=== PATIENT | female | born 1950 | race Caucasian/White ===

== ENCOUNTER 2019-04-07 18:31 | Emergency (ER) | payer MEDICARE, OTHER ==
[~2019-04-07] VITALS: Ht 165 cm; Wt 101.8 kg
[2019-04-07] MEDS ORDERED: HYDR-3812 (18:47)
[2019-04-07] MEDS ORDERED: ATOR20TA66 (18:48)
[2019-04-07] MEDS ORDERED: AMLO5TAB9 (18:48)
[2019-04-07] MEDS ORDERED: ATEN50TA (18:48)
--- NOTE | 2019-04-07 19:25 | ED Head Injury ---
General Chief Complaint: Trauma-Non Activation Stated Complaint: FELL Nursing Triage Note: STATES SHE TRIPPED AND FELL YESTERDAY HITTING HER FACE. CONCERNED BECAUSE THE BACK OF HER HEAD HURTS. Source: patient Exam Limitations: no limitations History of Present Illness Date Seen by Provider: Apr 07, 2019 Time Seen by Provider: 19:22 Initial Comments To ER with reports of trip and fall at home yesterday, she tripped while walking up the stairs after her foot got caught on one of the stairs she fell forward landing nose first. She had a bloody nose temporarily but that has resolved. She now has an occipital headache. No anticoagulant use. No loss of consciousness at that time. Occurred: just prior to arrival Severity: moderate Method of Injury: fell Loss of Consciousness: no loss of consciousness Associated Systoms: Denies Symptoms Allergies and Home Medications Allergies Coded Allergies: No Known Drug Allergies (Unverified , 04/07/19) Patient Home Medication List Home Medication List Reviewed: Yes Review of Systems Review of Systems Constitutional: see HPI Eyes: No Symptoms Reported Ears, Nose, Mouth, Throat: no symptoms reported Respiratory: no symptoms reported Cardiovascular: no symptoms reported Genitourinary: no symptoms reported Musculoskeletal: no symptoms reported Skin: no symptoms reported Psychiatric/Neurological: No Symptoms Reported Endocrine: No Symptoms Reported Hematologic/Lymphatic: No Symptoms Reported Past U[place]-Frnhur-Bsthci Hx Patient Social History Alcohol Use: Rarely Uses Recreational Drug Use: No Smoking Status: Never a Smoker Recent Foreign Travel: No Contact w/Someone Who Travel: No Recent Infectious Disease Expo: No Recent Hopitalizations: No Past Medical History Surgeries: Yes Gallbladder, Tonsillectomy Respiratory: No Cardiac: Yes Hypertension Genitourinary: No Gastrointestinal: No Musculoskeletal: Yes Osteoporosis, Arthritis, Scoliosis Endocrine: No HEENT: No Cancer: No Psychosocial: No Integumentary: No Physical Exam Vital Signs Vital Signs - First Documented 04/07/19 18:41 Temp 37.0 Pulse 62 Resp 16 B/P (MAP) 136/75 (95) Pulse Ox 94 O2 Delivery Room Air Capillary Refill : Less Than 3 Seconds Height, Weight, BMI Height: '" Weight: lbs. oz. kg; 37.00 BMI Method: General Appearance: WD/WN, no apparent distress HEENT: PERRL/EOMI, normal ENT inspection, other (No septal hematoma no active or dried blood in either nostril or oropharynx. Extraocular muscles are intact. Tenderness to the bridge of the nose.) Neck: non-tender, full range of motion Respiratory: normal breath sounds, no respiratory distress, no accessory muscle use Extremities: normal range of motion, non-tender Psychiatric: alert, oriented x 3 Crainal Nerves: normal hearing, normal speech, PERRL Skin: normal color, warm/dry [place] Coma Score Best Eye Response: (4) Open Spontaneously Best Verbal Response: (5) Oriented Best Motor Response: (6) Obeys Commands [place] Total: 15 Progress/Results/Core Measures Results/Orders My Orders Orders - CEDRIC TIRADO APRN Ct Head/Cervical Spine Wo (04/07/19 19:02) Vital Signs/I&O 04/07/19 18:41 Temp 37.0 Pulse 62 Resp 16 B/P (MAP) 136/75 (95) Pulse Ox 94 O2 Delivery Room Air Blood Pressure Mean: 95 Departure Impression Primary Impression: Facial injury Additional Impression: Fall at home Disposition: 01 HOME, SELF-CARE Condition: Stable CEDRIC TIRADO APRN Apr 07, 2019 19:25
--- NOTE | 2019-04-07 19:47 | Diagnostic Imaging Report ---
PROCEDURE: CT head and CT cervical spine without contrast. TECHNIQUE: Multiple contiguous axial images were obtained through the brain and cervical spine without the use of intravenous contrast. Sagittal and coronal reformations through the cervical spine were then performed. Auto Exposure Controls were utilized during the CT exam to meet ALARA standards for radiation dose reduction. INDICATION: Fall. Tingling in the hand. COMPARISON: None. FINDINGS: CT HEAD: No intracranial hemorrhage, mass effect, hydrocephalus or extra-axial fluid collections. No CT evidence of a territorial infarction. Osseous structures are intact. The mastoids are clear. Chronic osteitis and mucosal thickening in the left maxillary sinus. CT cervical spine: Normal alignment. Vertebral body heights preserved. Mild to moderate diffuse degenerative endplate changes. No evidence of high-grade spinal canal narrowing on soft tissue windows. The visualized paravertebral soft tissues are unremarkable. The lung apices are clear. IMPRESSION: No acute intracranial or cervical spine CT findings. Dictated by: Dictated on workstation # [id number]
[2019-04-07 20:10] VITALS: BP 132/74
== END 2019-04-07 20:10 | disposition home or self-care (01) ==
LOC: ER 18:33
DX: S09.93XA Unspecified injury of face, initial encounter (principal); I10 Essential (primary) hypertension; R40.2142 Coma scale, eyes open, spontaneous, at arrival to emergency department; R40.2252 Coma scale, best verbal response, oriented, at arrival to emergency department; R40.2362 Coma scale, best motor response, obeys commands, at arrival to emergency department; Z90.89 Acquired absence of other organs; W01.10XA Fall on same level from slipping, tripping and stumbling with subsequent striking against unspecified object, initial encounter; Y92.009 Unspecified place in unspecified non-institutional (private) residence as the place of occurrence of the external cause
CPT/HCPCS: 70450; 72125

== ENCOUNTER 2021-11-25 15:41 | Emergency (ER) | payer MEDICARE, MEDICAID ==
[~2021-11-25] VITALS: Ht 165 cm; Wt 95.0 kg
[~2021-11-25 15:41] MED LIST: ACHD5005; AMLO-250; ATEN50TA; ATOR20TA66
[2021-11-25] MEDS ORDERED: TETANUS,DIPTH,PERTUSS P/F (BOOSTRIX) 0.5 ML VIAL IM ONE (16:00)
--- NOTE | 2021-11-25 16:34 | Diagnostic Imaging Report ---
Procedure: CT chest, abdomen, and pelvis without contrast. Technique: Multiple contiguous axial images were obtained through the chest, abdomen, and pelvis without the use of intravenous contrast. Auto Exposure Controls were utilized during the CT exam to meet ALARA standards for radiation dose reduction. Date: November 25, 2021. Indication: 71-year-old female, injury. Rib pain. Chest and abdominal pain. Comparison: None. Findings: There are linear opacities in the left lower lobe and left upper lobe consistent with mild atelectasis and/or scarring. There is also mild atelectasis and/or scarring in the right middle lobe and right lower lobe. There is no additional identified focal airspace consolidation. There is no pneumothorax. There is no pleural effusion. The central airways are patent. The heart is not enlarged. There is no pericardial effusion. There is no identified sizable mediastinal hematoma. There are atherosclerotic calcifications. There is no identified abnormally enlarged mediastinal or axillary lymph node meeting CT size criteria for adenopathy. There is a low-attenuation right thyroid nodule measuring 2.3 cm in size. Recommend nonemergent outpatient thyroid ultrasound for further assessment. The liver is unremarkable in size and contour. There is no identified abnormal fluid immediately adjacent to the liver. The gallbladder is surgically absent. There is no biliary ductal dilation. Limited noncontrast assessment of the pancreas is unremarkable. The spleen is normal in size. There is no abnormal fluid immediately adjacent to the spleen. The adrenal glands are unremarkable. Noncontrast assessment of the renal parenchyma is unremarkable. The urinary collecting systems are not distended. The urinary bladder is grossly unremarkable in appearance. There is diverticulosis without evidence of acute diverticulitis. The appendix is unremarkable. There is no free intraperitoneal air. There is no drainable fluid collection. There is no free pelvic fluid. There are atherosclerotic calcifications. There is no identified abnormally enlarged lymph node in the abdomen or pelvis meeting CT size criteria for adenopathy. There are multilevel degenerative changes of the spine. There is scoliosis. There is no identified acute fracture. Impression: 1. No identified acute abnormality at the level of the chest, abdomen or pelvis. 2. Incidental findings as above. Dictated by: Dictated on workstation # [id number]
--- NOTE | 2021-11-25 16:35 | Diagnostic Imaging Report ---
HISTORY: Left knee pain. TECHNIQUE: 3 views of the left knee. COMPARISON: None. FINDINGS: There are severe degenerative changes in the medial and patellofemoral compartments of the left knee with moderate degenerative change in the lateral compartment. There is a small left knee joint effusion. No acute fracture is seen. There is mild anterior soft tissue swelling. IMPRESSION: 1. Advanced degenerative change in the left knee with no acute fracture seen. 2. Small left knee joint effusion. Dictated by: Dictated on workstation # [id number]
--- NOTE | 2021-11-25 16:39 | Diagnostic Imaging Report ---
PROCEDURE: CT head, face, and cervical spine without contrast. TECHNIQUE: Multiple contiguous axial images were obtained through the head, neck, and facial bones without the use of intravenous contrast. Sagittal and coronal reformations through the cervical spine and facial bones were also performed. Auto Exposure Controls were utilized during the CT exam to meet ALARA standards for radiation dose reduction. INDICATION: Head, face, neck injury. Fall. Blood from nose and mouth. Laceration at the left eyebrow. COMPARISON: 04/07/2019. FINDINGS: CT head: The ventricles and cortical sulci are mildly prominent, likely from generalized parenchymal volume loss. There is no midline shift or mass effect. No acute intracranial hemorrhage is seen. There is no CT evidence of acute territorial ischemia. The calvarium appears intact. There is a moderate left frontal scalp hematoma measuring about 4.3 cm wide and 0.8 cm thick with associated laceration. CT face: The pterygoid plates are intact. The zygomatic arches are intact. The mandible is normal in alignment and appears intact. The maxillary sinuses demonstrate no acute fracture. There is marked wall thickening of the left maxillary sinus with significant mucosal thickening and fluid, consistent with an acute on chronic sinusitis. There is a fracture of the left lamina papyracea with fatty defect extending into the ethmoid sinuses. There is no evidence of extraocular muscle entrapment. This may also extend to the orbital floor, but without significant depression (image 34 series 607). The right orbit is intact. No nasal bone fracture is seen. There is left periorbital soft tissue swelling. CT cervical spine: Alignment of the cervical spine demonstrates no spondylolisthesis. There are moderate degenerative changes at C5-C6 and mild degenerative changes elsewhere in the cervical spine. There is bilateral facet arthropathy. This is more severe on the right. No acute fracture is seen. No bony fragments or hyperdense fluid collections are seen in the spinal canal. There is a right thyroid nodule measuring 2.5 cm. IMPRESSION: 1. No acute intracranial hemorrhage or calvarium fracture. 2. Fracture of the lamina papyracea of the medial left orbit, which may extend into the orbital floor. No evidence of muscular entrapment. 3. Acute on chronic left maxillary sinusitis. 4. Left periorbital edema with left frontal scalp hematoma. 5. Degenerative changes in the cervical spine with no acute fracture seen. 6. Right thyroid nodule, consider nonemergent ultrasound follow-up. Dictated by: Dictated on workstation # [id number]
--- NOTE | 2021-11-25 17:00 | ED Fall/Injury ---
General Chief Complaint: Head/Cervical Problems Stated Complaint: FALL Nursing Triage Note: PT TO ED BY EMS WITH C/O HEAD INJURY. EMS REPORTS PT TRIPPED, FELL, AND HIT HER HEAD [place] THE [place]. REPORTS PT HAD DRIED BLOOD IN NARES AND MOUTH. PT REPORTS SHE HAD HER ARMS WERE FULL CARRYING GIFTS AND BALLONS FOR A BIRTHDAY RE[employer] AND SHE TRIPPED OVER HER CANE. DENIES DIZZINESS OR LOC. 1 IN LAC NOTED ABOVE L EYEBROW, HEMATOMA NOTED TO L EYE. PT DENIES ANY CHANGES IN VISION. REPORTS RIB PAIN AND PAIN TO L KNEE. Source: patient, EMS Exam Limitations: no limitations History of Present Illness Date Seen by Provider: November 25, 2021 Time Seen by Provider: 15:42 Initial Comments This 71-year-old woman arrives to the emergency room via EMS after falling and suffering head injury at a local park. She was walking with her cane and holding balloons that were blowing in her face. She was trying to transfer the balloons to the other hand when she got tangled up in her cane and fell. She fell forward hitting her face on a hard surface. She also suffered minor injury to her left knee and left arm. She has significant abrasion to the left forehead that is oozing blood as well as hematoma of the superior periorbital region. She denies any vision changes such as diplopia or blurry vision. She did not lose consciousness. She has some mild epistaxis. She has some pain on the anterior and lateral chest wall beneath the left breast. No visible injury is seen here. Allergies and Home Medications Allergies Coded Allergies: No Known Drug Allergies (Unverified , 04/07/19) Patient Home Medication List Home Medication List Reviewed: Yes Amlodipine Besylate (Amlodipine Besylate) 5 Mg Tablet, (Reported) Entered as Reported by: RONALD PEÑA on 04/07/191847 Atenolol (Atenolol) 50 Mg Tablet, (Reported) Entered as Reported by: RONALD PEÑA on 04/07/191847 Atorvastatin Calcium (Atorvastatin Calcium) 20 Mg Tablet, (Reported) Entered as Reported by: RONALD PEÑA on 04/07/191847 Cefdinir (Cefdinir) 300 Mg Capsule, 300 MG PO BID Prescribed by: LENO TRIPLETT on 11/25/21 183 Hydrocodone Bit/Acetaminophen (Lortab 5 Mg Tablet) 1 Each Tablet, (Reported) Entered as Reported by: RONALD PEÑA on 04/07/19 1847 Review of Systems Review of Systems Constitutional: no symptoms reported Eyes: No Symptoms Reported Ears, Nose, Mouth, Throat: no symptoms reported Respiratory: no symptoms reported Cardiovascular: no symptoms reported Gastrointestinal: no symptoms reported Genitourinary: no symptoms reported : No Musculoskeletal: see HPI Skin: see HPI Psychiatric/Neurological: No Symptoms Reported Past Risbimq-Ppjxok-Oflvrx Hx Patient Social History Tobacco Use?: No Use of E-Cig and/or Vaping dev: No Substance use?: No Alcohol Use?: No Pt feels they are or have been: No Immunizations Up To Date Influenza Vaccine Up-to-Date: No; Not Current First/Initial COVID19 Vaccinat: 2020 Second COVID19 Vaccination Gnio: 2020 COVID19 Vaccine Bait Tier: MODERNAkash Past Medical History Surgery/Hospitalization HX: HTN Surgeries: Yes Gallbladder, Tonsillectomy Respiratory: No Cardiac: Yes Hypertension Reproductive Disorders: No Genitourinary: No Gastrointestinal: No Musculoskeletal: Yes Osteoporosis, Arthritis, Scoliosis Endocrine: No HEENT: No Cancer: No Psychosocial: No Integumentary: No Physical Exam Vital Signs Vital Signs - First Documented 11/25/21 15:44 Temp 36.4 Pulse 64 Resp 16 B/P (MAP) 159/90 (113) Pulse Ox 96 O2 Delivery Room Air Capillary Refill : Less Than 3 Seconds Height, Weight, BMI Height: '" Weight: lbs. oz. kg; 34.00 BMI Method: General Appearance: WD/WN, mild distress HEENT: PERRL/EOMI, other (Significant weeping abrasion above the left brow. Left periorbital swelling and ecchymosis suggestive of hematoma. Epistaxis with small amount of blood in the posterior pharynx. Tenderness over the brow and periorbital regions of the face on the left. No dental injury.) Neck: normal inspection, other (C-collar in place. No visible injury) Cardiovascular: regular rate, rhythm, no edema, no murmur Respiratory: lungs clear, normal breath sounds, no respiratory distress, no accessory muscle use, other (Left anterior and lateral chest tenderness beneath the left breast) Gastrointestinal: normal bowel sounds, non tender, soft Extremities: other (Minor bruising and abrasions to the left upper extremity. Tenderness to the left knee) Neurologic/Psychiatric: lathe turner II-XII nml as tested, no motor/sensory deficits, alert, normal mood/affect, oriented x 3 Skin: warm/dry, ecchymosis (Left face and left arm), other (Weeping abrasion on the left forehead) Progress/Results/Core Measures Results/Orders My Orders Orders - LENO LUO MD Knee, Left, 3 Views (11/25/21 15:58) Ct Head/Face/Cervical Wo (11/25/21 15:58) Ct Chest/Abdomen/Pelvis Wo (11/25/21 15:58) Dipht,Pertuss(Acell),Tet Adult (Boostrix (11/25/21 16:00) Ua Culture If Indicated (11/25/21 17:06) Oxymetazoline 0.05% Nasal Eva (Afrin 0. (11/25/21 21:00) Ceftriaxone (Rocephin) (11/25/21 17:30) Lidocaine 1% Inj 20 Ml (Xylocaine 1% Inj (11/25/21 17:30) Oxymetazoline 0.05% Nasal Eva (Afrin 0. (11/25/21 17:46) Medications Given in ED Current Medications Medications Dose Ordered Sig/Jeni Route Start Time Stop Time Status Last Admin Dose Admin Ceftriaxone Sodium 1,000 mg ONCE ONCE IM 11/25/21 17:30 11/25/21 17:31 DC 11/25/21 17:52 1,000 MG Diphtheria/ Tetanus/Acell Pertussis 0.5 ml ONCE ONCE IM 11/25/21 16:00 11/25/21 16:04 DC 11/25/21 17:51 0.5 ML Lidocaine HCl 2.1 ml ONCE ONCE INJ 11/25/21 17:30 11/25/21 17:31 DC 11/25/21 17:54 2.1 ML Vital Signs/I&O 11/25/21 15:44 Temp 36.4 Pulse 64 Resp 16 B/P (MAP) 159/90 (113) Pulse Ox 96 O2 Delivery Room Air Blood Pressure Mean: 113 Progress Progress Note : Progress Note Imaging studies revealed a left orbital fracture. This was discussed with Dr. Gupta. Because of the free air on the orbital side of this fracture, aggressive prophylactic antibiotic therapy was administered with an injection of Rocephin to be followed by Omnicef orally. Patient received a tetanus booster. Patient had a posterior nasal bleed and was occasionally coughing up some blood secondary to this posterior bleed. This was discussed with Dr. Gupta who advised against packing because of the fracture. As an alternative, Afrin was administered which seemed to help slow down bleeding. Bleeding was a minor issues at the time of discharge. See discharge instructions for further discussion. Incidental thyroid nodule was identified and patient was advised to follow-up closely with her PCP. Diagnostic Imaging Diagonstic Imaging: CT Plain Films/CT/US/NM/MRI: chest, abdomen, pelvis Comments NAME: KIESHA BARRETO [facility] REC#: [id number] PT STATUS: REG ER : 1950 PHYSICIAN: LENO LUO MD ADMIT DATE: 11/25/21/ER Signed Date of Exam:11/25/21 CT CHEST/ABDOMEN/PELVIS WO Procedure: CT chest, abdomen, and pelvis without contrast. Technique: Multiple contiguous axial images were obtained through the chest, abdomen, and pelvis without the use of intravenous contrast. Auto Exposure Controls were utilized during the CT exam to meet ALARA standards for radiation dose reduction. Date: November 25, 2021. Indication: 71-year-old female, injury. Rib pain. Chest and abdominal pain. Comparison: None. Findings: There are linear opacities in the left lower lobe and left upper lobe consistent with mild atelectasis and/or scarring. There is also mild atelectasis and/or scarring in the right middle lobe and right lower lobe. There is no additional identified focal airspace consolidation. There is no pneumothorax. There is no pleural effusion. The central airways are patent. The heart is not enlarged. There is no pericardial effusion. There is no identified sizable mediastinal hematoma. There are atherosclerotic calcifications. There is no identified abnormally enlarged mediastinal or axillary lymph node meeting CT size criteria for adenopathy. There is a low-attenuation right thyroid nodule measuring 2.3 cm in size. Recommend nonemergent outpatient thyroid ultrasound for further assessment. The liver is unremarkable in size and contour. There is no identified abnormal fluid immediately adjacent to the liver. The gallbladder is surgically absent. There is no biliary ductal dilation. Limited noncontrast assessment of the pancreas is unremarkable. The spleen is normal in size. There is no abnormal fluid immediately adjacent to the spleen. The adrenal glands are unremarkable. Noncontrast assessment of the renal parenchyma is unremarkable. The urinary collecting systems are not distended. The urinary bladder is grossly unremarkable in appearance. There is diverticulosis without evidence of acute diverticulitis. The appendix is unremarkable. There is no free intraperitoneal air. There is no drainable fluid collection. There is no free pelvic fluid. There are atherosclerotic calcifications. There is no identified abnormally enlarged lymph node in the abdomen or pelvis meeting CT size criteria for adenopathy. There are multilevel degenerative changes of the spine. There is scoliosis. There is no identified acute fracture. Impression: 1. No identified acute abnormality at the level of the chest, abdomen or pelvis. 2. Incidental findings as above. Dictated by: Dictated on workstation # [id number] Dict: 11/25/21 1624 Trans: 11/25/211652 [facility] [id number] Interpreted by: MERLE ROY MD Electronically signed by: MERLE ROY MD 11/25/21 3713 Reviewed: Reviewed by Me Diagonstic Imaging: CT Plain Films/CT/US/NM/MRI: facial bones, c-spine, head Comments CT head, C-spine, and facial bones viewed by me and report reviewed. See report below: NAME: KIESHA BARRETO [facility] REC#: [id number] PT STATUS: REG ER : 1950 PHYSICIAN: LENO LUO MD ADMIT DATE: 11/25/21/ER Signed Date of Exam:11/25/21 CT HEAD/FACE/CERVICAL WO PROCEDURE: CT head, face, and cervical spine without contrast. TECHNIQUE: Multiple contiguous axial images were obtained through the head, neck, and facial bones without the use of intravenous contrast. Sagittal and coronal reformations through the cervical spine and facial bones were also performed. Auto Exposure Controls were utilized during the CT exam to meet ALARA standards for radiation dose reduction. INDICATION: Head, face, neck injury. Fall. Blood from nose and mouth. Laceration at the left eyebrow. COMPARISON: 04/07/2019. FINDINGS: CT head: The ventricles and cortical sulci are mildly prominent, likely from generalized parenchymal volume loss. There is no midline shift or mass effect. No acute intracranial hemorrhage is seen. There is no CT evidence of acute territorial ischemia. The calvarium appears intact. There is a moderate left frontal scalp hematoma measuring about 4.3 cm wide and 0.8 cm thick with associated laceration. CT face: The pterygoid plates are intact. The zygomatic arches are intact. The mandible is normal in alignment and appears intact. The maxillary sinuses demonstrate no acute fracture. There is marked wall thickening of the left maxillary sinus with significant mucosal thickening and fluid, consistent with an acute on chronic sinusitis. There is a fracture of the left lamina papyracea with fatty defect extending into the ethmoid sinuses. There is no evidence of extraocular muscle entrapment. This may also extend to the orbital floor, but without significant depression (image 34 series 607). The right orbit is intact. No nasal bone fracture is seen. There is left periorbital soft tissue swelling. CT cervical spine: Alignment of the cervical spine demonstrates no spondylolisthesis. There are moderate degenerative changes at C5-C6 and mild degenerative changes elsewhere in the cervical spine. There is bilateral facet arthropathy. This is more severe on the right. No acute fracture is seen. No bony fragments or hyperdense fluid collections are seen in the spinal canal. There is a right thyroid nodule measuring 2.5 cm. IMPRESSION: 1. No acute intracranial hemorrhage or calvarium fracture. 2. Fracture of the lamina papyracea of the medial left orbit, which may extend into the orbital floor. No evidence of muscular entrapment. 3. Acute on chronic left maxillary sinusitis. 4. Left periorbital edema with left frontal scalp hematoma. 5. Degenerative changes in the cervical spine with no acute fracture seen. 6. Right thyroid nodule, consider nonemergent ultrasound follow-up. Dictated by: Dictated on workstation # [id number] Dict: 11/25/21 1623 Trans: 11/25/211652 [facility] [id number] Interpreted by: MAYRA HOLGUIN MD Electronically signed by: MAYRA HOLGUIN MD 11/25/21 2389 Diagonstic Imaging: Xray Plain Films/CT/US/NM/MRI: knee Comments NAME: KIESHA BARRETO [facility] REC#: [id number] PT STATUS: REG ER : 1950 PHYSICIAN: LENO LUO MD ADMIT DATE: 11/25/21/ER Signed Date of Exam:11/25/21 KNEE, LEFT, 3 VIEWS HISTORY: Left knee pain. TECHNIQUE: 3 views of the left knee. COMPARISON: None. FINDINGS: There are severe degenerative changes in the medial and patellofemoral compartments of the left knee with moderate degenerative change in the lateral compartment. There is a small left knee joint effusion. No acute fracture is seen. There is mild anterior soft tissue swelling. IMPRESSION: 1. Advanced degenerative change in the left knee with no acute fracture seen. 2. Small left knee joint effusion. Dictated by: Dictated on workstation # [id number] Dict: 11/25/21 1631 Trans: 11/25/21 1653 [facility] [id number] Interpreted by: MAYRA HOLGUIN MD Electronically signed by: MAYRA HOLGUIN MD 11/25/21 1653 Reviewed: Reviewed by Me Departure Impression Primary Impression: Left orbit fracture Qualified Codes: S02.85XA - Fracture of orbit, unspecified, initial encounter for closed fracture Additional Impressions: Thyroid nodule Sinusitis Qualified Codes: J01.90 - Acute sinusitis, unspecified Facial abrasion Qualified Codes: S00.81XA - Abrasion of other part of head, initial encounter Fall on same level Qualified Codes: W18.30XA - Fall on same level, unspecified, initial encounter Epistaxis Facial hematoma Qualified Codes: S00.83XA - Contusion of other part of head, initial encounter Disposition: 01 HOME, SELF-CARE Condition: Improved Departure-Patient Inst. Decision time for Depature: 18:24 Referrals: KALA RODRIGUEZ MD (PCP/Family) Primary Care Physician VINCENT GUPTA DDS Patient Instructions: Facial Fracture, Thyroid Nodules Add. Discharge Instructions: Start your antibiotics tomorrow and complete the entire course. If you have continued nasal bleeding, you may use Afrin 2 sprays in each side twice daily for up to 3 days. You may apply gentle pinching pressure over the nose as well to help control bleeding. Expect some degree of nasal bleeding for 1 to 2 days. Try to avoid disrupting any clots forming in your nose by blowing your nose, rubbing your nose, etc. If bleeding is worsening and not responding to these measures, please return to the emergency room. You may shower when you return home to wash off your abrasions. Try not to scrub directly over the wounds, just allow soapy water to run over the area. You may apply gentle pressure and blot dry to help control bleeding. You may apply antibiotic ointment and a dressing if desired. The antibiotic ointment will help prevent dressing from sticking to the wound. If dressing does stick to the wound, simply moistened with tap water until it comes loose. Follow-up with Dr. Gupta this week for reexamination and a checkup. Please call his office tomorrow morning to schedule an appointment time. His contact information is below. If you develop worsening symptoms that include fever, escalating pain, double vision, vomiting, confusion, other vision changes, weakness or numbness of the body part, or other significant changes, please return to the emergency room promptly. You may use Tylenol (acetaminophen) up to 1000 mg every 6 hours as needed for pain. Add ibuprofen up to 600 mg every 6 hours as needed for additional pain relief. Applying ice in 20-minute intervals may help reduce pain and swelling. You have a hematoma on your forehead and around your eye. Blood from this hematoma will fiore into the surrounding skin and other tissues causing significant discoloration that may spread for up to 2 to 3 weeks. Do not be alarmed if the appearance of the skin worsens in this way during that time. Call with questions or concerns and return to the ER if you have any other significant medical concerns. There is incidental finding of a thyroid nodule on your CT scan. Please discuss this with your primary care provider in the near future. Follow-up ultrasound should be ordered and obtained to evaluate further. This can be done through your primary care provider's office. All discharge instructions reviewed with patient and/or family. Voiced understanding. Scripts Cefdinir (Cefdinir) 300 Mg Capsule 300 MG PO BID, #20 CAP Prov: LENO LUO MD 11/25/21 Copy Copies To 1: BARBARA MORALES V DO; KALA RODRIGUEZ MD Copies To 2: VINCENT GUPTA DDS, JOSHUA T MD November 25, 2021 17:00
[2021-11-25] MEDS ORDERED: cefTRIAXone 1,000 MG VIAL IM ONE (17:30)
[2021-11-25] MEDS ORDERED: LIDOCAINE 1% INJ 20 ML VIAL INJ ONE (17:30)
[2021-11-25] MEDS ORDERED: OXYMETAZOLINE (AFRIN) 0.05% NA 30 ML BTL ONE (17:46)
[2021-11-25] MEDS ORDERED: CEFD300C3 PO (18:34)
[2021-11-25 18:53] VITALS: BP 152/96
[2021-11-25] MEDS ORDERED: OXYMETAZOLINE (AFRIN) 0.05% NA 30 ML BTL SCH (21:00)
== END 2021-11-25 19:05 | disposition home or self-care (01) ==
LOC: EDUNIT# 15:41 → ER 15:42
DX: S02.32XA Fracture of orbital floor, left side, initial encounter for closed fracture (principal); S40.022A Contusion of left upper arm, initial encounter; R04.0 Epistaxis; J01.90 Acute sinusitis, unspecified; E04.1 Nontoxic single thyroid nodule; R07.89 Other chest pain; Z23 Encounter for immunization; W01.198A Fall on same level from slipping, tripping and stumbling with subsequent striking against other object, initial encounter; Y92.830 Public park as the place of occurrence of the external cause
CPT/HCPCS: 70450; 70486; 71250; 72125; 73562; 74176; 90715

== ENCOUNTER → 2021-12-24 | Outpatient (CLI) | payer MEDICARE, MEDICAID ==
[~2021-12-24] VITALS: Ht 165.1 cm; Wt 101.4 kg
[~2021-12-24] MED LIST changes: +CEFD300C3 PO; +LIDOCAINE 1% INJ 20 ML VIAL INJ ONE
--- NOTE | 2021-12-24 14:50 | Diagnostic Imaging Report ---
INDICATION: Right lobe thyroid nodule. PROCEDURE: The patient presents for ultrasound-guided fine needle aspiration and biopsy. The patient was brought to the procedure room and placed on a bed in the supine position. Ultrasound imaging of the right neck was performed to evaluate appropriate entry site. Right neck was then prepped and draped in the usual sterile fashion. A small amount of 1% lidocaine was utilized for local anesthesia. A total of 4 passes were made into the dominant solid nodule right lobe of the thyroid utilizing 25-gauge needles and fine-needle aspiration technique. A single pass was made with a Rotex needle and a Rotex biopsy was performed. Hemostasis was obtained. The patient tolerated the procedure well and left the department in stable condition. IMPRESSION: Successful right lobe thyroid nodule fine needle aspiration and Rotex biopsy. Pathology results are currently pending. Dictated by: Dictated on workstation # [id number]
== END ==
LOC: RAD 13:00
PROVIDERS: ATTEND Pediatrics
DX: E04.1 Nontoxic single thyroid nodule (principal)
CPT/HCPCS: 10005

== ENCOUNTER → 2023-01-03 | Outpatient (CLI) | payer MEDICARE, MEDICAID ==
[~2023-01-03] MED LIST changes: -LIDOCAINE 1% INJ 20 ML VIAL INJ ONE
== END ==
LOC: CARD 13:37
PROVIDERS: ATTEND Pediatrics
DX: I08.1 Rheumatic disorders of both mitral and tricuspid valves (principal)
CPT/HCPCS: 93306

== ENCOUNTER → 2023-02-06 | Outpatient (CLI) | payer MEDICARE, MEDICAID ==
--- NOTE | 2023-02-06 15:47 | Diagnostic Imaging Report ---
EXAMINATION: Lumbosacral spine, four views. HISTORY: Back pain. COMPARISON: None available. FINDINGS: There is dextroscoliosis of the lumbar spine. There is right lateral listhesis of L2 on L3 and L3 on L4. There is severe disc height loss at L2-L3 and L3-L4. There is severe disc height loss at L1-L2. No acute fracture is seen. There is anterolisthesis of L4 on L5 with flexion and retrolisthesis of L3 on L4 with flexion. There is no listhesis in the neutral or extension positions. IMPRESSION: Severe degenerative disease with anterolisthesis of L4 on L5 and retrolisthesis of L3 on L4, only in flexion. Dictated by: Dictated on workstation # [id number]
--- NOTE | 2023-02-06 16:39 | Diagnostic Imaging Report ---
PROCEDURE: MRI lumbar spine without contrast. TECHNIQUE: Multiplanar, multisequence MRI of the lumbar spine was performed without contrast. INDICATION: Low back pain with right leg radiculopathy. COMPARISON: Radiographs performed the same date. FINDINGS: 5 lumbar type vertebral bodies are visualized with the last well-formed disc space designated L5-S1. No acute fracture or dislocation is seen in the lumbar spine. There is right convexity curvature of the lumbar spine with right lateral subluxation of L3 on L4. Modic type II endplate degenerative changes are present at the L2-L3 level with Modic type I endplate degenerative changes at L1-L2 and L3-L4. Vertebral body heights are well-maintained. No suspicious focal osseous lesions. Evaluation of the conus and nerve roots of the cauda equina is suboptimal, with the axial images essentially nondiagnostic. Based on the sagittal and coronal images, no obvious mass is seen. No epidural collections are identified. Multilevel degenerative changes are seen in the lumbar spine with disc bulges, facet hypertrophy, and buckling of the ligamentum flavum. There is severe spinal canal stenosis at the L3-L4 and L4-L5 levels with severe bilateral foraminal stenosis at L3-L4 and severe right and moderate left foraminal stenosis at L4-L5. Paravertebral soft tissues are unremarkable. IMPRESSION: 1. No acute fracture or dislocation in the lumbar spine. 2. Multilevel degenerative changes in the lumbar spine, greatest at L3-L4 and L4-L5. 3. Modic type I endplate degenerative changes at L1-L2 and L3-L4 with Modic type II endplate degenerative changes at L2-L3. 4. Right convexity curvature of the lumbar spine with right lateral subluxation of L3 on L4. Dictated by: Dictated on workstation # [id number]
== END ==
LOC: RAD 14:06
PROVIDERS: ATTEND Pain Medicine Interventional Pain Medicine
DX: M48.062 Spinal stenosis, lumbar region with neurogenic claudication (principal); M47.816 Spondylosis without myelopathy or radiculopathy, lumbar region; S33.130A Subluxation of L3/L4 lumbar vertebra, initial encounter
CPT/HCPCS: 72110; 72148

== ENCOUNTER → 2023-03-17 | Outpatient (CLI) | payer MEDICARE, MEDICAID ==
[~2023-03-17] MED LIST changes: +CATHETER FLUSH 10 ML SYR IVP PRN; +REGADENOSON 0.4 MG/5 ML SYR IV ONE
[2023-03-17 09:32] VITALS: BP 185/109
--- NOTE | 2023-03-17 11:54 | Cardiology Stress Test Report ---
Stress Test Report Date of Procedure/Referring: Date of Procedure: Mar 17, 2023 PCP Barbara Valdez DO Admitting Physician Admitting Physician: Attending Physician: Barbara Valdez DO Baseline Heart Rate: 76 Baseline Blood Pressure: Blood Pressure Systolic: 185 Blood Pressure Diastolic: 109 Baseline Vitals Vital Signs Date Time Temp Pulse Resp B/P (MAP) Pulse Ox O2 Delivery O2 Flow Rate FiO2 03/17/23 09:32 74 185/109 (134) Baseline EKG: Baseline EKG: NSR Summary After explaining the procedure to the patient, she signed a consent and then brought to the stress nuclear laboratory. Patient received 0.4 mg Lexiscan for stress test, ECG, heart rate and blood pressure were monitored continuously. Resting and stress dose of radio tracer were injected, imaging was acquired and reviewed in short axis, horizontal long axis and vertical long axis views. TID: 0.83 SSS: 4 SDS: 4 EF: 58 Patient tolerated Lexiscan well No significant ischemia or infarction noted on SPECT images Normal left ventricular size, ejection fraction 58% Copy Copies To 1: BARBARA VALDEZ BASHAR J MD Mar 17, 2023 11:54
== END ==
LOC: CARD 07:51
PROVIDERS: ATTEND Pediatrics
DX: Z01.818 Encounter for other preprocedural examination (principal)
CPT/HCPCS: 78452; 93017; A9502

== ENCOUNTER 2023-04-10 11:49 | Outpatient (RCR) | payer MEDICARE, MEDICAID ==
--- NOTE | 2023-04-09 09:32 | Physical Therapy Pre-Op Eval ---
PT Pre-Surgical Assessment Type of Surgery Type of Surgery: Prior Level of Function Current Living Status: Alone Locomotion (Upon Admit): Straight Cane Distance: Unlimited PLOF DME: Straight Cane Subjective Subjective Patient reports right knee pain for a few years. Reports she lives alone and that is concerning to her as she will have to rely on people to come assist her when possible. Home: Single Level Current Living Status: Alone Entry Into Home: Stairs With Railing Steps Into Home: 6 Motor Control Motor Control: Motor Control WNL ROM ROM: WFL, except focal deficit Strength Strength: Gen Weak,No Focal Deficit Transfers Transfers (B, C, W/C) (FIM): 6 Gait Gait (FIM): 6 Gait Distance (FIM): 6 Distance: 150' Gait Assistive Device: FWW Right Lower Extremity: Right Full Weight Bearing Left Lower Extremity: Left Full Weight Bearing Treatment Rendered Treatment: Patient instructed in assistive device, supported ambulation. Patient instructed in and given written program of ROM and strengthening exercises to be preformed post-op. Patient instructed in movement precautions where applicable. Patient demonstrates understandings of post-operative therapy protocol including gait pattern and exercise program. Pre-operative instruction completed; await physical therapy orders after surgery. Treatment Goal Met: Yes Assessment Goals Acheived: I Ambulation w/ FWW, Understands P-op Precaut, I Post-op Exercises Charges/GCodes Time In: 900 Time Out: 917 Total Billed Treatment Time: 17 Total Billed Treatment Visit, ERNESTINE CARMONA PT Apr 09, 2023 09:32
[2023-04-09 09:48] VITALS: BP 110/62
[~2023-04-10] VITALS: Ht 165.1 cm; Wt 96.0 kg
[~2023-04-10 11:49] MED LIST changes: +ACET325C7 PO; +ALBU0.63 IH; +ATEN25TA PO; -CATHETER FLUSH 10 ML SYR IVP PRN; +CELE100C PO; +CETI10CA PO; +CHOL20003 PO; +DICL20GE TP; +GBPN600T PO; +LIDO1ADH66 TP; +MIRA50TA PO; +MULT-1036 PO; -REGADENOSON 0.4 MG/5 ML SYR IV ONE; +TR1C15 TP; +TRAZ-227 PO; +ZINC220C9 PO
[2023-04-10 15:19] LABS: BACTERIA,URINE LARGE /HPF; BILIRUBIN,URINE NEGATIVE (NEGATIVE); CLARITY,URINE CLEAR; COLOR,URINE YELLOW; GLUCOSE, URINE (UA) NEGATIVE (NEGATIVE); KETONES,URINE NEGATIVE (NEGATIVE); LEUKOCYTE ESTERASE ,URINE 1+ (NEGATIVE); NITRITE,URINE NEGATIVE (NEGATIVE); PROTEIN,URINE NEGATIVE (NEGATIVE); RBC,URINE 0-2 /HPF
[2023-04-16] MEDS ORDERED: VILO100C PO (15:06)
[2023-04-16] MEDS ORDERED: MULT-1036 PO (15:06)
[2023-04-16] MEDS ORDERED: LIDO1ADH66 TP (15:06)
[2023-04-16] MEDS ORDERED: CETI10CA PO (15:06)
[2023-04-16] MEDS ORDERED: CELE100C85 PO (15:06)
[2023-04-16] MEDS ORDERED: TR1C15 TP (15:06)
[2023-04-16] MEDS ORDERED: TRAZ-227 PO ×2 (15:06→15:57)
[2023-04-16] MEDS ORDERED: AMLO-250 PO (15:06)
[2023-04-16] MEDS ORDERED: ZINC220C9 PO (15:06)
[2023-04-16] MEDS ORDERED: ATOR20TA66 PO ×2 (15:06→15:57)
[2023-04-16] MEDS ORDERED: ALBU8.5H6 IH (15:06)
[2023-04-16] MEDS ORDERED: GBPN600T PO (15:06)
[2023-04-16] MEDS ORDERED: CELE400C16 PO (15:57)
[2023-04-16] MEDS ORDERED: OXYC1TAB11 PO (15:58)
[2023-04-16] MEDS ORDERED: TRAM50TA3 PO (16:01)
[2023-04-16] MEDS ORDERED: ACET-2267 PO (16:01)
== END 2023-05-06 | disposition home or self-care (01) ==
LOC: PREOP 11:49
PROVIDERS: ATTEND Orthopaedic Surgery
DX: Z01.818 Encounter for other preprocedural examination (principal); M17.11 Unilateral primary osteoarthritis, right knee
CPT/HCPCS: 81000; 87077; 87088; 87186

== ENCOUNTER 2023-04-16 05:50 | Inpatient (IN) | payer MEDICARE, MEDICAID ==
--- NOTE | 2023-04-09 09:02 | HISTORY AND PHYSICAL ---
DATE OF SERVICE: 04/16/2023 This will be for inpatient admission on 04/09/2023 for right total knee arthroplasty. HISTORY OF PRESENT ILLNESS: The patient is a 73-year-old female with longstanding right knee pain. She has undergone treatment with injections with only temporary relief of her symptoms. She reports she has reached the point where it is not helping anymore. She does have a history of sciatica, but reports her primary complaint is her knee. She describes a dull aching pain on the medial aspect of her knee. She reports anterior knee pain. She reports difficulty with rising from a seated position. Radiographs reveal severe medial and patellofemoral arthrosis. Due to functional impairment and failure to improve with conservative measures, the patient elected to proceed with surgical intervention. REVIEW OF SYSTEMS: No chest pain. No shortness of breath. No dysuria. PAST MEDICAL HISTORY: Back pain, hyperlipidemia, hypertension, insomnia, osteoarthritis, ADHD, lumbar radiculopathy. PAST SURGICAL HISTORY: Cataracts, cholecystectomy, hysterectomy, thyroid biopsy. FAMILY HISTORY: Noncontributory. PRIMARY CARE PROVIDER: Dr. Valdez at [facility]. MEDICATIONS: Zyrtec, Zinc, Voltaren, melatonin, gabapentin, atomoxetine, atorvastatin, amlodipine, Celebrex, atenolol, trazodone, Myrbetriq. ALLERGIES: WELLBUTRIN. SOCIAL HISTORY: The patient is a former smoker. Denies alcohol use. PHYSICAL EXAMINATION: GENERAL: The patient is well-developed, well-nourished, in no acute distress. HEENT: Normocephalic, atraumatic. Pupils equal, round, reactive to light. Oropharynx is clear. NECK: Supple. No lymphadenopathy. LUNGS: Clear to auscultation bilaterally. HEART: Regular rate and rhythm. ABDOMEN: Soft, nontender, nondistended. EXTREMITIES: The right knee demonstrates varus alignment. She is tender along her medial femoral condyle. She has pain medially with Ray's. No varus or valgus laxity. Negative anterior and posterior drawer. Range of motion of 0/3/120. IMPRESSION: Severe right knee osteoarthritis. PLAN: Right total knee arthroplasty. The risks, benefits, options, ramifications and recovery have been discussed at length with the patient. She understands and wishes to proceed. The patient will require regular inpatient admission due to comorbidities, need for physical therapy and pain management. Job ID: [id number] DocumentID: [id number] Dictated Date: 03/31/2023 10:07:44 Braille Teacher Date: 03/31/2023 14:43:00 Dictated By: KALEIGH ARTHUR MD
[2023-04-09 09:51] LABS: BASOPHILS % (AUTO) 0 % (0-10); EOSINOPHILS # (AUTO) 0.1 10^3/uL (0.0-0.3); EOSINOPHILS % (AUTO) 1 % (0-10); HEMATOCRIT 42 % (35-52); HEMOGLOBIN 14.2 g/dL (11.5-16.0); LYMPHOCYTES # (AUTO) 1.3 10^3/uL (1.0-4.0); LYMPHOCYTES % (AUTO) 17 % (12-44); MEAN CORPUSCULAR HEMOGLOBIN 31 pg (25-34); MEAN CORPUSCULAR HGB CONC 34 g/dL (32-36); MEAN CORPUSCULAR VOLUME 90 fL (80-99); MEAN PLATELET VOLUME 9.9 fL (9.0-12.2); MONOCYTES # (AUTO) 0.7 10^3/uL (0.0-1.0); MONOCYTES % (AUTO) 9 % (0-12); NEUTROPHILS # (AUTO) 5.3 10^3/uL (1.8-7.8); NEUTROPHILS % (AUTO) 72 % (42-75); PLATELET COUNT 200 10^3/uL (130-400); WHITE BLOOD COUNT 7.3 10^3/uL (4.3-11.0)
[2023-04-09 10:03] LABS: PROTHROMBIN TIME PATIENT 13.6 SEC (12.2-14.7)
[2023-04-09 10:14] LABS: ALBUMIN 3.7 GM/DL (3.2-4.5); BILIRUBIN,TOTAL 0.8 MG/DL (0.1-1.0); CALCIUM 8.8 MG/DL (8.5-10.1); CREATININE SERUM 0.82 MG/DL (0.60-1.30); POTASSIUM 3.6 MMOL/L (3.6-5.0); TOTAL PROTEIN 6.7 GM/DL (6.4-8.2)
--- NOTE | 2023-04-09 11:38 | Diagnostic Imaging Report ---
INDICATION: Preoperative evaluation prior to knee replacement. COMPARISON: None FINDINGS: Frontal and lateral views of the chest demonstrate normal heart size and pulmonary vascularity. The lungs are clear. There are no signs of infiltrate, pleural effusions or pneumothoraces. The visualized osseous structures show no acute abnormalities. IMPRESSION: 1. No acute process. No signs of infiltrates, effusions or pneumothoraces. Dictated by: Dictated on workstation # [id number]
[~2023-04-16] VITALS: Ht 165.1 cm; Wt 108.0 kg
[2023-04-16] VITALS (12 sets, daily range): BP systolic 91–137; BP diastolic 67–95
--- OUTSIDE RECORDS SUMMARY | 2023-04-16 05:54 | XMS REPORT ---
Author Author [facility] ter of [facility] ter of [facility] Address Unknown Phone Unavailable Care Team Providers Care Ore Crusher Name Role Phone ANTONIO Gonsalez Unavailable PROBLEMS Type Condition ICD9-CM Code QVP74-[id number] Code Onset Dates Condition Status W/U Status Risk SNOMED Code Notes Problem Osteoarthriti s, unspecified osteoarthriti s type, unspecified site M19.90 confirmed 176393043 Problem Bilateral primary osteoarthriti s of knee M17.0 confirmed 480763700 Problem Mixed hyperlipidemi a E78.2 confirmed 505130544 Problem Morbid (severe) obesity due to excess calories E66.01 confirmed 973167042 Problem OAB (overactive bladder) N32.81 confirmed 866915553 Problem 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 confirmed 0739512673 54357 Problem Neuropathy G62.9 confirmed 521310536 Problem Essential hypertension I10 confirmed 81636108 Problem Abnormality of gait R26.9 confirmed 50502445 Problem Primary osteoarthriti s of right knee M17.11 confirmed 4427547468 56765 Problem 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 Code:[address]- 07) visual hallucinations Drug Allergy Active ENCOUNTERS from 1950 to 2023-04-12 Encounter Location Date Provider Diagnosis [facility] [id number] [place] [address] Apr, ANTONIO Gonsalez Neuroma D36.10 IMMUNIZATIONS Vaccine Route Administration Date Status PRIVATE HIGH DOSE FLU 22-23 (FLUZONE HD) AGE 65YRS AND UP IM Intramuscular Apr 25, 2022 Administer ed 1st Booster MODERNA COVID-19 , mRNA, 0.25mL Unknown October 09, 2021 Administered 2nd Dose HRSA MODERNA, COVID -19, 0.5mL IM Intramuscular October 12, 2020 Administered 1st Dose HRSA MODERNA, COVID -19, 0.5mL IM Intramuscular September 14, 2020 Administered COVID-19 Moderna (history) Unknown October 24, 2021 Administered tdap (history) Unknown November 25, 2021 Administered 1st Booster MODERNA Bivalent , COVID-19, 0.5mL IM Intramuscular May 29, 2022 Administered PRIVATE FLUZONE HIGH DOSE 0. 5ML (65 and UP) 2019 IM Intramuscular Jun 28, 2019 Administered PRIVATE SHINGRIX (HERPES ZOS TER-2 DOSE) IM Intramuscular Aug 22, 2022 Administered PRIVATE SHINGRIX (HERPES ZOS TER-2 DOSE) IM Intramuscular Jun 13, 2022 Administered SOCIAL HISTORY Sex Assigned At : Social History Observation Description Sex Assigned At Unknown Alcohol Screen (Audit-C) Question Answer Notes Did you have a drink containing alcohol in the p ast year? No Points 0 Interpretation Negative Sexual History Question Answer Notes Had sex in the past 12 months (vaginal, oral, or anal)? Yes Last menstrual period 2008 Have you ever had a Sexually transmitted disease ? No with Men only Use protection? No PHQ2 Question Answer Notes In the last 2 weeks, how oft en have you had little interest or pleasure in doing things? Not at all In the last 2 weeks, how oft en have you been feeling down, depressed, or hopeless? Not at all Total PHQ2 Score 0 Tobacco use other than smoking: Question Answer Notes Are you an other tobacco user? No REASON FOR REFERRAL No Information VITAL SIGNS Height 65.6 in Apr, Height-cm 166.62 cm Apr, Weight 234 lbs Apr, Weight-kg 106.14 kg Apr, Temperature 97.8 degrees Fahrenheit Apr, Heart Rate 80 bpm Apr, Respiratory Rate 20 bpm Apr, BMI 38.23 kg/m2 Apr, Blood pressure systolic 132 mmHg Apr, Blood pressure diastolic 80 mmHg Apr, MEDICATIONS Medication SIG (Take, Route, Frequency, Duration) Notes Start Date End Date Status Zinc 50 MG 1 tablet Orally Once a day Active Gabapentin 600 MG 1 capsule Orally 3 times a day for 90 days Active Triamcinolone Acetonide 0.1 % 1 application Externally Twice a day for 10 days PRN Apr, Active Vitamin D3 50 MCG (2000 UT) 1 capsule Orally Once a day Active Celecoxib 100 MG TAKE 1 CAPSULE BY MOUTH TWICE DAILY WITH FOOD for 90 Not-Taking Calcium 1200 1623-6247 MG-UNIT 1 tablet Orally Once a day Active Albuterol Sulfate HFA 108 (90 Base) MCG/ACT 1 puff as needed Inhalation every 4-6 hours as needed for 30 days prn Aug, Active Biotin 5000 MCG 1 tablet Acti ve amLODIPine Besylate 5 MG Take 1 tablet by mouth once daily for 90 Active Shingrix 50 MCG/0.5ML 0.5 ml` Intramuscular Now and in greater than 60 days for 1 days Jun, Not-Taking Voltaren 1 % apply 4 grams to knees and hips Transdermal 4 times a day for 7 days NEEDS SAMPLE Not-Taking Multi For Her 50+ - as directed Orally Active traZODone HCl 100 mg 2 tablets Orally at night as needed for sleep for 90 days Active Naproxen 500 MG 1 tablet with food or milk as needed Orally every 12 hrs Active Lidoderm 5 % 1 patch remove after 12 hours Externally Once a day for 90 days prn November, Active Tylenol 500 mg 1 tablet as needed Orally PRN PRN Active Myrbetriq 50 MG Take 1 tablet by mouth once daily for 90 Active Qelbree 100 MG 1 capsule in morning for one week then take 2 capsules every morning Orally Once a day for 90 days Active Atorvastatin Calcium 20 MG Take 1 tablet by mouth once daily for 100 Active Atenolol 25 MG Take 1 tablet by mouth once daily for 90 days Active Vitamin C 500 MG as directed Orally PRN Active Doxycycline Hyclate 100 mg 1 capsule Orally Twice a day for 10 day(s) Aug, Not-Taking ZyrTEC Allergy 10 mg 1 tablet Orally Onc e a day for 90 Active REASON FOR VISIT 2 mo f/u --jose g mendes MEDICAL (GENERAL) HISTORY Type Description Date Medical History HTN Medical History arthritis Medical History spinal stenosis Medical History Vitamin D deficiency Medical History Covid Medical History Mixed hyperlipidemia Medical History Osteoarthritis, unsp ecified osteoarthritis type, unspecified site Medical History OAB (overactive bladder) Medical History Lumbar radiculopathy Medical History Insomnia Medical History Thyroid nodule Medical History ADHD (attention defi cit hyperactivity disorder), combined type Surgical History gallbladder 2001 Surgical History tonsillectomy Surgical History Right eye cateracts 12/24 Surgical History Left eye Cateract Surgery 01/24 20 Surgical History biopsy on thyroid nodule 2 Hospitalization History surgeries MENTAL STATUS No Information ASSESSMENTS Encounter Date Diagnosis Assessment Notes Treatment Notes Treatment Clinical Notes Apr, Neuroma (ICD-10 - 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 I would like the pt to consider utilizing a metatarsal pad as well as appropriate arch support on a consistent basis. The Achilles tendon stretches are also important to do consistently. Apr, Other This progres s note was scribed by Rianna Crow MA under the direct supervision of Dr. Eisenberg who directed the entire visit and performed the physical exam. PLAN OF TREATMENT Medication Medication Name Sig Start Date Stop Date Qelbree 100 MG 1 capsule in morning for one week then take 2 capsules every morning Orally Once a day for 90 days traZODone HCl 100 mg 2 tablets Orally at night as needed for sleep for 90 days Treatment Notes Assessment Notes Clinical Notes Neuroma Various treatment op tions were discussed with the pt today. I would like the pt to consider utilizing a metatarsal pad as well as appropriate arch support on a consistent basis. The Achilles tendon stretches are also important to do consistently. Next Appt Details prn Reason: Provider Name:BARBARA MORALES, 2023-05-26 03:20:00 PM, [address], [id number], [place], [address], Provider Name:GATITO BARLOW, 2023-07-17 03:20:00 PM, [address], [id number], [place], [address], Insurance Providers Payer Name Payer Address Payer Phone Insured Name Patient Relationship to Insured Coverage Start Date Coverage End Date Subscriber Number Group Number [place] [address] [place] [id number] Shakira Li Self - patient is the insured [id number] AARP Medicare Advantage Choice Plan 2 (PPO) [address] [address] [facility] [address] Shakira Li Self - patient is the insured 2 [id number] [employer] MEDICARE Part A [address] [place] [address] Shakira Li Self - patient is the insured [id number] [employer] [address] [place] [address] Shakira Li Self - patient is the insured [id number] [employer] [address] ATTN DENTAL CLAIMS [facility] [id number] Shakira Li Self - patient is the insured [id number]
--- OUTSIDE RECORDS SUMMARY | 2023-04-16 05:54 | XMS REPORT ---
Author Author [facility] ter of [facility] ter of [facility] Address Unknown Phone Unavailable Care Team Providers Care Airplane Pilot Helper Name Role Phone DERICK MONTIEL Unavailable PROBLEMS Type Condition ICD9-CM Code NSS97-OX Code Onset Dates Condition Status W/U Status Risk SNOMED Code Notes Problem Osteoarthriti s, unspecified osteoarthriti s type, unspecified site M19.90 confirmed 808095933 Problem Bilateral primary osteoarthriti s of knee M17.0 confirmed 534578202 Problem Mixed hyperlipidemi a E78.2 confirmed 626837847 Problem Morbid (severe) obesity due to excess calories E66.01 confirmed 160066918 Problem OAB (overactive bladder) N32.81 confirmed 029734732 Problem 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 confirmed 3576968627 16199 Problem Neuropathy G62.9 confirmed 224199955 Problem Essential hypertension I10 confirmed 04578805 Problem Abnormality of gait R26.9 confirmed 83299635 Problem Primary osteoarthriti s of right knee M17.11 confirmed 0333985169 38135 Problem 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 confirmed 59406888 Problem Lumbar radiculopathy M54.16 confirmed 356318525 Problem Insomnia G47.00 confirmed 424202818 Problem Moderate asthma with exacerbation, unspecified whether persistent J45.901 confirmed 008237420 Problem ADHD (attention deficit hyperactivity disorder), combined type F90.2 confirmed 269651901 Problem Thyroid nodule E04.1 confirmed 153572131 ALLERGIES Allergen (clinical drug ingredient) Drug/Non Drug Allergy documented on EMR Reaction Allergy Type Onset Date Status bupropion Wellbutrin XL([facility] Code:[address]- 07) visual hallucinations Drug Allergy Active ENCOUNTERS from 1950 to 2023-03-04 Encounter Location Date Provider Diagnosis [facility] [id number] [place] [address] 13 Mar, 2021 DERICK MONTIEL Major depressive disorder, recurrent, moderate F33.1 and Attn-defct hyperactivity disorder, 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 5ML (65 and UP) 2018 IM Intramuscular Jun 28, 2019 Administered tdap (history) Unknown November 25, 2021 Administered COVID-19 Moderna (history) Unknown October 24, 2021 Administered 2nd Dose HRSA MODERNA, COVID -19, 0.5mL IM Intramuscular October 12, 2020 Administered 1st Booster MODERNA COVID-19 , mRNA, 0.25mL Unknown October 09, 2021 Administered 1st Dose HRSA MODERNA, COVID -19, 0.5mL IM Intramuscular September 14, 2020 Administered PRIVATE HIGH DOSE FLU 22-23 (FLUZONE HD) AGE 65YRS AND UP IM Intramuscular Apr 25, 2022 Administer ed 1st Booster MODERNA Bivalent , COVID-19, 0.5mL IM Intramuscular May 29, 2022 Administered PRIVATE SHINGRIX (HERPES ZOS TER-2 [...] user? No REASON FOR REFERRAL No Information MEDICATIONS Medication SIG (Take, Route, Frequency, Duration) Notes Start Date End Date Status Zinc 50 MG 1 tablet Orally Once a day Active Atomoxetine HCl 80 MG 1 capsule in the morning Orally Once a day TAKING UNTIL NEW MED IS APPROVED WITH INSURANCE Not-Taking Doxycycline Hyclate 100 mg 1 capsule Orally Twice a day for 10 day(s) Aug, Not-Taking Qelbree 100 MG 1 capsule in morning for one week then take 2 capsules every morning Orally Once a day for 90 days Dec, Active Atenolol 25 MG Take 1 tablet by mouth once daily for 90 days Active Atorvastatin Calcium 20 MG Take 1 tablet by mouth once daily for 100 Active amLODIPine Besylate 5 MG Take 1 tablet by mouth once daily for 90 Active ZyrTEC Allergy 10 mg 1 tablet Orally Once a day for 90 Active Albuterol Sulfate HFA 108 (90 Base) MCG/ACT 1 puff as needed Inhalation every 4-6 hours as needed for 30 days prn Aug, Active Tylenol 500 mg 1 tablet as needed Orally PRN PRN Active Triamcinolone Acetonide 0.1 % 1 application Externally Twice a day for 10 days PRN Apr, Active Lidoderm 5 % 1 patch remove after 12 hours Externally Once a day for 90 days prn November, Active Voltaren 1 % apply 4 grams to knees and hips Transdermal 4 times a day for 7 days NEEDS SAMPLE Not-Taking Vitamin C 500 MG as directed Orally PRN Active Calcium 1200 3061-5707 MG-UNIT 1 tablet Orally Once a day Active Celecoxib 100 MG TAKE 1 CAPSULE BY MOUTH TWICE DAILY WITH FOOD for 90 Not-Taking Vitamin D3 50 MCG (2000 UT) 1 capsule Orally Once a day Active traZODone HCl 100 mg 2 tablets Orally at night as needed for sleep for 90 days Active Gabapentin 600 MG 1 capsule Orally 3 times a day for 90 days Active Shingrix 50 MCG/0.5ML 0.5 ml` Intramuscular Now and in greater than 60 days for 1 days Jun, Not-Taking Multi For Her 50+ - as directed Orally Active Myrbetriq 50 MG Take 1 tablet by mouth once daily for 90 Active Biotin 5000 MCG 1 tablet Acti ve REASON FOR VISIT BH Intake MEDICAL (GENERAL) HISTORY Type Description Date Medical [...] 20 Surgical History biopsy on thyroid nodule Hospitalization History surgeries MENTAL STATUS No Information ASSESSMENTS Encounter Date Diagnosis Assessment Notes Treatment Notes Treatment Clinical Notes Mar, Attn-defct hyperactivity disorder, predom inattentive type (ICD-10 - F90.0) Mar, Major depressive disorder, recurrent, moderate (ICD-10 - F33.1) PLAN OF TREATMENT Medication Medication Name Sig Start Date Stop Date Atenolol 25 MG Take 1 tablet by mouth once daily for 9 0 days Next Appt Details Next Available Reason: F/U Provider Name:GATITO BARLOW, 2023-03-25 01:20:00 PM, [address], [id number], [place], [address], Provider Name:BARBARA MORALES, 2023-05-26 03:20:00 PM, [address], [id number], [place], [address], Follow Up:Next Available F/U Insurance Providers Payer Name Payer Address Payer Phone Insured Name Patient Relationship to Insured Coverage Start Date Coverage End Date Subscriber Number Group Number [employer] [address] [facility] [id number] Shakira Li Self - patient is the insured [id number] [facility] Medicare Advantage Choice Plan 2 (PPO) [address] [address] [facility] [id number] [phone] Shakira Li Self - patient is the insured 2 [id number] [facility] MEDICARE Part A [address] [place] [id number] Shakira Li Self - patient is the insured [id number] [employer] [address] ATTN DENTAL CLAIMS [facility] [id number] Shakira Li Self - patient is the insured [id number] MEDICAID OF [place] [address] [facility] [id number] [phone] Shakira Li Self - patient is the insured [id number]
--- OUTSIDE RECORDS SUMMARY | 2023-04-16 05:54 | XMS REPORT ---
Author Author [facility] ter of [facility] ter of [facility] Address Unknown Phone Unavailable Care Team Providers Care Civil Cad Tech Name Role Phone DERICK MONTIEL Unavailable PROBLEMS Type Condition ICD9-CM Code [id number] Code Onset Dates Condition Status W/U Status Risk SNOMED Code Notes Problem Osteoarthriti s, unspecified osteoarthriti s type, unspecified site M19.90 confirmed 056690392 Problem Bilateral primary osteoarthriti s of knee M17.0 confirmed 787955951 Problem Mixed hyperlipidemi a E78.2 confirmed 935971407 Problem Morbid (severe) obesity due to excess calories E66.01 confirmed 308083365 Problem OAB (overactive bladder) N32.81 confirmed 824931221 Problem 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 confirmed 9108987631 74480 Problem Neuropathy G62.9 confirmed 132616665 Problem Essential hypertension I10 confirmed 91860127 Problem Abnormality of gait R26.9 confirmed 73628586 Problem Primary osteoarthriti s of right knee M17.11 confirmed 3309749395 93800 Problem 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 confirmed 98860675 Problem Lumbar radiculopathy M54.16 confirmed 208901913 Problem Insomnia G47.00 confirmed 514335343 Problem Moderate asthma with exacerbation, unspecified whether persistent J45.901 confirmed 201292430 Problem ADHD (attention deficit hyperactivity disorder), combined type F90.2 confirmed 423489669 Problem Thyroid nodule E04.1 confirmed 174291821 ALLERGIES Allergen (clinical drug ingredient) Drug/Non Drug Allergy documented on EMR Reaction Allergy Type Onset Date Status bupropion Wellbutrin XL(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 IMMUNIZATIONS Vaccine Route Administration Date Status 1st Booster MODERNA COVID-19 , mRNA, 0.25mL Unknown October 09, 2021 Administered PRIVATE SHINGRIX (HERPES ZOS TER-2 DOSE) IM Intramuscular Jun 13, 2022 Administered PRIVATE HIGH DOSE FLU 22-23 (FLUZONE HD) AGE 65YRS AND UP IM Intramuscular Apr 25, 2022 Administer ed 1st Booster MODERNA Bivalent , COVID-19, 0.5mL IM Intramuscular May 29, 2022 Administered 2nd Dose HRSA MODERNA, COVID -19, 0.5mL IM Intramuscular October 12, 2020 Administered COVID-19 Moderna (history) Unknown October 24, 2021 Administered 1st Dose HRSA MODERNA, COVID -19, 0.5mL IM Intramuscular September 14, 2020 Administered tdap (history) Unknown November 25, 2021 Administered PRIVATE FLUZONE HIGH DOSE 0. 5ML (65 and UP) 2019 IM Intramuscular Jun 28, 2019 Administered PRIVATE SHINGRIX (HERPES ZOS TER-2 DOSE) IM Intramuscular Aug 22, 2022 Administered SOCIAL HISTORY Sex Assigned At [...] WITH FOOD for 90 Not-Taking Calcium 1200 0712-9929 MG-UNIT 1 tablet Orally Once a day [...] day for 90 Active REASON FOR VISIT f/u MEDICAL (GENERAL) HISTORY Type Description Date Medical [...] Notes Treatment Notes Treatment Clinical Notes Apr, Attn-defct hyperactivity disorder, predom inattentive type (ICD-10 - F90.0) Apr, Major depressive disorder, recurrent, moderate (ICD-10 - F33.1) PLAN OF TREATMENT Medication Medication Name Sig Start Date Stop Date Qelbree 100 MG 1 capsule in morning for one week then take 2 capsules every morning Orally Once a day for 90 days traZODone HCl 100 mg 2 tablets Orally at night as needed for sleep for 90 days Next Appt Details Next available Reason: F/U Provider Name:BARBARA MORALES, 2023-05-26 03:20:00 PM, [address] [facility], [id number], [place], [address], Provider Name:GATITO BARLOW, 2023-07-17 03:20:00 PM, [address] [facility], [id number], [place], [address], Follow Up:Next available F/U Insurance Providers Payer Name Payer Address Payer Phone Insured Name Patient Relationship to Insured Coverage Start Date Coverage End Date Subscriber Number Group Number [employer] [address] ATTN DENTAL CLAIMS [facility] [id number] [phone] Shakira Li Self - patient is the insured [id number] [employer] [address] [facility] [address] Shakira Li Self - patient is the insured [id number] MEDICAID OF [place] [address] [facility] [address] Shakira Li Self - patient is the insured [id number] [place] MEDICARE Part A [address] [place] [phone] Shakira Li Self - patient is the insured [id number] AARP Medicare Advantage Choice Plan 2 (PPO) [address] [address] [facility] [address] Shakira Li Self - patient is the insured 2 [id number]
--- OUTSIDE RECORDS SUMMARY | 2023-04-16 05:55 | XMS REPORT ---
Author Author [facility] ter of [facility] ter of [facility] Address Unknown Phone Unavailable Care Team Providers Care Tv News Director Name Role Phone KALA RODRIGUEZ Unavailable PROBLEMS Type Condition ICD9-CM Code ZAQ15-[id number] Code Onset Dates Condition Status W/U Status Risk SNOMED Code Notes Problem Osteoarthriti s, unspecified osteoarthriti s type, unspecified site M19.90 confirmed 436131727 Problem Bilateral primary osteoarthriti s of knee M17.0 confirmed 796549383 Problem Mixed hyperlipidemi a E78.2 confirmed 390938065 Problem Morbid (severe) obesity due to excess calories E66.01 confirmed 129706341 Problem OAB (overactive bladder) N32.81 confirmed 001997494 Problem 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 confirmed 6558392856 94279 Problem Neuropathy G62.9 confirmed 098060627 Problem Essential hypertension I10 confirmed 17408378 Problem Abnormality of gait R26.9 confirmed 06817973 Problem Primary osteoarthriti s of right knee M17.11 confirmed 0071258141 78754 Problem 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 confirmed 23533657 Problem Lumbar radiculopathy M54.16 confirmed 995491688 Problem Insomnia G47.00 confirmed 946859199 Problem Moderate asthma with exacerbation, unspecified whether persistent J45.901 confirmed 547591067 Problem ADHD (attention deficit hyperactivity disorder), combined type F90.2 confirmed 958094404 Problem Thyroid nodule E04.1 confirmed 559212715 ALLERGIES Allergen (clinical drug ingredient) Drug/Non Drug Allergy documented on EMR Reaction Allergy Type Onset Date Status bupropion Wellbutrin XL([facility] Code:[address]- 07) visual hallucinations Drug Allergy Active ENCOUNTERS from 1950 to 2023-01-04 Encounter Location Date Provider Diagnosis [facility] [address] [facility] [id number] [place] [address] Jan, KALA RODRIGUEZ Lumbar radiculopathy M54.16 ; Trochanteric bursitis of left hip M70.62 and Adjustment disorder with anxious mood F43.22 IMMUNIZATIONS Vaccine Route Administration Date Status 1st Dose HRSA MODERNA, COVID -19, 0.5mL IM Intramuscular September 14, 2020 Administered 1st Booster MODERNA COVID-19 , mRNA, 0.25mL Unknown October 09, 2021 Administered 1st Booster MODERNA Bivalent , COVID-19, 0.5mL IM Intramuscular May 29, 2022 Administered PRIVATE HIGH DOSE FLU 22-23 (FLUZONE HD) AGE 65YRS AND UP IM Intramuscular Apr 25, 2022 Administer ed 2nd Dose HRSA MODERNA, COVID -19, 0.5mL IM Intramuscular October 12, 2020 Administered COVID-19 Moderna (history) Unknown October 24, 2021 Administered PRIVATE FLUZONE HIGH DOSE 0. 5ML (65 and UP) 2018 IM Intramuscular Jun 28, 2019 Administered tdap (history) Unknown November 25, 2021 Administered PRIVATE SHINGRIX (HERPES ZOS TER-2 [...] other tobacco user? No REASON FOR REFERRAL from 1950 to 2023-01-04 Reason Counseling Diagnosis 1 Adjustment disorder with anxious mood (F43.22) Referral Organization [facility] Referring Provider First Name KALA Referring Provider Last Name MICHAEL Referring Provider Specialty Internal Me gela Referred Provider ,(IN HOUSE) Referred Provider Specialty Behavioral H ealt Referral Priority Routine General Notes Miguel A Green 2020 12:35:48 PM >Lvm and sent a pt portal message to schedule an appt Miguel A Green 01/24/2021 11:04:12 AM >Lvm and sent a pt portal message to schedule an appt VITAL SIGNS Height 65.6 in Jan, Height-cm 166.62 cm Jan, Weight 231.4 lbs Jan, Weight-kg 104.96 kg Jan, Temperature 98.1 degrees Fahrenheit Jan, Heart Rate 80 bpm Jan, Respiratory Rate 20 bpm Jan, BMI 37.8 kg/m2 Jan, Blood pressure systolic 128 mmHg Jan, Blood pressure diastolic 80 mmHg Jan, MEDICATIONS Medication SIG (Take, Route, Frequency, Duration) Notes Start Date End Date Status traZODone HCl 100 mg 2 tablets Orally at night as needed for sleep for 90 days Active Atomoxetine HCl 80 MG 1 capsule in the morning Orally Once a day TAKING UNTIL NEW MED IS APPROVED WITH INSURANCE Active Qelbree 100 MG 1 capsule in morning for one week then take 2 capsules every morning Orally Once a day for 30 days hasnt started yet waiting insurance approval Dec, Active Celecoxib 100 MG TAKE 1 CAPSULE BY MOUTH TWICE DAILY WITH FOOD for 90 Not-Taking Shingrix 50 MCG/0.5ML 0.5 ml` Intramuscular Now and in greater than 60 days for 1 days Jun, Active Tylenol 500 mg 1 tablet as needed Orally PRN PRN Active Voltaren 1 % apply 4 grams to knees and hips Transdermal 4 times a day for 7 days NEEDS SAMPLE Not-Taking Vitamin C 500 MG as directed Orally PRN Active amLODIPine Besylate 5 MG Take 1 tablet by mouth once daily for 90 Active Atenolol 50 MG Take 1 tablet by mouth once daily for 90 Active ZyrTEC Allergy 10 mg 1 tablet Orally Once a day for 90 Active Lidoderm 5 % 1 patch remove after 12 hours Externally Once a day for 90 days prn November, Active Albuterol Sulfate HFA 108 (90 Base) MCG/ACT 1 puff as needed Inhalation every 4-6 hours as needed for 30 days prn Aug, Active Zinc 50 MG 1 tablet Orally Once a day Active Doxycycline Hyclate 100 mg 1 capsule Orally Twice a day for 10 day(s) Aug, Not-Taking Multi For Her 50+ - as directed Orally Active Gabapentin 600 MG 1 capsule Orally 3 times a day for 90 days Active Myrbetriq 50 MG Take 1 tablet by mouth once daily for 90 Active Atorvastatin Calcium 20 MG Take 1 tablet by mouth once daily for 100 Active Triamcinolone Acetonide 0.1 % 1 application Externally Twice a day for 10 days PRN Apr, Active Vitamin D3 50 MCG (1999 UT) 1 capsule Orally Once a day Active REASON FOR VISIT chm - having hard time walking - sitting is ok if she has a pillow- cant stand long periods / nonumbness but in left foot has neuropathy but the gabapentin is helping - ambar araiza, needs pdm and contract-ptrn --- contract was signed at visit- ambar araiza MEDICAL (GENERAL) HISTORY Type Description Date Medical [...] Assessment Notes Treatment Notes Treatment Clinical Notes Jan, Trochanteric bursiti s of left hip (ICD-10 - M70.62) Injected with 40 mg Kenalog Jan, Lumbar radiculopathy (ICD-10 - M54.16) Declines med changes or PT. Advised touse LIdodern during ann, heat during day Jan, Adjustment disorder with anxious mood (ICD-10 - F43.22) PLAN OF TREATMENT Treatment Notes Assessment Notes Clinical Notes Trochanteric bursitis of left hip Injected with 40 mg Kenalog Lumbar radiculopathy Declines me d changes or PT. Advised touse LIdodern during ann, heat during day Referrals Referral Date Details Counseling, (IN HOUS E) BH Next Appt Details 2 Months Reason: Provider Name:BARBARA MORALES, 2023-01-14 03:00:00 PM, [address] [facility], [place], [address], Provider Name:GATITO BARLOW, 2023-02-13 02:40:00 PM, [address] [facility], [id number], [place], [address], Provider Name:BARBARA MORALES, 2023-05-26 03:20:00 PM, [address] [facility], [id number], [place], [address], Insurance Providers Payer Name Payer Address Payer Phone Insured Name Patient Relationship to Insured Coverage Start Date Coverage End Date Subscriber Number Group Number MEDICAID OF [place] [address] [facility] [address] Shakira Li Self - patient is the insured [id number] [place]GS MEDICARE Part A [address] [place] [address] Shakira Li Self - patient is the insured [id number] [facility] Medicare Advantage Choice Plan 2 (PPO) [address] [address] [facility] [address] Shakira Li Self - patient is the insured 2 [id number] [facility] DENTAL [address] ATTN DENTAL CLAIMS [facility] [id number] Shakira Li Self - patient is the insured [id number] [employer] [address] [facility] [id number] Shakira Li Self - patient is the insured [id number]
--- OUTSIDE RECORDS SUMMARY | 2023-04-16 05:55 | XMS REPORT ---
Author Author [facility] ter of [facility] ter of [facility] Address Unknown Phone Unavailable Care Team Providers Care Pipeline Engineer Name Role Phone KALA RODRIGUEZ Unavailable PROBLEMS Type Condition ICD9-CM Code [id number] Code Onset Dates Condition Status W/U Status Risk SNOMED Code Notes Problem Morbid (severe) obesity due to excess calories E66.01 confirmed 635428583 Problem OAB (overactive bladder) N32.81 confirmed 761776751 Problem Primary osteoarthriti s of right knee M17.11 confirmed 1259599615 44275 Problem Lumbar radiculopathy M54.16 confirmed 111222920 Problem Neuropathy G62.9 confirmed 203046416 Problem 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 confirmed 5053198446 11358 Problem Attn-defct hyperactivity disorder, 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 confirmed 18001007 Problem Pain R52 confirmed 50529980 Problem Major depressive disorder, recurrent, moderate F33.1 confirmed 39055362 Problem Moderate asthma with exacerbation, unspecified whether persistent J45.901 confirmed 934872148 Problem ADHD (attention deficit hyperactivity disorder), combined type F90.2 confirmed 196354973 Problem Thyroid nodule E04.1 confirmed 388099883 Problem Encounter for immunization Z23 confirmed 152426732 Problem Insomnia G47.00 confirmed 748406573 Problem Mixed hyperlipidemi a E78.2 confirmed 966676484 Problem Abnormality of gait R26.9 confirmed 49982929 Problem Essential hypertension I10 confirmed 95183997 Problem Osteoarthriti s, unspecified osteoarthriti s type, unspecified site M19.90 confirmed 406865021 Problem Bilateral primary osteoarthriti s of knee M17.0 confirmed 824043195 Problem Primary insomnia F51.01 confirmed 9426846 Problem Cough R05.9 confirmed 06165088 Problem Medication monitoring encounter Z51.81 confirmed 200231051 Problem Flu vaccine need Z23 confirmed 679636347 ALLERGIES Allergen (clinical drug ingredient) Drug/Non Drug Allergy documented on EMR Reaction Allergy Type Onset Date Status bupropion Wellbutrin XL([facility] Code:[address]- 07) visual hallucinations Drug Allergy Active ENCOUNTERS from 1950 to 2022-11-07 Encounter Location Date Provider Diagnosis [facility] [address] [facility] [id number] [address] November, KALA RODRIGUEZ Primary osteoarthrit is of right knee M17.11 IMMUNIZATIONS Vaccine Route Administration Date Status PRIVATE [...] 2018 IM Intramuscular Jun 28, 2019 Administered PRIVATE [...] Duration) Notes Start Date End Date Status Atenolol 50 MG Take 1 tablet by mouth once daily for 90 Active traZODone HCl 100 mg 2 tablets Orally at night as needed for sleep for 90 days Active amLODIPine Besylate 5 MG Take 1 tablet by mouth once daily for 90 Active ZyrTEC Allergy 10 mg 1 tablet Orally Onc e a day for 90 Active Shingrix 50 MCG/0.5ML 0.5 ml` Intramuscular Now and in greater than 60 days for 1 days Jun, Active Atorvastatin Calcium 20 MG Take 1 tablet by mouth once daily for 100 Active Albuterol Sulfate HFA 108 (90 Base) MCG/ACT 1 puff as needed Inhalation every 4-6 hours as needed for 30 days Aug, Active Celecoxib 100 MG TAKE 1 CAPSULE BY MOUTH TWICE DAILY WITH FOOD for 90 Active Tylenol 500 mg 1 tablet as needed Orally PRN Active Strattera 80 MG 1 capsule Orally Once a day for 90 days Active Zinc 50 MG 1 tablet Orally Once a day Active Gabapentin 600 MG 1 capsule Orally 3 times a day for 30 days Active Vitamin D3 50 MCG (2000 UT) 1 capsule Orally Once a day taking x4 Active Multi For Her 50+ - as directed Orally Active Lidoderm 5 % 1 patch remove after 12 hours Externally Once a day for 90 days NEEDS REFILL November, Active Voltaren 1 % apply 4 grams to knees and hips Transdermal 4 times a day for 7 days NEEDS SAMPLE Not-Taking Myrbetriq 50 MG Take 1 tablet by mouth once daily for 90 Active Triamcinolone Acetonide 0.1 % 1 application Externally Twice a day for 10 days PRN Apr, Active Vitamin C 500 MG as directed Orally Active Doxycycline Hyclate 100 mg 1 capsule Orally Twice a day for 10 day(s) Aug, Not-Taking REASON FOR VISIT lidocaine patch MEDICAL (GENERAL) HISTORY Type Description Date Medical [...] Assessment Notes Treatment Notes Treatment Clinical Notes November, Primary osteoarthritis of right knee (ICD-10 - M17.11) PLAN OF TREATMENT Medication Medication Name Sig Start Date Stop Date Celecoxib 100 MG TAKE 1 CAPSULE BY MO UT TWICE DAILY WITH FOOD for 90 Strattera 80 MG 1 capsule Orally Onc e a day for 90 days traZODone HCl 100 mg 2 tablets Orally at night as needed for sleep for 90 days Atorvastatin Calcium 20 MG Take 1 tablet by mouth once daily for 100 Myrbetriq 50 MG Take 1 tablet by ronny th once daily for 90 Atenolol 50 MG Take 1 tablet by ronny once daily for 90 Next Appt Details Provider Name:GATITO BARLOW, 2022-12-19 03:00:00 PM, [address] [facility], [id number], [place], [address], Provider Name:BARBARA MORALES, 2022-12-23 11:20:00 AM, [address] [facility], [id number], [place], [address], Insurance Providers Payer Name Payer Address Payer Phone Insured Name Patient Relationship to Insured Coverage Start Date Coverage End Date Subscriber Number Group Number [employer] [address] [facility] [address] Shakira Li Self - patient is the insured [id number] [facility] Medicare Advantage Choice Plan 2 (PPO) [address] [address] [facility] [address] Shakira Li Self - patient is the insured 2 [id number] [employer] [address] ATTN DENTAL CLAIMS [facility] [address] Shakira Li Self - patient is the insured [id number] MED[place]ID OF [place] [address] [facility] [address] [phone] Shakira Li Self - patient is the insured [id number] [place] MEDICARE Part A [address] [place] [address] Shakira Li Self - patient is the insured [id number]
--- OUTSIDE RECORDS SUMMARY | 2023-04-16 05:55 | XMS REPORT ---
Author Author [facility] ter of [facility] ter of [facility] Address Unknown Phone Unavailable Care Team Providers Care Esol Instructor Name Role Phone KALA RODRIGUEZ Unavailable PROBLEMS Type Condition ICD9-CM Code QUQ80-LH Code Onset Dates Condition Status W/U Status Risk SNOMED Code Notes Problem Morbid (severe) obesity due to excess calories E66.01 confirmed 163454823 Problem OAB (overactive bladder) N32.81 confirmed 216087765 Problem Primary osteoarthriti s of right knee M17.11 confirmed 1062216698 96665 Problem Lumbar radiculopathy M54.16 confirmed 796850990 Problem Neuropathy G62.9 confirmed 368092620 Problem 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 confirmed 2061414843 74616 Problem Attn-defct hyperactivity disorder, 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 confirmed 77348422 Problem Pain R52 confirmed 25384780 Problem Major depressive disorder, recurrent, moderate F33.1 confirmed 06341111 Problem Moderate asthma with exacerbation, unspecified whether persistent J45.901 confirmed 593680946 Problem ADHD (attention deficit hyperactivity disorder), combined type F90.2 confirmed 385810279 Problem Thyroid nodule E04.1 confirmed 287302244 Problem Encounter for immunization Z23 confirmed 510925131 Problem Insomnia G47.00 confirmed 215641865 Problem Mixed hyperlipidemi a E78.2 confirmed 738439646 Problem Abnormality of gait R26.9 confirmed 90180528 Problem Essential hypertension I10 confirmed 03095131 Problem Osteoarthriti s, unspecified osteoarthriti s type, unspecified site M19.90 confirmed 032018534 Problem Bilateral primary osteoarthriti s of knee M17.0 confirmed 992975983 Problem Primary insomnia F51.01 confirmed 0071908 Problem Cough R05.9 confirmed 02863168 Problem Medication monitoring encounter Z51.81 confirmed 961065796 Problem Flu vaccine need Z23 confirmed 136134826 ALLERGIES Allergen (clinical drug ingredient) Drug/Non Drug Allergy documented on EMR Reaction Allergy Type Onset Date Status bupropion Wellbutrin XL([facility] Code:[address]- 07) visual hallucinations Drug Allergy Active ENCOUNTERS from 1950 to 2022-12-16 Encounter Location Date Provider Diagnosis [facility] [address] [facility] [id number] [place] [address] Jan, KALA RODRIGUEZ Primary osteoarthrit is of right knee M17.11 IMMUNIZATIONS Vaccine Route Administration Date Status 1st [...] (history) Unknown October 24, 2021 Administered PRIVATE SHINGRIX (HERPES ZOS TER-2 DOSE) IM Intramuscular Jun 13, 2022 Administered tdap (history) Unknown November 25, 2021 [...] by mouth once daily for 90 Active Gabapentin 600 MG 1 capsule Orally 3 times a day for 90 days Active amLODIPine Besylate 5 [...] Once a day for 90 days Active Voltaren 1 % apply 4 grams to knees and hips Transdermal 4 times a day for 7 days NEEDS SAMPLE Not-Taking Zinc 50 MG 1 tablet Orally Once a day Active Vitamin D3 50 MCG (2000 UT) 1 capsule Orally Once a day taking x4 Active Doxycycline Hyclate 100 mg 1 capsule Orally Twice a day for 10 day(s) Aug, Not-Taking Lidoderm 5 % 1 patch remove after 12 hours Externally Once a day for 90 days NEEDS REFILL November, Active Multi For Her 50+ - as directed Orally Active Myrbetriq 50 MG Take 1 tablet by mouth once daily for 90 Active Triamcinolone Acetonide 0.1 % 1 application Externally Twice a day for 10 days PRN Apr, Active Vitamin C 500 MG as directed Orally Active traZODone HCl 100 mg 2 tablets Orally at night as needed for sleep for 90 days Active REASON FOR VISIT Medication refill request MEDICAL (GENERAL) HISTORY Type Description Date Medical [...] Notes Treatment Notes Treatment Clinical Notes Jan, Primary osteoarthritis of right knee (ICD-10 - M17.11) PLAN OF TREATMENT Medication Medication Name Sig Start Date Stop Date Celecoxib 100 MG TAKE 1 CAPSULE BY MO UTH TWICE DAILY WITH FOOD for 90 Strattera 80 MG 1 capsule Orally Onc e a day for 90 days traZODone HCl 100 mg 2 tablets Orally at night as needed for sleep for 90 days Atorvastatin Calcium 20 MG Take 1 tablet by mouth once daily for 100 Atenolol 50 MG Take 1 tablet by ronny th once daily for 90 Gabapentin 600 MG 1 capsule Orally 3 t imes a day for 90 days Myrbetriq 50 MG Take 1 tablet by ronny th once daily for 90 Next Appt Details Provider Name:GATITO BARLOW, 2022-12-19 03:00:00 PM, [address] [facility], [id number], [place], [address], Provider Name:BARBARA MORALES, 2022-12-23 11:20:00 AM, [address] [facility], [id number], [place], [address], Insurance Providers Payer Name Payer Address Payer Phone Insured Name Patient Relationship to Insured Coverage Start Date Coverage End Date Subscriber Number Group Number [employer] [address] [facility] [address] Shakira Li Self - patient is the insured [id number] [employer] MEDICARE Part A [address] [place] [phone] Shakira Li Self - patient is the insured [id number] [facility] Medicare Advantage Choice Plan 2 (PPO) [address] [address] [facility] [phone] Shakira Li Self - patient is the insured 2 [id number] [employer] [address] ATTN DENTAL CLAIMS [place] [address] [phone] Shakira Li Self - patient is the insured [id number] MEDICAID OF [place] [address] [facility] [address] [phone] Shakira Li Self - patient is the insured [id number]
--- OUTSIDE RECORDS SUMMARY | 2023-04-16 05:55 | XMS REPORT ---
Author Author [facility] ter of [facility] ter of [facility] ([place], [place]) Address Unknown Phone Unavailable Care Team Providers Care Safety Glass Installer Name Role Phone KALA RODRIGUEZ Unavailable PROBLEMS Type Condition ICD9-CM Code ZZR88-[id number] Code Onset Dates Condition Status W/U Status Risk SNOMED Code Notes Problem Morbid (severe) obesity due to excess calories E66.01 confirmed 647352364 Problem OAB (overactive bladder) N32.81 confirmed 184885845 Problem Primary osteoarthriti s of right knee M17.11 confirmed 0579880473 26772 Problem Lumbar radiculopathy M54.16 confirmed 513695241 Problem Neuropathy G62.9 confirmed 313583664 Problem 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 confirmed 7023579606 22110 Problem Attn-defct hyperactivity disorder, 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 confirmed 92110071 Problem Pain R52 confirmed 09506563 Problem Major depressive disorder, recurrent, moderate F33.1 confirmed 69278740 Problem Moderate asthma with exacerbation, unspecified whether persistent J45.901 confirmed 649243800 Problem ADHD (attention deficit hyperactivity disorder), combined 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 confirmed 783144322 Problem Thyroid nodule E04.1 confirmed 992602776 Problem Encounter for immunization Z23 confirmed 571569979 Problem Insomnia G47.00 confirmed 299114626 Problem Mixed hyperlipidemi a E78.2 confirmed 489410310 Problem Abnormality of gait R26.9 confirmed 82852728 Problem Essential hypertension I10 confirmed 69550415 Problem Osteoarthriti s, unspecified osteoarthriti s type, unspecified site M19.90 confirmed 721545967 Problem Bilateral primary osteoarthriti s of knee M17.0 confirmed 830319444 Problem Primary insomnia F51.01 confirmed 9701472 Problem Cough R05.9 confirmed 91155359 Problem Medication monitoring encounter Z51.81 confirmed 810866544 Problem Flu vaccine need Z23 confirmed 992039552 ALLERGIES Allergen (clinical drug ingredient) Drug/Non Drug Allergy documented on EMR Reaction Allergy Type Onset Date Status bupropion Wellbutrin XL([facility] Code:[address]- 07) visual hallucinations Drug Allergy Active ENCOUNTERS from 1950 to 2022-11-07 Encounter Location Date Provider Diagnosis [facility] [address] [facility] [id number] [place] [address] 24 Nov, 2020 KALA RODRIGUEZ Spinal stenosis of lumbar region without neurogenic claudication M48.061 IMMUNIZATIONS Vaccine Route Administration Date Status tdap (history) Unknown November 25, 2021 Administered COVID-19 Moderna (history) Unknown October 24, 2021 Administered PRIVATE SHINGRIX (HERPES ZOS TER-2 DOSE) IM Intramuscular Jun 13, 2022 Administered 1st Dose HRSA MODERNA, COVID -19, 0.5mL IM Intramuscular September 14, 2020 Administered PRIVATE FLUZONE HIGH DOSE 0. 5ML (65 and UP) 2019 IM Intramuscular Jun 28, 2019 Administered 2nd Dose HRSA MODERNA, COVID -19, 0.5mL IM Intramuscular October 12, 2020 Administered PRIVATE SHINGRIX (HERPES ZOS TER-2 DOSE) IM Intramuscular Aug 22, 2022 Administered 1st Booster MODERNA Bivalent , COVID-19, 0.5mL IM Intramuscular May 29, 2022 Administered PRIVATE HIGH DOSE FLU -23 (FLUZONE HD) AGE 65YRS AND UP IM Intramuscular Apr 25, 2022 Administer ed 1st Booster MODERNA COVID-19 , mRNA, 0.25mL Unknown October 09, 2021 Administered SOCIAL HISTORY Sex Assigned At : [...] 10 day(s) Aug, Not-Taking REASON FOR VISIT Medication refill request MEDICAL [...] Notes Treatment Notes Treatment Clinical Notes November, Spinal stenosis of lumbar region without neurogenic claudication (ICD-10 - M48.061) PLAN OF TREATMENT Medication Medication Name Sig [...] Name:GATITO BARLOW, 2022-12-19 03:00:00 PM, [address] [facility], [id number], [place], [address], Provider Name:BARBARA CARMEN, 2022-12-23 11:20:00 AM, [address] [facility], [id number], [place], [address], Insurance Providers Payer Name Payer Address Payer Phone Insured Name Patient Relationship to Insured Coverage Start Date Coverage End Date Subscriber Number Group Number AARP Medicare Advantage Choice Plan 2 (PPO) [address] [address] [facility] [id number] Shakira Li Self - patient is the insured 2 [id number] [employer] [address] ATTN DENTAL CLAIMS [facility] [address] Shakira Li Self - patient is the insured [id number] [place] MEDICARE Part A [address] [place] [phone] Shakira Li Self - patient is the insured [id number] [employer] [address] [facility] [address] Shakira Li Self - patient is the insured [id number] MEDICAID OF [place] [address] [facility] [id number] [phone] Shakira Li Self - patient is the insured [id number]
--- OUTSIDE RECORDS SUMMARY | 2023-04-16 05:55 | XMS REPORT ---
Author Author [facility] ter of [facility] ter of [facility] Address Unknown Phone Unavailable Care Team Providers Care Carton Counter Feeder Name Role Phone KALA RODRIGUEZ Unavailable PROBLEMS Type Condition ICD9-CM Code FCH51-SO Code Onset Dates Condition Status W/U Status Risk SNOMED Code Notes Problem Osteoarthriti s, unspecified osteoarthriti s type, unspecified site M19.90 confirmed 014477215 Problem Bilateral primary osteoarthriti s of knee M17.0 confirmed 294821727 Problem Mixed hyperlipidemi a E78.2 confirmed 797603168 Problem Morbid (severe) obesity due to excess calories E66.01 confirmed 605678654 Problem OAB (overactive bladder) N32.81 confirmed 167514988 Problem 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 confirmed 3004557562 00614 Problem Neuropathy G62.9 confirmed 488561587 Problem Essential hypertension I10 confirmed 44724099 Problem Abnormality of gait R26.9 confirmed 44136657 Problem Primary osteoarthriti s of right knee M17.11 confirmed 4306069609 61403 Problem 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 confirmed 66591242 Problem Lumbar radiculopathy M54.16 confirmed 150131238 Problem Insomnia G47.00 confirmed 722292526 Problem Moderate asthma with exacerbation, unspecified whether persistent J45.901 confirmed 410644255 Problem ADHD (attention deficit hyperactivity disorder), combined 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 confirmed 617592295 Problem Thyroid nodule E04.1 confirmed 424778217 ALLERGIES Allergen (clinical drug ingredient) Drug/Non Drug Allergy documented on EMR Reaction Allergy Type Onset Date Status bupropion Wellbutrin XL([facility] Code:[address]- 07) visual hallucinations Drug Allergy Active ENCOUNTERS from 1950 to 2022-12-26 Encounter Location Date Provider Diagnosis [facility] [address] [facility] [id number] [place] [address] Jan, KALA RODRIGUEZ IMMUNIZATIONS Vaccine Route Administration Date Status PRIVATE [...] Once a day Active REASON FOR VISIT pain and lethargic MEDICAL (GENERAL) HISTORY Type Description Date Medical [...] Hospitalization History surgeries MENTAL STATUS No Information PLAN OF TREATMENT Next Appt Details Provider Name:GATITO BARLOW, 2023-02-13 02:40:00 PM, [address] [facility], [id number], [place], [address], Provider Name:BARBARA MORALES, 2023-05-26 03:20:00 PM, [address] [facility], [id number], [place], [address], Insurance Providers Payer Name Payer Address Payer Phone Insured Name Patient Relationship to Insured Coverage Start Date Coverage End Date Subscriber Number Group Number AARP Medicare Advantage Choice Plan 2 (PPO) [address] [address] [facility] [phone] Shakira Li Self - patient is the insured 2 [id number] MEDICAID OF [place] [address] [facility] [address] Shakira Li Self - patient is the insured [id number] [place] MEDICARE Part A [address] [place] [address] Shakira Li Self - patient is the insured [id number] [employer] [address] ATTN DENTAL CLAIMS [facility] [id number] Shakira Li Self - patient is the insured [id number] [employer] [address] [facility] [address] Shakira Li Self - patient is the insured [id number]
--- OUTSIDE RECORDS SUMMARY | 2023-04-16 05:55 | XMS REPORT ---
Author Author [facility] ter of [facility] ter of [facility] Address Unknown Phone Unavailable Care Team Providers Care Bridge Maintainer Name Role Phone KALA VAN Unavailable PROBLEMS Type Condition ICD9-CM Code VSU48-CH Code Onset Dates Condition Status W/U Status Risk SNOMED Code Notes Problem Osteoarthriti s, unspecified osteoarthriti s type, unspecified site M19.90 confirmed 820169938 Problem Bilateral primary osteoarthriti s of knee M17.0 confirmed 348221210 Problem Mixed hyperlipidemi a E78.2 confirmed 161699405 Problem Morbid (severe) obesity due to excess calories E66.01 confirmed 376704003 Problem OAB (overactive bladder) N32.81 confirmed 994228117 Problem 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 confirmed 2848365371 99666 Problem Neuropathy G62.9 confirmed 017772382 Problem Essential hypertension I10 confirmed 60897471 Problem Abnormality of gait R26.9 confirmed 86050870 Problem Primary osteoarthriti s of right knee M17.11 confirmed 9804618010 96586 Problem 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 confirmed 39251351 Problem Lumbar radiculopathy M54.16 confirmed 166506231 Problem Insomnia G47.00 confirmed 118894769 Problem Moderate asthma with exacerbation, unspecified whether persistent J45.901 confirmed 703273625 Problem ADHD (attention deficit hyperactivity disorder), combined 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 confirmed 875454167 Problem Thyroid nodule E04.1 confirmed 518542073 ALLERGIES Allergen (clinical drug ingredient) Drug/Non Drug Allergy documented on EMR Reaction Allergy Type Onset Date Status bupropion Wellbutrin XL([facility] Code:[address]- 07) visual hallucinations Drug Allergy Active ENCOUNTERS from 1950 to 2023-02-21 Encounter Location Date Provider Diagnosis [facility] [address] [facility] [id number] [place] [address] Feb, KALA VAN Lumbar radiculopathy M54.16 IMMUNIZATIONS Vaccine Route Administration Date Status PRIVATE FLUZONE HIGH DOSE 0. 5ML (65 and UP) 2019 IM Intramuscular Jun 28, 2019 Administered PRIVATE SHINGRIX (HERPES ZOS TER-2 DOSE) IM Intramuscular Jun 13, 2022 Administered PRIVATE SHINGRIX (HERPES ZOS TER-2 DOSE) IM Intramuscular Aug 22, 2022 Administered tdap (history) Unknown November 25, 2021 Administered COVID-19 Moderna (history) Unknown October 24, 2021 Administered 2nd Dose HRSA MODERNA, COVID -19, 0.5mL IM Intramuscular October 12, 2020 Administered 1st Dose HRSA MODERNA, COVID -19, 0.5mL IM Intramuscular September 14, 2020 Administered 1st Booster MODERNA COVID-19 , mRNA, 0.25mL Unknown October 09, 2021 Administered PRIVATE HIGH DOSE FLU 22-23 (FLUZONE HD) AGE 65YRS AND UP IM Intramuscular Apr 25, 2022 Administer ed 1st Booster MODERNA Bivalent , COVID-19, 0.5mL IM Intramuscular May 29, 2022 Administered SOCIAL HISTORY Sex Assigned At [...] Duration) Notes Start Date End Date Status Atomoxetine HCl 80 MG 1 capsule in the morning Orally Once a day TAKING UNTIL NEW MED IS APPROVED WITH INSURANCE Active Vitamin D3 50 MCG (1999) 1 capsule Orally Once a day Active Shingrix 50 MCG/0.5ML 0.5 ml` Intramuscular Now and in greater than 60 days for 1 days Jun, Active Celecoxib 100 MG TAKE 1 CAPSULE BY MOUTH TWICE DAILY WITH FOOD for 90 Not-Taking traZODone HCl 100 mg 2 tablets Orally at night as needed for sleep for 90 days Active Atenolol 50 MG Take 1 tablet by mouth once daily for 90 Active Voltaren 1 % apply 4 grams to knees and hips Transdermal 4 times a day for 7 days NEEDS SAMPLE Not-Taking Albuterol Sulfate HFA 108 (90 Base) MCG/ACT 1 puff as needed Inhalation every 4-6 hours as needed for 30 days prn Aug, Active Triamcinolone Acetonide 0.1 % 1 application Externally Twice a day for 10 days PRN Apr, Active Tylenol 500 mg 1 tablet as needed Orally PRN PRN Active ZyrTEC Allergy 10 mg 1 tablet Orally Once a day for 90 Active Lidoderm 5 % 1 patch remove after 12 hours Externally Once a day for 90 days prn November, Active amLODIPine Besylate 5 MG Take 1 tablet by mouth once daily for 90 Active Zinc 50 MG 1 tablet Orally Once a day Active Doxycycline Hyclate 100 mg 1 capsule Orally Twice a day for 10 day(s) Aug, Not-Taking Multi For Her 50+ - as directed Orally Active Gabapentin 600 MG 1 capsule Orally 3 times a day for 90 days Active Myrbetriq 50 MG Take 1 tablet by mouth once daily for 90 Active Vitamin C 500 MG as directed Orally PRN Active Atorvastatin Calcium 20 MG Take 1 tablet by mouth once daily for 100 Active Qelbree 100 MG 1 capsule in morning for one week then take 2 capsules every morning Orally Once a day for 90 days Dec, Active REASON FOR VISIT controlled refill 03/09 MEDICAL (GENERAL) HISTORY Type Description Date Medical [...] Assessment Notes Treatment Notes Treatment Clinical Notes Feb, Lumbar radiculopathy (ICD-10 - M54.16) PLAN OF TREATMENT Medication Medication Name Sig Start Date Stop Date amLODIPine Besylate 5 MG Take 1 tablet b y mouth once daily for 90 Atenolol 50 MG Take 1 tablet by ronny th once daily for 90 Qelbree 100 MG 1 capsule in morning for one week then take 2 capsules every morning Orally Once a day for 90 days Dec, Atorvastatin Calcium 20 MG Take 1 tablet by mouth once daily for 100 Next Appt Details Provider Name:BARBARA MORALES, 2023-02-28 09:00:00 AM, [address] [place] [address], [id number], [place], [address], Provider Name:GAITTO BARLOW, 2023-03-25 01:20:00 PM, [address] [facility], [id number], [place], [address], Provider Name:BARBARA MORALES, 2023-05-26 03:20:00 PM, [address] [place] [address], [id number], [place], [address], Insurance Providers Payer Name Payer Address Payer Phone Insured Name Patient Relationship to Insured Coverage Start Date Coverage End Date Subscriber Number Group Number MEDICAID OF [place] [address] [facility] [id number] Shakira Li Self - patient is the insured [id number] [facility] Medicare Advantage Choice Plan 2 (PPO) [address] [address] [facility] [phone] Shakira Li Self - patient is the insured [id number] [facility] MEDICARE Part A [address] [place] [address] Shakira Li Self - patient is the insured [id number] [employer] [address] ATTN DENTAL CLAIMS [facility] [id number] [phone] Shakira Li Self - patient is the insured [id number] [facility] DENTAL [address] [facility] [address] Shakira Li Self - patient is the insured [id number]
--- OUTSIDE RECORDS SUMMARY | 2023-04-16 05:55 | XMS REPORT ---
Author Author [facility] ter of [facility] ter of [facility] Address Unknown Phone Unavailable Care Team Providers Care Business Applications Developer Name Role Phone KALA RODRIGUEZ Unavailable PROBLEMS Type Condition ICD9-CM Code ZKC24-DM Code Onset Dates Condition Status W/U Status Risk SNOMED Code Notes Problem Morbid (severe) obesity due to excess calories E66.01 confirmed 068194089 Problem OAB (overactive bladder) N32.81 confirmed 863735992 Problem Primary osteoarthriti s of right knee M17.11 confirmed 6155759760 34471 Problem Lumbar radiculopathy M54.16 confirmed 786881814 Problem Neuropathy G62.9 confirmed 981220902 Problem 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 confirmed 7660787158 84777 Problem Attn-defct hyperactivity disorder, 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 confirmed 38233599 Problem Pain R52 confirmed 48918538 Problem Major depressive disorder, recurrent, moderate F33.1 confirmed 54508598 Problem Moderate asthma with exacerbation, unspecified whether persistent J45.901 confirmed 219538955 Problem ADHD (attention deficit hyperactivity disorder), combined 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 confirmed 073485557 Problem Thyroid nodule E04.1 confirmed 168826112 Problem Encounter for immunization Z23 confirmed 158541529 Problem Insomnia G47.00 confirmed 364004122 Problem Mixed hyperlipidemi a E78.2 confirmed 180460934 Problem Abnormality of gait R26.9 confirmed 96109091 Problem Essential hypertension I10 confirmed 92305613 Problem Osteoarthriti s, unspecified osteoarthriti s type, unspecified site M19.90 confirmed 282302163 Problem Bilateral primary osteoarthriti s of knee M17.0 confirmed 282453420 Problem Primary insomnia F51.01 confirmed 5306425 Problem Cough R05.9 confirmed 73082851 Problem Medication monitoring encounter Z51.81 confirmed 605116062 Problem Flu vaccine need Z23 confirmed 288621603 ALLERGIES Allergen (clinical drug ingredient) Drug/Non Drug Allergy documented on EMR Reaction Allergy Type Onset Date Status bupropion Wellbutrin XL([facility] Code:[address]- 07) visual hallucinations Drug Allergy Active ENCOUNTERS from 1950 to 2022-11-16 Encounter Location Date Provider Diagnosis [facility] [address] [facility] [id number], [place] [address] 26 Nov, 2020 KALA RODRIGUEZ Primary osteoarthrit is of right [...] 0.5mL IM Intramuscular September 14, 2020 Administered 2nd Dose HRSA MODERNA, COVID -19, 0.5mL IM Intramuscular October 12, 2020 Administered PRIVATE SHINGRIX (HERPES ZOS TER-2 DOSE) IM Intramuscular Jun 13, 2022 Administered PRIVATE HIGH DOSE FLU 22-23 (FLUZONE HD) AGE 65YRS AND UP IM Intramuscular Apr 25, 2022 Administer ed 1st Booster MODERNA Bivalent , COVID-19, 0.5mL IM Intramuscular May 29, 2022 Administered 1st Booster MODERNA COVID-19 , mRNA, [...] 10 day(s) Aug, Not-Taking REASON FOR VISIT PA Lidacaine patch MEDICAL (GENERAL) HISTORY Type Description Date [...] Provider Name:GATITO BARLOW, 2022-12-19 03:00:00 PM, [address] [facility], [id number], [place], [address], Provider Name:BARBARA MORALES, 2022-12-23 11:20:00 AM, [address] [facility], [id number], [place], [address], Insurance Providers Payer Name Payer Address Payer Phone Insured Name Patient Relationship to Insured Coverage Start Date Coverage End Date Subscriber Number Group Number [employer] [address] [facility] [address] Shakira Li Self - patient is the insured [id number] MEDICAID OF [place] [address] [facility] [id number] [phone] Shakira Li Self - patient is the insured [id number] AARP Medicare Advantage Choice Plan 2 (PPO) [address] [address] [facility] [address] Shakira Li Self - patient is the insured 2 [id number] NGS MEDICARE Part A [address] [place] [address] Shakira Li Self - patient is the insured [id number] [employer] [address] ATTN DENTAL CLAIMS [facility] [address] Shakira Li Self - patient is the insured [id number]
--- OUTSIDE RECORDS SUMMARY | 2023-04-16 05:55 | XMS REPORT ---
Author Author [facility] ter of [facility] ter of [facility] Address Unknown Phone Unavailable Care Team Providers Care Superintendent Transportation Name Role Phone ALFRED PARMAR Unavailable PROBLEMS Type Condition ICD9-CM Code AQB49-[id number] Code Onset Dates Condition Status W/U Status Risk SNOMED Code Notes Problem Morbid (severe) obesity due to excess calories E66.01 confirmed 866858555 Problem OAB (overactive bladder) N32.81 confirmed 062736675 Problem Primary osteoarthriti s of right knee M17.11 confirmed 5270076329 59931 Problem Lumbar radiculopathy M54.16 confirmed 684626271 Problem Neuropathy G62.9 confirmed 750246425 Problem 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 confirmed 2687697109 56446 Problem Attn-defct hyperactivity disorder, 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 confirmed 05183270 Problem Pain R52 confirmed 59015884 Problem Major depressive disorder, recurrent, moderate F33.1 confirmed 38803195 Problem Moderate asthma with exacerbation, unspecified whether persistent J45.901 confirmed 379459012 Problem ADHD (attention deficit hyperactivity disorder), combined type F90.2 confirmed 810838365 Problem Thyroid nodule E04.1 confirmed 088157900 Problem Encounter for immunization Z23 confirmed 430901308 Problem Insomnia G47.00 confirmed 161256071 Problem Mixed hyperlipidemi a E78.2 confirmed 572963446 Problem Abnormality of gait R26.9 confirmed 70156356 Problem Essential hypertension I10 confirmed 95716201 Problem Osteoarthriti s, unspecified osteoarthriti s type, unspecified site M19.90 confirmed 126069842 Problem Bilateral primary osteoarthriti s of knee M17.0 confirmed 893536560 Problem Primary insomnia F51.01 confirmed 9252185 Problem Cough R05.9 confirmed 56478487 Problem Medication monitoring encounter Z51.81 confirmed 976512250 Problem Flu vaccine need Z23 confirmed 191280716 ALLERGIES Allergen (clinical drug ingredient) Drug/Non Drug Allergy documented on EMR Reaction Allergy Type Onset Date Status bupropion Wellbutrin XL([facility] Code:[address]- 07) visual hallucinations Drug Allergy Active ENCOUNTERS from 1950 to 2022-11-12 Encounter Location Date Provider Diagnosis [facility] [address] [facility] [id number] [place] [address] November, ALFRED PARMAR Primary osteoarthrit is of right knee M17.11 and 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 IMMUNIZATIONS Vaccine Route Administration Date Status 1st [...] IM Intramuscular Apr 25, 2022 Administer ed COVID-19 Moderna (history) Unknown October 24, 2021 [...] No REASON FOR REFERRAL from 1950 to 2022-11-12 Reason Left Foot Mortons Ne uroma Diagnosis 1 Barajas's neuroma of left foot (G57.62) Referral Organization [facility] [place] Referring Provider First Name ALFRED Referring Provider Last Name AGATA Referring Provider Specialty Nurse Pract cassandra Referred Organization [facility] [place] Referred Provider ANTONIO GARCIA Referred Address [address] [facility],[id number],[place],[address] Referred Provider Specialty Podiatry Referral Priority Routine Referral Appointment Date 2021-02-09 General Notes Shweta Flores 11/05 11:25:06 AM >Scheduled as listed and appt letter mailed. VITAL SIGNS Height 65.6 in November, Height-cm 166.62 cm November, Weight 235.6 lbs November, Weight-kg 106.87 kg November, Temperature 98.1 degrees Fahrenheit November, Heart Rate 78 bpm November, Respiratory Rate 18 bpm November, BMI 38.49 kg/m2 November, Blood pressure systolic 120 mmHg November, Blood pressure diastolic 82 mmHg November, MEDICATIONS Medication SIG (Take, Route, Frequency, Duration) [...] 30 days Active Vitamin D3 50 MCG (1999 UT) [...] a day for 10 day(s) Aug, Not-Taking PROCEDURES from 1950 to 2022-11-12 Procedure Date Ordered Date Performed Result Body Sit e JOINT INJECTION-LARGE JOINT 2020-11-23 2020-11-23 Tolerate d well REASON FOR VISIT Right knee injection----CHRISTINE Summers MEDICAL (GENERAL) HISTORY Type Description Date Medical [...] osteoarthritis of right knee (ICD-10 - M17.11) Under sterile conditions with alcohol and Betadine prep, the right knee was injected with 80 mg Depo Medrol and 2 cc each of Marcaine and Lidocaine. She tolerated the injection well. Standard post-injection precautions were discussed and ice treatments recommended. November, Barajas's neuroma of left foot (ICD-10 - G57.62) November, Other This progres s note was scribed by Rianna Crow MA under the direct supervision of Alfred Parmar APRN who directed the entire visit and performed the physical exam. PLAN OF TREATMENT Medication Medication Name Sig Start Date Stop Date Celecoxib 100 MG TAKE 1 CAPSULE BY MO [facility] TWICE DAILY WITH FOOD for 90 Strattera 80 MG 1 capsule Orally Onc e a day for 90 days traZODone HCl 100 mg 2 tablets Orally at night as needed for sleep for 90 days Atorvastatin Calcium 20 MG Take 1 tablet by mouth once daily for 100 Myrbetriq 50 MG Take 1 tablet by ronny once daily for 90 Atenolol 50 MG Take 1 tablet by ronny once daily for 90 Treatment Notes Assessment Notes Clinical Notes Primary osteoarthritis of right knee Und er sterile conditions with alcohol and Betadine prep, the right knee was injected with 80 mg Depo Medrol and 2 cc each of Marcaine and Lidocaine. She tolerated the injection well. Standard post-injection precautions were discussed and ice treatments recommended. Referrals Referral Date Details 2021-02-09 2021-02-09, Left Keiry t Mortons Neuroma, ANTONIO Gonsalez, [address] [place] [address], [address], Next Appt Details prn Reason: Provider Name:GATITO BARLOW, 2022-12-19 03:00:00 PM, [address] [place] [address], [id number], [address], Provider Name:BARBARA MORALES, 2022-12-23 11:20:00 AM, [address] [place] [address], [id number], [place], [address], Insurance Providers Payer Name Payer Address Payer Phone Insured Name Patient Relationship to Insured Coverage Start Date Coverage End Date Subscriber Number Group Number AARP Medicare Advantage Choice Plan 2 (PPO) [address] [address] [facility] [address] Shakira Li Self - patient is the insured 2 [id number] NGS MEDICARE Part A [place] [address] [place] [address] Shakira Li Self - patient is the insured [id number] [employer] [address] [facility] [address] Shakira Li Self - patient is the insured [id number] MED[place] [address] [facility] [address] [phone] Shakira Li Self - patient is the insured [id number] [employer] [address] ATTN DENTAL CLAIMS [facility] [address] Shakira Li Self - patient is the insured [id number]
--- OUTSIDE RECORDS SUMMARY | 2023-04-16 05:55 | XMS REPORT ---
Author Author [facility] ter of [facility] ter of [facility] Address Unknown Phone Unavailable Care Team Providers Care Mixing Roll Operator Name Role Phone KALA RODRIGUEZ Unavailable PROBLEMS Type Condition ICD9-CM Code VHR48-OY Code Onset Dates Condition Status W/U Status Risk SNOMED Code Notes Problem Osteoarthriti s, unspecified osteoarthriti s type, unspecified site M19.90 confirmed 782239062 Problem Bilateral primary osteoarthriti s of knee M17.0 confirmed 670219002 Problem Mixed hyperlipidemi a E78.2 confirmed 495147158 Problem Morbid (severe) obesity due to excess calories E66.01 confirmed 681278370 Problem OAB (overactive bladder) N32.81 confirmed 738762278 Problem 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 confirmed 2390778644 18883 Problem Neuropathy G62.9 confirmed 327078710 Problem Essential hypertension I10 confirmed 42688593 Problem Abnormality of gait R26.9 confirmed 06667757 Problem Primary osteoarthriti s of right knee M17.11 confirmed 1477285533 55260 Problem 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 confirmed 34423466 Problem Lumbar radiculopathy M54.16 confirmed 238163673 Problem Insomnia G47.00 confirmed 474780157 Problem Moderate asthma with exacerbation, unspecified whether persistent J45.901 confirmed 273320107 Problem ADHD (attention deficit hyperactivity disorder), combined 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 confirmed 550081539 Problem Thyroid nodule E04.1 confirmed 606318371 ALLERGIES Allergen (clinical drug ingredient) Drug/Non Drug Allergy documented on EMR Reaction Allergy Type Onset Date Status bupropion Wellbutrin XL([facility] Code:[address]- 07) visual hallucinations Drug Allergy Active ENCOUNTERS from 1950 to 2022-12-23 Encounter Location Date Provider Diagnosis [facility] [address] [facility] [id number] [place] [address] Jan, KALA RODRIGUEZ Lumbar radiculopathy M54.16 IMMUNIZATIONS Vaccine Route Administration [...] Once a day Active REASON FOR VISIT controlled refill 01/15 MEDICAL (GENERAL) HISTORY Type Description Date Medical [...] Notes Treatment Notes Treatment Clinical Notes Jan, Lumbar radiculopathy (ICD-10 - M54.16) PLAN OF TREATMENT Next Appt Details Provider Name:GATITO BARLOW, 2023-02-04 01:40:00 PM, [address] [facility], [id number], [place], [address], Provider Name:BARBARA MORALES, 2023-05-26 03:20:00 PM, [address] [facility], [id number], [place], [address], Insurance Providers Payer Name Payer Address Payer Phone Insured Name Patient Relationship to Insured Coverage Start Date Coverage End Date Subscriber Number Group Number NGS MEDICARE Part A [address] [place] [address] Shakira Li Self - patient is the insured [id number] [facility] Medicare Advantage Choice Plan 2 (PPO) [address] [facility] [address] Shakira Li Self - patient is the insured 2 [id number] MEDICA[place] [address] [facility] [address] Shakira Li Self - patient is the insured [id number] [place] [employer] [address] ATTN DENTAL CLAIMS [facility] [address] Shakira Li Self - patient is the insured [id number] [facility] [address] [facility] [address] Shakira Li Self - patient is the insured [id number]
--- OUTSIDE RECORDS SUMMARY | 2023-04-16 05:55 | XMS REPORT ---
Author Author [facility] ter of [facility] ter of 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 confirmed 9004218622 08751 Problem Attn-defct hyperactivity disorder, 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 confirmed 48707556 Problem Pain R52 confirmed 65416987 Problem Major depressive disorder, recurrent, moderate F33.1 confirmed 56757741 Problem Moderate asthma with exacerbation, unspecified whether persistent J45.901 confirmed 751630687 Problem ADHD (attention deficit hyperactivity disorder), combined 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 confirmed 199593226 Problem Thyroid nodule E04.1 confirmed 417086421 Problem Encounter for immunization Z23 confirmed 447146366 Problem Insomnia G47.00 confirmed 300321101 Problem Mixed hyperlipidemi a E78.2 confirmed 717898628 Problem Abnormality of gait R26.9 confirmed 52715343 Problem Essential hypertension I10 confirmed 91377546 Problem Osteoarthriti s, unspecified osteoarthriti s type, unspecified site M19.90 confirmed 610427509 Problem Bilateral primary osteoarthriti s of knee M17.0 confirmed 542725723 Problem Primary insomnia F51.01 confirmed 6383339 Problem Cough R05.9 confirmed 52696986 Problem Medication monitoring encounter Z51.81 confirmed 882916949 Problem Flu vaccine need Z23 confirmed 953160729 ALLERGIES Allergen (clinical drug ingredient) Drug/Non Drug Allergy documented on EMR Reaction Allergy Type Onset Date Status bupropion Wellbutrin XL([facility] Code:[address]- 07) visual hallucinations Drug Allergy Active ENCOUNTERS from 1950 to 2022-11-04 Encounter Location Date Provider Diagnosis [facility] [address] [facility] [id number] [place] [address] November, KALA RODRIGUEZ Lumbar radiculopathy M54.16 IMMUNIZATIONS Vaccine Route Administration Date Status PRIVATE SHINGRIX (HERPES ZOS TER-2 DOSE) IM Intramuscular Jun 13, 2022 Administered PRIVATE FLUZONE HIGH DOSE 0. [...] Intramuscular Apr 25, 2022 Administer ed 1st Dose HRSA MODERNA, COVID -19, 0.5mL [...] Duration) Notes Start Date End Date Status Shingrix 50 MCG/0.5ML 0.5 ml` Intramuscular Now and in greater than 60 days for 1 days Jun, Active traZODone HCl 100 mg 2 tablets Orally at night as needed for sleep for 90 days Active Albuterol Sulfate HFA 108 (90 Base) MCG/ACT 1 puff as needed Inhalation every 4-6 hours as needed for 30 days Aug, Active ZyrTEC Allergy 10 mg 1 tablet Orally Onc e a day for 90 Active amLODIPine Besylate 5 MG Take 1 tablet by mouth once daily for 90 Active Vitamin D3 50 MCG (2000 UT) 1 capsule Orally Once a day taking x4 Active Atenolol 50 MG Take 1 tablet by mouth once daily for 90 days Active Celecoxib 100 MG TAKE 1 CAPSULE BY MOUTH TWICE DAILY WITH FOOD for 90 Active Tylenol 500 mg 1 tablet as needed Orally PRN Active Strattera 80 MG 1 capsule Orally Once a day for 90 days Active Zinc 50 MG 1 tablet Orally Once a day Active Gabapentin 600 MG 1 capsule Orally 3 times a day for 30 days Active Atorvastatin Calcium 20 MG Take 1 tablet by mouth once daily Orally Once a day for 100 days Active Multi For Her 50+ - as [...] 10 day(s) Aug, Not-Taking REASON FOR VISIT control med refill request MEDICAL (GENERAL) HISTORY Type Description [...] Notes Treatment Notes Treatment Clinical Notes November, Lumbar radiculopathy (ICD-10 - M54.16) PLAN OF TREATMENT Medication Medication Name Sig Start Date Stop Date Celecoxib 100 MG TAKE 1 CAPSULE BY MO UTH TWICE DAILY WITH FOOD for 90 Strattera 80 MG 1 capsule Orally Once a day for 90 day s Myrbetriq 50 MG Take 1 tablet by mouth once daily for 90 traZODone HCl 100 mg 2 tablets Orally at night as needed for sleep for 90 days Next Appt Details Provider Name:GATITO BARLOW, 2022-12-19 03:00:00 PM, [address] [facility], [id number], [place], [address], Provider Name:BARBARA MORALES, 2022-12-23 11:20:00 AM, [address] [facility], [id number], [place], [address], Insurance Providers Payer Name Payer Address Payer Phone Insured Name Patient Relationship to Insured Coverage Start Date Coverage End Date Subscriber Number Group Number NGS MEDICARE Part A FI [address] [place] [address] Shakira Li Self - patient is the insured [id number] [employer] [address] [place] [address] Shakira Li Self - patient is the insured [id number] [facility] Medicare Advantage Choice Plan 2 (PPO) [address] [address] [facility] [address] Shakira Li Self - patient is the insured 2 [id number] [employer] [employer] [address] ATTN DENTAL CLAIMS [place] [id number] Shakira Li Self - patient is the insured [id number] MEDICAID OF [place] [address] [facility] [id number] [phone] [id number] Shakira Li Self - patient is the insured [id number]
--- OUTSIDE RECORDS SUMMARY | 2023-04-16 05:55 | XMS REPORT ---
Author Author Formerly [facility] ter of [facility] ter of [facility] Address Unknown Phone Unavailable Care Team Providers Care Resistance Welder Name Role Phone ANTONIO Gonsalez Unavailable PROBLEMS Type Condition ICD9-CM Code [id number] Code Onset Dates Condition Status W/U Status Risk SNOMED Code Notes Problem Osteoarthriti s, unspecified osteoarthriti s type, unspecified site M19.90 confirmed 986862031 Problem Bilateral primary osteoarthriti s of knee M17.0 confirmed 313337392 Problem Mixed hyperlipidemi a E78.2 confirmed 923916685 Problem Morbid (severe) obesity due to excess calories E66.01 confirmed 822524229 Problem OAB (overactive bladder) N32.81 confirmed 563416035 Problem 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 confirmed 8662966872 60350 Problem Neuropathy G62.9 confirmed 855829504 Problem Essential hypertension I10 confirmed 14948149 Problem Abnormality of gait R26.9 confirmed 24315121 Problem Primary osteoarthriti s of right knee M17.11 confirmed 9696487064 49167 Problem 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 confirmed 93898800 Problem Lumbar radiculopathy M54.16 confirmed 008886975 Problem Insomnia G47.00 confirmed 231939706 Problem Moderate asthma with exacerbation, unspecified whether persistent J45.901 confirmed 486599947 Problem ADHD (attention deficit hyperactivity disorder), combined 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 confirmed 637325713 Problem Thyroid nodule E04.1 confirmed 551889299 ALLERGIES Allergen (clinical drug ingredient) Drug/Non Drug Allergy documented on EMR Reaction Allergy Type Onset Date Status bupropion Wellbutrin XL([facility] Code:[address]- 07) visual hallucinations Drug Allergy Active ENCOUNTERS from 1950 to 2023-02-02 Encounter Location Date Provider Diagnosis [facility] [address] [facility] [id number] [place] [address] Feb, ANTONIO maydaFREDERICKANNELChelsie Metatarsalgia of lef t foot M77.42 ; Neuroma D36.10 ; Neuropathy G62.9 ; Pain in right foot M79.671 and Pain in left foot M79.672 IMMUNIZATIONS Vaccine Route Administration Date Status 2nd Dose HRSA MODERNA, COVID -19, 0.5mL IM Intramuscular October 12, 2020 Administered PRIVATE SHINGRIX (HERPES ZOS TER-2 DOSE) IM Intramuscular Jun 13, 2022 Administered PRIVATE FLUZONE HIGH DOSE 0. 5ML (65 and UP) 2019 IM Intramuscular Jun 28, 2019 Administered 1st Booster MODERNA COVID-19 , mRNA, [...] No Information VITAL SIGNS Height 65.6 in Feb, Height-cm 166.62 cm Feb, Weight 229.1 lbs Feb, Weight-kg 103.92 kg Feb, Temperature 97.9 degrees Fahrenheit Feb, Heart Rate 71 bpm Feb, Respiratory Rate 18 bpm Feb, Oximetry 97 % Feb, BMI 37.43 kg/m2 Feb, Blood pressure systolic 172 mmHg Feb, Blood pressure diastolic 92 mmHg Feb, MEDICATIONS Medication SIG (Take, Route, Frequency, Duration) [...] Twice a day for 10 days PRN 29 Apr, 2021 Active Vitamin D3 50 MCG (1999) 1 capsule Orally Once a day Active PROCEDURES from 1950 to 2023-02-02 Procedure Date Ordered Date Performed Result Body Sit e FOOT ARCH SUPP LONGITUD/META 2021-02-09 2021-02-09 Well fi tted REASON FOR VISIT Left Foot Mortons Neuroma H Gustabo KING MEDICAL (GENERAL) HISTORY Type Description Date Medical [...] Notes Treatment Notes Treatment Clinical Notes Feb, Neuroma (ICD-10 - D36.10) b/l Feb, Metatarsalgia of left foot (ICD-10 - M77.42) Various treatment options were discussed with the pt today. I believe the pt is having some mechanical issues with her feet, however, I highly suspect that there are more proximal issues than just Barajas neuromas of the foot. She may want to consider an EMG study if her sx continue. Or she may have her back evaluated by neurology. I highly recommend she utilize appropriate shoe gear with a metatarsal pad on an appropriate arch support. Powerstep orthotics were dispensed to the pt today. The pt will continue with stretches, appropriate arch support and shoe gear, and metatarsal pads. For mechanical control, she'll continue with Gabapentin at night. Again, I believe that the night pain may be associated with some more proximal issues, such as lower spine or sciatica. Feb, Neuropathy (ICD-10 - G62.9) Feb, Pain in right foot (ICD-10 - M79.671) Feb, Pain in left foot (ICD-10 - M79.672) Feb, Other This progres s note was scribed by Rianna Crow MA under the direct supervision of Dr. Eisenberg who directed the entire visit and performed the physical exam. PLAN OF TREATMENT Treatment Notes Assessment Notes Clinical Notes Metatarsalgia of left foot Various treat ment options were discussed with the pt today. I believe the pt is having some mechanical issues with her feet, however, I highly suspect that there are more proximal issues than just Barajas neuromas of the foot. She may want to consider an EMG study if her sx continue. Or she may have her back evaluated by neurology. I highly recommend she utilize appropriate shoe gear with a metatarsal pad on an appropriate arch support. Powerstep orthotics were dispensed to the pt today. The pt will continue with stretches, appropriate arch support and shoe gear, and metatarsal pads. For mechanical control, she'll continue with Gabapentin at night. Again, I believe that the night pain may be associated with some more proximal issues, such as lower spine or sciatica. Next Appt Details 2 Months Reason: Provider Name:GATITO BARLOW, 2023-02-13 02:40:00 PM, [address] [facility], [id number], [place], [address], Provider Name:BARBARA MORALES, 2023-05-26 03:20:00 PM, [address] [facility], [id number], [place], [address], Insurance Providers Payer Name Payer Address Payer Phone Insured Name Patient Relationship to Insured Coverage Start Date Coverage End Date Subscriber Number Group Number [facility] [address] ATTN DENTAL CLAIMS [facility] [address] Shakira Li Self - patient is the insured [id number] MED[place]ID OF [place] [address] [facility] [id number] Shakira Li Self - patient is the insured [id number] [facility] DENTAL [address] [facility] [id number] Shakira Li Self - patient is the insured [id number] NGS MEDICARE Part A [address] [place] [phone] Shakira Li Self - patient is the insured [id number] AARP Medicare Advantage Choice Plan 2 (PPO) [address] [address] [facility] [address] Shakira Li Self - patient is the insured [id number]
--- OUTSIDE RECORDS SUMMARY | 2023-04-16 05:55 | XMS REPORT ---
Author Author [facility] ter of [facility] ter of [facility] Address Unknown Phone Unavailable Care Team Providers Care Founder President And Ceo Name Role Phone KALA RODRIGUEZ Unavailable PROBLEMS Type Condition ICD9-CM Code RSG07-NP Code Onset Dates Condition Status W/U Status Risk SNOMED Code Notes Problem Osteoarthriti s, unspecified osteoarthriti s type, unspecified site M19.90 confirmed 336363148 Problem Bilateral primary osteoarthriti s of knee M17.0 confirmed 114339439 Problem Mixed hyperlipidemi a E78.2 confirmed 715938508 Problem Morbid (severe) obesity due to excess calories E66.01 confirmed 410901093 Problem OAB (overactive bladder) N32.81 confirmed 736440501 Problem 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 confirmed 2244519343 60574 Problem Neuropathy G62.9 confirmed 320864541 Problem Essential hypertension I10 confirmed 09644656 Problem Abnormality of gait R26.9 confirmed 16455200 Problem Primary osteoarthriti s of right knee M17.11 confirmed 6253363962 15092 Problem 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 confirmed 30620595 Problem Lumbar radiculopathy M54.16 confirmed 091011393 Problem Insomnia G47.00 confirmed 223811026 Problem Moderate asthma with exacerbation, unspecified whether persistent J45.901 confirmed 214962498 Problem ADHD (attention deficit hyperactivity disorder), combined type F90.2 confirmed 379675342 Problem Thyroid nodule E04.1 confirmed 963863637 ALLERGIES Allergen (clinical drug ingredient) Drug/Non Drug Allergy documented on EMR Reaction Allergy Type Onset Date Status bupropion Wellbutrin XL([facility] Code:[address]- 07) visual hallucinations Drug Allergy Active ENCOUNTERS from 1950 to 2023 Encounter Location Date Provider Diagnosis [facility] [address] [facility] [id number] [place] [address] Feb, KALA RODRIGUEZ Lumbar radiculopathy M54.16 IMMUNIZATIONS Vaccine [...] IM Intramuscular October 12, 2020 Administered PRIVATE HIGH DOSE FLU 22-23 (FLUZONE HD) AGE 65YRS AND UP IM Intramuscular Apr 25, 2022 Administer ed 1st Dose HRSA MODERNA, COVID -19, 0.5mL IM Intramuscular September 14, 2020 Administered 1st Booster MODERNA Bivalent , COVID-19, 0.5mL IM Intramuscular May 29, 2022 Administered 1st Booster MODERNA COVID-19 , mRNA, 0.25mL Unknown October 09, 2021 Administered PRIVATE FLUZONE HIGH DOSE 0. 5ML (65 and UP) 2019 IM Intramuscular Jun 28, 2019 Administered SOCIAL HISTORY Sex Assigned At : [...] Once a day Active REASON FOR VISIT control med 02/06 MEDICAL (GENERAL) HISTORY Type Description Date Medical [...] PLAN OF TREATMENT Next Appt Details Provider Name:BARBARA MORALES, 2023-01-14 03:00:00 PM, [address] [place], [address], Provider Name:GATITO YEN, 2023-02-13 02:40:00 PM, [address] [facility], [id number], [place], [address], Provider Name:BARBARA MORALES, 2023-05-26 03:20:00 PM, [address] [facility], [id number], [place], [address], Insurance Providers Payer Name Payer Address Payer Phone Insured Name Patient Relationship to Insured Coverage Start Date Coverage End Date Subscriber Number Group Number [employer] [address] [facility] [id number] Shakira Li Self - patient is the insured [id number] NGS MEDICARE Part A [address] [place] [address] Shakira Li Self - patient is the insured [id number] MEDICAID OF [place] [address] [facility] [phone] Shakira Li Self - patient is the insured [id number] [facility] Medicare Advantage Choice Plan 2 (PPO) [address] [address] [facility] [address] Shakira Li Self - patient is the insured 2 [id number] [place] [employer] [address] ATTN DENTAL CLAIMS [facility] [id number] Shakira Li Self - patient is the insured [id number]
--- OUTSIDE RECORDS SUMMARY | 2023-04-16 05:55 | XMS REPORT ---
Author Author [facility] ter of [facility] ter of [facility] Address Unknown Phone Unavailable Care Team Providers Care Tube Drawing Supervisor Name Role Phone KALA RODRIGUEZ Unavailable PROBLEMS Type Condition ICD9-CM Code YRC75-ZG Code Onset Dates Condition Status W/U Status Risk SNOMED Code Notes Problem Morbid (severe) obesity due to excess calories E66.01 confirmed 295321703 Problem OAB (overactive bladder) N32.81 confirmed 639507178 Problem Primary osteoarthriti s of right knee M17.11 confirmed 7668089860 17766 Problem Lumbar radiculopathy M54.16 confirmed 819725209 Problem Neuropathy G62.9 confirmed 919989517 Problem 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 confirmed 5059724137 17578 Problem Attn-defct hyperactivity disorder, 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 confirmed 41892241 Problem Pain R52 confirmed 32275269 Problem Major depressive disorder, recurrent, moderate F33.1 confirmed 51153855 Problem Moderate asthma with exacerbation, unspecified whether persistent J45.901 confirmed 256450983 Problem ADHD (attention deficit hyperactivity disorder), combined type F90.2 confirmed 782783114 Problem Thyroid nodule E04.1 confirmed 484438776 Problem Encounter for immunization Z23 confirmed 322683458 Problem Insomnia G47.00 confirmed 695214863 Problem Mixed hyperlipidemi a E78.2 confirmed 819454540 Problem Abnormality of gait R26.9 confirmed 19284209 Problem Essential hypertension I10 confirmed 30491588 Problem Osteoarthriti s, unspecified osteoarthriti s type, unspecified site M19.90 confirmed 978061173 Problem Bilateral primary osteoarthriti s of knee M17.0 confirmed 336750398 Problem Primary insomnia F51.01 confirmed 9488441 Problem Cough R05.9 confirmed 19905522 Problem Medication monitoring encounter Z51.81 confirmed 051026496 Problem Flu vaccine need Z23 confirmed 570297332 ALLERGIES Allergen (clinical drug ingredient) Drug/Non Drug Allergy documented on EMR Reaction Allergy Type Onset Date Status bupropion Wellbutrin XL([facility] Code:[address]- 07) visual hallucinations Drug Allergy Active ENCOUNTERS from 1950 to 2022-12-01 Encounter Location Date Provider Diagnosis [facility] [address] [facility] [id number] [place] [address] 15 Dec, 2020 KALA RODRIGUEZ Lumbar radiculopathy M54.16 IMMUNIZATIONS Vaccine [...] oral, or anal)? Yes Last menstrual period 2009 Have you ever had a Sexually transmitted [...] for 90 days Active REASON FOR VISIT controlled refill 12/22 MEDICAL (GENERAL) HISTORY Type Description Date Medical [...] Assessment Notes Treatment Notes Treatment Clinical Notes Dec, Lumbar radiculopathy (ICD-10 - M54.16) PLAN OF [...] Name:GATITO BARLOW, 2022-12-19 03:00:00 PM, [address] [facility], [id number], [place], [address], Provider Name:BARBARA MORALES, 2022-12-23 11:20:00 AM, [address] [facility], [id number], [place], [address], Insurance Providers Payer Name Payer Address Payer Phone Insured Name Patient Relationship to Insured Coverage Start Date Coverage End Date Subscriber Number Group Number NGS MEDICARE Part A FI [address] [place] [address] Shakira Li Self - patient is the insured [id number] [facility] [employer] [address] ATTN DENTAL CLAIMS [facility] [id number] Shakira Li Self - patient is the insured [id number] [facility] [address] [facility] [address] Shakira Li Self - patient is the insured [id number] AARP Medicare Advantage Choice Plan 2 (PPO) [address] [address] [facility] [address] [phone] Shakira Li Self - patient is the insured 2 [id number] MEDICAID OF [place] [address] [facility] [id number] [phone] Shakira Li Self - patient is the insured [id number]
[2023-04-16] MEDS ORDERED: MIDAZOLAM INJ 2 MG/2 ML VIAL ONE (06:58)
[2023-04-16] MEDS ORDERED: ONDANSETRON INJECTION 4 MG/2 ML (SDV) ONE (06:58)
[2023-04-16] MEDS ORDERED: BUPIVACAINE 0.5% 30 ML VIAL ONE (06:59)
[2023-04-16] MEDS ORDERED: CEFUROXIME INJECTION 1,500 MG in NS (IVPB) 50 ML 50 ML IV ONE (07:00)
[2023-04-16] MEDS: LACTATED RINGERS 1,000 ML 1,000 ML IV PRN ×2 (07:07→08:38)
[2023-04-16] MEDS ORDERED: INTRA-ARTICULAR IU ONE ×5 (07:30)
[2023-04-16] MEDS ORDERED: diphenhydrAMINE INJ 50 MG/ML VIAL IVP PRN (07:30)
--- NOTE | 2023-04-16 07:34 | Progress Note-Pre Operative ---
Pre-Operative Progress Note Date of Available H&P: Apr 09, 2023 Date H&P Reviewed: Apr 16, 2023 Time H&P Reviewed: 07:11 Changes from last HP none Pre-Operative Diagnosis: right knee primary osteoarthritis KALEIGH ARTHUR MD Apr 16, 2023 07:34
--- NOTE | 2023-04-16 07:35 | Progress Note-Post Operative ---
Post-Operative Progess Note Surgeon (s)/Therapeutic Program Worker (s) Surgeon KALEIGH ARTHUR MD Therapeutic Program Worker: Alfred Alcaraz Pre-Operative Diagnosis right knee primary osteoarthritis Post-Operative Diagnosis right knee primary osteoarthritis Procedure & Operative Findings Date of Procedure 04/16/23 Procedure Performed/Findings right total knee arthroplasty Anesthesia Type spinal Estimated Blood Loss Estimated blood loss (mL): minimal Specimens/Packing Specimens Removed none Packing: none KALEIGH ARTHUR MD Apr 16, 2023 07:34
--- NOTE | 2023-04-16 07:37 | D/C HH Face to Face Order ---
D/C Face to Face Orders Reconcile Patient Problems Problems Reviewed?: Yes Instructions for Patient Via [facility] [employer], Patient Instructions/FollowUp: three weeks Physician to follow Patient: three weeks Discharge Diet for Home: Regular Diet Patient Data-Allergies,Ht & Wt Patient Allergies: Coded Allergies: adhesive tape (Verified Allergy, Unknown, Itching, 04/16/23) bupropion (Verified Allergy, Unknown, 04/16/23) Hallucinations Home Health Need/Face to Face Date of Face to Face: Apr 16, 2023 Clinical Findings: Muscle weakness, Pain with ambulation, Unsteady gait I have seen Pt [id number]: Yes Discharged To: Home Diagnosis/Conditions: right total knee arthroplasty Patient is Homebound due to: Muscle weakness, Pain w/ambulation Homebound Status Due to the above stated illness, injury or surgical procedure (medical condition or diagnosis) and associated clinical findings, the patient is homebound because of his/her inability to leave home except with aid of a supportive device and/or person AND leaving the home requires a considerable and taxing effort or is medically contraindicated. Pt req the following assistanc: [facility] Nursing Orders Home Health Services Order: Physical Therapy-Evaluate & Treat DC right knee debbie and apply steri strips 04/30/23 Home Health Infusion Therapy Line Start Date: Apr 16, 2023 Therapy Orders Therapy Orders: PT to assess for OT Therapy Specific Orders: Eval assistive deivces, Teach enviro modifications/safety, Gait training, Increase strength/endurance, Provider maintenance therapy, Restore ROM Certify Stmt I certify that this patient is under my care and that I, a nurse practitioner or a physician; a educational/development assistant working with me, had a face to face encounter that -haylie ts the physician face to face encounter requirements with this patient as dated. KALEIGH ARTHUR MD Apr 16, 2023 07:37
[2023-04-16] MEDS ORDERED: fentaNYL INJECTION 100 MCG/2 ML VIAL ONE (07:57)
[2023-04-16] MEDS ORDERED: PHENYLEPHRINE 100 MCG/ML 10 ML (ANESTHESIA) SYR ONE (08:04)
[2023-04-16] MEDS ORDERED: TRANEXAMIC ACID 100 MG/ML 10 ML INJECTION ONE (08:29)
[2023-04-16] MEDS ORDERED: CELECOXIB 400 MG CAPSULE PO SCH (09:00)
[2023-04-16] MEDS ORDERED: SEVOFLURANE (ULTANE) 15 ML INHAL SOLN ONE (09:18)
[2023-04-16] MEDS ORDERED: morphine INJ 10 MG/ML 1ML (SYR OR VIAL) ONE (09:36)
[2023-04-16] MEDS ORDERED: ONDANSETRON INJECTION 4 MG/2 ML (SDV) IVP PRN (09:45)
[2023-04-16] MEDS ORDERED: morphine INJ 10 MG/ML 1ML (SYR OR VIAL) IVP ONE (09:45)
[2023-04-16] MEDS ORDERED: HYDROmorphone INJECTION 2 MG/ML VIAL IV ONE (09:45)
[2023-04-16] MEDS ORDERED: PROMETHAZINE INJ 25 MG/ML VIAL IVP ONE (09:45)
[2023-04-16] MEDS ORDERED: HYDROmorphone INJECTION 2 MG/ML VIAL ONE (09:51)
--- NOTE | 2023-04-16 10:05 | Consultation-Cardiology ---
HPI-Cardiology Cardiology Consultation Date of Consultation 04/16/23 Date of Admission Time Seen by Provider: 10:00 Indication: Atrial fibrillation HPI 73-year-old lady with history of hypertension, hyperlipidemia, underwent knee replacement surgery today, on her preoperative EKG from April 13, 2023 she was in sinus rhythm. She was noted today to be in atrial fibrillation, it is not documented the start of her atrial fibrillation she could have started at home in atrial fibrillation had the surgery. I was called for evaluation Patient was in significant pain postoperatively. Did not provide much history, history was obtained by reviewing her records. She is still having significant pain in her leg but no chest pain, denied any previous cardiac history Home Medications & Allergies Allergies: Coded Allergies: adhesive tape (Verified Allergy, Unknown, Itching, 04/16/23) bupropion (Verified Allergy, Unknown, 04/16/23) Hallucinations Home Medication List Reviewed: Yes [id number]-Ojxhox Hx Patient Social History Employed/Student: retired Smoking Status: Never a Smoker Recent Hopitalizations: No Alcohol Use?: Yes Past Medical History Discussed below Family Medical History Significant Family History: No Pertinent Family Hx Review of Systems-General Review of Systems Constitutional: no symptoms reported, see HPI EENTM: see HPI, no symptoms reported Respiratory: no symptoms reported, see HPI Cardiovascular: see HPI Gastrointestinal: no symptoms reported, see HPI Genitourinary: no symptoms reported, see HPI Musculoskeletal: see HPI, joint pain Skin: no symptoms reported, see HPI Psychiatric/Neurological: No Symptoms Reported, See HPI Physical Exam Physical Exam Vital Signs Vital Signs - First Documented Capillary Refill : Height, Weight, BMI Height: '" Weight: lbs. oz. kg; 35.21 BMI Method: General Appearance: No Apparent Distress, WD/WN Eyes: Bilateral Eye Normal Inspection, Bilateral Eye PERRL, Bilateral Eye EOMI HEENT: PERRL/EOMI, TMs Normal, Normal ENT Inspection, Pharynx Normal, Moist Mucous Membranes Neck: Full Range of Motion, Normal Inspection, Non Tender, Supple, Carotid Bruit Respiratory: Chest Non Tender, Normal Breath Sounds, No Accessory Muscle Use, No Respiratory Distress Cardiovascular: No Edema, No Gallop, No JVD, No Murmur, Normal Peripheral Pulses, Irregularly Irregular Gastrointestinal: Normal Bowel Sounds, No Organomegaly, No Pulsatile Mass, Non Tender, Soft Back: Normal Inspection, No CVA Tenderness, No Vertebral Tenderness Extremity: Normal Capillary Refill, Normal Inspection, Normal Range of Motion, Non Tender, No Calf Tenderness, No Pedal Edema Neurologic/Psychiatric: Alert, Oriented x3, No Motor/Sensory Deficits, Normal Mood/Affect Skin: Normal Color, Warm/Dry Lymphatic: No Adenopathy A/P-Cardiology Admission Diagnosis Atrial fibrillation Hypertension Hyperlipidemia Reactive airway disease Assessment/Plan Atrial fibrillation of unknown duration, new onset Heart rate is borderline elevated, patient is in significant pain I will give IV Lopressor and start her on low-dose Cardizem and evaluate toleran ce and response 2D echo done in December 2022 with moderate LVH, ejection fraction 55 to 60%. Otherwise no significant abnormality reported CHADVASC score 3, will start on Eliquis and evaluate tolerance and response Hypertension, has been maintained on amlodipine, atenolol as an outpatient which will be restarted Hyperlipidemia, maintained on atorvastatin as an outpatient, need to be restarted Status post knee replacement surgery, recovering, managed by Dr. ARTHUR Reactive airways disease, maintained on albuterol CHET SARGENT MD Apr 16, 2023 10:05
--- NOTE | 2023-04-16 10:13 | Progress Note ---
Standard Progress Note Progress Notes/Assess & Plan Date Seen by a Provider: Apr 16, 2023 Time Seen by a Provider: 10:10 Progress/Assessment & Plan post op check No complaints has been in Afib since leads placed in OR radiographs--HW well positioned without fracture RLE-- 2 plus DP pulse with brisk cap refill intact DF and PF of toes and ankle sensation intact to light touch throughout s/p RTKA Dr Flores evaluating for Afib mobilize when able KALEIGH ARTHUR MD Apr 16, 2023 10:13
[2023-04-16] MEDS ORDERED: meTOprolol INJECTION 5 MG/5 ML VIAL IV ONE (10:15)
[2023-04-16] MEDS: dilTIAZem 30 MG TABLET PO SCH ×3 (11:40→23:41)
[2023-04-16] MEDS: NS IV 1000 ML 1,000 ML IV SCH (11:42)
[2023-04-16] MEDS: CELECOXIB 400 MG CAPSULE PO SCH (11:51)
[2023-04-16] MEDS: ASPIRIN enteric coated 81MG TABLET PO SCH (11:51)
--- NOTE | 2023-04-16 12:44 | Diagnostic Imaging Report ---
EXAMINATION: Right knee radiographs, 2 views. COMPARISON: None. HISTORY: 73-year-old female, right knee prosthesis placement. FINDINGS: There is a total right knee prosthesis. Intra-articular and soft tissue gas likely reflects the recent post operative state of the patient. There are anterior skin debbie. There is no identified acute fracture. IMPRESSION: Placement of a right total knee prosthesis without identified complication. Dictated by: Dictated on workstation # [id number]
--- NOTE | 2023-04-16 12:50 | Consultation ---
KENNY CARRASCO 04/16/23 1250: HPI History of Present Illness: HPI/Chief Complaint 04/16/2023: CC: R-TKA, AFib HPI: Shakira is a 73 year old female that is status post operative on her right knee for a total knee arthroplasty. Prior to surgery, her heart rate and rhythm was normal. After being in the OR, she was presenting with AFib. When talking to Shakira, she noted that she was slightly uncomfortable in her knee. She denied any chest pain or AMS. Furthermore, she notes that she feels a little bit anxious. Shakira notes that she is excited for her knee to be fixed. She also endorses some depression that she is currently managing. Overall, her main concern is that she has some pain in her right knee. She denies any other concerns. Her pain is a 6/10. The pain is dull and achy. Source: patient Exam Limitations: clinical condition (PHM, ROS questions, patient would get off track. ) Date Seen 04/16/23 Attending Physician Boyd Valdez DO PCP Admitting Physician: Allen Weller MD Attending Physician: Allen Weller MD Referring Physician Date of Admission Apr 16, 2023 at 05:50 Home Medications & Allergies Home Medications Reviewed patient Home Medication Reconciliation performed by pharmacy medication reconciliations endoscope technician and/or nursing. Patients Allergies have been reviewed. Allergies Allergies Coded Allergies adhesive tape (Verified Allergy, Unknown, Itching, 04/16/23) bupropion (Verified Allergy, Unknown, 04/16/23) Hallucinations Past Ouvortx-Bnifov-Rqyyby Hx Patient Social History Marrital Status: Number of Children: 1 ( age 11) Number of living children: 0 Employed/Student: retired Tobacco Use?: No Smoking Status: Never a Smoker Smokeless Tobacco Frequency: Former User Use of E-Cig and/or Vaping Cale: Never a User Substance use?: No Alcohol Use?: Yes Alcohol Frequency: Once in a while Additional Alcohol Comments: maybe 2-3 times a year Pt feels they are or have been: No Immunizations Up To Date First/Initial COVID19 Vaccinat: 2020 Second COVID19 Vaccination Gino: 2020 Tetanus Booster (TDap): Unknown Seasonal Allergies Seasonal Allergies: Yes Current Status status: No Advance Directives: No Communicates: Verbally Primary Language: Icelandic Preferred Spoken Language: Icelandic Is interpretation needed?: No Sensory deficits: Vision impairment Implanted or Applied Medical D: None Past Medical History Surgeries: Gallbladder, Tonsillectomy Asthma Hypertension Neuropathy Gastroesophageal Reflux Osteoporosis, Arthritis, Scoliosis ADD/ADHD, Depression Blood Disorders: No Family Medical History No Pertinent Family Hx Review of Systems Constitutional: No no symptoms reported, No see HPI, No chills, No diaphoresis, No dizziness, No fever, No malaise, No weakness, No weight gain, No weight loss, No other EENTM: tearing Respiratory: cough; No hemoptysis, No stridor, No wheezing Cardiovascular: No chest pain, No edema Gastrointestinal: No abdominal pain, No constipation, No diarrhea, No jaundice, No loss of appetite, No melena, No nausea, No vomiting Genitourinary: frequency; No hematuria; incontinence (stress); No pain Musculoskeletal: see HPI, muscle pain Skin: no symptoms reported; No change in color, No change in hair/nails, No dryness Psychiatric/Neurological: See HPI, Depressed; Denies Weakness Physical Exam Physical Exam Vital Signs Vital Signs - First Documented Capillary Refill : Less Than 3 Seconds Height, Weight, BMI Height: '" Weight: lbs. oz. kg; 35.21 BMI Method: General Appearance: No Apparent Distress, WD/WN Eyes: Bilateral Eye Normal Inspection, Bilateral Eye PERRL, Bilateral Eye EOMI HEENT: PERRL/EOMI, TMs Normal, Normal ENT Inspection, Pharynx Normal, Moist Mucous Membranes; No Pale Conjunctivae (L), No Pale Conjunctivae (R) Neck: Full Range of Motion, Normal Inspection, Non Tender, Supple, Carotid Bruit Respiratory: Chest Non Tender, Normal Breath Sounds, No Accessory Muscle Use, No Respiratory Distress Cardiovascular: No Edema, No Gallop, No JVD, No Murmur, Normal Peripheral Pulses, Irregularly Irregular (AFib ) Gastrointestinal: Normal Bowel Sounds, No Organomegaly, No Pulsatile Mass, Non Tender, Soft Rectal: Deferred Back: Normal Inspection, No CVA Tenderness, No Vertebral Tenderness Extremity: Normal Capillary Refill, Normal Inspection, Normal Range of Motion, Non Tender, No Calf Tenderness, No Pedal Edema Neurologic/Psychiatric: Alert, Oriented x3, No Motor/Sensory Deficits, Normal 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 Assessment/Plan Assessment and Plan Assess & Plan/Chief Complaint 04/16/2023: A/P -Status Post Op day 0 R-TKA * Pain management * PT, ambulate as tolerated -A.Fib * Cardiology consult * Cardizem * TELE * [facility]- 3; eliquis per cardio -Stress IC * pads * frequent restroom -Depression * Managed with [facility] -HTN * restart amlodipine, metoprolol -Hyperlipidemia * restart atorvastatin -Reactive Airway Disease * Albuterol, ambulate -Potential ARU placement HERMILA JETT DO 04/16/232111: Supervisory-Addendum Brief Verification & Attestation Participated in pt care: history, MDM, physical Personally performed: exam, history, MDM, supervision of care Care discussed with: Medical Student Procedures: n/a Results interpretation: Verified all documentation Verification and Attestation of Medical Student E/M Service A medical student performed and documented this service in my presence. I reviewed and verified all information documented by the medical student and made modifications to such information, when appropriate. I personally performed the physical exam and medical decision making. Hermila Jett Apr 16, 2023,21:11 KENNY CARRASCO Apr 16, 2023 12:50 HERMILA JETT DO Apr 16, 2023 21:12
[2023-04-16] MEDS: ONDANSETRON INJECTION 4 MG/2 ML (SDV) IV PRN (14:06)
--- NOTE | 2023-04-16 14:49 | Physical Therapy Evaluation ---
PT Evaluation-General Medical Diagnosis Admission Date Apr 16, 2023 at 05:50 Medical Diagnosis: RTKA Onset Date: Apr 16, 2023 Therapy Diagnosis Therapy Diagnosis: Gait deficit, strength deficit Precautions Precautions/Isolations: Fall Prevention, Standard Precautions Weight Bear Status Right Lower Extremity: Right Weight Bearing/Tolerated Left Lower Extremity: Left Full Weight Bearing Referral Physician: Dr. Weller Reason for Referral: Evaluation/Treatment Medical History Reviewed History: Yes Social History Home: Single Level Current Living Status: Alone Entry Into Home: Stairs With Railing PT Steps Into Home: 6 Prior Prior Level of Function SCALE: Activities may be completed with or without assistive devices. 5-Wddolmmwqx-wlwqumd completes the activity by him/herself with no assistance from a helper. 5-Set-up or Clean-up Assistance-helper sets up or cleans up; patient completes activity. [place] assists only prior to or following the activity. 4-Supervision or Touching Assistance-helper provides verbal cues and/or touching/steadying and/or contact guard assistance as patient completes activity. Assistance may be provided throughout the activity or intermittently. 3-Partial/Moderate Assistance-helper does LESS THAN HALF the effort. [place] lifts, holds or supports trunk or limbs, but provides less than half the effort. 2-Substantial/Maximal Assistance-helper does MORE THAN HALF the effort. [place] lifts or holds trunk or limbs and provides more than half the effort. 4-Mftxijhve-qrcqsk does ALL the effort. Patient does none of the effort to complete the activity. Or, the assistance of 2 or more helpers is required for the patient to complete the activity. If activity was not attempted, code reason: 7-Patient Refused. 9-Not Applicable-not attempted and the patient did not perform the activity before the current illness, exacerbation or injury. 10-Not Attempted due to Environmental Limitations-(lack of equipment, weather restraints, etc.). 88-Not Attempted due to Medical Conditions or Safety Concerns. Bed Mobility: 6 Transfers (B,C,W/C): 6 Gait: 6 Stairs: 6 Indoor Mobility (Ambulation): Independent Stairs: Independent Prior Devices Use: Walker PT Evaluation-Current Subjective Patient lying supine in bed upon PT arrival, agreeable to treatment. Patient r ates pain at 5/10 in right knee. Objective Patient Orientation: Person, Place, Time, Situation Attachments: Oxygen, IV ROM/Strength ROM Lower Extremities Right knee flexion 75 degrees/ extension 10 degrees from neutral. Left LE WFLs all planes Strength Lower Extremities Left 4/5 all planes. Right LE knee flexion 3-/5, extension 3-/5. All other RLE planes 4-/5 Sensory Vision: Functional Hearing: Functional Sensation Right Lower Extremit: Intact Sensation Left Lower Extremity: Intact Transfers Roll Left to Right (QC): 3 Sit to Lying (QC): 3 Lying to Sitting/Side of Bed(Q: 3 Sit to Stand (QC): 3 Chair/Skm-tn-Zyqid Xfer(QC): 3 Gait Does the Patient Walk?: Yes Mode of Locomotion: Walk Anticipated Mode of Locomotion: Walk Distance: 3' Gait Assistive Device: FWW Balance Sitting Static: Fair Sitting Dynamic: Fair Standing Static: Fair Standing Dynamic: Fair Assessment/Needs Patient tolerated treatment fair. She reports she still feels "Light headed and out of it" and demonstrates difficulty remembering facts. Patient performs all bed mobility and transfers with Min/Mod A. Patient ambulates 3 feet with FWW to the chair with min/mod A. Patient in chair post treatment with all needs met, nursing notified, call light in hand. Rehab Potential: Fair PT Rounding Machine Tender Goals Rounding Machine Tender Goals PT Usp Goals Time Frame: May 06, 2023 Roll Left & Right (QC): 6 Sit to Lying (QC): 6 Lying-Sitting on Side/Bed(QC): 6 Sit to Stand (QC): 6 Chair/Oqb-tf-Zoyog Xfer(QC): 6 Toilet Transfer (QC): 6 Car Transfer (QC): 6 Does the Patient Walk: Yes Walk 10 feet (QC): 6 Walk 50ft with 2 Turns (QC): 6 Walk 150 ft (QC): 4 1 Step (curb) (QC): 3 4 Steps (QC): 3 12 Steps (QC): 3 PT Plan Problem List Problem List: Activity Tolerance, Functional Strength, Safety, Balance, Gait, Transfer, Bed Mobility, ROM Treatment/Plan Treatment Plan: Continue Plan of Care Treatment Plan: Bed Mobility, Education, Functional Activity Vicky, Functional Strength, Group Therapy, Gait, Safety, Therapeutic Exercise, Transfers Treatment Duration: May 06, 2023 Frequency: 11 times per week Estimated Hrs Per Day: .25 hour per day Patient and/or Family Agrees t: Yes Safety Risks/Education Patient Education: Gait Training, Transfer Techniques Teaching Recipient: Patient Teaching Methods: Demonstration, Discussion Response to Teaching: Reinforcement Needed Time Time In: 1325 Time Out: 1340 DATE: Apr 16, 2023 Total Billed Treatment Time: 15 Total Billed Treatment Visit, ERNESTINE ROUSSEAU PT Apr 16, 2023 14:49
--- NOTE | 2023-04-16 14:53 | Consultation ---
HPI History of Present Illness: 73 yo female admitted after right TKA. Noted to have a fib while under anesthesia. She is still drowsy from surgery at time of my exam, so history is somewhat limited. She denies specific concerns. Denies chest pain, shortness of breath. Source: patient Exam Limitations: clinical condition Date seen by provider: Apr 16, 2023 Time Seen by Provider: 11:00 Attending Physician Boyd Valdez DO PCP Admitting Physician: Allen Weller MD Attending Physician: Allen Weller MD Consult Date of Admission Apr 16, 2023 at 05:50 Home Medications Home Medications Reviewed patient Home Medication Reconciliation performed by pharmacy medication reconciliations process technician and/or nursing. Patients Allergies have been reviewed. Allergies Coded Allergies: adhesive tape (Verified Allergy, Unknown, Itching, 04/16/23) bupropion (Verified Allergy, Unknown, 04/16/23) Hallucinations KQI-Xwnegx-Jfwuqv Hx Patient Social History Marrital Status: Number of Children: 1 ( age 11) Number of living children: 0 Employed/Student: retired Smoking Status: Never a Smoker Recent Hopitalizations: No Alcohol Use?: Yes Immunizations Up To Date Influenza Vaccine Up-to-Date: Yes; Up-to-Date First/Initial COVID19 Vaccinat: 2020 Second COVID19 Vaccination Gino: 2020 COVID19 Vaccine Polishing Machine Operator: moderna Past Medical History PMHx: HTN HLD Osteoarthritis OAB Neuropathy ADHD Depression PSHx: Cataracts Tonsillectomy Cholecystectomy Right TKA Family Medical History Significant Family History: No Pertinent Family Hx Review of Systems ([facility]) Constitutional: No fever Respiratory: No short of breath Cardiovascular: No chest pain Musculoskeletal: joint pain Physical Exam-([facility]) Physical Exam Vital Signs VS - Last 72 Hours, by Label 04/16/23 04/16/23 04/16/23 04/16/23 06:30 06:30 09:31 09:31 Temp 36.5 36.2 Pulse 96 Resp 20 18 B/P (MAP) 119/90 (100) 123/67 (85) Pulse Ox 93 93 96 O2 Delivery Room Air Room Air OxyMask OxyMask O2 Flow Rate 10.00 10.00 04/16/23 04/16/23 04/16/23 04/16/23 09:40 09:45 09:50 10:00 Resp 24 28 B/P (MAP) 99/72 (81) 112/76 (88) Pulse Ox 96 97 O2 Delivery OxyMask OxyMask OxyMask OxyMask O2 Flow Rate 10.00 10.00 10.00 10.00 04/16/23 04/16/23 04/16/23 04/16/23 10:00 10:10 10:15 10:18 Temp 36.2 Resp 24 16 12 B/P (MAP) 132/72 (92) 91/77 (82) 131/95 (107) Pulse Ox 98 93 96 O2 Delivery OxyMask Nasal Cannula Nasal Cannula Nasal Cannula O2 Flow Rate 10.00 3.00 3.00 3.00 04/16/23 04/16/23 04/16/23 04/16/23 10:30 10:57 11:35 11:55 Temp 36.1 36.5 Pulse 95 84 90 Resp 22 19 B/P (MAP) 126/80 (95) 120/78 (92) Pulse Ox 95 96 O2 Delivery Nasal Cannula Nasal Cannula Nasal Cannula O2 Flow Rate 3.00 3.00 3.00 Capillary Refill : Less Than 3 Seconds General Appearance: no apparent distress, other (drowsy but arousable) Respiratory: lungs clear, normal breath sounds Cardiovascular: no murmur, irregularly irregular Gastrointestinal: normal bowel sounds, non tender, soft Extremities: no pedal edema Neurologic/Psychiatric: normal mood/affect, other (drowsy, able to answer questions but slow speech) Skin: warm/dry Assessment/Plan Assessment/Plan (1) Status post right knee replacement Status: Acute Assessment & Plan: management per Ortho (2) Hypertension Status: Chronic Assessment & Plan: Currently normotensive to low since admit. Hold home BP meds. (3) Hyperlipidemia Status: Chronic Assessment & Plan: Resume home atorvastatin (4) Atrial fibrillation Status: Acute Assessment & Plan: Cardiology consulted, appreciate recommendations. (5) Depression Status: Chronic Assessment & Plan: Resume home medication. PAYAL NELSON MD Apr 16, 2023 14:53
[2023-04-16] MEDS ORDERED: RT-ALBUTEROL SULF 2.5 MG/3 ML PRE-MIX VIAL IH PRN (15:00)
[2023-04-16] MEDS ORDERED: LIDO1ADH66 TP (15:06)
[2023-04-16] MEDS ORDERED: VILO100C PO (15:06)
[2023-04-16] MEDS ORDERED: AMLO-250 PO (15:06)
[2023-04-16] MEDS ORDERED: CETI10CA PO (15:06)
[2023-04-16] MEDS ORDERED: TR1C15 TP (15:06)
[2023-04-16] MEDS ORDERED: TRAZ-227 PO ×2 (15:06→15:57)
[2023-04-16] MEDS ORDERED: ZINC220C9 PO (15:06)
[2023-04-16] MEDS ORDERED: ALBU8.5H6 IH (15:06)
[2023-04-16] MEDS ORDERED: ATOR20TA66 PO ×2 (15:06→15:57)
[2023-04-16] MEDS ORDERED: MULT-1036 PO (15:06)
[2023-04-16] MEDS ORDERED: CELE100C85 PO (15:06)
[2023-04-16] MEDS ORDERED: GBPN600T PO (15:06)
[2023-04-16] MEDS: CEFUROXIME INJECTION 750 MG in NS (IVPB) 50 ML 50 ML IV SCH ×2 (15:17→19:39)
[2023-04-16] MEDS ORDERED: CELE400C16 PO (15:57)
[2023-04-16] MEDS ORDERED: OXYC1TAB11 PO (15:58)
[2023-04-16] MEDS ORDERED: ACET-2267 PO (16:01)
[2023-04-16] MEDS ORDERED: TRAM50TA3 PO (16:01)
[2023-04-16] MEDS: oxyCODONE/ACETAMINOPHEN 5/325MG TABLET PO PRN (16:09)
--- NOTE | 2023-04-16 16:10 | OPERATIVE REPORT ---
DATE OF SERVICE: 04/16/2023 PREOPERATIVE DIAGNOSIS: Right knee primary osteoarthritis. POSTOPERATIVE DIAGNOSIS: Right knee primary osteoarthritis. PROCEDURE: Right total knee arthroplasty. SURGEON: Dr. Weller. MELTER OPERATOR: Alfred Alcaraz, who assisted throughout the procedure and closed the incision. ANESTHESIA: General endotracheal by Jose Hua CRNA. TOURNIQUET TIME: Approximately 60 minutes at 300 mmHg. ESTIMATED BLOOD LOSS: Minimal. DRAINS: None. COMPLICATIONS: None. POSTOPERATIVE PLAN: Routine protocol. MATERIALS: MicroPort cemented size 5 femur, cemented size 5 tibia with 12 mm insert and cemented size 29 patellar button. STATEMENT OF MEDICAL NECESSITY: The patient is a 73-year-old female with longstanding progressive right knee pain. Radiographs revealed severe tricompartmental osteoarthritis. She had undergone treatment with injections for years with only temporary relief of her symptoms. Due to functional impairment and failure to improve with conservative measures, the patient elected to proceed with surgical intervention. DESCRIPTION OF PROCEDURE: After risks and benefits of the procedure were discussed and questions were answered and informed consent was signed and placed on the chart, the operative site was confirmed in the preoperative holding area initialed by the surgeon. The patient was then transported to the operating room. After adequate levels of general endotracheal anesthetic were obtained, a timeout was called, confirming the operative site. The right lower extremity was prepped and draped in the usual sterile fashion. With the leg elevated and the knee flexed, the tourniquet was inflated to 300 mmHg. Standard anterior approach was utilized. Hemostasis was obtained with cautery. Medial parapatellar arthrotomy was performed, leaving 1 cm cuff on the patella for later reattachment. A portion of the fat pad was resected. A subperiosteal release was carefully performed on the proximal medial tibia, being careful to stay on the bony surface. The ACL was resected. Intramedullary guide was passed into the femoral canal. The distal cutting block was placed and [ ] cut was made. The femur sized to a size 5. The 5 cutting block was placed parallel to the epicondylar axis and then the cuts were made from posterior to anterior. Subperiosteal release was then carefully performed on the posterior distal femur, being careful to stay on the bony surface. The intramedullary guide was then passed into the tibial canal. The cutting block was placed. The drop luke transected the intermalleolar axis and the cut was made. The 5 baseplate was placed and had excellent coverage. This was prepared with the drill and keel punch after ensuring that the drop luke was well aligned. The trials were inserted. The trochlear cut was made. A 12 mm insert was placed. The patella was then prepared by resecting 10 mm off the undersurface. The peg guide was placed and peg holes were drilled. A 29 trial was placed. The knee demonstrated full extension with 120 degrees of flexion with gravity [ ]. There is no anterior/posterior or medial/lateral laxity in flexion or extension. The patella tracked well. The trials were removed. The joint was irrigated with pulse lavage. Periarticular block was placed in the posterior capsule, medial and lateral retinaculum and extensor mechanism. The joint was further irrigated. Bone ends were irrigated and dried. The tibial baseplate was cemented into position. Excessive cement was removed. The superior surface was irrigated and dried and the polyethylene insert was placed. The distal femur was irrigated and dried and the femoral prosthesis was cemented into position. Excessive cement was removed. The knee was brought out into full extension until the cement had cured. The undersurface of the patella was irrigated and dried. The patellar button was cemented into position. Excessive cement was removed. Once the cement had cured, the knee was taken through range of motion. Full extension was easily obtained, 120 degrees of flexion with gravity was easily obtained. There is no anterior/posterior or medial/lateral laxity in flexion or extension. The joint was further irrigated with pulse lavage. Additionally, 1 liter of Irrisept was used throughout the procedure. The arthrotomy was closed with #2 Tevdek in [id number]-kg-jmhxz interrupted fashion. Knee was flexed. Repair was stable. The subcutaneous tissues were irrigated with pulse lavage using a total of 6 liters throughout the procedure. A 0 Vicryl was used for the deep subcutaneous layer, 2-0 Vicryl for the superficial subcutaneous layer, debbie used on the skin and soft dressing was applied. The tourniquet was deflated. The patient was transferred to the recovery room awake and in stable condition. Job ID: [id number] DocumentID: [id number] Dictated Date: 04/16/2023 09:30:36 Business Services Assistant Date: 04/16/2023 16:08:00 Dictated By: KALEIGH WELLER MD
[2023-04-16] MEDS: APIXABAN 5 MG TABLET PO SCH (19:39)
[2023-04-16] MEDS: GABAPENTIN 300 MG CAPSULE PO SCH (19:39)
[2023-04-16] MEDS: SENNA W/DOCUSATE TABLET PO SCH (19:41)
[2023-04-17] MEDS: oxyCODONE/ACETAMINOPHEN 5/325MG TABLET PO PRN ×2 (03:14→08:06)
[2023-04-17 03:26] VITALS: BP 133/73
[2023-04-17] MEDS: NS IV 1000 ML 1,000 ML IV SCH (04:26)
[2023-04-17 05:42] LABS: HEMATOCRIT 31 % (35-52); HEMOGLOBIN 10.3 g/dL (11.5-16.0); MEAN CORPUSCULAR HEMOGLOBIN 31 pg (25-34); MEAN CORPUSCULAR HGB CONC 33 g/dL (32-36); MEAN CORPUSCULAR VOLUME 94 fL (80-99); PLATELET COUNT 182 10^3/uL (130-400)
[2023-04-17] MEDS: CYCLOBENZAPRINE 10 MG TABLET PO PRN (05:43)
[2023-04-17] MEDS: dilTIAZem 30 MG TABLET PO SCH (05:43)
[2023-04-17] MEDS: THERAPEUTIC MULTIVITAMIN W/MINERALS TABLET PO SCH (05:43)
[2023-04-17 05:49] LABS: POTASSIUM 3.9 MMOL/L (3.6-5.0)
[2023-04-17 05:50] LABS: CALCIUM 8.1 MG/DL (8.5-10.1)
[2023-04-17 05:52] LABS: TOTAL PROTEIN 5.6 GM/DL (6.4-8.2)
[2023-04-17 05:54] LABS: BILIRUBIN,TOTAL 0.6 MG/DL (0.1-1.0)
[2023-04-17 05:55] LABS: CREATININE SERUM 0.75 MG/DL (0.60-1.30)
[2023-04-17 05:57] LABS: BILIRUBIN,DIRECT 0.3 MG/DL (0.0-0.3); BILIRUBIN,INDIRECT 0.3 MG/DL
[2023-04-17 05:58] LABS: MAGNESIUM 1.8 MG/DL (1.6-2.4)
--- NOTE | 2023-04-17 07:43 | Anesthesia-General Post-Op ---
General Patient Condition Mental Status/LOC: Same as Preop Cardiovascular: Satisfactory Nausea/Vomiting: Absent Respiratory: Satisfactory Pain: Controlled Complications: Absent Post Op Complications Complications None Follow Up Care/Instructions Patient Instructions None needed. Anesthesia/Patient Condition Patient Condition Patient is doing well, no complaints, stable vital signs, no apparent adverse anesthesia problems. No complications reported per nursing. REGINE AREVALO CRNA Apr 17, 2023 07:43
--- NOTE | 2023-04-17 07:59 | Progress Note ---
Standard Progress Note Progress Notes/Assess & Plan Date Seen by a Provider: Apr 17, 2023 Time Seen by a Provider: 07:58 Progress/Assessment & Plan post op check No complaints has been in Afib since leads placed in OR radiographs--HW well positioned without fracture RLE-- 2 plus DP pulse with brisk cap refill intact DF and PF of toes and ankle sensation intact to light touch throughout s/p RTKA Dr Flores evaluating for Afib mobilize when able Final Diagnosis no complaints ambulating in room Vital Signs Date Time Temp Pulse Resp B/P (MAP) Pulse Ox O2 Delivery O2 Flow Rate FiO2 04/17/23 03:26 37.7 99 20 133/73 (93) 91 Nasal Cannula 2.00 2.00 04/17/23 01:00 90 04/16/23 23:39 37.3 91 20 137/82 (100) 93 Nasal Cannula 2.00 04/16/23 21:47 93 Nasal Cannula 2.00 04/16/23 21:04 2.00 04/16/23 20:02 37.3 81 19 125/78 (94) 90 Nasal Cannula 3.00 3.00 04/16/23 19:45 Nasal Cannula 2.00 04/16/23 19:00 80 04/16/23 16:00 36.3 92 19 123/80 (94) 96 Room Air 04/16/23 13:07 74 04/16/23 11:55 36.5 90 19 120/78 (92) 96 Nasal Cannula 3.00 04/16/23 11:35 84 04/16/23 10:57 36.1 95 22 126/80 (95) 95 Nasal Cannula 3.00 04/16/23 10:30 Nasal Cannula 3.00 04/16/23 10:18 36.2 12 131/95 (107) 96 Nasal Cannula 3.00 04/16/23 10:15 Nasal Cannula 3.00 04/16/23 10:10 16 91/77 (82) 93 Nasal Cannula 3.00 04/16/23 10:00 24 132/72 (92) 98 OxyMask 10.00 04/16/23 10:00 OxyMask 10.00 04/16/23 09:50 28 112/76 (88) 97 OxyMask 10.00 04/16/23 09:45 OxyMask 10.00 04/16/23 09:40 24 99/72 (81) 96 OxyMask 10.00 04/16/23 09:31 36.2 18 123/67 (85) 96 OxyMask 10.00 04/16/23 09:31 OxyMask 10.00 I & O 04/17/23 07:00 Intake Total 2310 ml Output Total 500 ml Balance 1810 ml Laboratory Tests Test 04/17/23 05:09 Range/Units White Blood Count 11.0 4.3-11.0 10^3/uL Red Blood Count 3.36 L 3.80-5.11 10^6/uL Hemoglobin 10.3 L 11.5-16.0 g/dL Hematocrit 31 L 35-52 % Mean Corpuscular Volume 94 80-99 fL Mean Corpuscular Hemoglobin 31 25-34 pg Mean Corpuscular Hemoglobin Concent 33 32-36 g/dL Red Cell Distribution Width 12.6 10.0-14.5 % Platelet Count 182 130-400 10^3/uL Mean Platelet Volume 10.0 9.0-12.2 fL Sodium Level 137 135-145 MMOL/L Potassium Level 3.9 3.6-5.0 MMOL/L Chloride Level 106 98-107 MMOL/L Carbon Dioxide Level 23 21-32 MMOL/L Anion Gap 8 5-14 MMOL/L Blood Urea Nitrogen 20 H 7-18 MG/DL Creatinine 0.75 0.60-1.30 MG/DL Estimat Glomerular Filtration Rate 83 BUN/Creatinine Ratio 27 Glucose Level 120 H 70-105 MG/DL Calcium Level 8.1 L 8.5-10.1 MG/DL Magnesium Level 1.8 1.6-2.4 MG/DL Total Bilirubin 0.6 0.1-1.0 MG/DL Direct Bilirubin 0.3 0.0-0.3 MG/DL Indirect Bilirubin 0.3 MG/DL Aspartate Amino Transf (AST/SGOT) 24 5-34 U/L Alanine Aminotransferase (ALT/SGPT) 21 0-55 U/L Alkaline Phosphatase 62 40-136 U/L Total Protein 5.6 L 6.4-8.2 GM/DL Albumin 3.0 L 3.2-4.5 GM/DL Thyroid Stimulating Hormone (TSH) 0.00 L 0.35-4.94 UIU/ML RLE--no calf tenderness neg Melissa s/p RTKA to IRU or DC home tomorrow KALEIGH ARTHUR MD Apr 17, 2023 07:59
[2023-04-17] MEDS ORDERED: ENOXAPARIN 30 MG/0.3 ML SYRINGE SC SCH (08:00)
[2023-04-17 08:16] VITALS: BP 132/76
--- NOTE | 2023-04-17 08:20 | Cardiology Progress Note ---
Subjective Date Seen by Provider: Apr 17, 2023 Time Seen by Provider: 08:18 Subjective/Events-last exam Patient was seen at bedside, receiving physical therapy, doing better. Feeling better. Objective-Cardiology Exam Last Set of Vital Signs Vital Signs 04/17/23 08:16 Temp 36.0 Pulse 89 Resp 18 B/P (MAP) 132/76 (94) Pulse Ox 92 O2 Delivery Nasal Cannula O2 Flow Rate 2.00 I&O Intake and Output 04/17/23 00:00 Intake Total 2010 ml Output Total 250 ml Balance 1760 ml Intake Oral 910 ml IV Total 1100 ml Output Urine Total 250 ml Daily Weight Change No General: Alert, Oriented X3, Cooperative HEENT: Atraumatic, PERRLA Neck: Supple, No JVD, No Thyromegaly Lungs: Clear to Auscultation, Normal Air Movement Heart: Regular Rate, Normal S1, Normal S2, No Murmurs Abdomen: Normal Bowel Sounds, Soft, No Tenderness, No Hepatosplenomegaly, No Masses Extremities: No Clubbing, No Cyanosis, No Edema, Normal Pulses, No Tenderness/Swelling Skin: No Rashes, No Breakdown, No Significant Lesion Neuro: Normal Gait, Normal Speech, Strength at 5/5 X4 Ext, Normal Tone, Sensa tion Intact Psych/Mental Status: Mental Status NL, Mood NL Results Lab Laboratory Tests 04/17/23 05:09 A/P-Cardiology Admission Diagnosis Atrial fibrillation Hypertension Hyperlipidemia Reactive airway disease Assessment/Plan Atrial fibrillation of unknown duration, new onset Converted back to sinus rhythm, doing well We will maintain on Cardizem and Eliquis. Arrange for follow-up as an outpatient 2D echo done in December 2022 with moderate LVH, ejection fraction 55 to 60%. Otherwise no significant abnormality reported CHADVASC score 3, will start on Eliquis and evaluate tolerance and response Hypertension, has been maintained on amlodipine, atenolol as an outpatient which will be restarted Hyperlipidemia, maintained on atorvastatin as an outpatient, need to be restarted Status post knee replacement surgery, recovering, managed by Dr. ARTHUR Reactive airways disease, maintained on albuterol I will sign off at this point, arrange for follow-up with my office in 2 weeks. CHET SARGENT MD Apr 17, 2023 08:20
--- NOTE | 2023-04-17 08:39 | Physical Therapy Daily Note ---
PT Daily Note-Current Subjective Patient agrees to PT Pain Numeric Pain Scale: 8 Location: Right Location Body Site: Knee Pain Description: Acute Section J - Health Conditions 1. Rarely or not at all 2. Occasionally 3. Frequently 4. Almost constantly 8. Unable to answer Pain Effect on Sleep: 2 Pain Interference with Therapy: 2 Pain Interference w/Day-to-Day: 2 Transfers SCALE: Activities may be completed with or without assistive devices. 8-Qbwodffvyn-bojusvx completes the activity by him/herself with no assistance from a helper. 5-Set-up or Clean-up Assistance-helper sets up or cleans up; patient completes activity. Fountain assists only prior to or following the activity. 4-Supervision or Touching Assistance-helper provides verbal cues and/or touching/steadying and/or contact guard assistance as patient completes activity. Assistance may be provided throughout the activity or intermittently. 3-Partial/Moderate Assistance-helper does LESS THAN HALF the effort. Fountain lifts, holds or supports trunk or limbs, but provides less than half the effort. 2-Substantial/Maximal Assistance-helper does MORE THAN HALF the effort. Fountain lifts or holds trunk or limbs and provides more than half the effort. 1-Hwddrofrr-ubekmu does ALL the effort. Patient does none of the effort to complete the activity. Or, the assistance of 2 or more helpers is required for the patient to complete the activity. If activity was not attempted, code reason: 7-Patient Refused. 9-Not Applicable-not attempted and the patient did not perform the activity before the current illness, exacerbation or injury. 10-Not Attempted due to Environmental Limitations-(lack of equipment, weather restraints, etc.). 88-Not Attempted due to Medical Conditions or Safety Concerns. Lying to Sitting/Side of Bed(Q: 4 Sit to Stand (QC): 4 Chair/Lyr-sg-Rsebz Xfer(QC): 4 Weight Bearing Right Lower Extremity: Right Weight Bearing/Tolerated Left Lower Extremity: Left Full Weight Bearing Gait Training Distance: 150' Walk 10 feet (QC): 4 Walk 50 ft with 2 Turns(QC): 4 Walk 150 ft (QC): 4 Gait Assistive Device: FWW slow, antalgic, step to Exercises Supine Ex: Ankle pumps, Quad Set, Heel Slides, Straight leg raise Supine Reps: 12 Seated Therapy Exercises: Long arc quads Seated Reps: 15 Assessment Patient, during session, began to display behaviors of increase c/o right knee pain and inability to continue to ambulate or weight bear right LE. Patient required w/c to return to room and transferred to recliner by "throwing" herself to sit from standing position landing on arm of the chair yelling the entire time. Surgeon in to assess and noted nothing appears to have changed with LE. Instructed to perform all activity as directed by PT. Patient continues to display anxiety behaviors. Surgeon addressing this. Patient voices she does not want to go home because she lives by herself. PT Custodial Goals Custodial Goals PT Food Preservation Scientist Goals Time Frame: May 06, 2023 Roll Left & Right (QC): 6 Sit to Lying (QC): 6 Lying-Sitting on Side/Bed(QC): 6 Sit to Stand (QC): 6 Chair/Yes-yt-Zvpuk Xfer(QC): 6 Toilet Transfer (QC): 6 Car Transfer (QC): 6 Does the Patient Walk: Yes Walk 10 feet (QC): 6 Walk 50ft with 2 Turns (QC): 6 Walk 150 ft (QC): 4 1 Step (curb) (QC): 3 4 Steps (QC): 3 12 Steps (QC): 3 PT Plan Treatment/Plan Treatment Plan: Continue Plan of Care Treatment Plan: Bed Mobility, Education, Functional Activity Vicky, Functional Strength, Group Therapy, Gait, Safety, Therapeutic Exercise, Transfers Treatment Duration: May 06, 2023 Frequency: 11 times per week Estimated Hrs Per Day: .25 hour per day Patient and/or Family Agrees t: Yes Time Time In: 740 Time Out: 806 DATE: Apr 17, 2023 Total Billed Treatment Time: 26 Total Billed Treatment 1 visit EX 12 min GT 14 min CHANG ALCANTAR PT Apr 17, 2023 08:39
[2023-04-17] MEDS: dilTIAZem ER 120 MG CAPSULE PO SCH (08:41)
[2023-04-17] MEDS: APIXABAN 5 MG TABLET PO SCH ×2 (08:41→20:22)
[2023-04-17] MEDS: ASPIRIN enteric coated 81MG TABLET PO SCH (08:41)
[2023-04-17] MEDS: SENNA W/DOCUSATE TABLET PO SCH ×2 (08:41→20:22)
[2023-04-17] MEDS: LORATADINE 10 MG TABLET PO SCH (08:41)
[2023-04-17] MEDS: ALPRAZolam 0.25 MG TABLET PO PRN (08:41)
[2023-04-17] MEDS: CELECOXIB 400 MG CAPSULE PO SCH (08:41)
[2023-04-17] MEDS ORDERED: dilTIAZem ER 120 MG CAPSULE PO SCH (09:00)
[2023-04-17] MEDS ORDERED: NON-FORMULARY MEDICATION 1 EA EA (Cetirizine HCl (Zyrtec) 10 MG) PO SCH (09:00)
[2023-04-17] MEDS ORDERED: MULTIVITS CA MINERALS PO SCH (09:00)
[2023-04-17] MEDS ORDERED: IRON PO SCH (09:00)
[2023-04-17] MEDS ORDERED: [UNRECOGNIZED DRUG - OTHER] PO SCH (09:00)
[2023-04-17] MEDS ORDERED: VILOXAZINE HCL PO SCH ×2 (09:00→17:00)
[2023-04-17 12:06] VITALS: BP 132/74
--- NOTE | 2023-04-17 13:56 | Physical Therapy Daily Note ---
PT Daily Note-Current Subjective Patient agrees to PT. Pain Numeric Pain Scale: 7 Location: Right Location Body Site: Knee Pain Description: Acute Section J - Health Conditions 1. Rarely or not at all 2. Occasionally 3. Frequently 4. Almost constantly 8. Unable to answer Pain Effect on Sleep: 2 Pain Interference with Therapy: 4 Pain Interference w/Day-to-Day: 2 Transfers SCALE: Activities may be completed with or without assistive devices. 8-Npdcmahiqi-bqbwffg completes the activity by him/herself with no assistance from a helper. 5-Set-up or Clean-up Assistance-helper sets up or cleans up; patient completes activity. Molino assists only prior to or following the activity. 4-Supervision or Touching Assistance-helper provides verbal cues and/or touching /steadying and/or contact guard assistance as patient completes activity. Assistance may be provided throughout the activity or intermittently. 3-Partial/Moderate Assistance-helper does LESS THAN HALF the effort. Molino lifts, holds or supports trunk or limbs, but provides less than half the effort. 2-Substantial/Maximal Assistance-helper does MORE THAN HALF the effort. Molino lifts or holds trunk or limbs and provides more than half the effort. 9-Darmytmrr-fwudin does ALL the effort. Patient does none of the effort to complete the activity. Or, the assistance of 2 or more helpers is required for the patient to complete the activity. If activity was not attempted, code reason: 7-Patient Refused. 9-Not Applicable-not attempted and the patient did not perform the activity before the current illness, exacerbation or injury. 10-Not Attempted due to Environmental Limitations-(lack of equipment, weather restraints, etc.). 88-Not Attempted due to Medical Conditions or Safety Concerns. Lying to Sitting/Side of Bed(Q: 4 Sit to Stand (QC): 4 Chair/Bez-kl-Gmzsp Xfer(QC): 3 patient required mod assist to SPT recliner to bed due to not weight bearing right LE due to pain. Weight Bearing Right Lower Extremity: Right Weight Bearing/Tolerated Left Lower Extremity: Left Full Weight Bearing Gait Training Distance: 5' Gait Assistive Device: FWW mod assist to maintain standing with patient placing right knee in valgum by not activating quad musculature due to pain. Exercises Supine Ex: Ankle pumps, Quad Set, Heel Slides, Straight leg raise Supine Reps: 12 (AAROM SLR) Seated Therapy Exercises: Long arc quads Seated Reps: 12 (AAROM) Assessment Patient ambulated this morning and performed LAQ without difficulty. Patient voices she "did not realize it was going to hurt this bad". Surgeon and PT both educated patient on importance of performing all activity to reap the benefit from an elective surgery. Surgeon updated this p.m. on PT finding with above. Polar pack and SCD's placed on patient after session. PT Gasoline Finisher Goals Gasoline Finisher Goals PT Gasoline Finisher Goals Time Frame: May 06, 2023 Roll Left & Right (QC): 6 Sit to Lying (QC): 6 Lying-Sitting on Side/Bed(QC): 6 Sit to Stand (QC): 6 Chair/Jmk-gm-Kykjh Xfer(QC): 6 Toilet Transfer (QC): 6 Car Transfer (QC): 6 Does the Patient Walk: Yes Walk 10 feet (QC): 6 Walk 50ft with 2 Turns (QC): 6 Walk 150 ft (QC): 4 1 Step (curb) (QC): 3 4 Steps (QC): 3 12 Steps (QC): 3 PT Plan Treatment/Plan Treatment Plan: Continue Plan of Care Treatment Plan: Bed Mobility, Education, Functional Activity Vicky, Functional Strength, Group Therapy, Gait, Safety, Therapeutic Exercise, Transfers Treatment Duration: May 06, 2023 Frequency: 11 times per week Estimated Hrs Per Day: .25 hour per day Patient and/or Family Agrees t: Yes Time Time In: 1302 Time Out: 1344 DATE: Apr 17, 2023 Total Billed Treatment Time: 42 Total Billed Treatment 1 visit EX x 25 min GT 17 min CHANG ALCANTAR PT Apr 17, 2023 13:56
--- NOTE | 2023-04-17 14:54 | Discharge Inst-Skilled Nursing ---
Discharge Inst-Skilled NF Reconcile Patient Problems Problems Reviewed?: Yes Patient Instructions Patient Problems: right total knee arthroplasty Goal: independence Patient Instructions: ROM STRENGTHENING Consult/Follow Up/Orders Follow Up Appt.: 3 weeks Skilled NF Admit to: [facility] Certification (SNF) I certify that SNF services are required to be given on an inpatient basis because of the above named patient's need for retirement care on a continuing basis for the conditions(s) for which he/she was receiving inpatient hospital services prior to his/her transfer to the SNF. Care Home Facility Order: Nursing Services, Senior Publications Specialist-Evaluate & Treat, Physical Therapy-Evaluate & Treat Discharge Diet: Regular Diet Daily Activity as Tolerated: Yes Resuscitation Status: Full Code New & Resume Previous Orders Kaleigh Arthur Apr 17, 2023 14:51 KALEIGH ARTHUR MD Apr 17, 2023 14:54
[2023-04-17 16:30] VITALS: BP 131/65
--- NOTE | 2023-04-17 16:44 | Progress Note ---
Subjective Subjective/Events-last exam Pt seen at 1050 am. Had a hard time with PT today. Denies other concerns. Objective Exam Last Set of Vital Signs Vital Signs Date Time Temp Pulse Resp B/P (MAP) Pulse Ox O2 Delivery O2 Flow Rate FiO2 04/17/23 16:30 36.9 90 18 131/65 (87) 93 Nasal Cannula 2.00 04/17/23 11:05 92 Capillary Refill : Less Than 3 Seconds I&O Intake and Output 04/17/23 00:00 Intake Total 2010 ml Output Total 250 ml Balance 1760 ml Intake Oral 910 ml IV Total 1100 ml Output Urine Total 250 ml Daily Weight Change No General: Alert, No Acute Distress Lungs: Other (expiratory wheezing, bibasilar rales) Heart: Regular Rate Neuro: Normal Speech Psych/Mental Status: Mood NL Results/Procedures Lab Laboratory Tests 04/17/23 05:09: White Blood Count 11.0, Red Blood Count 3.36L, Hemoglobin 10.3L, Hematocrit 31L, Mean Corpuscular Volume 94, Mean Corpuscular Hemoglobin 31, Mean Corpuscular Hemoglobin Concent 33, Red Cell Distribution Width 12.6, Platelet Count 182, Mean Platelet Volume 10.0, Sodium Level 137, Potassium Level 3.9, Chloride Level 106, Carbon Dioxide Level 23, Anion Gap 8, Blood Urea Nitrogen 20H, Creatinine 0.75, Estimat Glomerular Filtration Rate 83, BUN/Creatinine Ratio 27, Glucose Level 120H, Calcium Level 8.1L, Magnesium Level 1.8, Total Bilirubin 0.6, Direct Bilirubin 0.3, Indirect Bilirubin 0.3, Aspartate Amino Transf (AST/SGOT) 24, Alanine Aminotransferase (ALT/SGPT) 21, Alkaline Phosphatase 62, Total Protein 5.6L, Albumin 3.0L, Thyroid Stimulating Hormone (TSH) 0.00L, Free Thyroxine 2.30H Microbiology 04/09/23 MRSA Screen - Final, Complete MRSA not isolated Assessment/Plan Assessment/Plan (1) Status post right knee replacement Status: Acute Assessment & Plan: management per Ortho (2) Hypertension Status: Chronic Assessment & Plan: Currently normotensive to low since admit. Hold home BP meds. (3) Hyperlipidemia Status: Chronic Assessment & Plan: Resume home atorvastatin (4) Atrial fibrillation Status: Acute Assessment & Plan: Cardiology consulted, appreciate recommendations. Started apixaban. TSH 0.00, checking free T4 and total T3. (5) Depression Status: Chronic Assessment & Plan: Resume home medication. PAYAL NELSON MD Apr 17, 2023 16:44
[2023-04-17] MEDS: GABAPENTIN 300 MG CAPSULE PO SCH (20:22)
[2023-04-17 20:41] VITALS: BP 132/61
[2023-04-18 00:01] VITALS: BP 137/65
--- NOTE | 2023-04-18 02:47 | DISCHARGE SUMMARY ---
DIAGNOSES: 1. Right knee primary osteoarthritis. 2. Hyperlipidemia. 3. Hypertension. 4. Insomnia. 5. ADHD. 6. Lumbar radiculopathy. 7. New onset atrial fibrillation. PROCEDURE: Right total knee arthroplasty. SUMMARY: The patient is a 73-year-old female who underwent a right total knee arthroplasty on the day of admission. Postoperatively, she was limited with her activities due to discomfort. Her wound was clean and dry. She had no calf tenderness and negative Homans sign. CONDITION AT DISCHARGE: Good. DISCHARGE DIET: Regular. Followup is in 3 weeks. ACTIVITIES: Weightbearing as tolerated with a walker. DISPOSITION: Transfer to the skilled unit at [facility] [ ]. DISCHARGE MEDICATIONS: Home medications, Eliquis per Dr. Flores and Percocet as needed for pain. The patient was noted to be in atrial fibrillation during surgery, this was treated by Dr. Flores, he will follow her up as an outpatient. Job ID: [id number] DocumentID: [id number] Dictated Date: 04/17/2023 14:59:01 Assistant Manager Of Operations Date: 04/18/2023 02:45:00 Dictated By: KALEIGH ARTHUR MD
[2023-04-18 03:47] VITALS: BP 135/85
[2023-04-18] MEDS ORDERED: dilTIAZem 30 MG TABLET PO SCH (04:15)
[2023-04-18] MEDS: THERAPEUTIC MULTIVITAMIN W/MINERALS TABLET PO SCH (05:22)
[2023-04-18] MEDS: dilTIAZem DRIP PRE-MIX 125 ML IV SCH (06:03)
--- NOTE | 2023-04-18 06:55 | Progress Note ---
Standard Progress Note Progress Notes/Assess & Plan Date Seen by a Provider: Apr 18, 2023 Time Seen by a Provider: 06:54 Progress/Assessment & Plan post op check No complaints has been in Afib since leads placed in OR radiographs--HW well positioned without fracture RLE-- 2 plus DP pulse with brisk cap refill intact DF and PF of toes and ankle sensation intact to light touch throughout s/p RTKA Dr Flores evaluating for Afib mobilize when able Final Diagnosis transferred to ICU due to Afib Vital Signs Date Time Temp Pulse Resp B/P (MAP) Pulse Ox O2 Delivery O2 Flow Rate FiO2 04/18/23 06:15 120 26 136/74 (86) 94 Nasal Cannula 2.50 04/18/23 06:11 110 23 138/77 (88) 95 Nasal Cannula 2.50 04/18/23 06:03 135 133/71 04/18/23 06:00 26 86 Nasal Cannula 2.50 04/18/23 05:59 133/71 (86) 04/18/23 03:47 36.8 123 20 135/85 (102) 93 Nasal Cannula 2.00 04/18/23 01:00 102 04/18/23 00:01 37.2 105 20 137/65 (89) 94 Nasal Cannula 2.00 04/17/23 20:41 36.5 88 18 132/61 (84) 92 Nasal Cannula 2.00 04/17/23 20:25 Nasal Cannula 2.00 04/17/23 19:00 100 04/17/23 16:30 36.9 90 18 131/65 (87) 93 Nasal Cannula 2.00 04/17/23 14:54 04/17/23 12:06 36.4 86 16 132/74 (93) 92 Nasal Cannula 2.00 04/17/23 12:01 95 04/17/23 11:05 Nasal Cannula 2.00 92 04/17/23 08:16 36.0 89 18 132/76 (94) 92 Nasal Cannula 2.00 04/17/23 08:00 90 Nasal Cannula 2.00 04/17/23 07:09 83 I & O 04/18/23 07:00 Intake Total 2960 ml Output Total 450 ml Balance 2510 ml RLE--no calf tenderness neg Melissa's fracture blisters medial to incision O/W clean and dry s/p RTKA mobilize as able appreciate PCP and Cards assistance KALEIGH ARTHUR MD Apr 18, 2023 06:55
[2023-04-18] MEDS: SENNA W/DOCUSATE TABLET PO SCH ×2 (08:19→20:23)
[2023-04-18] MEDS: LORATADINE 10 MG TABLET PO SCH (08:20)
[2023-04-18] MEDS: dilTIAZem ER 120 MG CAPSULE PO SCH (08:20)
[2023-04-18] MEDS: APIXABAN 5 MG TABLET PO SCH ×2 (08:20→20:23)
[2023-04-18 08:23] LABS: BASOPHILS % (AUTO) 0 % (0-10); EOSINOPHILS % (AUTO) 0 % (0-10); HEMATOCRIT 30 % (35-52); HEMOGLOBIN 9.7 g/dL (11.5-16.0); LYMPHOCYTES % (AUTO) 14 % (12-44); MEAN CORPUSCULAR HEMOGLOBIN 30 pg (25-34); MEAN CORPUSCULAR HGB CONC 33 g/dL (32-36); MEAN CORPUSCULAR VOLUME 92 fL (80-99); MONOCYTES # (AUTO) 1.2 10^3/uL (0.0-1.0); MONOCYTES % (AUTO) 9 % (0-12); NEUTROPHILS # (AUTO) 10.4 10^3/uL (1.8-7.8); NEUTROPHILS % (AUTO) 76 % (42-75); PLATELET COUNT 212 10^3/uL (130-400); WHITE BLOOD COUNT 13.7 10^3/uL (4.3-11.0)
[2023-04-18] MEDS: ONDANSETRON INJECTION 4 MG/2 ML (SDV) IV PRN (08:24)
[2023-04-18] MEDS: oxyCODONE/ACETAMINOPHEN 5/325MG TABLET PO PRN ×2 (08:24→15:43)
[2023-04-18 08:38] LABS: ALBUMIN 3.2 GM/DL (3.2-4.5)
[2023-04-18 08:40] LABS: CALCIUM 8.7 MG/DL (8.5-10.1)
[2023-04-18 08:41] LABS: TOTAL PROTEIN 6.3 GM/DL (6.4-8.2)
[2023-04-18 08:43] LABS: BILIRUBIN,TOTAL 1.3 MG/DL (0.1-1.0)
[2023-04-18 08:44] LABS: PHOSPHORUS 2.4 MG/DL (2.3-4.7)
[2023-04-18 08:45] LABS: CREATININE SERUM 0.69 MG/DL (0.60-1.30)
--- NOTE | 2023-04-18 08:49 | Tele-ICU Progress Note ---
Subjective Subjective/Events-last exam This virtual visit was conducted using real time audio/video. Thank you for asking us to see this patient for critical care services due to development this AM of Afib with RVR on floor postop R TKR on 07/17/2022. PE: VSS. O2 sat 95% on 2.5 LPM. HEENT: No obvious masses, adenopathy or JVD. Chest: occ. wheeze CV: RRR S1 S2 No murmur or added sounds. Abd: Non-tender. Bowel sounds Y. : Unremarkable. Harvey Y. MEDICAL OFFICE RECEPTIONIST/psychiatric: Grossly intact. No obvious focal findings. Extremities: Trace edema. Capillary refill < 3 seconds. Skin: unremarkable. Results: Elevated BUN 20, BG 120. Decreased Hb 10.3. Available chart/ vitals / labs / images reviewed. Video assessment done using teleICU camera, rest of exam as per RN. A/P: Respiratory insufficiency: Continue present management with O2, PRN Duonebs. Monitor for increasing oxygenation needs and/or need for intubation. Critical Care: critically ill patient. Cont.Cardizem, ASA, celecoxib, Ultram, Yesi., Eliquis, statin. Discussed with RN Megan. Asked RN to reach out to eICU if any questions or concerns later. Time spent with patient/coordination of care with other health professionals (mins): 15 Sepsis Event Evaluation Height, Weight, BMI Height: '" Weight: lbs. oz. kg; 35.21 BMI Method: Exam Exam Patient acknowledged, consented, and participated in this virtual visit which was conducted using real time audio/video Vital Signs Date Time Temp Pulse Resp B/P (MAP) Pulse Ox O2 Delivery O2 Flow Rate FiO2 04/18/23 08:00 135 22 118/58 (78) 94 Nasal Cannula 2.50 04/18/23 07:00 134 25 122/61 (98) 95 Nasal Cannula 2.50 04/18/23 07:00 128 04/18/23 06:15 120 26 136/74 (86) 94 Nasal Cannula 2.50 04/18/23 06:11 110 23 138/77 (88) 95 Nasal Cannula 2.50 04/18/23 06:03 135 133/71 04/18/23 06:00 26 86 Nasal Cannula 2.50 04/18/23 05:59 133/71 (86) 04/18/23 03:47 36.8 123 20 135/85 (102) 93 Nasal Cannula 2.00 04/18/23 01:00 102 04/18/23 00:01 37.2 105 20 137/65 (89) 94 Nasal Cannula 2.00 04/17/23 20:41 36.5 88 18 132/61 (84) 92 Nasal Cannula 2.00 04/17/23 20:25 Nasal Cannula 2.00 04/17/23 19:00 100 04/17/23 16:30 36.9 90 18 131/65 (87) 93 Nasal Cannula 2.00 04/17/23 14:54 04/17/23 12:06 36.4 86 16 132/74 (93) 92 Nasal Cannula 2.00 04/17/23 12:01 95 04/17/23 11:05 Nasal Cannula 2.00 92 I & O 04/18/23 07:00 Intake Total 2960 ml Output Total 450 ml Balance 2510 ml Height & Weight Height: '" Weight: lbs. oz. kg; 35.21 BMI Method: General Appearance: No Apparent Distress, WD/WN HEENT: PERRL/EOMI, TMs Normal, Normal ENT Inspection, Pharynx Normal, Moist Mucous Membranes; No Pale Conjunctivae (L), No Pale Conjunctivae (R) Neck: Full Range of Motion, Normal Inspection, Non Tender, Supple, Carotid Bruit Respiratory: Chest Non Tender, Normal Breath Sounds, No Accessory Muscle Use, No Respiratory Distress Cardiovascular: No Edema, No Gallop, No JVD, No Murmur, Normal Peripheral Pulses, Irregularly Irregular (AFib ) Gastrointestinal: normal bowel sounds, non tender, soft Extremity: Normal Capillary Refill, Normal Inspection, Normal Range of Motion, Non Tender, No Calf Tenderness, No Pedal Edema Neurologic/Psychiatric: Alert, Oriented x3, No Motor/Sensory Deficits, Normal M ood/Affect, senior risk manager II-XII Norm as Tested, Other (endorses history of depression, teary talking about and child ) Skin: Normal Color, Warm/Dry Lymphatic: No Adenopathy Results Lab Laboratory Tests 04/17/23 05:09 04/18/23 08:10 Assessment/Plan Assessment/Plan See free text. Critical Care: Critically Ill Patient LINDA VERNON MD Apr 18, 2023 08:49
--- NOTE | 2023-04-18 09:00 | Physical Therapy Evaluation ---
PT Evaluation-General Medical Diagnosis Admission Date Apr 16, 2023 at 05:50 Medical Diagnosis: RTKA Onset Date: Apr 16, 2023 Therapy Diagnosis Therapy Diagnosis: impaired mobility/generalized weakness Precautions Precautions/Isolations: Standard Precautions Weight Bear Status Right Lower Extremity: Right Weight Bearing/Tolerated Left Lower Extremity: Left Full Weight Bearing Referral Physician: Dr. Weller Reason for Referral: Evaluation/Treatment Medical History Pertinent Medical History: Atrial Fib, HTN Current History transfer to ICU due to A-fib Reviewed History: Yes Social History Home: Single Level Current Living Status: Alone Entry Into Home: Stairs With Railing PT Steps Into Home: 6 Prior Prior Level of Function SCALE: Activities may be completed with or without assistive devices. 3-Thtuwalqod-jzlqdcw completes the activity by him/herself with no assistance from a helper. 5-Set-up or Clean-up Assistance-helper sets up or cleans up; patient completes activity. Kosse assists only prior to or following the activity. 4-Supervision or Touching Assistance-helper provides verbal cues and/or touching/steadying and/or contact guard assistance as patient completes activity. Assistance may be provided throughout the activity or intermittently. 3-Partial/Moderate Assistance-helper does LESS THAN HALF the effort. Kosse lifts, holds or supports trunk or limbs, but provides less than half the effort. 2-Substantial/Maximal Assistance-helper does MORE THAN HALF the effort. Kosse lifts or holds trunk or limbs and provides more than half the effort. 8-Arlflzfto-awcvih does ALL the effort. Patient does none of the effort to complete the activity. Or, the assistance of 2 or more helpers is required for the patient to complete the activity. If activity was not attempted, code reason: 7-Patient Refused. 9-Not Applicable-not attempted and the patient did not perform the activity before the current illness, exacerbation or injury. 10-Not Attempted due to Environmental Limitations-(lack of equipment, weather restraints, etc.). 88-Not Attempted due to Medical Conditions or Safety Concerns. Bed Mobility: 6 Transfers (B,C,W/C): 6 Gait: 6 Indoor Mobility (Ambulation): Independent Stairs: Independent Prior Devices Use: Walker PT Evaluation-Current Subjective Patient agrees to therapy. Objective Patient Orientation: Person, Time Attachments: Oxygen, Harvey Catheter, IV ROM/Strength ROM Lower Extremities right knee flexion 30-40 degrees AAROM/left LE WFL Strength Lower Extremities right LE 3/5 grossly;left LE 3+/5 grossly Integumentary/Posture Bladder Incontinence: Harvey Cath Neuromuscular (Tone, Coordination, Reflexes) grossly intact Sensory Vision: Functional Hearing: Functional Sensation Right Lower Extremit: Intact Sensation Left Lower Extremity: Intact Transfers Lying to Sitting/Side of Bed(Q: 4 Sit to Stand (QC): 4 Chair/Vkt-cx-Vfdic Xfer(QC): 4 Gait Mode of Locomotion: Walk Anticipated Mode of Locomotion: Walk Walk 10 feet (QC): 3 Walk 50 ft with 2 Turns(QC): 88 Distance: 10' Gait Assistive Device: FWW Comments/Gait Description patient weight bearing right LE on this date Balance Sitting Static: Fair Sitting Dynamic: Fair Standing Static: Fair Standing Dynamic: Fair Treatment right LE AAROM HS/SLR x 15 reps Assessment/Needs Patient will benefit from skilled PT to address functional strength and mobility to improve current LOF to safely return to home at maximum LOF. Rehab Potential: Fair PT Usp Goals Usp Goals PT Usp Goals Time Frame: May 06, 2023 Roll Left & Right (QC): 6 Sit to Lying (QC): 6 Lying-Sitting on Side/Bed(QC): 6 Sit to Stand (QC): 6 Chair/Peg-ha-Dabvw Xfer(QC): 6 Toilet Transfer (QC): 6 Car Transfer (QC): 6 Does the Patient Walk: Yes Walk 10 feet (QC): 6 Walk 50ft with 2 Turns (QC): 6 Walk 150 ft (QC): 4 1 Step (curb) (QC): 3 4 Steps (QC): 3 12 Steps (QC): 3 PT Plan Treatment/Plan Treatment Plan: Continue Plan of Care Treatment Plan: Bed Mobility, Education, Functional Activity Vicky, Functional Strength, Group Therapy, Gait, Safety, Therapeutic Exercise, Transfers Treatment Duration: May 06, 2023 Frequency: 11 times per week Estimated Hrs Per Day: .25 hour per day Patient and/or Family Agrees t: Yes Time Time In: 745 Time Out: 800 DATE: Apr 18, 2023 Total Billed Treatment Time: 15 Total Billed Treatment 1 visit EVModC 15 min CHANG ALCANTAR PT Apr 18, 2023 09:00
--- NOTE | 2023-04-18 09:07 | Occupational Therapy Eval ---
OT Evaluation-General/PLF Medical Diagnosis Admission Date Apr 16, 2023 at 05:50 Medical Diagnosis: RTKA Onset Date: Apr 16, 2023 Therapy Diagnosis Therapy Diagnosis: weakness Precautions Precautions/Isolations: Standard Precautions Weight Bear Status Weight Bearing Restriction: Weight Bearing/Tolerated Location Restriction: R LE Referral Physician: Dr. Weller Referral Reason: Activity Tolerance, Self Care, Evaluation/Treatment Medical History Pertinent Medical History: Atrial Fib, HTN Social History Home: Single Level Current Living Status: Alone Entry Into Home: Stairs With Railing Steps Into Home: 6 ADL-Prior Level of Function SCALE: Activities may be completed with or without assistive devices. 4-Kmzbjfjnyi-xdibabg completes the activity by him/herself with no assistance from a helper. 5-Set-up or Clean-up Assistance-helper sets up or cleans up; patient completes activity. [place] assists only prior to or following the activity. 4-Supervision or Touching Assistance-helper provides verbal cues and/or touching/steadying and/or contact guard assistance as patient completes act ivity. Assistance may be provided throughout the activity or intermittently. 3-Partial/Moderate Assistance-helper does LESS THAN HALF the effort. [place] lifts, holds or supports trunk or limbs, but provides less than half the effort. 2-Substantial/Maximal Assistance-helper does MORE THAN HALF the effort. [place] lifts or holds trunk or limbs and provides more than half the effort. 5-Wbwatgxej-hlosgm does ALL the effort. Patient does none of the effort to complete the activity. Or, the assistance of 2 or more helpers is required for the patient to complete the activity. If activity was not attempted, code reason: 7-Patient Refused. 9-Not Applicable-not attempted and the patient did not perform the activity before the current illness, exacerbation or injury. 10-Not Attempted due to Environmental Limitations-(lack of equipment, weather restraints, etc.). 88-Not Attempted due to Medical Conditions or Safety Concerns. ADL PLOF Comments Brother occasionally stays w/ patient when he is in town Self Care: Independent Functional Cognition: Independent OT Current Status Subjective Agreeable to therapy, confused and has difficulty multi tasking of answering a question while performing bed mobility Mental Status/Objective Patient Orientation: Person, Place ([facility]), Time (April 2012), Situation Attachments: Harvey Catheter, IV, Oxygen, SCD's (required moderate assistance to remove), Telemetry Current Upper Extremity ROM BUE ROM WFLS Upper Extremity Coordination impaired, motor delay Upper Extremity Strength +3/5 grossly ADL-Treatment Eating (QC): 5 Oral Hygiene (QC): 5 Shower/Bathe Self (QC): 88 Upper Body Dressing (QC): 4 Lower Body Dressing (QC): 3 On/Off Footwear (QC): 3 Toileting Hygiene (QC): 3 Education OT Patient Education: Correct positioning, Modified ADL techniques, Progress toward Goal/Update tx plan, Purpose of tx/functional activities, Reviewed precautions, Rehab process, Safety issues, Transfer techniques, Use of adapted equipment Teaching Recipient: Patient Teaching Methods: Demonstration, Discussion Response to Teaching: Reinforcement Needed OT Custodial Goals Machine Room Operator Goals Eating (QC): 6 Oral Hygiene (QC): 6 Toileting Hygiene (QC): 6 Shower/Bathe Self (QC): 6 Upper Body Dressing (QC): 6 Lower Body Dressing (QC): 6 On/Off Footwear (QC): 6 1=Demonstrate adherence to instructed precautions during ADL tasks. 2=Patient will verbalize/demonstrate understanding of assistive devices/modifications for ADL. 3=Patient will improve strength/tolerance for activity to enable patient to perform ADL's. OT Education/Plan Problem List/Assessment Assessment: Decreased Activ Tolerance, Decreased Safety Aware, Impaired Cognition, Impaired Funct Balance, Impaired Self-Care Skills Discharge Recommendations Plan/Recommendations: Continue POC Therapy Discharge Recommendati: Post Acute OT Equpiment Recommendations-D/C: Ux Visual Designer Treatment Plan/Plan of Care Treatment,Training & Education: Yes Patient would benefit from OT for education, treatment and training to promote independence in ADL's, mobility, safety and/or upper extremity function for ADL's. Plan of Care: ADL Retraining, Functional Mobility, Group Exercise/Act as Ind, UE Funct Exercise/Act, UE Neuromus Re-Ed/Coord Treatment Duration: Apr 21, 2023 Frequency: 3 times per week (3-5 times per week) Estimated Hrs Per Day: .25 hour per day Agreement: Yes Rehab Potential: Fair Up in recliner Time Start Time: 07:46 Stop Time: 08:01 DATE: Apr 18, 2023 Total Time Billed (hr/min): 15 Billed Treatment Time EVM 15 min JAYNE DE LA GARZA OT Apr 18, 2023 09:07
[2023-04-18] MEDS: ALPRAZolam 0.25 MG TABLET PO PRN (09:55)
[2023-04-18] MEDS: ASPIRIN enteric coated 81MG TABLET PO SCH (10:44)
[2023-04-18] MEDS: CELECOXIB 400 MG CAPSULE PO SCH (10:44)
--- NOTE | 2023-04-18 12:13 | Progress Note - Hospitalist ---
Subjective HPI/CC On Admission Date Seen by Provider: Apr 18, 2023 Time Seen by Provider: 12:00 04/16/2023: CC: R-TKA, AFib HPI: Shakira is a 73 year old female that is status post operative on her right knee for a total knee arthroplasty. Prior to surgery, her heart rate and rhythm was normal. After being in the OR, she was presenting with AFib. When talking to Shakira, she noted that she was slightly uncomfortable in her knee. She denied any chest pain or AMS. Furthermore, she notes that she feels a little bit anxious. Shakira notes that she is excited for her knee to be fixed. She also endorses some depression that she is currently managing. Overall, her main concern is that she has some pain in her right knee. She denies any other concerns. Her pain is a 6/10. The pain is dull and achy. Subjective/Events-last exam New onset AF RVR prompted move to ICU last night Cardizem drip maintained OAC initiated for CVA PPx Delirium noted so given sedative Review of Systems General: Fatigue Cardiovascular: Palpitations Neurological: Confusion Objective Exam Vital Signs Vital Signs Date Time Temp Pulse Resp B/P (MAP) Pulse Ox O2 Delivery O2 Flow Rate FiO2 04/19/23 06:00 96 20 135/62 (86) 93 Nasal Cannula 2.50 04/19/23 03:50 36.7 04/17/23 11:05 92 Capillary Refill : Less Than 3 Seconds General Appearance: No Apparent Distress, WD/WN, Chronically ill, Obese Respiratory: Lungs Clear Cardiovascular: Irregularly Irregular, Tachycardia Neurologic/Psychiatric: Alert, Oriented x3 (drowsy) Results/Procedures Lab Laboratory Tests 04/18/23 08:10 04/19/23 05:20 Patient resulted labs reviewed. Assessment/Plan Assessment and Plan Assess & Plan/Chief Complaint Assessment: New onset AF RVR s/p knee replacement HTN Increased BMI Delirium Plan: Cardizem drip OAC Pain control Critical Care Critically Ill Patient ROCHELLE JETT DO Apr 18, 2023 12:13
--- NOTE | 2023-04-18 13:59 | Physical Therapy Progress Note ---
Therapy Progress Note Patient declined PT this p.m. due to fatigue. Will resume tomorrow CHANG Beasley PT Apr 18, 2023 13:59
[2023-04-18] MEDS ORDERED: NS IV 1000 ML 1,000 ML IV SCH (14:30)
[2023-04-18 18:24] LABS: BACTERIA,URINE NEGATIVE /HPF; BILIRUBIN,URINE 1+ (NEGATIVE); CLARITY,URINE CLEAR; COLOR,URINE ORANGE; GLUCOSE, URINE (UA) NEGATIVE (NEGATIVE); KETONES,URINE 1+ (NEGATIVE); LEUKOCYTE ESTERASE ,URINE NEGATIVE (NEGATIVE); NITRITE,URINE NEGATIVE (NEGATIVE); PH,URINE 5.5 (5-9); PROTEIN,URINE 2+ (NEGATIVE); WBC,URINE 0-2 /HPF
[2023-04-18 18:25] LABS: SQUAMOUS EPITHELIAL CELL,UR 0-2 /HPF
[2023-04-18] MEDS ORDERED: NS IV 1000 ML 1,000 ML ONE (18:36)
[2023-04-18] MEDS: NS IV 1000 ML 1,000 ML IV SCH (18:42)
[2023-04-18] MEDS: ACETAMINOPHEN 325 MG/10.15 ML ORAL SOLN UDC PO PRN ×2 (18:46→23:57)
[2023-04-18] MEDS: GABAPENTIN 300 MG CAPSULE PO SCH (20:22)
[2023-04-19] MEDS ORDERED: NS IV 500 ML 500 ML IV PRN (05:15)
[2023-04-19] MEDS: dilTIAZem DRIP PRE-MIX 125 ML IV SCH (05:17)
[2023-04-19 05:28] LABS: BASOPHILS % (AUTO) 0 % (0-10); EOSINOPHILS # (AUTO) 0.1 10^3/uL (0.0-0.3); EOSINOPHILS % (AUTO) 1 % (0-10); HEMATOCRIT 24 % (35-52); HEMOGLOBIN 7.9 g/dL (11.5-16.0); LYMPHOCYTES % (AUTO) 19 % (12-44); MEAN CORPUSCULAR HEMOGLOBIN 30 pg (25-34); MEAN CORPUSCULAR HGB CONC 33 g/dL (32-36); MEAN CORPUSCULAR VOLUME 92 fL (80-99); MEAN PLATELET VOLUME 9.9 fL (9.0-12.2); MONOCYTES % (AUTO) 9 % (0-12); NEUTROPHILS # (AUTO) 7.2 10^3/uL (1.8-7.8); NEUTROPHILS % (AUTO) 70 % (42-75); PLATELET COUNT 179 10^3/uL (130-400); WHITE BLOOD COUNT 10.4 10^3/uL (4.3-11.0)
[2023-04-19 05:49] LABS: ALBUMIN 2.7 GM/DL (3.2-4.5); BILIRUBIN,TOTAL 0.7 MG/DL (0.1-1.0); CREATININE SERUM 0.6 MG/DL (0.60-1.30); MAGNESIUM 1.9 MG/DL (1.6-2.4); PHOSPHORUS 2.7 MG/DL (2.3-4.7); POTASSIUM 3.9 MMOL/L (3.6-5.0); TOTAL PROTEIN 5.1 GM/DL (6.4-8.2)
[2023-04-19] MEDS: POTASSIUM CHLORIDE 20 MEQ TABLET PO SCH (06:04)
[2023-04-19] MEDS: POTASSIUM CL 10MEQ/50ML IVPB 50 ML IV SCH (06:04)
[2023-04-19] MEDS: THERAPEUTIC MULTIVITAMIN W/MINERALS TABLET PO SCH (06:04)
[2023-04-19] MEDS: NS IV 1000 ML 1,000 ML IV SCH ×3 (06:04→20:06)
[2023-04-19] MEDS: MAGNESIUM 1 GM/100 ML IVPB 100 ML IV SCH ×3 (06:04→07:58)
--- NOTE | 2023-04-19 07:50 | Progress Note ---
Standard Progress Note Progress Notes/Assess & Plan Date Seen by a Provider: Apr 19, 2023 Time Seen by a Provider: 07:49 Progress/Assessment & Plan post op check No complaints has been in Afib since leads placed in OR radiographs--HW well positioned without fracture RLE-- 2 plus DP pulse with brisk cap refill intact DF and PF of toes and ankle sensation intact to light touch throughout s/p RTKA Dr Flores evaluating for Afib mobilize when able Final Diagnosis working with PT Vital Signs Date Time Temp Pulse Resp B/P (MAP) Pulse Ox O2 Delivery O2 Flow Rate FiO2 04/19/23 07:00 100 24 140/62 (94) 93 Nasal Cannula 2.50 04/19/23 07:00 102 04/19/23 06:00 96 20 135/62 (86) 93 Nasal Cannula 2.50 04/19/23 05:00 94 18 117/61 (79) 95 Nasal Cannula 2.50 04/19/23 04:00 96 21 123/60 (81) 92 Nasal Cannula 2.50 04/19/23 04:00 96 Nasal Cannula 2.50 04/19/23 03:50 36.7 Nasal Cannula 2.50 04/19/23 03:00 94 20 126/62 (83) 92 Nasal Cannula 2.50 04/19/23 02:00 95 22 119/66 (83) 94 Nasal Cannula 2.50 04/19/23 01:00 96 21 117/60 (79) 96 Nasal Cannula 2.50 04/19/23 01:00 95 04/19/23 00:38 38.0 04/19/23 00:00 98 22 119/54 (75) 94 Nasal Cannula 2.50 04/18/23 23:57 38.3 04/18/23 23:54 38.3 Nasal Cannula 2.50 04/18/23 23:45 95 Nasal Cannula 2.50 04/18/23 23:00 89 21 109/57 (74) 98 Nasal Cannula 2.50 04/18/23 22:00 87 22 116/55 (75) 98 Nasal Cannula 2.50 04/18/23 21:00 87 18 112/55 (74) 95 Nasal Cannula 2.50 04/18/23 20:00 91 16 110/76 (87) 95 Nasal Cannula 2.50 04/18/23 19:50 94 Nasal Cannula 2.50 04/18/23 19:46 37.7 04/18/23 19:45 37.7 98 14 107/61 (76) 94 Nasal Cannula 2.50 04/18/23 19:00 92 04/18/23 19:00 92 20 110/56 (74) 96 Nasal Cannula 2.50 04/18/23 18:46 38.3 04/18/23 18:03 87 18 106/53 (70) 95 Nasal Cannula 2.50 04/18/23 17:00 92 20 97/76 (83) 91 Nasal Cannula 2.50 04/18/23 16:00 91 21 111/52 (71) 98 Nasal Cannula 2.50 04/18/23 16:00 Nasal Cannula 2.00 04/18/23 15:40 38.2 04/18/23 15:00 87 21 109/48 (68) 96 Nasal Cannula 2.50 04/18/23 14:00 85 14 113/65 (81) 94 Nasal Cannula 2.50 04/18/23 13:00 82 18 107/86 (89) 88 Nasal Cannula 2.50 04/18/23 12:17 85 04/18/23 12:00 75 23 105/67 (77) 95 Nasal Cannula 2.50 04/18/23 12:00 Nasal Cannula 2.00 04/18/23 11:00 80 16 102/61 (77) 96 Nasal Cannula 2.50 04/18/23 10:00 115 22 103/66 (79) 94 Nasal Cannula 2.50 04/18/23 09:00 112 24 107/79 (92) 94 Nasal Cannula 2.50 04/18/23 08:00 Nasal Cannula 2.00 04/18/23 08:00 135 22 118/58 (78) 94 Nasal Cannula 2.50 I & O 04/19/23 07:00 Intake Total 1470 ml Output Total 920 ml Balance 550 ml Laboratory Tests Test 04/18/23 08:10 04/18/23 17:11 04/19/23 05:20 Range/Units White Blood Count 13.7 H 10.4 4.3-11.0 10^3/uL Red Blood Count 3.23 L 2.63 L 3.80-5.11 10^6/uL Hemoglobin 9.7 L 7.9 L 11.5-16.0 g/dL Hematocrit 30 L 24 L 35-52 % Mean Corpuscular Volume 92 92 80-99 fL Mean Corpuscular Hemoglobin 30 30 25-34 pg Mean Corpuscular Hemoglobin Concent 33 33 32-36 g/dL Red Cell Distribution Width 12.3 12.6 10.0-14.5 % Platelet Count 212 179 130-400 10^3/uL Mean Platelet Volume 10.0 9.9 9.0-12.2 fL Immature Granulocyte % (Auto) 0 1 % Neutrophils (%) (Auto) 76 H 70 42-75 % Lymphocytes (%) (Auto) 14 19 12-44 % Monocytes (%) (Auto) 9 9 0-12 % Eosinophils (%) (Auto) 0 1 0-10 % Basophils (%) (Auto) 0 0 0-10 % Neutrophils # (Auto) 10.4 H 7.2 1.8-7.8 10^3/uL Lymphocytes # (Auto) 2.0 2.0 1.0-4.0 10^3/uL Monocytes # (Auto) 1.2 H 1.0 0.0-1.0 10^3/uL Eosinophils # (Auto) 0.0 0.1 0.0-0.3 10^3/uL Basophils # (Auto) 0.0 0.0 0.0-0.1 10^3/uL Immature Granulocyte # (Auto) 0.1 0.1 0.0-0.1 10^3/uL Sodium Level 137 138 135-145 MMOL/L Potassium Level 4.0 3.9 3.6-5.0 MMOL/L Chloride Level 104 106 98-107 MMOL/L Carbon Dioxide Level 21 24 21-32 MMOL/L Anion Gap 12 8 5-14 MMOL/L Blood Urea Nitrogen 16 15 7-18 MG/DL Creatinine 0.69 0.60 0.60-1.30 MG/DL Estimat Glomerular Filtration Rate 91 94 BUN/Creatinine Ratio 23 25 Glucose Level 120 H 94 70-105 MG/DL Calcium Level 8.7 8.0 L 8.5-10.1 MG/DL Corrected Calcium 9.3 9.0 8.5-10.1 MG/DL Phosphorus Level 2.4 2.7 2.3-4.7 MG/DL Magnesium Level 2.0 1.9 1.6-2.4 MG/DL Total Bilirubin 1.3 H 0.7 0.1-1.0 MG/DL Aspartate Amino Transf (AST/SGOT) 22 17 5-34 U/L Alanine Aminotransferase (ALT/SGPT) 19 16 0-55 U/L Alkaline Phosphatase 62 54 40-136 U/L Total Protein 6.3 L 5.1 L 6.4-8.2 GM/DL Albumin 3.2 2.7 L 3.2-4.5 GM/DL Urine Color ORANGE Urine Clarity CLEAR Urine pH 5.5 5-9 Urine Specific [place] >=1.030 1.016-1.022 Urine Protein 2+ H NEGATIVE Urine Glucose (UA) NEGATIVE NEGATIVE Urine Ketones 1+ H NEGATIVE Urine Nitrite NEGATIVE NEGATIVE Urine Bilirubin 1+ H NEGATIVE Urine Urobilinogen 1.0 < = 1.0 MG/DL Urine Leukocyte Esterase NEGATIVE NEGATIVE Urine RBC (Auto) NEGATIVE NEGATIVE Urine RBC NONE /HPF Urine WBC 0-2 /HPF Urine Squamous Epithelial Cells 0-2 /HPF Urine Crystals NONE /LPF Urine Bacteria NEGATIVE /HPF Urine Casts NONE /LPF Urine Mucus NEGATIVE /LPF Urine Culture Indicated NO RLE--dressing intact NVI distally no calf tenderness s/p RTKA mobilize as able KALEIGH ARTHUR MD Apr 19, 2023 07:50
[2023-04-19] MEDS ORDERED: POTASSIUM CHLORIDE 20 MEQ TABLET PO ONE (08:00)
[2023-04-19] MEDS: CELECOXIB 400 MG CAPSULE PO SCH (08:24)
[2023-04-19] MEDS: LORATADINE 10 MG TABLET PO SCH (08:24)
[2023-04-19] MEDS: oxyCODONE/ACETAMINOPHEN 5/325MG TABLET PO PRN (08:24)
[2023-04-19] MEDS: ASPIRIN enteric coated 81MG TABLET PO SCH (08:24)
[2023-04-19] MEDS: dilTIAZem ER 120 MG CAPSULE PO SCH (08:24)
[2023-04-19] MEDS: SENNA W/DOCUSATE TABLET PO SCH ×2 (08:26→20:07)
[2023-04-19] MEDS: APIXABAN 5 MG TABLET PO SCH ×2 (08:36→20:06)
--- NOTE | 2023-04-19 08:43 | Diagnostic Imaging Report ---
INDICATION: Fever. Compared 04/09/2023 FINDINGS: No infiltrate, failure, effusion or pneumothorax. IMPRESSION: Stable unremarkable frontal chest. Dictated by: Dictated on workstation # [id number]
--- NOTE | 2023-04-19 09:51 | Physical Therapy Daily Note ---
PT Daily Note-Current Subjective Patient agrees to PT. Pain Numeric Pain Scale: 10-Worst Possible Pain Location: Right Location Body Site: Knee Pain Description: Acute Comment: FLACC Section J - Health Conditions 1. Rarely or not at all 2. Occasionally 3. Frequently 4. Almost constantly 8. Unable to answer Pain Effect on Sleep: 2 Pain Interference with Therapy: 4 Pain Interference w/Day-to-Day: 2 Transfers SCALE: Activities may be completed with or without assistive devices. 8-Ktjmgyrdtt-liuhvdz completes the activity by him/herself with no assistance from a helper. 5-Set-up or Clean-up Assistance-helper sets up or cleans up; patient completes activity. [place] assists only prior to or following the activity. 4-Supervision or Touching Assistance-helper provides verbal cues and/or touching/steadying and/or contact guard assistance as patient completes act ivity. Assistance may be provided throughout the activity or intermittently. 3-Partial/Moderate Assistance-helper does LESS THAN HALF the effort. [place] lifts, holds or supports trunk or limbs, but provides less than half the effort. 2-Substantial/Maximal Assistance-helper does MORE THAN HALF the effort. [place] lifts or holds trunk or limbs and provides more than half the effort. 9-Bkbrnislu-iwnylh does ALL the effort. Patient does none of the effort to complete the activity. Or, the assistance of 2 or more helpers is required for the patient to complete the activity. If activity was not attempted, code reason: 7-Patient Refused. 9-Not Applicable-not attempted and the patient did not perform the activity before the current illness, exacerbation or injury. 10-Not Attempted due to Environmental Limitations-(lack of equipment, weather restraints, etc.). 88-Not Attempted due to Medical Conditions or Safety Concerns. Lying to Sitting/Side of Bed(Q: 4 Sit to Stand (QC): 3 Chair/Gpn-nv-Uvswn Xfer(QC): 3 patient is able to weight bear and activity right quad when upright and VC's given Weight Bearing Right Lower Extremity: Right Weight Bearing/Tolerated Left Lower Extremity: Left Full Weight Bearing Gait Training Gait Assistive Device: FWW 3 steps to recliner Exercises Supine Ex: Ankle pumps, Quad Set, Heel Slides, Straight leg raise Supine Reps: 15 (AAROM) Seated Therapy Exercises: Long arc quads Seated Reps: 15 Assessment Patient continues to require assist to perform all activity due to pain and difficulty with activating right quad musculature to perform exercises and ambulation. Surgeon present during part of session to assess patient's mobility. PT Gift Shop Manager Goals Gift Shop Manager Goals PT Gift Shop Manager Goals Time Frame: May 06, 2023 Roll Left & Right (QC): 6 Sit to Lying (QC): 6 Lying-Sitting on Side/Bed(QC): 6 Sit to Stand (QC): 6 Chair/Cgh-zp-Fmpux Xfer(QC): 6 Toilet Transfer (QC): 6 Car Transfer (QC): 6 Does the Patient Walk: Yes Walk 10 feet (QC): 6 Walk 50ft with 2 Turns (QC): 6 Walk 150 ft (QC): 4 1 Step (curb) (QC): 3 4 Steps (QC): 3 12 Steps (QC): 3 PT Plan Treatment/Plan Treatment Plan: Continue Plan of Care Treatment Plan: Bed Mobility, Education, Functional Activity Vicky, Functional Strength, Group Therapy, Gait, Safety, Therapeutic Exercise, Transfers Treatment Duration: May 06, 2023 Frequency: 11 times per week Estimated Hrs Per Day: .25 hour per day Patient and/or Family Agrees t: Yes Time Time In: 730 Time Out: 755 DATE: Apr 19, 2023 Total Billed Treatment Time: 25 Total Billed Treatment 1 visit EX x 2 25 min CHANG ALCANTAR PT Apr 19, 2023 09:51
--- NOTE | 2023-04-19 10:32 | Tele-ICU Progress Note ---
Subjective Date Seen by a Provider: Apr 19, 2023 Time Seen by a Provider: 10:32 Subjective/Events-last exam (Tele-ICU Physician , Progress Note ) Service provided via interactive audio and video telecommunications E-CARE system to a patient admitted to ICU bed in [facility]. Patient is seen today due to persistent need of ICU care Available chart/ vitals / labs / Images reviewed Video assessment done using teleICU camera, rest of exam as per RN Discussed with RN Events overnight : Afebrile hemodynamically stable Respiratory - 2 l I/O = neg Drips: NS 83 Pressors- no Hospital course: (04/16) 73F Admitted s/p right total knee arthroplasty with new onset atrial fibrillation post op. Cardiology consulted (04/18) TX to ICU for rapid afib and low urine output. Cardizem drip- converted , FEVER 04/19 - po cardizem A/P New onset AF RVR - cardizemm gtt off , on po ER cardizem HR > 100 - consider to give additional po doze -2D echo done in December 2022 with moderate LVH, ejection fraction 55 to 60%. -cards follow -AC ; on Eliquis Anemia - f/up on AC , hb 7.9 - no sign of bleeding s/p knee replacement - pain control - as per sx FEVER 04/18 - no sourse , knee exam as per SX - off abx Hypoxia - 2 L O2 - start IS Delirium 04/18 - confusion resolved , anxiety now Lines : periph , (Central Line Necessity Reviewed) Harvey: + OG: Nutrition: po Analgesia: Anxiety/ delirium VTE Prophylaxis: eliquis Stress Ulcer Prophylaxis: na Plans in collaboration with bedside consultants and IM MDs. Discussed with RN to reach out if any questions or concerns Case and care daily discussed on multidisciplinary rounds ( RN, PharmD, Medical Recruiter , Respiratory Therapy, rail signal worker ) A total of 15 minutes of critical care time was devoted to this patient today, required to treat and/or prevent further deterioration of critical care condition ( as above ) . I am remotely monitoring this patient from another state. I am unable to do the bedside exam, and history/physical and pertinent information is taken from other notes in the computer and bedside staff. Sepsis Event Evaluation Height, Weight, BMI Height: '" Weight: lbs. oz. kg; 39.98 BMI Method: Exam Exam Patient acknowledged, consented, and participated in this virtual visit which was conducted using real time audio/video Vital Signs Date Time Temp Pulse Resp B/P (MAP) Pulse Ox O2 Delivery O2 Flow Rate FiO2 04/19/23 09:00 111 18 138/71 (109) 95 Nasal Cannula 2.50 04/19/23 08:23 37.3 04/19/23 08:00 114 21 105/93 (95) 91 Nasal Cannula 2.50 04/19/23 08:00 96 Nasal Cannula 2.50 04/19/23 07:00 100 24 140/62 (94) 93 Nasal Cannula 2.50 04/19/23 07:00 102 04/19/23 06:00 96 20 135/62 (86) 93 Nasal Cannula 2.50 04/19/23 05:00 94 18 117/61 (79) 95 Nasal Cannula 2.50 04/19/23 04:00 96 21 123/60 (81) 92 Nasal Cannula 2.50 04/19/23 04:00 96 Nasal Cannula 2.50 04/19/23 03:50 36.7 Nasal Cannula 2.50 04/19/23 03:00 94 20 126/62 (83) 92 Nasal Cannula 2.50 04/19/23 02:00 95 22 119/66 (83) 94 Nasal Cannula 2.50 04/19/23 01:00 96 21 117/60 (79) 96 Nasal Cannula 2.50 04/19/23 01:00 95 04/19/23 00:38 38.0 04/19/23 00:00 98 22 119/54 (75) 94 Nasal Cannula 2.50 04/18/23 23:57 38.3 04/18/23 23:54 38.3 Nasal Cannula 2.50 04/18/23 23:45 95 Nasal Cannula 2.50 04/18/23 23:00 89 21 109/57 (74) 98 Nasal Cannula 2.50 04/18/23 22:00 87 22 116/55 (75) 98 Nasal Cannula 2.50 04/18/23 21:00 87 18 112/55 (74) 95 Nasal Cannula 2.50 04/18/23 20:00 91 16 110/76 (87) 95 Nasal Cannula 2.50 04/18/23 19:50 94 Nasal Cannula 2.50 04/18/23 19:46 37.7 04/18/23 19:45 37.7 98 14 107/61 (76) 94 Nasal Cannula 2.50 04/18/23 19:00 92 04/18/23 19:00 92 20 110/56 (74) 96 Nasal Cannula 2.50 04/18/23 18:46 38.3 04/18/23 18:03 87 18 106/53 (70) 95 Nasal Cannula 2.50 04/18/23 17:00 92 20 97/76 (83) 91 Nasal Cannula 2.50 04/18/23 16:00 91 21 111/52 (71) 98 Nasal Cannula 2.50 04/18/23 16:00 Nasal Cannula 2.00 04/18/23 15:40 38.2 04/18/23 15:00 87 21 109/48 (68) 96 Nasal Cannula 2.50 04/18/23 14:00 85 14 113/65 (81) 94 Nasal Cannula 2.50 04/18/23 13:00 82 18 107/86 (89) 88 Nasal Cannula 2.50 04/18/23 12:17 85 04/18/23 12:00 75 23 105/67 (77) 95 Nasal Cannula 2.50 04/18/23 12:00 Nasal Cannula 2.00 04/18/23 11:00 80 16 102/61 (77) 96 Nasal Cannula 2.50 I & O 04/19/23 07:00 Intake Total 1470 ml Output Total 920 ml Balance 550 ml Height & Weight Height: '" Weight: lbs. oz. kg; 39.98 BMI Method: General Appearance: No Apparent Distress, WD/WN, Chronically ill, Obese HEENT: PERRL/EOMI, TMs Normal, Normal ENT Inspection, Pharynx Normal, Moist Mucous Membranes; No Pale Conjunctivae (L), No Pale Conjunctivae (R) Neck: Full Range of Motion, Normal Inspection, Non Tender, Supple, Carotid Bruit Respiratory: Lungs Clear Cardiovascular: Irregularly Irregular, Tachycardia Capillary Refill: Less Than 3 Seconds Gastrointestinal: normal bowel sounds, non tender, soft Extremity: Normal Capillary Refill, Normal Inspection, Normal Range of Motion, Non Tender, No Calf Tenderness, No Pedal Edema Neurologic/Psychiatric: Alert, Oriented x3 (drowsy) Skin: Normal Color, Warm/Dry Lymphatic: No Adenopathy Results Lab Laboratory Tests 04/18/23 08:10 10/14/23 05:20 Assessment/Plan Assessment/Plan 1 ALVA ELLSWORTH MD Apr 19, 2023 10:32
--- NOTE | 2023-04-19 12:25 | Progress Note ---
SHANNAN ROOT MD,RESIDENT 04/19/23 1225: Subjective Subjective/Events-last exam Pt sitting in chair eating breakfast this morning on exam. She is SOB, however saturations appropriate on 2L NC. She denies CP, vision changes, headache. Reports a lot of pain in her leg at the surgical site and finds it difficult to work with PT. Objective Exam Last Set of Vital Signs Vital Signs Date Time Temp Pulse Resp B/P (MAP) Pulse Ox O2 Delivery O2 Flow Rate FiO2 04/19/23 12:00 93 21 145/72 (87) 90 Nasal Cannula 2.50 04/19/23 08:23 37.3 04/17/23 11:05 92 Capillary Refill : Less Than 3 SecondsLess Than 3 Seconds I&O Intake and Output 04/19/23 00:00 Intake Total 450 ml Output Total 1005 ml Balance -555 ml Intake Oral 350 ml IV Total 100 ml Output Urine Total 1005 ml General: Alert, Oriented X3, Mild Distress HEENT: Atraumatic Heart: No Murmurs, Other (Tachycardia) Abdomen: Soft, No Tenderness Extremities: Normal Pulses Neuro: Normal Speech Psych/Mental Status: Mental Status NL, Mood NL Results/Procedures Lab Laboratory Tests 04/18/23 17:11: Urine Color ORANGE, Urine Clarity CLEAR, Urine pH 5.5, Urine Specific [place] >=1.030, Urine Protein 2+H, Urine Glucose (UA) NEGATIVE, Urine Ketones 1+H, Urine Nitrite NEGATIVE, Urine Bilirubin 1+H, Urine Urobilinogen 1.0, Urine Leukocyte Esterase NEGATIVE, Urine RBC (Auto) NEGATIVE, Urine RBC NONE, Urine WBC 0-2, Urine Squamous Epithelial Cells 0-2, Urine Crystals NONE, Urine Bacteria NEGATIVE, Urine Casts NONE, Urine Mucus NEGATIVE, Urine Culture Indicated NO 04/19/23 05:20: White Blood Count 10.4, Red Blood Count 2.63L, Hemoglobin 7.9L, Hematocrit 24L, Mean Corpuscular Volume 92, Mean Corpuscular Hemoglobin 30, Mean Corpuscular Hemoglobin Concent 33, Red Cell Distribution Width 12.6, Platelet Count 179, Me an Platelet Volume 9.9, Immature Granulocyte % (Auto) 1, Neutrophils (%) (Auto) 70, Lymphocytes (%) (Auto) 19, Monocytes (%) (Auto) 9, Eosinophils (%) (Auto) 1, Basophils (%) (Auto) 0, Neutrophils # (Auto) 7.2, Lymphocytes # (Auto) 2.0, Monocytes # (Auto) 1.0, Eosinophils # (Auto) 0.1, Basophils # (Auto) 0.0, Immature Granulocyte # (Auto) 0.1, Sodium Level 138, Potassium Level 3.9, Chloride Level 106, Carbon Dioxide Level 24, Anion Gap 8, Blood Urea Nitrogen 15, Creatinine 0.60, Estimat Glomerular Filtration Rate 94, BUN/Creatinine Ratio 25, Glucose Level 94, Calcium Level 8.0L, Corrected Calcium 9.0, Phosphorus Level 2.7, Magnesium Level 1.9, Total Bilirubin 0.7, Aspartate Amino Transf (AST/SGOT) 17, Alanine Aminotransferase (ALT/SGPT) 16, Alkaline Phosphatase 54, Total Protein 5.1L, Albumin 2.7L Microbiology 04/18/23 MRSA Screen - Final, Complete MRSA not isolated Assessment/Plan Assessment/Plan Admission Status: Inpatient Order (span 2 midnights) Assessment & Plan S/p R knee replacement. (1) Status post right knee replacement Status: Acute Assessment & Plan: management per Ortho (2) Hypertension Status: Chronic Assessment & Plan: Currently normotensive to low since admit. Hold home BP meds. (3) Hyperlipidemia Status: Chronic Assessment & Plan: Resume home atorvastatin (4) Atrial fibrillation Status: Acute Assessment & Plan: Cardiology consulted, appreciate recommendations. Started apixaban. TSH 0.00. T3 150 T4 total 2.3 Sinus tachycardia 04/19 Febrile at ~ 2300 04/18 Will CTM on ICU status until HR normalizes (5) Depression Status: Chronic Assessment & Plan: Resume home medication. JANNY FARNSWORTH MD 04/19/232028: Assessment/Plan Assessment/Plan Assessment & Plan Pt reports doing ok today but a little short of breath. Wheezing some. She normally uses a prn albuterol inhaler when her allergies "act up" but doesn't think she's ever been diagnosed with COPD or asthma. MAT protocol ordered. Reports pain with movement but doing better than yesterday. Pulse 117 when I was in the room but had just taken oral diltiazem. Continuing to monitor on telemetry. Eliquis ordered for stroke ppx. PT/OT already ordered. Pain regimen per primary. I personally have seen and evaluated the patient and performed the physical exam. I agree with the documented assessment and plan. SHANNAN ROOT MD,RESIDENT Apr 19, 2023 12:25 JANNY FARNSWORTH MD Apr 19, 2023 20:29
[2023-04-19] MEDS: GABAPENTIN 300 MG CAPSULE PO SCH (20:06)
[2023-04-20] MEDS: dilTIAZem DRIP PRE-MIX 125 ML IV SCH ×2 (01:54→09:46)
[2023-04-20] MEDS ORDERED: meTOprolol INJECTION 5 MG/5 ML VIAL IV ONE ×2 (02:15→03:00)
[2023-04-20 04:53] LABS: BASOPHILS % (AUTO) 0 % (0-10); EOSINOPHILS # (AUTO) 0.2 10^3/uL (0.0-0.3); EOSINOPHILS % (AUTO) 2 % (0-10); HEMATOCRIT 24 % (35-52); LYMPHOCYTES # (AUTO) 1.4 10^3/uL (1.0-4.0); LYMPHOCYTES % (AUTO) 13 % (12-44); MEAN CORPUSCULAR HEMOGLOBIN 30 pg (25-34); MEAN CORPUSCULAR HGB CONC 33 g/dL (32-36); MEAN CORPUSCULAR VOLUME 91 fL (80-99); MEAN PLATELET VOLUME 9.8 fL (9.0-12.2); MONOCYTES % (AUTO) 10 % (0-12); NEUTROPHILS # (AUTO) 7.4 10^3/uL (1.8-7.8); NEUTROPHILS % (AUTO) 73 % (42-75); PLATELET COUNT 195 10^3/uL (130-400); WHITE BLOOD COUNT 10.1 10^3/uL (4.3-11.0)
[2023-04-20 05:17] LABS: ALBUMIN 2.7 GM/DL (3.2-4.5); CREATININE SERUM 0.57 MG/DL (0.60-1.30); MAGNESIUM 2.4 MG/DL (1.6-2.4); PHOSPHORUS 2.8 MG/DL (2.3-4.7); POTASSIUM 3.9 MMOL/L (3.6-5.0); TOTAL PROTEIN 5.3 GM/DL (6.4-8.2)
[2023-04-20] MEDS: POTASSIUM CHLORIDE 20 MEQ TABLET PO SCH (05:23)
[2023-04-20] MEDS: MAGNESIUM 1 GM/100 ML IVPB 100 ML IV SCH (05:23)
[2023-04-20] MEDS: POTASSIUM CL 10MEQ/50ML IVPB 50 ML IV SCH (05:23)
[2023-04-20] MEDS: THERAPEUTIC MULTIVITAMIN W/MINERALS TABLET PO SCH (06:16)
[2023-04-20] MEDS ORDERED: dilTIAZem INJ 25 MG/5 ML VIAL ONE (06:25)
[2023-04-20] MEDS ORDERED: dilTIAZem INJ 25 MG/5 ML VIAL IVP ONE (06:30)
--- NOTE | 2023-04-20 07:43 | Progress Note ---
Standard Progress Note Progress Notes/Assess & Plan Date Seen by a Provider: Apr 20, 2023 Time Seen by a Provider: 07:31 Progress/Assessment & Plan post op check No complaints has been in Afib since leads placed in OR radiographs--HW well positioned without fracture RLE-- 2 plus DP pulse with brisk cap refill intact DF and PF of toes and ankle sensation intact to light touch throughout s/p RTKA Dr Flores evaluating for Afib mobilize when able Final Diagnosis feeling better today back in Afib Laboratory Tests Test 04/20/23 04:42 Range/Units White Blood Count 10.1 4.3-11.0 10^3/uL Red Blood Count 2.68 L 3.80-5.11 10^6/uL Hemoglobin 8.0 L 11.5-16.0 g/dL Hematocrit 24 L 35-52 % Mean Corpuscular Volume 91 80-99 fL Mean Corpuscular Hemoglobin 30 25-34 pg Mean Corpuscular Hemoglobin Concent 33 32-36 g/dL Red Cell Distribution Width 12.3 10.0-14.5 % Platelet Count 195 130-400 10^3/uL Mean Platelet Volume 9.8 9.0-12.2 fL Immature Granulocyte % (Auto) 1 % Neutrophils (%) (Auto) 73 42-75 % Lymphocytes (%) (Auto) 13 12-44 % Monocytes (%) (Auto) 10 0-12 % Eosinophils (%) (Auto) 2 0-10 % Basophils (%) (Auto) 0 0-10 % Neutrophils # (Auto) 7.4 1.8-7.8 10^3/uL Lymphocytes # (Auto) 1.4 1.0-4.0 10^3/uL Monocytes # (Auto) 1.0 0.0-1.0 10^3/uL Eosinophils # (Auto) 0.2 0.0-0.3 10^3/uL Basophils # (Auto) 0.0 0.0-0.1 10^3/uL Immature Granulocyte # (Auto) 0.1 0.0-0.1 10^3/uL Sodium Level 138 135-145 MMOL/L Potassium Level 3.9 3.6-5.0 MMOL/L Chloride Level 105 98-107 MMOL/L Carbon Dioxide Level 24 21-32 MMOL/L Anion Gap 9 5-14 MMOL/L Blood Urea Nitrogen 12 7-18 MG/DL Creatinine 0.57 L 0.60-1.30 MG/DL Estimat Glomerular Filtration Rate 95 BUN/Creatinine Ratio 21 Glucose Level 114 H 70-105 MG/DL Calcium Level 8.0 L 8.5-10.1 MG/DL Corrected Calcium 9.0 8.5-10.1 MG/DL Phosphorus Level 2.8 2.3-4.7 MG/DL Magnesium Level 2.4 1.6-2.4 MG/DL Total Bilirubin 1.0 0.1-1.0 MG/DL Aspartate Amino Transf (AST/SGOT) 27 5-34 U/L Alanine Aminotransferase (ALT/SGPT) 22 0-55 U/L Alkaline Phosphatase 64 40-136 U/L Total Protein 5.3 L 6.4-8.2 GM/DL Albumin 2.7 L 3.2-4.5 GM/DL Vital Signs Date Time Temp Pulse Resp B/P (MAP) Pulse Ox O2 Delivery O2 Flow Rate FiO2 04/20/23 07:00 134 04/20/23 06:27 142 124/86 04/20/23 06:00 114 16 124/86 (99) 97 Nasal Cannula 2.00 04/20/23 05:00 129 26 123/65 (84) 97 Nasal Cannula 2.00 04/20/23 04:00 100 23 128/69 (88) 97 Nasal Cannula 2.00 04/20/23 03:50 36.9 110 28 118/79 (92) 95 Nasal Cannula 2.00 04/20/23 03:50 98 Nasal Cannula 2.00 04/20/23 03:00 107 26 103/66 (78) 96 Nasal Cannula 2.00 04/20/23 02:02 146 04/20/23 02:00 137 26 135/79 (97) 97 Nasal Cannula 2.00 04/20/23 01:00 99 23 124/65 (84) 95 Nasal Cannula 2.00 04/20/23 00:35 104 04/20/23 00:00 109 23 138/80 (99) 97 Nasal Cannula 2.00 04/19/23 23:41 37.7 04/19/23 23:13 04/19/23 23:00 98 24 139/63 (88) 98 Nasal Cannula 2.00 04/19/23 23:00 95 Nasal Cannula 2.00 04/19/23 22:00 110 12 132/74 (93) 98 Nasal Cannula 2.00 04/19/23 21:00 92 24 121/69 (86) 97 Nasal Cannula 2.00 04/19/23 20:00 90 22 114/68 (83) 98 Nasal Cannula 2.00 04/19/23 19:27 89 Nasal Cannula 2.00 04/19/23 19:10 95 Room Air 04/19/23 19:00 102 04/19/23 19:00 36.7 105 16 149/66 (93) 93 Room Air 04/19/23 18:00 101 21 133/63 (75) 91 Room Air 04/19/23 17:00 96 23 125/79 (94) 91 Nasal Cannula 1.50 04/19/23 16:00 93 13 134/67 (97) 94 Nasal Cannula 1.50 04/19/23 16:00 96 Nasal Cannula 2.50 04/19/23 15:00 86 18 134/61 (86) 94 Nasal Cannula 1.50 04/19/23 14:00 98 9 127/80 (96) 99 Nasal Cannula 2.50 04/19/23 13:00 92 11 133/60 (84) 91 Nasal Cannula 2.50 04/19/23 12:28 92 04/19/23 12:00 93 21 145/72 (87) 90 Nasal Cannula 2.50 04/19/23 12:00 96 Nasal Cannula 2.50 04/19/23 12:00 36.8 04/19/23 11:00 100 13 109/87 (93) 94 Nasal Cannula 2.50 04/19/23 10:00 108 29 134/71 (80) 93 Nasal Cannula 2.50 04/19/23 09:00 111 18 138/71 (109) 95 Nasal Cannula 2.50 04/19/23 08:23 37.3 04/19/23 08:00 114 21 105/93 (95) 91 Nasal Cannula 2.50 04/19/23 08:00 96 Nasal Cannula 2.50 I & O 04/20/23 07:00 Intake Total 2775 ml Output Total 2100 ml Balance 675 ml RLE--no calf tenderness neg Melissa's poor quad control s/p RTKA with Afib mobilize as able KALEIGH ARTHUR MD Apr 20, 2023 07:43
[2023-04-20] MEDS ORDERED: POTASSIUM CHLORIDE 20 MEQ TABLET PO ONE (08:00)
[2023-04-20] MEDS ORDERED: DIGOXIN INJECTION 0.25 MG/ML 2 ML AMPULE IV ONE (08:15)
[2023-04-20] MEDS ORDERED: DIGOXIN INJECTION 0.25 MG/ML 2 ML AMPULE ONE (08:26)
--- NOTE | 2023-04-20 08:35 | Physical Therapy Daily Note ---
PT Daily Note-Current Subjective Patient agrees to PT. Pain Numeric Pain Scale: 7 Location: Right Location Body Site: Knee Pain Description: Acute Section J - Health Conditions 1. Rarely or not at all 2. Occasionally 3. Frequently 4. Almost constantly 8. Unable to answer Pain Effect on Sleep: 1 Pain Interference with Therapy: 1 Pain Interference w/Day-to-Day: 1 Transfers SCALE: Activities may be completed with or without assistive devices. 5-Wmpjgyatwo-sqpcuoo completes the activity by him/herself with no assistance from a helper. 5-Set-up or Clean-up Assistance-helper sets up or cleans up; patient completes activity. [place] assists only prior to or following the activity. 4-Supervision or Touching Assistance-helper provides verbal cues and/or touching /steadying and/or contact guard assistance as patient completes activity. Assistance may be provided throughout the activity or intermittently. 3-Partial/Moderate Assistance-helper does LESS THAN HALF the effort. [place] lifts, holds or supports trunk or limbs, but provides less than half the effort. 2-Substantial/Maximal Assistance-helper does MORE THAN HALF the effort. [place] lifts or holds trunk or limbs and provides more than half the effort. 2-[place]awa-gpsuck does ALL the effort. Patient does none of the effort to complete the activity. Or, the assistance of 2 or more helpers is required for the patient to complete the activity. If activity was not attempted, code reason: 7-Patient Refused. 9-Not Applicable-not attempted and the patient did not perform the activity before the current illness, exacerbation or injury. 10-Not Attempted due to Environmental Limitations-(lack of equipment, weather restraints, etc.). 88-Not Attempted due to Medical Conditions or Safety Concerns. Lying to Sitting/Side of Bed(Q: 4 Sit to Stand (QC): 4 Chair/Zsy-za-Zqgwl Xfer(QC): 4 Weight Bearing Right Lower Extremity: Right Weight Bearing/Tolerated Left Lower Extremity: Left Full Weight Bearing Gait Training Distance: 5 steps Gait Assistive Device: FWW good quad activation Exercises Supine Ex: Ankle pumps, Quad Set, Heel Slides, Straight leg raise (AAROM) Supine Reps: 15 Seated Therapy Exercises: Long arc quads Seated Reps: 15 (AAROM) Assessment Much improved quad activation on this date. Patient continues to be in A-fib. Patient performed bed and seated exercises and requires time to complete all functional tasks. At end of session, patient c/o nausea. RN notified. Patient up in recliner with breakfast in situ PT Jail Goals Help Desk Rep Goals PT Jail Goals Time Frame: May 06, 2023 Roll Left & Right (QC): 6 Sit to Lying (QC): 6 Lying-Sitting on Side/Bed(QC): 6 Sit to Stand (QC): 6 Chair/Tee-dg-Cervf Xfer(QC): 6 Toilet Transfer (QC): 6 Car Transfer (QC): 6 Does the Patient Walk: Yes Walk 10 feet (QC): 6 Walk 50ft with 2 Turns (QC): 6 Walk 150 ft (QC): 4 1 Step (curb) (QC): 3 4 Steps (QC): 3 12 Steps (QC): 3 PT Plan Treatment/Plan Treatment Plan: Continue Plan of Care Treatment Plan: Bed Mobility, Education, Functional Activity Vicky, Functional Strength, Group Therapy, Gait, Safety, Therapeutic Exercise, Transfers Treatment Duration: May 06, 2023 Frequency: 11 times per week Estimated Hrs Per Day: .25 hour per day Patient and/or Family Agrees t: Yes Time Time In: 810 Time Out: 833 DATE: Apr 20, 2023 Total Billed Treatment Time: 23 Total Billed Treatment 1 visit EX x 2 23 min CHANG ALCANTAR PT Apr 20, 2023 08:35
[2023-04-20] MEDS: ONDANSETRON INJECTION 4 MG/2 ML (SDV) IV PRN (08:39)
[2023-04-20] MEDS: CELECOXIB 400 MG CAPSULE PO SCH (08:43)
[2023-04-20] MEDS: dilTIAZem ER 120 MG CAPSULE PO SCH (08:43)
[2023-04-20] MEDS: APIXABAN 5 MG TABLET PO SCH ×2 (08:43→20:47)
[2023-04-20] MEDS: SENNA W/DOCUSATE TABLET PO SCH ×2 (08:44→21:03)
[2023-04-20] MEDS: LORATADINE 10 MG TABLET PO SCH (08:44)
[2023-04-20] MEDS: ASPIRIN enteric coated 81MG TABLET PO SCH (08:44)
--- NOTE | 2023-04-20 11:21 | Tele-ICU Progress Note ---
Subjective Date Seen by a Provider: Apr 20, 2023 Time Seen by a Provider: 11:20 Subjective/Events-last exam (Tele-ICU Physician , Progress Note ) Service provided via interactive audio and video telecommunications E-CARE system to a patient admitted to ICU bed in [facility]. Patient is seen today due to persistent need of ICU care Available chart/ vitals / labs / Images reviewed Video assessment done using teleICU camera, rest of exam as per RN Discussed with RN Events overnight : Afebrile hemodynamically stable Respiratory - 2 l I/O = neg Drips: NS 83 Pressors- no Hospital course: (04/16) 73F Admitted s/p right total knee arthroplasty with new onset atrial fibrillation post op. Cardiology consulted (04/18) TX to ICU for rapid afib and low urine output. Cardizem drip- converted , FEVER 04/19 - po cardizem , overnight ? hr --> pushed beta blockes x2 04/20 - persistent HR > 125 - dig 0.5 x1 , started on AMIO gtt A/P New onset AF RVR - cardizemm gtt off , on po ER cardizem, persistent HR > 125 -140s - dig 0.5 x1 , AMIO gtt started -2D echo done in December 2022 with moderate LVH, ejection fraction 55 to 60%. -cards follow -AC -on Eliquis Anemia - f/up on AC , hb 7.9 - no sign of bleeding s/p knee replacement - pain control - as per sx FEVER 04/18 - no sourse , knee exam as per SX - off abx Hypoxia - 2 L O2 - start IS , stop IVF Delirium 04/18 - confusion resolved , anxiety now Lines : periph , (Central Line Necessity Reviewed) Harvey: + OG: Nutrition: po Analgesia: Anxiety/ delirium VTE Prophylaxis: eliquis Stress Ulcer Prophylaxis: na Plans in collaboration with bedside consultants and IM MDs. Discussed with RN to reach out if any questions or concerns Case and care daily discussed on multidisciplinary rounds ( RN, PharmD, Pathology Laboratory Technologist , Respiratory Therapy, foundry worker apprentice ) A total of 25 minutes of critical care time was devoted to this patient today, required to treat and/or prevent further deterioration of critical care condition ( as above ) . I am remotely monitoring this patient from another state. I am unable to do the bedside exam, and history/physical and pertinent information is taken from other notes in the computer and bedside staff. Sepsis Event Evaluation Height, Weight, BMI Height: '" Weight: lbs. oz. kg; 39.65 BMI Method: Exam Exam Patient acknowledged, consented, and participated in this virtual visit which was conducted using real time audio/video Vital Signs Date Time Temp Pulse Resp B/P (MAP) Pulse Ox O2 Delivery O2 Flow Rate FiO2 04/20/23 10:00 120 15 137/86 (103) 95 Nasal Cannula 2.00 04/20/23 09:46 144 140/81 04/20/23 09:00 129 13 140/81 (100) 95 Nasal Cannula 2.00 04/20/23 08:00 126 14 125/104 (111) 92 Nasal Cannula 2.00 04/20/23 08:00 98 Nasal Cannula 2.00 04/20/23 07:00 134 16 124/79 (94) 97 Nasal Cannula 2.00 04/20/23 07:00 134 04/20/23 06:27 142 124/86 04/20/23 06:00 114 16 124/86 (99) 97 Nasal Cannula 2.00 04/20/23 05:00 129 26 123/65 (84) 97 Nasal Cannula 2.00 04/20/23 04:00 100 23 128/69 (88) 97 Nasal Cannula 2.00 04/20/23 03:50 36.9 110 28 118/79 (92) 95 Nasal Cannula 2.00 04/20/23 03:50 98 Nasal Cannula 2.00 04/20/23 03:00 107 26 103/66 (78) 96 Nasal Cannula 2.00 04/20/23 02:02 146 04/20/23 02:00 137 26 135/79 (97) 97 Nasal Cannula 2.00 04/20/23 01:00 99 23 124/65 (84) 95 Nasal Cannula 2.00 04/20/23 00:35 104 04/20/23 00:00 109 23 138/80 (99) 97 Nasal Cannula 2.00 04/19/23 23:41 37.7 04/19/23 23:13 04/19/23 23:00 98 24 139/63 (88) 98 Nasal Cannula 2.00 04/19/23 23:00 95 Nasal Cannula 2.00 04/19/23 22:00 110 12 132/74 (93) 98 Nasal Cannula 2.00 04/19/23 21:00 92 24 121/69 (86) 97 Nasal Cannula 2.00 04/19/23 20:00 90 22 114/68 (83) 98 Nasal Cannula 2.00 04/19/23 19:27 89 Nasal Cannula 2.00 04/19/23 19:10 95 Room Air 04/19/23 19:00 102 04/19/23 19:00 36.7 105 16 149/66 (93) 93 Room Air 04/19/23 18:00 101 21 133/63 (75) 91 Room Air 04/19/23 17:00 96 23 125/79 (94) 91 Nasal Cannula 1.50 04/19/23 16:00 93 13 134/67 (97) 94 Nasal Cannula 1.50 04/19/23 16:00 96 Nasal Cannula 2.50 04/19/23 15:00 86 18 134/61 (86) 94 Nasal Cannula 1.50 04/19/23 14:00 98 9 127/80 (96) 99 Nasal Cannula 2.50 04/19/23 13:00 92 11 133/60 (84) 91 Nasal Cannula 2.50 04/19/23 12:28 92 04/19/23 12:00 93 21 145/72 (87) 90 Nasal Cannula 2.50 04/19/23 12:00 96 Nasal Cannula 2.50 04/19/23 12:00 36.8 I & O 04/20/23 07:00 Intake Total 2775 ml Output Total 2100 ml Balance 675 ml Height & Weight Height: '" Weight: lbs. oz. kg; 39.65 BMI Method: General Appearance: No Apparent Distress, WD/WN, Chronically ill, Obese HEENT: PERRL/EOMI, TMs Normal, Normal ENT Inspection, Pharynx Normal, Moist Mucous Membranes; No Pale Conjunctivae (L), No Pale Conjunctivae (R) Neck: Full Range of Motion, Normal Inspection, Non Tender, Supple, Carotid Bruit Respiratory: Lungs Clear Cardiovascular: Irregularly Irregular, Tachycardia Capillary Refill: Less Than 3 Seconds Gastrointestinal: normal bowel sounds, non tender, soft Extremity: Normal Capillary Refill, Normal Inspection, Normal Range of Motion, Non Tender, No Calf Tenderness, No Pedal Edema Neurologic/Psychiatric: Alert, Oriented x3 (drowsy) Skin: Normal Color, Warm/Dry Lymphatic: No Adenopathy Results Lab Laboratory Tests 04/19/23 05:20 04/20/23 04:42 Assessment/Plan Assessment/Plan 1 ALVA ELLSWORTH MD Apr 20, 2023 11:21
[2023-04-20] MEDS ORDERED: AMIODARONE FOR BOLUS 150 MG in NS (IVPB) 100 ML 100 ML IV ONE (11:30)
--- NOTE | 2023-04-20 12:13 | Progress Note - Hospitalist ---
Subjective HPI/CC On Admission Date Seen by Provider: Apr 20, 2023 04/16/2023: CC: R-TKA, AFib HPI: Shakira is a 73 year old female that is status post operative on her right knee for a total knee arthroplasty. Prior to surgery, her heart rate and rhythm was normal. After being in the OR, she was presenting with AFib. When talking to Shakira, she noted that she was slightly uncomfortable in her knee. She denied any chest pain or AMS. Furthermore, she notes that she feels a little bit anxious. Shakira notes that she is excited for her knee to be fixed. She also endorses some depression that she is currently managing. Overall, her main concern is that she has some pain in her right knee. She denies any other concerns. Her pain is a 6/10. The pain is dull and achy. Subjective/Events-last exam Pt reports feeling better. Pain improved. Did more with PT today. Back into a fib this AM though. Objective Exam Vital Signs Vital Signs Date Time Temp Pulse Resp B/P (MAP) Pulse Ox O2 Delivery O2 Flow Rate FiO2 04/20/23 11:00 121 20 132/63 (86) 93 Nasal Cannula 2.00 04/20/23 03:50 36.9 04/17/23 11:05 92 Capillary Refill : Less Than 3 SecondsLess Than 3 Seconds General Appearance: No Apparent Distress, Chronically ill, Obese Respiratory: Lungs Clear, No Respiratory Distress Cardiovascular: No Murmur, Irregularly Irregular, Tachycardia Gastrointestinal: Normal Bowel Sounds, Soft Extremity: No Calf Tenderness, No Pedal Edema Neurologic/Psychiatric: Alert, Oriented x3 Results/Procedures Lab Laboratory Tests 04/20/23 04:42 Patient resulted labs reviewed. Assessment/Plan Assessment and Plan Assess & Plan/Chief Complaint New onset AF RVR s/p knee replacement HTN Increased BMI Delirium Plan: Cardizem drip to resume today OAC Pain control IS PT/OT TeleICU consulted, appreciate recs Critical Care Critically Ill Patient JANNY FARNSWORTH MD Apr 20, 2023 12:13
[2023-04-20] MEDS: AMIODARONE FOR DRIP 450 MG in NORMAL SALINE (EXCEL) 250 ML 250 ML IV SCH ×3 (12:49→20:05)
[2023-04-20 16:15] VITALS: BP 115/77
[2023-04-20] MEDS: GABAPENTIN 300 MG CAPSULE PO SCH (20:47)
[2023-04-20] MEDS: ALPRAZolam 0.25 MG TABLET PO PRN (20:47)
[2023-04-20] MEDS: RT-Ipratropium/Albuterol NEB 3 ML VIAL INH SCH (21:44)
[2023-04-21] MEDS: RT-Ipratropium/Albuterol NEB 3 ML VIAL INH SCH ×4 (03:27→22:28)
[2023-04-21 04:17] LABS: BASOPHILS % (AUTO) 0 % (0-10); EOSINOPHILS # (AUTO) 0.1 10^3/uL (0.0-0.3); EOSINOPHILS % (AUTO) 1 % (0-10); HEMATOCRIT 24 % (35-52); HEMOGLOBIN 7.6 g/dL (11.5-16.0); LYMPHOCYTES # (AUTO) 1.3 10^3/uL (1.0-4.0); LYMPHOCYTES % (AUTO) 12 % (12-44); MEAN CORPUSCULAR HEMOGLOBIN 29 pg (25-34); MEAN CORPUSCULAR HGB CONC 32 g/dL (32-36); MEAN CORPUSCULAR VOLUME 91 fL (80-99); MEAN PLATELET VOLUME 10.1 fL (9.0-12.2); MONOCYTES # (AUTO) 1.2 10^3/uL (0.0-1.0); MONOCYTES % (AUTO) 11 % (0-12); NEUTROPHILS # (AUTO) 8.2 10^3/uL (1.8-7.8); NEUTROPHILS % (AUTO) 76 % (42-75); PLATELET COUNT 238 10^3/uL (130-400); WHITE BLOOD COUNT 10.8 10^3/uL (4.3-11.0)
[2023-04-21 04:39] LABS: ALBUMIN 2.7 GM/DL (3.2-4.5); CALCIUM 8.2 MG/DL (8.5-10.1); CREATININE SERUM 0.56 MG/DL (0.60-1.30); MAGNESIUM 1.9 MG/DL (1.6-2.4); PHOSPHORUS 3.2 MG/DL (2.3-4.7); POTASSIUM 4.2 MMOL/L (3.6-5.0); TOTAL PROTEIN 5.5 GM/DL (6.4-8.2)
[2023-04-21] MEDS: POTASSIUM CL 10MEQ/50ML IVPB 50 ML IV SCH (05:00)
[2023-04-21] MEDS: POTASSIUM CHLORIDE 20 MEQ TABLET PO SCH (05:00)
[2023-04-21] MEDS: MAGNESIUM 1 GM/100 ML IVPB 100 ML IV SCH (05:00)
[2023-04-21] MEDS: THERAPEUTIC MULTIVITAMIN W/MINERALS TABLET PO SCH (06:07)
--- NOTE | 2023-04-21 07:29 | Progress Note ---
Standard Progress Note Progress Notes/Assess & Plan Date Seen by a Provider: Apr 21, 2023 Time Seen by a Provider: 07:27 Progress/Assessment & Plan post op check No complaints has been in Afib since leads placed in OR radiographs--HW well positioned without fracture RLE-- 2 plus DP pulse with brisk cap refill intact DF and PF of toes and ankle sensation intact to light touch throughout s/p RTKA Dr Flores evaluating for Afib mobilize when able Final Diagnosis no complaints Laboratory Tests Test 04/21/23 03:43 Range/Units White Blood Count 10.8 4.3-11.0 10^3/uL Red Blood Count 2.59 L 3.80-5.11 10^6/uL Hemoglobin 7.6 L 11.5-16.0 g/dL Hematocrit 24 L 35-52 % Mean Corpuscular Volume 91 80-99 fL Mean Corpuscular Hemoglobin 29 25-34 pg Mean Corpuscular Hemoglobin Concent 32 32-36 g/dL Red Cell Distribution Width 12.2 10.0-14.5 % Platelet Count 238 130-400 10^3/uL Mean Platelet Volume 10.1 9.0-12.2 fL Immature Granulocyte % (Auto) 1 % Neutrophils (%) (Auto) 76 H 42-75 % Lymphocytes (%) (Auto) 12 12-44 % Monocytes (%) (Auto) 11 0-12 % Eosinophils (%) (Auto) 1 0-10 % Basophils (%) (Auto) 0 0-10 % Neutrophils # (Auto) 8.2 H 1.8-7.8 10^3/uL Lymphocytes # (Auto) 1.3 1.0-4.0 10^3/uL Monocytes # (Auto) 1.2 H 0.0-1.0 10^3/uL Eosinophils # (Auto) 0.1 0.0-0.3 10^3/uL Basophils # (Auto) 0.0 0.0-0.1 10^3/uL Immature Granulocyte # (Auto) 0.1 0.0-0.1 10^3/uL Sodium Level 136 135-145 MMOL/L Potassium Level 4.2 3.6-5.0 MMOL/L Chloride Level 103 98-107 MMOL/L Carbon Dioxide Level 23 21-32 MMOL/L Anion Gap 10 5-14 MMOL/L Blood Urea Nitrogen 13 7-18 MG/DL Creatinine 0.56 L 0.60-1.30 MG/DL Estimat Glomerular Filtration Rate 96 BUN/Creatinine Ratio 23 Glucose Level 99 70-105 MG/DL Calcium Level 8.2 L 8.5-10.1 MG/DL Corrected Calcium 9.2 8.5-10.1 MG/DL Phosphorus Level 3.2 2.3-4.7 MG/DL Magnesium Level 1.9 1.6-2.4 MG/DL Total Bilirubin 1.0 0.1-1.0 MG/DL Aspartate Amino Transf (AST/SGOT) 26 5-34 U/L Alanine Aminotransferase (ALT/SGPT) 24 0-55 U/L Alkaline Phosphatase 71 40-136 U/L Total Protein 5.5 L 6.4-8.2 GM/DL Albumin 2.7 L 3.2-4.5 GM/DL Vital Signs Date Time Temp Pulse Resp B/P (MAP) Pulse Ox O2 Delivery O2 Flow Rate FiO2 04/21/23 07:26 36.5 04/21/23 07:10 92 04/21/23 07:00 94 24 144/66 (92) 97 OxyMask 3.00 04/21/23 06:00 89 135/69 (91) 98 OxyMask 3.00 04/21/23 05:00 90 142/69 (93) 97 OxyMask 3.00 04/21/23 04:00 90 18 140/63 (88) 96 OxyMask 3.00 04/21/23 04:00 98 OxyMask 3.00 04/21/23 03:27 OxyMask 4.00 04/21/23 03:00 92 21 148/70 (96) 96 OxyMask 3.00 04/21/23 02:00 92 14 134/75 (94) 96 OxyMask 3.00 04/21/23 01:00 87 19 144/73 (96) 100 OxyMask 3.00 04/21/23 01:00 89 04/21/23 00:00 87 14 139/65 (89) 98 OxyMask 3.00 04/21/23 00:00 36.9 04/20/23 23:59 98 OxyMask 3.00 04/20/23 23:00 87 25 127/61 (83) 99 OxyMask 3.00 04/20/23 22:16 OxyMask 3.00 04/20/23 22:00 91 22 126/61 (82) 91 Nasal Cannula 3.00 04/20/23 21:49 Nasal Cannula 2.00 100 04/20/23 21:00 92 23 137/58 (84) 97 Nasal Cannula 2.00 04/20/23 20:36 36.8 Nasal Cannula 2.50 04/20/23 20:00 85 35 131/54 (79) 96 Nasal Cannula 2.00 04/20/23 20:00 98 Nasal Cannula 2.50 04/20/23 19:00 93 04/20/23 19:00 96 17 134/96 (109) 96 Nasal Cannula 2.00 04/20/23 18:17 37.1 04/20/23 18:00 82 23 150/74 (99) 97 Nasal Cannula 2.00 04/20/23 17:00 82 20 136/63 (87) 97 Nasal Cannula 2.00 04/20/23 16:15 36.9 101 94 28 04/20/23 16:00 98 Nasal Cannula 2.00 04/20/23 16:00 86 24 128/70 (89) 98 Nasal Cannula 2.00 04/20/23 15:00 93 18 137/60 (85) 90 Nasal Cannula 2.00 04/20/23 14:00 101 27 115/77 (90) 94 Nasal Cannula 2.00 04/20/23 13:23 98 04/20/23 13:00 95 04/20/23 13:00 93 20 126/71 (89) 93 Nasal Cannula 2.00 04/20/23 12:17 121 132/63 04/20/23 12:00 37.2 04/20/23 12:00 98 Nasal Cannula 2.00 04/20/23 12:00 88 24 119/74 (89) 93 Nasal Cannula 2.00 04/20/23 11:00 121 20 132/63 (86) 93 Nasal Cannula 2.00 04/20/23 10:00 120 15 137/86 (103) 95 Nasal Cannula 2.00 04/20/23 09:46 144 140/81 04/20/23 09:00 129 13 140/81 (100) 95 Nasal Cannula 2.00 04/20/23 08:00 37.5 04/20/23 08:00 126 14 125/104 (111) 92 Nasal Cannula 2.00 04/20/23 08:00 98 Nasal Cannula 2.00 I & O 04/21/23 07:00 Intake Total 844 ml Output Total 1950 ml Balance -1106 ml RLE--dressing intact no calf tenderness neg Melissa's s/p RTKA DC Harvey mobilize DC to [facility] after cleared by Cardiology KALEIGH ARTHUR MD Apr 21, 2023 07:29
--- NOTE | 2023-04-21 08:02 | Physical Therapy Daily Note ---
PT Daily Note-Current Subjective Patient agrees to PT. Pain Numeric Pain Scale: 8 Location: Right Location Body Site: Knee Section J - Health Conditions 1. Rarely or not at all 2. Occasionally 3. Frequently 4. Almost constantly 8. Unable to answer Pain Effect on Sleep: 1 Pain Interference with Therapy: 1 Pain Interference w/Day-to-Day: 1 Transfers SCALE: Activities may be completed with or without assistive devices. 9-Ntljhmtwvj-bspprlv completes the activity by him/herself with no assistance from a helper. 5-Set-up or Clean-up Assistance-helper sets up or cleans up; patient completes activity. [place] assists only prior to or following the activity. 4-Supervision or Touching Assistance-helper provides verbal cues and/or touching/steadying and/or contact guard assistance as patient completes activity. Assistance may be provided throughout the activity or intermittently. 3-Partial/Moderate Assistance-helper does LESS THAN HALF the effort. [place] lifts, holds or supports trunk or limbs, but provides less than half the effort. 2-Substantial/Maximal Assistance-helper does MORE THAN HALF the effort. [place] lifts or holds trunk or limbs and provides more than half the effort. 4-Pbtrzjcwn-brjuai does ALL the effort. Patient does none of the effort to complete the activity. Or, the assistance of 2 or more helpers is required for the patient to complete the activity. If activity was not attempted, code reason: 7-Patient Refused. 9-Not Applicable-not attempted and the patient did not perform the activity before the current illness, exacerbation or injury. 10-Not Attempted due to Environmental Limitations-(lack of equipment, weather restraints, etc.). 88-Not Attempted due to Medical Conditions or Safety Concerns. Lying to Sitting/Side of Bed(Q: 3 Sit to Stand (QC): 3 Chair/Izo-ky-Lhxjr Xfer(QC): 3 difficulty with weight bearing right LE/no foot clearance Weight Bearing Right Lower Extremity: Right Weight Bearing/Tolerated Left Lower Extremity: Left Full Weight Bearing Exercises Seated Therapy Exercises: Ankle pumps, Long arc quads Seated Reps: 12 (AAROM right LE) Assessment Patient tolerates minimal activity on this date. Up in recliner with breakfast in situ. PT Custodial Goals Residential Property Manager Goals PT Custodial Goals Time Frame: May 06, 2023 Roll Left & Right (QC): 6 Sit to Lying (QC): 6 Lying-Sitting on Side/Bed(QC): 6 Sit to Stand (QC): 6 Chair/Php-ko-Uqfrc Xfer(QC): 6 Toilet Transfer (QC): 6 Car Transfer (QC): 6 Does the Patient Walk: Yes Walk 10 feet (QC): 6 Walk 50ft with 2 Turns (QC): 6 Walk 150 ft (QC): 4 1 Step (curb) (QC): 3 4 Steps (QC): 3 12 Steps (QC): 3 PT Plan Treatment/Plan Treatment Plan: Continue Plan of Care Treatment Plan: Bed Mobility, Education, Functional Activity Vicky, Functional Strength, Group Therapy, Gait, Safety, Therapeutic Exercise, Transfers Treatment Duration: May 06, 2023 Frequency: 11 times per week Estimated Hrs Per Day: .25 hour per day Patient and/or Family Agrees t: Yes Time Time In: 745 Time Out: 757 DATE: Apr 21, 2023 Total Billed Treatment Time: 12 Total Billed Treatment 1 visit EX 12 min CHANG ALCANTAR PT Apr 21, 2023 08:02
[2023-04-21] MEDS: ASPIRIN enteric coated 81MG TABLET PO SCH (08:42)
[2023-04-21] MEDS: CELECOXIB 400 MG CAPSULE PO SCH (08:43)
[2023-04-21] MEDS: LORATADINE 10 MG TABLET PO SCH (08:43)
[2023-04-21] MEDS: SENNA W/DOCUSATE TABLET PO SCH ×2 (08:43→20:47)
[2023-04-21] MEDS: APIXABAN 5 MG TABLET PO SCH ×2 (08:43→20:46)
[2023-04-21] MEDS: dilTIAZem ER 120 MG CAPSULE PO SCH (08:44)
--- NOTE | 2023-04-21 09:38 | Cardiology Progress Note ---
Subjective Date Seen by Provider: Apr 21, 2023 Time Seen by Provider: 09:36 Subjective/Events-last exam Patient was seen at bedside, she was sitting in a chair, comfortable. Still having generalized weakness. Has been in sinus rhythm since she was started on amiodarone bolus and a drip Review of Systems General: No Chills, No Night Sweats; Fatigue, Malaise; No Appetite, No Other HEENT: No Head Aches, No Visual Changes, No Eye Pain, No Ear Pain, No Dysphasia, No Sinus Congestion, No Post Nasal Drip, No Sore Throat, No Other Pulmonary: No Dyspnea, No Cough, No Pleuritic Chest Pain, No Other Cardiovascular: No: Chest Pain, Palpitations, Orthopnea, Paroxysmal Noc. Dyspnea, Edema, Lt Headedness, Other Objective-Cardiology Exam Last Set of Vital Signs Vital Signs 04/20/23 04/21/23 04/21/23 21:49 07:26 08:30 Temp 36.5 Pulse 102 Resp 21 B/P (MAP) 164/72 (102) Pulse Ox 90 O2 Delivery OxyMask O2 Flow Rate 3.00 FiO2 100 I&O Intake and Output 04/21/23 00:00 Intake Total 1219 ml Output Total 2075 ml Balance -856 ml Intake Oral 1075 ml IV Total 144 ml Output Urine Total 2075 ml # Bowel Movements 1 General: Alert, Oriented X3, Mild Distress HEENT: Atraumatic Neck: Supple, No JVD, No Thyromegaly Lungs: Other (expiratory wheezing, bibasilar rales) Heart: Regular Rate, Normal S1, Normal S2, No Murmurs Abdomen: Soft, No Tenderness Extremities: Normal Pulses Skin: No Rashes, No Breakdown, No Significant Lesion Neuro: Normal Speech Psych/Mental Status: Mental Status NL, Mood NL Results Lab Laboratory Tests 04/21/23 03:43 A/P-Cardiology Admission Diagnosis Atrial fibrillation Hypertension Hyperlipidemia Reactive airway disease Assessment/Plan Paroxysmal atrial fibrillation Converted back to sinus rhythm, doing well Maintained on Eliquis Responded to IV amiodarone, we will switch to oral Multaq due to hyperthyroidism Continue to monitor Hyperthyroidism, TSH is 0. Free T4 is elevated. Defer management to primary care team 2D echo done in December 2022 with moderate LVH, ejection fraction 55 to 60%. Otherwise no significant abnormality reported CHADVASC score 3, will start on Eliquis and evaluate tolerance and response Hypertension, monitor blood pressure Hyperlipidemia, maintained on atorvastatin as an outpatient, Monitor lipids Status post knee replacement surgery, recovering, managed by Dr. ARTHUR Reactive airways disease, maintained on albuterol CHET SARGENT MD Apr 21, 2023 09:38
--- NOTE | 2023-04-21 09:54 | Progress Note - Hospitalist ---
KENNY CARRASCO 04/21/23 0954: Subjective HPI/CC On Admission Date Seen by Provider: Apr 21, 2023 Time Seen by Provider: 08:50 04/16/2023: CC: R-TKA, AFib HPI: Shakira is a 73 year old female that is status post operative on her right knee for a total knee arthroplasty. Prior to surgery, her heart rate and rhythm was normal. After being in the OR, she was presenting with AFib. When talking to Shakira, she noted that she was slightly uncomfortable in her knee. She denied any chest pain or AMS. Furthermore, she notes that she feels a little bit anxious. Shakira notes that she is excited for her knee to be fixed. She also endorses some depression that she is currently managing. Overall, her main concern is that she has some pain in her right knee. She denies any other concerns. Her pain is a 6/10. The pain is dull and achy. Subjective/Events-last exam 04/21/2023: CC: R-TKA, Afib with RVR HPI: Shakira, 73F, notes that she is feeling a bit better. She says that PT has been difficult, but is more concerned about her heart issues. She denies any chest pain, SOB, dizziness, or changes in neurological state. She wants to understand why this is happening. She notes that the knee pain is a 4/10. She no bina that she has had a BM. She does not want her catheter removed, but understands that it is best for her treatment plan. She has no other concerns. Review of Systems General: No Fatigue, No Malaise HEENT: No Head Aches, No Visual Changes, No Eye Pain Pulmonary: No Dyspnea, No Cough, No Pleuritic Chest Pain Cardiovascular: No: Chest Pain, Palpitations, Edema Gastrointestinal: No: Nausea, Vomiting, Abdominal Pain, Diarrhea, Constipation Genitourinary: No Dysuria, No Frequency; Other (palmer catheter in place) Musculoskeletal: leg pain; No: neck pain, shoulder pain, arm pain, back pain Neurological: No: Weakness, Numbness, Incoordination Objective Exam Vital Signs Vital Signs Date Time Temp Pulse Resp B/P (MAP) Pulse Ox O2 Delivery O2 Flow Rate FiO2 04/21/23 09:47 OxyMask 3.00 04/21/23 08:30 102 21 90 04/21/23 07:26 36.5 04/20/23 21:49 100 Capillary Refill : Less Than 3 SecondsLess Than 3 Seconds General Appearance: No Apparent Distress, WD/WN, Obese HEENT: PERRL/EOMI, Normal ENT Inspection; No Pale Conjunctivae (L), No Pale Conjunctivae (R) Neck: Full Range of Motion, Non Tender, Supple Respiratory: Chest Non Tender, Normal Breath Sounds, No Accessory Muscle Use, No Respiratory Distress Cardiovascular: Regular Rate, Rhythm, No Murmur, Normal Peripheral Pulses; No Irregularly Irregular Gastrointestinal: Normal Bowel Sounds, Non Tender, Soft Rectal: Deferred Back: Normal Inspection, No Vertebral Tenderness Extremity: Normal Capillary Refill, Normal Inspection, Non Tender Neurologic/Psychiatric: Alert, Oriented x3, No Motor/Sensory Deficits, Normal Mood/Affect Skin: Normal Color, Warm/Dry Lymphatic: No Adenopathy Results/Procedures Lab Laboratory Tests 04/21/23 03:43 Patient resulted labs reviewed. Assessment/Plan Assessment and Plan Assess & Plan/Chief Complaint 04/21/2023: A/P -Status Post Op day 5 R-TKA * Pain management * PT, ambulate as tolerated -A.Fib * Cardiology consult with Dr. Flores * Cardizem IV convert to PO * TELE * CHADVASC- 3; eliquis per cardio -Stress IC * pads * frequent restroom -HTN * restart amlodipine, metoprolol -Hyperlipidemia * restart atorvastatin -Reactive Airway Disease * Albuterol, ambulate -Potential ARU placement -Transfer to 4th floor MED/SURG HERMILA JETT DO 04/22/23 0420: Subjective Subjective/Events-last exam Improved Moved to 4th floor with orders but returned back to AF RVR so remains in ICU Pain controlled TSH noted so started treatment for hyperthyroidism Objective Exam General Appearance: No Apparent Distress, WD/WN Respiratory: Lungs Clear Cardiovascular: Irregularly Irregular, Tachycardia Assessment/Plan Assessment and Plan Assess & Plan/Chief Complaint Remain in ICU Cards consultation appreciated Hyperthyroidism treatment Supervisory-Addendum Brief Verification & Attestation Participated in pt care: history, MDM, physical Personally performed: exam, history, MDM, supervision of care Care discussed with: Medical Student Procedures: n/a Results interpretation: Verified all documentation Verification and Attestation of Medical Student E/M Service A medical student performed and documented this service in my presence. I reviewed and verified all information documented by the medical student and made modifications to such information, when appropriate. I personally performed the physical exam and medical decision making. Hermila Jett, Apr 22, 2023,04:19 KENNY CARRASCO Apr 21, 2023 09:54 HERMILA JETT DO Apr 22, 2023 04:20
[2023-04-21] MEDS: DRONEDARONE 400 MG TABLET PO SCH ×2 (10:32→20:46)
[2023-04-21] MEDS: meTOprolol INJECTION 5 MG/5 ML VIAL IV NR (11:11)
--- NOTE | 2023-04-21 12:31 | Tele-ICU Progress Note ---
Subjective Date Seen by a Provider: Apr 21, 2023 Time Seen by a Provider: 12:30 Subjective/Events-last exam (Tele-ICU Physician , Progress Note) Service provided via interactive audio and video telecommunications E-CARE sy stem to a patient admitted to ICU bed in [facility]. Patient is seen today due to persistent need of ICU care Available chart/ vitals / labs / Images reviewed Video assessment done using teleICU camera, rest of exam as per RN Discussed with RN Events overnight : Afebrile hemodynamically stable Respiratory - 2L I/O = neg Drips: NS 83 Pressors- no Hospital course: (04/16) 73F Admitted s/p right total knee arthroplasty with new onset atrial fibrillation post op. Cardiology consulted (04/18) TX to ICU for rapid afib and low urine output. Cardizem drip- converted , FEVER 04/19 - po cardizem , overnight ? hr --> pushed beta blockes x2 04/20 - persistent HR > 125 - dig 0.5 x1 , started on AMIO gtt 04/21- Remains in Amio gtt. now sinus rhythm A/P New onset AF RVR now in sinus -Currently on amio gtt. Ranjeet transition to PO cardizem -2D echo done in December 2022 with moderate LVH, ejection fraction 55 to 60%. -Cards follow -AC on Eliquis Anemia of chronic disease: Stable S/p knee replacement -pain control -as per sx Hypoxia -2 L O2 -start IS , stop IVF Delirium 04/18 -confusion resolved , anxiety now Lines : periph, (Central Line Necessity Reviewed) Harvey: + OG: Nutrition: po Analgesia: Anxiety/ delirium VTE Prophylaxis: eliquis Stress Ulcer Prophylaxis: n/a Plans in collaboration with bedside consultants and IM MDs. Discussed with RN to reach out if any questions or concerns Case and care daily discussed on multidisciplinary rounds ( RN, PharmD, Billiard Parlor Manager , Respiratory Therapy, tipple worker ) A total of 15 minutes of critical care time was devoted to this patient today, required to treat and/or prevent further deterioration of critical care condition (as above) . I am remotely monitoring this patient from another state. I am unable to do the bedside exam, and history/physical and pertinent information is taken from other notes in the computer and bedside staff. Sepsis Event Evaluation Height, Weight, BMI Height: '" Weight: lbs. oz. kg; 39.65 BMI Method: Exam Exam Patient acknowledged, consented, and participated in this virtual visit which was conducted using real time audio/video Vital Signs Date Time Temp Pulse Resp B/P (MAP) Pulse Ox O2 Delivery O2 Flow Rate FiO2 04/21/23 12:00 102 04/21/23 11:00 123 23 136/80 (98) 98 OxyMask 3.00 04/21/23 10:08 115 04/21/23 09:47 OxyMask 3.00 04/21/23 09:00 Room Air 04/21/23 08:30 102 21 164/72 (102) 90 OxyMask 3.00 04/21/23 08:00 100 22 90 OxyMask 3.00 04/21/23 07:45 90 Room Air 04/21/23 07:26 36.5 04/21/23 07:10 92 04/21/23 07:00 94 24 144/66 (92) 97 OxyMask 3.00 04/21/23 06:00 89 135/69 (91) 98 OxyMask 3.00 04/21/23 05:00 90 142/69 (93) 97 OxyMask 3.00 04/21/23 04:00 90 18 140/63 (88) 96 OxyMask 3.00 04/21/23 04:00 98 OxyMask 3.00 04/21/23 03:27 OxyMask 4.00 04/21/23 03:00 92 21 148/70 (96) 96 OxyMask 3.00 04/21/23 02:00 92 14 134/75 (94) 96 OxyMask 3.00 04/21/23 01:00 87 19 144/73 (96) 100 OxyMask 3.00 04/21/23 01:00 89 04/21/23 00:00 87 14 139/65 (89) 98 OxyMask 3.00 04/21/23 00:00 36.9 04/20/23 23:59 98 OxyMask 3.00 04/20/23 23:00 87 25 127/61 (83) 99 OxyMask 3.00 04/20/23 22:16 OxyMask 3.00 04/20/23 22:00 91 22 126/61 (82) 91 Nasal Cannula 3.00 04/20/23 21:49 Nasal Cannula 2.00 100 04/20/23 21:00 92 23 137/58 (84) 97 Nasal Cannula 2.00 04/20/23 20:36 36.8 Nasal Cannula 2.50 04/20/23 20:00 85 35 131/54 (79) 96 Nasal Cannula 2.00 04/20/23 20:00 98 Nasal Cannula 2.50 04/20/23 19:00 93 04/20/23 19:00 96 17 134/96 (109) 96 Nasal Cannula 2.00 04/20/23 18:17 37.1 04/20/23 18:00 82 23 150/74 (99) 97 Nasal Cannula 2.00 04/20/23 17:00 82 20 136/63 (87) 97 Nasal Cannula 2.00 04/20/23 16:15 36.9 101 94 28 04/20/23 16:00 98 Nasal Cannula 2.00 04/20/23 16:00 86 24 128/70 (89) 98 Nasal Cannula 2.00 04/20/23 15:00 93 18 137/60 (85) 90 Nasal Cannula 2.00 04/20/23 14:00 101 27 115/77 (90) 94 Nasal Cannula 2.00 04/20/23 13:23 98 04/20/23 13:00 95 04/20/23 13:00 93 20 126/71 (89) 93 Nasal Cannula 2.00 I & O 04/21/23 07:00 Intake Total 844 ml Output Total 1950 ml Balance -1106 ml Height & Weight Height: '" Weight: lbs. oz. kg; 39.65 BMI Method: General Appearance: No Apparent Distress, WD/WN, Obese HEENT: PERRL/EOMI, Normal ENT Inspection; No Pale Conjunctivae (L), No Pale Conjunctivae (R) Neck: Full Range of Motion, Non Tender, Supple Respiratory: Chest Non Tender, Normal Breath Sounds, No Accessory Muscle Use, No Respiratory Distress Cardiovascular: Regular Rate, Rhythm, No Murmur, Normal Peripheral Pulses; No Irregularly Irregular Capillary Refill: Less Than 3 Seconds Gastrointestinal: normal bowel sounds, non tender, soft Extremity: Normal Capillary Refill, Normal Inspection, Non Tender Neurologic/Psychiatric: Alert, Oriented x3, No Motor/Sensory Deficits, Normal Mood/Affect Skin: Normal Color, Warm/Dry Lymphatic: No Adenopathy Results Lab Laboratory Tests 04/20/23 04:42 04/21/23 03:43 Assessment/Plan Assessment/Plan . SHILPA CHRISTY MD Apr 21, 2023 12:31
--- NOTE | 2023-04-21 13:53 | Physical Therapy Progress Note ---
Therapy Progress Note Patient refused therapy due to getting up to commode and wanting to eat and talk on the phone. Will attempt tomorrow CHANG Beasley PT Apr 21, 2023 13:53
--- NOTE | 2023-04-21 14:02 | Occ Therapy Progress Note ---
Therapy Progress Note On arrival patient speaking on phone fluently w/ good breath support. Patient informed of role of therapist and purpose. Patient began to demonstrate SOA and report she had been up several times and just got back in bed from [facility], Patient refuses any further OOB activity this date. JAYNE DE LA GARZA OT Apr 21, 2023 14:02
--- NOTE | 2023-04-21 16:35 | Diagnostic Imaging Report ---
PROCEDURE: US Thyroid. TECHNIQUE: Multiple real-time grayscale images were obtained of the thyroid in various projections. INDICATION: Hyperthyroidism. COMPARISON: CT neck of 11/25/2021 and 04/07/2019. FINDINGS: Right thyroid lobe: The right thyroid lobe measures 4.9 x 3.5 x 3.0 cm. In the lower pole of the right thyroid, there is a solid 3.1 x 2.7 x 2.2 cm nodule that is wider than tall, has no echogenic foci, is isoechoic and circumscribed in margins, TI-RADS 3. No increased vascularity throughout the right thyroid lobe. Isthmus: The thyroid isthmus measures 0.6 cm and is without nodule. No increased vascularity. Left thyroid lobe: The left thyroid lobe measures 3.3 x 1.0 x 1.3 cm and is without nodule. No increased vascularity. IMPRESSION: 1. Mildly suspicious right thyroid nodule is stable in size since prior examination of 2018. This is highly likely benign, and consideration could be given to a follow-up ultrasound in 12 months to ensure stability. ACR TI-RADS: TR3. Dictated by: Dictated on workstation # [id number]
[2023-04-21] MEDS ORDERED: meTOprolol INJECTION 5 MG/5 ML VIAL IV NR (17:00)
[2023-04-21] MEDS: GABAPENTIN 300 MG CAPSULE PO SCH (20:47)
[2023-04-22 04:49] LABS: BASOPHILS % (AUTO) 0 % (0-10); EOSINOPHILS # (AUTO) 0.2 10^3/uL (0.0-0.3); EOSINOPHILS % (AUTO) 2 % (0-10); HEMATOCRIT 25 % (35-52); HEMOGLOBIN 8.2 g/dL (11.5-16.0); LYMPHOCYTES # (AUTO) 2.1 10^3/uL (1.0-4.0); LYMPHOCYTES % (AUTO) 19 % (12-44); MEAN CORPUSCULAR HEMOGLOBIN 30 pg (25-34); MEAN CORPUSCULAR HGB CONC 32 g/dL (32-36); MEAN CORPUSCULAR VOLUME 92 fL (80-99); MEAN PLATELET VOLUME 11.1 fL (9.0-12.2); MONOCYTES # (AUTO) 1.2 10^3/uL (0.0-1.0); MONOCYTES % (AUTO) 11 % (0-12); NEUTROPHILS # (AUTO) 7.1 10^3/uL (1.8-7.8); NEUTROPHILS % (AUTO) 66 % (42-75); PLATELET COUNT 207 10^3/uL (130-400); WHITE BLOOD COUNT 10.7 10^3/uL (4.3-11.0)
[2023-04-22 05:05] LABS: ALBUMIN 2.7 GM/DL (3.2-4.5); BILIRUBIN,TOTAL 1.3 MG/DL (0.1-1.0); CALCIUM 8.5 MG/DL (8.5-10.1); CREATININE SERUM 0.54 MG/DL (0.60-1.30); MAGNESIUM 1.9 MG/DL (1.6-2.4); POTASSIUM 3.6 MMOL/L (3.6-5.0); TOTAL PROTEIN 5.8 GM/DL (6.4-8.2)
[2023-04-22] MEDS: RT-Ipratropium/Albuterol NEB 3 ML VIAL INH SCH ×3 (07:41→21:42)
--- NOTE | 2023-04-22 07:52 | Physical Therapy Daily Note ---
PT Daily Note-Current Subjective Patient agrees to therapy. Pain Section J - Health Conditions 1. Rarely or not at all 2. Occasionally 3. Frequently 4. Almost constantly 8. Unable to answer Pain Effect on Sleep: 1 Pain Interference with Therapy: 1 Pain Interference w/Day-to-Day: 1 Transfers SCALE: Activities may be completed with or without assistive devices. 8-Uowyandhwk-addrcmm completes the activity by him/herself with no assistance from a helper. 5-Set-up or Clean-up Assistance-helper sets up or cleans up; patient completes activity. [place] assists only prior to or following the activity. 4-Supervision or Touching Assistance-helper provides verbal cues and/or touching/steadying and/or contact guard assistance as patient completes activity. Assistance may be provided throughout the activity or intermittently. 3-Partial/Moderate Assistance-helper does LESS THAN HALF the effort. [place] lifts, holds or supports trunk or limbs, but provides less than half the effort. 2-Substantial/Maximal Assistance-helper does MORE THAN HALF the effort. [place] lifts or holds trunk or limbs and provides more than half the effort. 0-Dwolyuhuf-sqcegn does ALL the effort. Patient does none of the effort to complete the activity. Or, the assistance of 2 or more helpers is required for the patient to complete the activity. If activity was not attempted, code reason: 7-Patient Refused. 9-Not Applicable-not attempted and the patient did not perform the activity before the current illness, exacerbation or injury. 10-Not Attempted due to Environmental Limitations-(lack of equipment, weather restraints, etc.). 88-Not Attempted due to Medical Conditions or Safety Concerns. Lying to Sitting/Side of Bed(Q: 4 Sit to Stand (QC): 4 Chair/Tzo-tn-Qrkui Xfer(QC): 4 Toilet Transfer (QC): 4 minimal weight bearing right LE on this date Weight Bearing Right Lower Extremity: Right Weight Bearing/Tolerated Left Lower Extremity: Left Full Weight Bearing Gait Training Distance: 5 steps with minimal weight bearing right LE Gait Assistive Device: FWW Exercises Supine Ex: Ankle pumps, Quad Set, Heel Slides, Straight leg raise (AAROM) Supine Reps: 15 Seated Therapy Exercises: Long arc quads Seated Reps: 15 (AAROM) Standing: Sit to Stand (x 3 sets) Assessment Patient continues to not comply with weight bearing right LE to advance with ambulation and right knee ROM progressing. PT educated patient on importance of performing these activities to advance with rehabilitation. Patient voices understanding then directs her attention to eating. PT to continue to attempt to increase activity and AROM right LE as tolerated/allow by patient. PT Longterm Goals Longterm Goals PT Eyelet Maker Goals Time Frame: May 06, 2023 Roll Left & Right (QC): 6 Sit to Lying (QC): 6 Lying-Sitting on Side/Bed(QC): 6 Sit to Stand (QC): 6 Chair/Fsr-eq-Vteye Xfer(QC): 6 Toilet Transfer (QC): 6 Car Transfer (QC): 6 Does the Patient Walk: Yes Walk 10 feet (QC): 6 Walk 50ft with 2 Turns (QC): 6 Walk 150 ft (QC): 4 1 Step (curb) (QC): 3 4 Steps (QC): 3 12 Steps (QC): 3 PT Plan Treatment/Plan Treatment Plan: Continue Plan of Care Treatment Plan: Bed Mobility, Education, Functional Activity Vicky, Functional Strength, Group Therapy, Gait, Safety, Therapeutic Exercise, Transfers Treatment Duration: May 06, 2023 Frequency: 11 times per week Estimated Hrs Per Day: .25 hour per day Patient and/or Family Agrees t: Yes Time Time In: 710 Time Out: 735 DATE: Apr 22, 2023 Total Billed Treatment Time: 25 Total Billed Treatment 1 visit EX x 2 25 min CHANG ALCANTAR PT Apr 22, 2023 07:52
[2023-04-22] MEDS ORDERED: meTOprolol INJECTION 5 MG/5 ML VIAL ONE (08:03)
[2023-04-22] MEDS: meTOprolol INJECTION 5 MG/5 ML VIAL IV NR (08:05)
[2023-04-22] MEDS: meTOprolol INJECTION 5 MG/5 ML VIAL IV SCH ×3 (08:30→19:02)
--- NOTE | 2023-04-22 08:30 | Cardiology Progress Note ---
Subjective Date Seen by Provider: Apr 22, 2023 Time Seen by Provider: 08:28 Subjective/Events-last exam Patient was seen at bedside sitting comfortably, having tremor. Back in sinus tachycardia Objective-Cardiology Exam Last Set of Vital Signs Vital Signs 04/20/23 04/22/23 04/22/23 04/22/23 04/22/23 04/22/23 21:49 00:00 07:00 07:07 07:23 07:44 Temp 36.9 Pulse 85 Resp 22 B/P (MAP) 128/84 (99) Pulse Ox 97 O2 Delivery Room Air O2 Flow Rate 3.00 FiO2 100 I&O Intake and Output 04/22/23 00:00 Intake Total 990 ml Output Total 1000 ml Balance -10 ml Intake Oral 990 ml Output Urine Total 1000 ml # Voids 5 # Bowel Movements 2 General: Alert, Oriented X3, Mild Distress HEENT: Atraumatic Neck: Supple, No JVD, No Thyromegaly Lungs: Other (expiratory wheezing, bibasilar rales) Heart: Regular Rate, Normal S1, Normal S2, No Murmurs Abdomen: Soft, No Tenderness Extremities: Normal Pulses Skin: No Rashes, No Breakdown, No Significant Lesion Neuro: Normal Speech Psych/Mental Status: Mental Status NL, Mood NL Results Lab Laboratory Tests 04/22/23 04:03 A/P-Cardiology Admission Diagnosis Atrial fibrillation Hypertension Hyperlipidemia Reactive airway disease Assessment/Plan Hyperthyroidism, probably underlying thyroid storm Patient have multiple signs suggestive of thyroid storm Defer management to primary care team Paroxysmal atrial fibrillation/atrial flutter Converted back to sinus rhythm, doing well Maintained on Eliquis Unable to use amiodarone due to hyperthyroidism and thyroid storm Did not respond well to Multaq I will hold Multaq and wait for washout then planning to load with sotalol Starting low-dose beta-blockers today and evaluate tolerance and response 2D echo done in December 2022 with moderate LVH, ejection fraction 55 to 60%. Otherwise no significant abnormality reported CHADVASC score 3, will start on Eliquis and evaluate tolerance and response Hypertension, monitor blood pressure Hyperlipidemia, maintained on atorvastatin as an outpatient, Monitor lipids Status post knee replacement surgery, recovering, managed by Dr. ARTHUR Reactive airways disease, maintained on albuterol CHET SARGENT MD Apr 22, 2023 08:30
[2023-04-22] MEDS: ASPIRIN enteric coated 81MG TABLET PO SCH (08:43)
[2023-04-22] MEDS: dilTIAZem ER 120 MG CAPSULE PO SCH (08:43)
[2023-04-22] MEDS: LORATADINE 10 MG TABLET PO SCH (08:43)
[2023-04-22] MEDS: THERAPEUTIC MULTIVITAMIN W/MINERALS TABLET PO SCH (08:43)
[2023-04-22] MEDS: APIXABAN 5 MG TABLET PO SCH ×2 (08:43→21:07)
[2023-04-22] MEDS: CELECOXIB 400 MG CAPSULE PO SCH (08:43)
[2023-04-22] MEDS: SENNA W/DOCUSATE TABLET PO SCH ×2 (08:44→21:07)
[2023-04-22] MEDS ORDERED: CYANOCOBALAMIN 1000 MCG/ML 1 ML VIAL IM ONE (10:45)
[2023-04-22] MEDS: dilTIAZem DRIP PRE-MIX 125 ML IV SCH ×2 (11:13→21:33)
[2023-04-22] MEDS: IRON SUCROSE 200 MG/10 ML VIAL IV SCH (11:13)
--- NOTE | 2023-04-22 11:48 | Progress Note - Hospitalist ---
Subjective HPI/CC On Admission Date Seen by Provider: Apr 22, 2023 04/16/2023: CC: R-TKA, AFib HPI: Shakira is a 73 year old female that is status post operative on her right knee for a total knee arthroplasty. Prior to surgery, her heart rate and rhythm was normal. After being in the OR, she was presenting with AFib. When talking to Shakira, she noted that she was slightly uncomfortable in her knee. She denied any chest pain or AMS. Furthermore, she notes that she feels a little bit anxious. Shakira notes that she is excited for her knee to be fixed. She also endorses some depression that she is currently managing. Overall, her main concern is that she has some pain in her right knee. She denies any other concerns. Her pain is a 6/10. The pain is dull and achy. Objective Exam Vital Signs Vital Signs Date Time Temp Pulse Resp B/P (MAP) Pulse Ox O2 Delivery O2 Flow Rate FiO2 04/22/23 19:00 102 04/22/23 18:00 18 133/61 (85) 95 Room Air 04/22/23 16:55 36.5 04/22/23 12:00 04/20/23 21:49 100 Capillary Refill : Less Than 3 SecondsLess Than 3 Seconds Results/Procedures Lab Laboratory Tests 04/22/23 04:03 Patient resulted labs reviewed. Assessment/Plan Assessment and Plan Assess & Plan/Chief Complaint Remain in ICU Cards consultation appreciated Hyperthyroidism treatment Critical Care Critically Ill Patient ROCHELLE JETT DO Apr 22, 2023 11:48
--- NOTE | 2023-04-22 13:14 | Wound Care Assessment ---
Wound Care Assessment Date Seen by Provider: Apr 22, 2023 Time Seen by Provider: 12:00 Chief Complaint Bullous lesions on right lower extremity HPI Our patient is a pleasant 73 yo F with a previous medical history of HTN, HLD, sciatica, miranda's neuroma of the left foot, and intraoperative atrial fibrillation related to right total knee arthroplasty. Yesterday, yellow bullous lesions were noted on the right lower extremity when dressings were being changed. She notes a burning sensation that radiates down into her snowden as well as tenderness in the area that seems to be separate from the soreness she has been feeling after her surgery. She denies a history of diabetes, denies weakness, but notes intermittent neuropathic pain in bilateral feet. Her legs are swollen bilaterally and she notes that the right side is more swollen than what would be typical. She denies recent sick contacts but states that she felt feverish 2-3 days ago. Bruising noted as well (not surprising with addition of anticoagulation with new Afib). Past Medical History: Denies Diabetes Type I, Denies Diabetes Type II Smoking Status: Never a Smoker Recreational Drug Use: No Alcohol Use: Denies Use Review of Systems General: Chills (2-3 days ago); No Fatigue; Other (obesity) HEENT: No Head Aches, No Visual Changes Pulmonary: No Dyspnea Cardiovascular: No: Chest Pain, Palpitations Neurological: No: Weakness, Change in speech, Confusion Exam Vital Signs Date Time Temp Pulse Resp B/P (MAP) Pulse Ox O2 Delivery O2 Flow Rate FiO2 04/22/23 12:35 93 Room Air 04/22/23 12:00 109 18 129/88 (102) 04/22/23 07:23 36.9 04/20/23 21:49 100 Capillary Refill : Less Than 3 SecondsLess Than 3 Seconds General Appearance: WD/WN, no apparent distress, obese HEENT: PERRL/EOMI, normal ENT inspection; No scleral icterus (R), No scleral icterus (L) Cardiovascular: no gallop, no JVD, no murmur, tachycardia Respiratory: chest non-tender, lungs clear, normal breath sounds, no respiratory distress, no accessory muscle use Neurologic/Psychiatric: alert, normal mood/affect, oriented x 3 Skin: ecchymosis (Heterogenous, surrounding the surgical site and extending across the medial right knee joint) Skin Problem Location: lower extremities (Right) Skin Character: bullous, erythema (In right lower extremity, extending down the snowden), swelling (In bilateral legs), other (Mildly pruritic) Multiple scattered bullous lesions of various sizes noted on the right knee, both proximal and distal to the knee joint. The largest is distal to the knee m easuring 4.7 cm x 3.6 cm. The most proximal bullae measures 3.4 x 1.7 cm. A bullae directly overlying the knee joint measures 1.5 x 0.8 cm. Each lesion is somewhat tense and appears to be filled with serous fluid. There is tenderness in the right snowden to palpation. Scattered ecchymoses and discolorations are noted along the knee joint, wrapping around the medial knee. I did deroof the blisters prior to dressing with silver alginate. Results Laboratory Tests 04/22/23 04:03: White Blood Count 10.7, Red Blood Count 2.75L, Hemoglobin 8.2L, Hematocrit 25L, Mean Corpuscular Volume 92, Mean Corpuscular Hemoglobin 30, Mean Corpuscular Hemoglobin Concent 32, Red Cell Distribution Width 12.4, Platelet Count 207, Mean Platelet Volume 11.1, Immature Granulocyte % (Auto) 1, Neutrophils (%) (Auto) 66, Lymphocytes (%) (Auto) 19, Monocytes (%) (Auto) 11, Eosinophils (%) (Auto) 2, Basophils (%) (Auto) 0, Neutrophils # (Auto) 7.1, Lymphocytes # (Auto) 2.1, Monocytes # (Auto) 1.2H, Eosinophils # (Auto) 0.2, Basophils # (Auto) 0.0, Immature Granulocyte # (Auto) 0.1, Sodium Level 136, Potassium Level 3.6, Chloride Level 102, Carbon Dioxide Level 24, Anion Gap 10, Blood Urea Nitrogen 12, Creatinine 0.54L, Estimat Glomerular Filtration Rate 97, BUN/Creatinine Ratio 22, Glucose Level 89, Calcium Level 8.5, Corrected Calcium 9.5, Magnesium Level 1.9, Total Bilirubin 1.3H, Aspartate Amino Transf (AST/SGOT) 26, Alanine Aminotransferase (ALT/SGPT) 26, Alkaline Phosphatase 66, Total Protein 5.8L, Albumin 2.7L 04/22/23 04:42: Microbiology 04/18/23 Blood Culture - Preliminary, Resulted 04/18/23 MRSA Screen - Final, Complete MRSA not isolated Assessment/Plan/Dx Assessment: Post-surgical edema with resulting bullous lesions on RLE S/P right total knee arthroplasty Obesity New onset atrial fibrillation with anticoagulation Plan: 1. Cleanse daily with Vashe. Apply silver alginate hydrofiber to open wounds and secure with allevyn BFD. Change daily. Encourage elevation 2. Per ortho direction 3. Per PCP 4. Per cardiology Supervisory-Addendum Brief Verification & Attestation Participated in pt care: history, MDM, physical Personally performed: exam, history, MDM, supervision of care Care discussed with: Medical Student Procedures: performed Procedure type: other (Deroofing of blisters) Results interpretation: Verified all documentation MARY Ceballos MD Apr 22, 2023 13:14 RANDEE CARLISLE MD Apr 22, 2023 15:00
--- NOTE | 2023-04-22 13:27 | Progress Note - Hospitalist ---
KENNY CARRASCO 04/22/23 1327: Subjective HPI/CC On Admission Date Seen by Provider: Apr 22, 2023 Time Seen by Provider: 11:00 04/16/2023: CC: R-TKA, AFib HPI: Shakira is a 73 year old female that is status post operative on her right knee for a total knee arthroplasty. Prior to surgery, her heart rate and rhythm was normal. After being in the OR, she was presenting with AFib. When talking to Shakira, she noted that she was slightly uncomfortable in her knee. She denied any chest pain or AMS. Furthermore, she notes that she feels a little bit anxious. Shakira notes that she is excited for her knee to be fixed. She also endorses some depression that she is currently managing. Overall, her main concern is that she has some pain in her right knee. She denies any other concerns. Her pain is a 6/10. The pain is dull and achy. Subjective/Events-last exam 04/22/2023: CC: R-TKA, AFib with RVR HPI: Shakira, 73F, notes that she does not feel much of a difference from yesterday. She notes that her R lower leg has some pain. Additionally, she notes that there are new blisters around her leg. She say that she has no cardiac concerns, denying any chest pain, SOB, or palpitations. She is urinating using the bedside commode and notes that this makes her feel very tired. She also endorses pain in her R-knee that is a 6/10. She has no other concerns. [facility] Review of Systems General: No Night Sweats; Fatigue HEENT: No Head Aches, No Eye Pain, No Ear Pain Pulmonary: No Dyspnea, No Cough, No Pleuritic Chest Pain Cardiovascular: No: Chest Pain, Palpitations, Edema, Lt Headedness Gastrointestinal: No: Nausea, Vomiting, Abdominal Pain Genitourinary: No Dysuria, No Frequency, No Incontinence Musculoskeletal: leg pain; No: neck pain, arm pain, back pain Neurological: No: Weakness, Numbness, Change in speech, Confusion Objective Exam Vital Signs Vital Signs Date Time Temp Pulse Resp B/P (MAP) Pulse Ox O2 Delivery O2 Flow Rate FiO2 04/22/23 13:00 87 7 125/104 (111) 91 Room Air 10/17/23 12:00 04/22/23 07:23 36.9 04/20/23 21:49 100 Capillary Refill : Less Than 3 SecondsLess Than 3 Seconds General Appearance: No Apparent Distress, WD/WN, Obese HEENT: PERRL/EOMI, Moist Mucous Membranes; No Pale Conjunctivae (L), No Pale Conjunctivae (R) Neck: Normal Inspection, Non Tender, Supple Respiratory: Chest Non Tender, Lungs Clear, Normal Breath Sounds, No Accessory Muscle Use, No Respiratory Distress Cardiovascular: No JVD, No Murmur, Normal Peripheral Pulses, Irregularly Irregular Gastrointestinal: Normal Bowel Sounds, Non Tender; No Distended Rectal: Deferred Back: Normal Inspection, No CVA Tenderness, No Vertebral Tenderness Extremity: Normal Capillary Refill, Normal Inspection, Non Tender, Calf Tenderness (right side) Neurologic/Psychiatric: Alert, Oriented x3, Normal Mood/Affect Skin: Normal Color, Damp, Diaphoresis (pt was just exerting due to bed to chair transfer ), Other (bullous pemphigoid ) Lymphatic: No Adenopathy Results/Procedures Lab Laboratory Tests 04/22/23 04:03 Patient resulted labs reviewed. 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 Flores * Metoprolol Q6 to correct tachycardia * Cardizem 120mg, changed to IV drip * Start Sotolol 04/23 (Current plan) * TELE * CHADVASC- 3; eliquis per cardio -Tachycardia * Cardiology consult * Metoprolol -High T4 (potential thyroid storm) * Methimazole * Thyroid nodule noted on imagine, outpatient management -Stress IC * pads * frequent restroom -Hyperlipidemia * restart atorvastatin -Reactive Airway Disease * Albuterol, ambulate HERMILA JETT DO 04/22/232009: Subjective Subjective/Events-last exam Patient still in A-fib Cardizem drip restarted Hyperthyroidism updated and all the details to the patient Objective Exam General Appearance: No Apparent Distress, WD/WN, Anxious, Chronically ill Cardiovascular: Irregularly Irregular, Tachycardia Gastrointestinal: Normal Bowel Sounds Neurologic/Psychiatric: Alert, Oriented x3 Assessment/Plan Assessment and Plan Assess & Plan/Chief Complaint Supportive care Jean velásquez Cardiology Supervisory-Addendum Brief Verification & Attestation Participated in pt care: history, MDM, physical Personally performed: exam, history, MDM, supervision of care Care discussed with: Medical Student Procedures: n/a Results interpretation: Verified all documentation Verification and Attestation of Medical Student E/M Service A medical student performed and documented this service in my presence. I reviewed and verified all information documented by the medical student and made modifications to such information, when appropriate. I personally performed the physical exam and medical decision making. Hermila Jett, Apr 22, 2023,20:09 KENNY CARRASCO Apr 22, 2023 13:27 HERMILA JETT DO Apr 22, 2023 20:10
--- NOTE | 2023-04-22 14:18 | Physical Therapy Progress Note ---
Therapy Progress Note Patient refused treatment due to wound care addressing surgical blisters and patient stating it was too swollen to do anything. Attempted to educate patient on importance of participating with therapy, however, patient began to eat a cookie. Will attempt tomorrow CHANG Beasley PT Apr 22, 2023 14:18
[2023-04-22] MEDS: oxyCODONE/ACETAMINOPHEN 5/325MG TABLET PO PRN ×2 (14:42→21:07)
[2023-04-22] MEDS ORDERED: HYPOCHLOROUS ACID/NaCl WOUND SOLN 250 ML IR SCH (15:00)
--- NOTE | 2023-04-22 15:43 | Progress Note ---
Standard Progress Note Progress Notes/Assess & Plan Date Seen by a Provider: Apr 22, 2023 Time Seen by a Provider: 15:36 Progress/Assessment & Plan post op check No complaints has been in Afib since leads placed in OR radiographs--HW well positioned without fracture RLE-- 2 plus DP pulse with brisk cap refill intact DF and PF of toes and ankle sensation intact to light touch throughout s/p RTKA Dr Flores evaluating for Afib mobilize when able Final Diagnosis feeling better Laboratory Tests Test 04/22/23 04:03 04/22/23 04:42 Range/Units White Blood Count 10.7 4.3-11.0 10^3/uL Red Blood Count 2.75 L 3.80-5.11 10^6/uL Hemoglobin 8.2 L 11.5-16.0 g/dL Hematocrit 25 L 35-52 % Mean Corpuscular Volume 92 80-99 fL Mean Corpuscular Hemoglobin 30 25-34 pg Mean Corpuscular Hemoglobin Concent 32 32-36 g/dL Red Cell Distribution Width 12.4 10.0-14.5 % Platelet Count 207 130-400 10^3/uL Mean Platelet Volume 11.1 9.0-12.2 fL Immature Granulocyte % (Auto) 1 % Neutrophils (%) (Auto) 66 42-75 % Lymphocytes (%) (Auto) 19 12-44 % Monocytes (%) (Auto) 11 0-12 % Eosinophils (%) (Auto) 2 0-10 % Basophils (%) (Auto) 0 0-10 % Neutrophils # (Auto) 7.1 1.8-7.8 10^3/uL Lymphocytes # (Auto) 2.1 1.0-4.0 10^3/uL Monocytes # (Auto) 1.2 H 0.0-1.0 10^3/uL Eosinophils # (Auto) 0.2 0.0-0.3 10^3/uL Basophils # (Auto) 0.0 0.0-0.1 10^3/uL Immature Granulocyte # (Auto) 0.1 0.0-0.1 10^3/uL Sodium Level 136 135-145 MMOL/L Potassium Level 3.6 3.6-5.0 MMOL/L Chloride Level 102 98-107 MMOL/L Carbon Dioxide Level 24 21-32 MMOL/L Anion Gap 10 5-14 MMOL/L Blood Urea Nitrogen 12 7-18 MG/DL Creatinine 0.54 L 0.60-1.30 MG/DL Estimat Glomerular Filtration Rate 97 BUN/Creatinine Ratio 22 Glucose Level 89 70-105 MG/DL Calcium Level 8.5 8.5-10.1 MG/DL Corrected Calcium 9.5 8.5-10.1 MG/DL Magnesium Level 1.9 1.6-2.4 MG/DL Total Bilirubin 1.3 H 0.1-1.0 MG/DL Aspartate Amino Transf (AST/SGOT) 26 5-34 U/L Alanine Aminotransferase (ALT/SGPT) 26 0-55 U/L Alkaline Phosphatase 66 40-136 U/L Total Protein 5.8 L 6.4-8.2 GM/DL Albumin 2.7 L 3.2-4.5 GM/DL Vital Signs Date Time Temp Pulse Resp B/P (MAP) Pulse Ox O2 Delivery O2 Flow Rate FiO2 04/22/23 14:47 94 Room Air 04/22/23 14:00 75 8 119/56 (77) 90 Room Air 04/22/23 13:58 72 04/22/23 13:00 87 7 125/104 (111) 91 Room Air 04/22/23 12:35 93 Room Air 04/22/23 12:00 109 18 129/88 (102) 95 Room Air 04/22/23 12:00 109 04/22/23 11:13 149 150/80 04/22/23 11:00 135 94 Room Air 04/22/23 10:00 113 22 150/80 (103) 88 Room Air 04/22/23 09:59 131 04/22/23 09:00 89 21 136/64 (88) 90 Room Air 04/22/23 08:00 99 12 148/73 (98) 93 OxyMask 3.00 04/22/23 07:48 92 Room Air 04/22/23 07:44 97 Room Air 04/22/23 07:23 36.9 04/22/23 07:07 85 04/22/23 07:00 84 128/84 (99) 95 OxyMask 3.00 04/22/23 06:00 95 136/70 (92) 98 OxyMask 3.00 04/22/23 05:00 134 117/74 (88) 97 OxyMask 3.00 04/22/23 04:13 92 Room Air 04/22/23 04:00 98 143/71 (95) 97 OxyMask 3.00 04/22/23 03:00 80 132/70 (90) 98 OxyMask 3.00 04/22/23 02:00 80 128/67 (87) 97 OxyMask 3.00 04/22/23 01:00 81 119/62 (81) 98 OxyMask 3.00 04/22/23 00:42 92 Room Air 04/22/23 00:34 83 04/22/23 00:00 86 22 127/67 (87) 95 OxyMask 3.00 04/21/23 23:00 81 23 120/72 (88) 97 OxyMask 3.00 04/21/23 22:28 97 OxyMask 2.00 04/21/23 22:00 82 20 127/62 (83) 97 OxyMask 3.00 04/21/23 21:00 84 24 128/61 (83) 97 OxyMask 3.00 04/21/23 20:00 107 30 115/81 (92) 90 Room Air 04/21/23 19:59 92 Room Air 04/21/23 19:30 36.6 04/21/23 19:00 111 22 122/93 (103) 94 Room Air 04/21/23 18:57 119 04/21/23 18:00 109 21 120/67 (84) 90 Room Air 04/21/23 17:00 101 25 108/62 (77) 90 Room Air 04/21/23 16:41 36.5 04/21/23 16:30 108 26 126/65 (85) 96 Room Air 04/21/23 16:03 92 Room Air I & O 04/22/23 07:00 Intake Total 1290 ml Output Total 850 ml Balance 440 ml RLE--dressing intact and new applied today for fracture blisters no erythema or warmth s/p RTKA mobilize KALEIGH ARTHUR MD Apr 22, 2023 15:43
--- NOTE | 2023-04-22 16:20 | Tele-ICU Progress Note ---
Subjective Date Seen by a Provider: Apr 22, 2023 Time Seen by a Provider: 16:19 Subjective/Events-last exam 1 Sepsis Event Evaluation Height, Weight, BMI Height: '" Weight: lbs. oz. kg; 39.65 BMI Method: Exam Exam Patient acknowledged, consented, and participated in this virtual visit which was conducted using real time audio/video Vital Signs Date Time Temp Pulse Resp B/P (MAP) Pulse Ox O2 Delivery O2 Flow Rate FiO2 04/22/23 16:00 140 20 99/82 (88) 95 Room Air 04/22/23 15:00 129 20 128/72 (90) 95 Room Air 04/22/23 14:47 94 Room Air 04/22/23 14:00 75 8 119/56 (77) 90 Room Air 04/22/23 13:58 72 04/22/23 13:00 87 7 125/104 (111) 91 Room Air 04/22/23 12:35 93 Room Air 04/22/23 12:00 109 18 129/88 (102) 95 Room Air 04/22/23 12:00 109 04/22/23 11:13 149 150/80 04/22/23 11:00 135 94 Room Air 04/22/23 10:00 113 22 150/80 (103) 88 Room Air 04/22/23 09:59 131 04/22/23 09:00 89 21 136/64 (88) 90 Room Air 04/22/23 08:00 99 12 148/73 (98) 93 OxyMask 3.00 04/22/23 07:48 92 Room Air 04/22/23 07:44 97 Room Air 04/22/23 07:23 36.9 04/22/23 07:07 85 04/22/23 07:00 84 128/84 (99) 95 OxyMask 3.00 04/22/23 06:00 95 136/70 (92) 98 OxyMask 3.00 04/22/23 05:00 134 117/74 (88) 97 OxyMask 3.00 04/22/23 04:13 92 Room Air 04/22/23 04:00 98 143/71 (95) 97 OxyMask 3.00 04/22/23 03:00 80 132/70 (90) 98 OxyMask 3.00 04/22/23 02:00 80 128/67 (87) 97 OxyMask 3.00 04/22/23 01:00 81 119/62 (81) 98 OxyMask 3.00 04/22/23 00:42 92 Room Air 04/22/23 00:34 83 04/22/23 00:00 86 22 127/67 (87) 95 OxyMask 3.00 04/21/23 23:00 81 23 120/72 (88) 97 OxyMask 3.00 04/21/23 22:28 97 OxyMask 2.00 04/21/23 22:00 82 20 127/62 (83) 97 OxyMask 3.00 04/21/23 21:00 84 24 128/61 (83) 97 OxyMask 3.00 04/21/23 20:00 107 30 115/81 (92) 90 Room Air 04/21/23 19:59 92 Room Air 04/21/23 19:30 36.6 04/21/23 19:00 111 22 122/93 (103) 94 Room Air 04/21/23 18:57 119 04/21/23 18:00 109 21 120/67 (84) 90 Room Air 04/21/23 17:00 101 25 108/62 (77) 90 Room Air 04/21/23 16:41 36.5 04/21/23 16:30 108 26 126/65 (85) 96 Room Air I & O 04/22/23 07:00 Intake Total 1290 ml Output Total 850 ml Balance 440 ml Height & Weight Height: '" Weight: lbs. oz. kg; 39.65 BMI Method: General Appearance: No Apparent Distress, WD/WN, Obese HEENT: PERRL/EOMI, Moist Mucous Membranes; No Pale Conjunctivae (L), No Pale Conjunctivae (R) Neck: Normal Inspection, Non Tender, Supple Respiratory: Chest Non Tender, Lungs Clear, Normal Breath Sounds, No Accessory Muscle Use, No Respiratory Distress Cardiovascular: No JVD, No Murmur, Normal Peripheral Pulses, Irregularly Irregular Capillary Refill: Less Than 3 Seconds Gastrointestinal: normal bowel sounds, non tender, soft Extremity: Normal Capillary Refill, Normal Inspection, Non Tender, Calf Tenderness (right side) Neurologic/Psychiatric: Alert, Oriented x3, Normal Mood/Affect Skin: Normal Color, Damp, Diaphoresis (pt was just exerting due to bed to chair transfer ), Other (bullous pemphigoid ) Lymphatic: No Adenopathy Results Lab Laboratory Tests 04/21/23 03:43 04/22/23 04:03 Assessment/Plan Assessment/Plan 1 ALVA ELLSWORTH MD Apr 22, 2023 16:20
[2023-04-22] MEDS: GABAPENTIN 300 MG CAPSULE PO SCH (21:07)
[2023-04-23] MEDS: meTOprolol INJECTION 5 MG/5 ML VIAL IV SCH ×4 (00:34→18:02)
[2023-04-23] MEDS: RT-Ipratropium/Albuterol NEB 3 ML VIAL INH SCH ×4 (03:03→18:55)
[2023-04-23 05:29] LABS: BASOPHILS # (AUTO) 0.1 10^3/uL (0.0-0.1); BASOPHILS % (AUTO) 0 % (0-10); EOSINOPHILS # (AUTO) 0.4 10^3/uL (0.0-0.3); EOSINOPHILS % (AUTO) 3 % (0-10); HEMATOCRIT 25 % (35-52); HEMOGLOBIN 8.2 g/dL (11.5-16.0); LYMPHOCYTES # (AUTO) 1.6 10^3/uL (1.0-4.0); LYMPHOCYTES % (AUTO) 14 % (12-44); MEAN CORPUSCULAR HEMOGLOBIN 29 pg (25-34); MEAN CORPUSCULAR HGB CONC 33 g/dL (32-36); MEAN CORPUSCULAR VOLUME 90 fL (80-99); MEAN PLATELET VOLUME 9.8 fL (9.0-12.2); MONOCYTES # (AUTO) 1.1 10^3/uL (0.0-1.0); MONOCYTES % (AUTO) 10 % (0-12); NEUTROPHILS % (AUTO) 72 % (42-75); PLATELET COUNT 335 10^3/uL (130-400); WHITE BLOOD COUNT 11.3 10^3/uL (4.3-11.0)
[2023-04-23 05:44] LABS: ALBUMIN 2.8 GM/DL (3.2-4.5); BILIRUBIN,TOTAL 1.4 MG/DL (0.1-1.0); CALCIUM 8.6 MG/DL (8.5-10.1); CREATININE SERUM 0.59 MG/DL (0.60-1.30); MAGNESIUM 1.9 MG/DL (1.6-2.4); POTASSIUM 3.6 MMOL/L (3.6-5.0); TOTAL PROTEIN 5.9 GM/DL (6.4-8.2)
[2023-04-23] MEDS: THERAPEUTIC MULTIVITAMIN W/MINERALS TABLET PO SCH (06:26)
[2023-04-23] MEDS: CYANOCOBALAMIN 1,000 MCG TABLET PO SCH (06:27)
[2023-04-23] MEDS: dilTIAZem ER 120 MG CAPSULE PO SCH (07:58)
[2023-04-23] MEDS: APIXABAN 5 MG TABLET PO SCH ×2 (07:58→21:04)
[2023-04-23] MEDS: LORATADINE 10 MG TABLET PO SCH (07:59)
[2023-04-23] MEDS: CELECOXIB 400 MG CAPSULE PO SCH (07:59)
[2023-04-23] MEDS: SENNA W/DOCUSATE TABLET PO SCH ×2 (07:59→20:44)
[2023-04-23] MEDS ORDERED: NS IV ONE (08:30)
[2023-04-23] MEDS ORDERED: SOTALOL IV ONE (08:30)
--- NOTE | 2023-04-23 09:25 | Tele-ICU Progress Note ---
Subjective Date Seen by a Provider: Apr 23, 2023 Time Seen by a Provider: 09:25 Subjective/Events-last exam (Tele-ICU Physician , Progress Note ) Service provided via interactive audio and video telecommunications E-CARE system to a patient admitted to ICU bed in [facility]. Patient is seen today due to persistent need of ICU care Available chart/ vitals / labs / Images reviewed Video assessment done using teleICU camera, rest of exam as per RN Discussed with RN Events overnight : Afebrile hemodynamically stable Respiratory - ra I/O = neg Drips: card z 10 Pressors- no (04/16) 73F Admitted s/p right total knee arthroplasty with new onset atrial fibrillation post op. Cardiology consulted (04/18) TX to ICU for rapid afib and low urine output. Cardizem drip- converted , FEVER 04/19 - po cardizem , overnight ? hr --> pushed beta blockes x2 04/20 - persistent HR > 125 - dig 0.5 x1 , started on AMIO gtt 04/23- cardizem gtt + sotalol A/P New onset AF RVR - cardizem gtt AMIO gtt stopped -2D echo done in December 2022 with moderate LVH, ejection fraction 55 to 60%. -cards follow -AC -on Eliquis Hyperthyroidism/ possible storm -suggestive of thyroid storm- on methimasole po 10 04/21, - consider ? steroids Anemia - f/up on AC , hb stable - no sign of bleeding s/p knee replacement - pain control - as per sx and wound FEVER 04/18 - no sourse , knee exam as per SX - off abx- resolved - 2 L O2 - start IS - inproved , at night only Delirium 04/18 - confusion resolved , anxiety now Lines : periph , (Central Line Necessity Reviewed) Harvey: out 04/21 Nutrition: po Analgesia: Anxiety/ delirium VTE Prophylaxis: eliquis Stress Ulcer Prophylaxis: Plans in collaboration with bedside consultants and IM MDs. Discussed with RN to reach out if any questions or concerns Case and care daily discussed on multidisciplinary rounds ( RN, PharmD, Nuclear Power Reactor Operator , Respiratory Therapy, soda worker ) A total of 15 minutes of critical care time was devoted to this patient today, required to treat and/or prevent further deterioration of critical care condition ( as above I am remotely monitoring this patient from another state. I am unable to do the bedside exam, and history/physical and pertinent information is taken from other notes in the computer and bedside staff. Sepsis Event Evaluation Height, Weight, BMI Height: '" Weight: lbs. oz. kg; 39.62 BMI Method: Exam Exam Patient acknowledged, consented, and participated in this virtual visit which was conducted using real time audio/video Vital Signs Date Time Temp Pulse Resp B/P (MAP) Pulse Ox O2 Delivery O2 Flow Rate FiO2 04/23/23 07:04 78 04/23/23 06:45 73 13 128/80 (105) 97 OxyMask 2.00 04/23/23 06:30 106 131/87 (94) 93 OxyMask 2.00 04/23/23 06:20 98 27 153/66 (114) 96 OxyMask 2.00 04/23/23 06:10 104 33 160/86 (110) 95 OxyMask 2.00 04/23/23 06:00 86 23 96 OxyMask 2.00 04/23/23 05:17 84 13 141/69 (93) 93 OxyMask 2.00 04/23/23 05:00 86 27 95 OxyMask 2.00 04/23/23 04:00 97 Nasal Cannula 2.00 04/23/23 04:00 75 22 140/63 (94) 93 OxyMask 2.00 04/23/23 03:00 76 34 131/61 (84) 93 OxyMask 2.00 04/23/23 02:00 75 28 94/66 (75) 91 OxyMask 2.00 04/23/23 01:00 82 04/23/23 01:00 82 17 139/67 (91) 97 OxyMask 2.00 04/23/23 00:00 85 25 125/65 (85) 95 OxyMask 2.00 04/22/23 23:00 95 Nasal Cannula 2.00 04/22/23 23:00 84 9 116/68 (85) 94 OxyMask 2.00 04/22/23 22:00 96 11 136/61 (88) 96 OxyMask 2.00 04/22/23 21:43 93 Nasal Cannula 1.00 04/22/23 21:33 85 140/67 04/22/23 21:00 78 26 146/69 (94) 91 Room Air 04/22/23 20:00 76 14 125/65 (85) 92 Room Air 04/22/23 20:00 95 Nasal Cannula 2.00 04/22/23 19:00 102 18 124/64 (84) 86 Room Air 04/22/23 19:00 102 04/22/23 18:00 86 18 133/61 (85) 95 Room Air 04/22/23 17:00 88 21 133/71 (91) 95 Room Air 04/22/23 16:55 36.5 04/22/23 16:42 Room Air 04/22/23 16:00 140 20 99/82 (88) 95 Room Air 04/22/23 15:00 129 20 128/72 (90) 95 Room Air 04/22/23 14:47 94 Room Air 04/22/23 14:00 75 8 119/56 (77) 90 Room Air 04/22/23 13:58 72 04/22/23 13:00 87 7 125/104 (111) 91 Room Air 04/22/23 12:35 93 Room Air 04/22/23 12:00 109 18 129/88 (102) 95 Room Air 04/22/23 12:00 109 04/22/23 11:13 149 150/80 04/22/23 11:00 135 94 Room Air 04/22/23 10:00 113 22 150/80 (103) 88 Room Air 04/22/23 09:59 131 I & O 04/23/23 06:59 Intake Total 1875 ml Output Total 450 ml Balance 1425 ml Height & Weight Height: '" Weight: lbs. oz. kg; 39.62 BMI Method: General Appearance: No Apparent Distress, WD/WN, Anxious, Chronically ill HEENT: PERRL/EOMI, Moist Mucous Membranes; No Pale Conjunctivae (L), No Pale Conjunctivae (R) Neck: Normal Inspection, Non Tender, Supple Respiratory: Chest Non Tender, Lungs Clear, Normal Breath Sounds, No Accessory Muscle Use, No Respiratory Distress Cardiovascular: Irregularly Irregular, Tachycardia Capillary Refill: Less Than 3 Seconds Gastrointestinal: normal bowel sounds, non tender, soft Extremity: Normal Capillary Refill, Normal Inspection, Non Tender, Calf Tenderness (right side) Neurologic/Psychiatric: Alert, Oriented x3 Skin: Normal Color, Damp, Diaphoresis (pt was just exerting due to bed to chair transfer ), Other (bullous pemphigoid ) Lymphatic: No Adenopathy Results Lab Laboratory Tests 04/22/23 04:03 04/23/23 05:15 Assessment/Plan Assessment/Plan 1 ALVA ELLSWORTH MD Apr 23, 2023 09:25
[2023-04-23] MEDS: ASPIRIN enteric coated 81MG TABLET PO SCH (09:27)
[2023-04-23] MEDS: SOTALOL 80 MG TABLET PO SCH (09:27)
[2023-04-23] MEDS: oxyCODONE/ACETAMINOPHEN 5/325MG TABLET PO PRN (09:39)
--- NOTE | 2023-04-23 09:54 | Cardiology Progress Note ---
Subjective Date Seen by Provider: Apr 23, 2023 Time Seen by Provider: 09:52 Subjective/Events-last exam Patient was seen at bedside, sitting comfortably, feeling better. Denied any chest pain but having knee pain Review of Systems General: No Chills, No Night Sweats; Fatigue, Malaise; No Appetite, No Other HEENT: No Head Aches, No Visual Changes, No Eye Pain, No Ear Pain, No Dysphasia, No Sinus Congestion, No Post Nasal Drip, No Sore Throat, No Other Pulmonary: No Dyspnea, No Cough, No Pleuritic Chest Pain, No Other Cardiovascular: No: Chest Pain, Palpitations, Orthopnea, Paroxysmal Noc. Dyspnea, Edema, Lt Headedness, Other Objective-Cardiology Exam Last Set of Vital Signs Vital Signs 04/20/23 04/22/23 04/23/23 04/23/23 21:49 16:55 06:45 09:27 Temp 36.5 Pulse 85 Resp 13 B/P (MAP) 128/80 (105) Pulse Ox 97 O2 Delivery OxyMask O2 Flow Rate 2.00 FiO2 100 I&O Intake and Output 04/23/23 00:00 Intake Total 1875 ml Output Total 850 ml Balance 1025 ml Intake Oral 1740 ml IV Total 135 ml Output Urine Total 850 ml # Voids 6 # Bowel Movements 1 General: Alert, Oriented X3, Mild Distress HEENT: Atraumatic Neck: Supple, No JVD, No Thyromegaly Lungs: Other (expiratory wheezing, bibasilar rales) Heart: Regular Rate, Normal S1, Normal S2, No Murmurs Abdomen: Soft, No Tenderness Extremities: Normal Pulses Skin: No Rashes, No Breakdown, No Significant Lesion Neuro: Normal Speech Psych/Mental Status: Mental Status NL, Mood NL Results Lab Laboratory Tests 04/23/23 05:15 A/P-Cardiology Admission Diagnosis Atrial fibrillation Hypertension Hyperlipidemia Reactive airway disease Assessment/Plan Hyperthyroidism, probably underlying thyroid storm Patient have multiple signs suggestive of thyroid storm TBG is pending Starting methimazole 5 mg 3 times daily and evaluate tolerance and response Paroxysmal atrial fibrillation/atrial flutter Converted back to sinus rhythm, doing well Maintained on Eliquis Unable to use amiodarone due to hyperthyroidism and thyroid storm Did not respond well to Multaq I will try sotalol, we will start with a loading and need monitoring for the next 3 days in ICU 2D echo done in December 2022 with moderate LVH, ejection fraction 55 to 60%. Otherwise no significant abnormality reported CHADVASC score 3, will start on Eliquis and evaluate tolerance and response Hypertension, monitor blood pressure Hyperlipidemia, maintained on atorvastatin as an outpatient, Monitor lipids Status post knee replacement surgery, recovering, managed by Dr. ARTHUR Reactive airways disease, maintained on albuterol CHET SARGENT MD Apr 23, 2023 09:54
--- NOTE | 2023-04-23 10:09 | Progress Note - Hospitalist ---
KENNY CARRASCO 04/23/23 1009: Subjective HPI/CC On Admission Date Seen by Provider: Apr 23, 2023 Time Seen by Provider: 10:04 04/16/2023: CC: R-TKA, AFib HPI: Shakira is a 73 year old female that is status post operative on her right knee for a total knee arthroplasty. Prior to surgery, her heart rate and rhythm was normal. After being in the OR, she was presenting with AFib. When talking to Shakira, she noted that she was slightly uncomfortable in her knee. She denied any chest pain or AMS. Furthermore, she notes that she feels a little bit anxious. Shakira notes that she is excited for her knee to be fixed. She also endorses some depression that she is currently managing. Overall, her main concern is that she has some pain in her right knee. She denies any other concerns. Her pain is a 6/10. The pain is dull and achy. Subjective/Events-last exam 04/23/2023: CC: R-TKA, Afib HPI: Shakira, 73F, notes that she slept well last night. She appears to be in better spirits today. She endorses some pain in her right knee that is dull, achy, and rated at 5/10. The pain gets worse when she tries to ambulate. She notes that she is improving and is able to do bed transfers much more efficiently. She is frustrated that the rate of improvement is slow, but happy it is getting better. She notes that she likes PT. Additionally, Shakira is still confused about her AFib. She notes that she has not had any symptoms despite going in and out of Afib with RVR. She notes that Dr. Flores is planning to start Sotolol today and hopes that it works. As far as her incision site, yesterday it was causing concern for Shakira. Today she notes that it appears much better. The bullae are covered and she notes that the wound team consult and their interventions are helping. She has no other concerns. Review of Systems General: No Chills, No Fatigue, No Malaise HEENT: No Head Aches, No Eye Pain, No Sinus Congestion Pulmonary: No Dyspnea, No Cough, No Pleuritic Chest Pain Cardiovascular: No: Chest Pain, Palpitations, Edema Gastrointestinal: No: Nausea, Vomiting, Abdominal Pain Genitourinary: No Dysuria, No Frequency, No Incontinence Musculoskeletal: leg pain; No: back pain, foot pain Neurological: No: Weakness, Numbness, Change in speech, Confusion Objective Exam Vital Signs Vital Signs Date Time Temp Pulse Resp B/P (MAP) Pulse Ox O2 Delivery O2 Flow Rate FiO2 04/23/23 11:00 77 26 134/79 (97) 96 OxyMask 2.00 04/23/23 10:23 36.5 28 Capillary Refill : Less Than 3 SecondsLess Than 3 Seconds General Appearance: No Apparent Distress, WD/WN, Anxious, Obese HEENT: Normal ENT Inspection, Moist Mucous Membranes; No Pale Conjunctivae (L), No Pale Conjunctivae (R) Neck: Normal Inspection, Non Tender, Supple; No JVD Respiratory: Chest Non Tender, Lungs Clear, Normal Breath Sounds, No Accessory Muscle Use, No Respiratory Distress; No Crackles Cardiovascular: Regular Rate, Rhythm, No Edema, No JVD, Normal Peripheral Pulses Gastrointestinal: Normal Bowel Sounds, No Organomegaly, No Pulsatile Mass, Non Tender, Soft Back: No CVA Tenderness Extremity: Normal Capillary Refill, No Calf Tenderness, No Pedal Edema, Swelling (around incision ) Neurologic/Psychiatric: Alert, Oriented x3, No Motor/Sensory Deficits, Normal Mood/Affect Skin: Normal Color, Warm/Dry, Other (bullous pemphigoid around incision) Lymphatic: No Adenopathy Results/Procedures Lab Laboratory Tests 04/23/23 05:15 Patient resulted labs reviewed. 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 Flores * Metoprolol Q6 to correct tachycardia * Cardizem IV drip * Started Sotolol, monitor 48H * TELE * CHADVASC- 3; eliquis per cardio -Tachycardia * Cardiology consult * Metoprolol -High T4 (potential thyroid storm) * Methimazole -Stress IC * pads * frequent restroom -Hyperlipidemia * restart atorvastatin -Anemia * CBC monitoring -Reactive Airway Disease * Albuterol, ambulate HERMILA JETT DO 04/24/23 0413: Subjective Subjective/Events-last exam Patient feeling a lot better Working with therapy a little bit better Continuous bladder irrigation Sotalol infusion Objective Exam General Appearance: No Apparent Distress, WD/WN, Chronically ill Respiratory: Lungs Clear, Normal Breath Sounds Cardiovascular: Regular Rate, Rhythm Neurologic/Psychiatric: Alert, Oriented x3 Assessment/Plan Assessment and Plan Assess & Plan/Chief Complaint Continue sotalol infusion Supportive care Supervisory-Addendum Brief Verification & Attestation Participated in pt care: history, MDM, physical Personally performed: exam, history, MDM, supervision of care Care discussed with: Medical Student Procedures: n/a Results interpretation: Verified all documentation Verification and Attestation of Medical Student E/M Service A medical student performed and documented this service in my presence. I reviewed and verified all information documented by the medical student and made modifications to such information, when appropriate. I personally performed the physical exam and medical decision making. Hermila Jett Apr 24, 2023,04:12 KENNY CARRASCO Apr 23, 2023 10:09 HERMILA JETT DO Apr 24, 2023 04:13
[2023-04-23 10:23] VITALS: BP 140/83
[2023-04-23] MEDS: dilTIAZem DRIP PRE-MIX 125 ML IV SCH (10:24)
--- NOTE | 2023-04-23 11:18 | Progress Note ---
Standard Progress Note Progress Notes/Assess & Plan Date Seen by a Provider: Apr 23, 2023 Time Seen by a Provider: 09:25 Progress/Assessment & Plan post op check No complaints has been in Afib since leads placed in OR radiographs--HW well positioned without fracture RLE-- 2 plus DP pulse with brisk cap refill intact DF and PF of toes and ankle sensation intact to light touch throughout s/p RTKA Dr Flores evaluating for Afib mobilize when able Final Diagnosis feeling better mobility improving Laboratory Tests Test 04/23/23 05:15 Range/Units White Blood Count 11.3 H 4.3-11.0 10^3/uL Red Blood Count 2.79 L 3.80-5.11 10^6/uL Hemoglobin 8.2 L 11.5-16.0 g/dL Hematocrit 25 L 35-52 % Mean Corpuscular Volume 90 80-99 fL Mean Corpuscular Hemoglobin 29 25-34 pg Mean Corpuscular Hemoglobin Concent 33 32-36 g/dL Red Cell Distribution Width 12.5 10.0-14.5 % Platelet Count 335 130-400 10^3/uL Mean Platelet Volume 9.8 9.0-12.2 fL Immature Granulocyte % (Auto) 1 % Neutrophils (%) (Auto) 72 42-75 % Lymphocytes (%) (Auto) 14 12-44 % Monocytes (%) (Auto) 10 0-12 % Eosinophils (%) (Auto) 3 0-10 % Basophils (%) (Auto) 0 0-10 % Neutrophils # (Auto) 8.0 H 1.8-7.8 10^3/uL Lymphocytes # (Auto) 1.6 1.0-4.0 10^3/uL Monocytes # (Auto) 1.1 H 0.0-1.0 10^3/uL Eosinophils # (Auto) 0.4 H 0.0-0.3 10^3/uL Basophils # (Auto) 0.1 0.0-0.1 10^3/uL Immature Granulocyte # (Auto) 0.1 0.0-0.1 10^3/uL Sodium Level 140 135-145 MMOL/L Potassium Level 3.6 3.6-5.0 MMOL/L Chloride Level 104 98-107 MMOL/L Carbon Dioxide Level 25 21-32 MMOL/L Anion Gap 11 5-14 MMOL/L Blood Urea Nitrogen 12 7-18 MG/DL Creatinine 0.59 L 0.60-1.30 MG/DL Estimat Glomerular Filtration Rate 95 BUN/Creatinine Ratio 20 Glucose Level 96 70-105 MG/DL Calcium Level 8.6 8.5-10.1 MG/DL Corrected Calcium 9.6 8.5-10.1 MG/DL Magnesium Level 1.9 1.6-2.4 MG/DL Total Bilirubin 1.4 H 0.1-1.0 MG/DL Aspartate Amino Transf (AST/SGOT) 26 5-34 U/L Alanine Aminotransferase (ALT/SGPT) 27 0-55 U/L Alkaline Phosphatase 65 40-136 U/L Total Protein 5.9 L 6.4-8.2 GM/DL Albumin 2.8 L 3.2-4.5 GM/DL Vital Signs Date Time Temp Pulse Resp B/P (MAP) Pulse Ox O2 Delivery O2 Flow Rate FiO2 04/23/23 11:00 77 26 134/79 (97) 96 OxyMask 2.00 04/23/23 10:24 71 125/63 04/23/23 10:23 36.5 77 94 28 04/23/23 10:23 OxyMask 2.00 04/23/23 10:17 100 OxyMask 8.00 04/23/23 10:00 72 21 125/69 (87) 100 OxyMask 2.00 04/23/23 09:27 85 04/23/23 09:00 90 19 94 OxyMask 2.00 04/23/23 08:00 86 140/83 (102) 94 OxyMask 2.00 04/23/23 07:04 78 04/23/23 07:00 73 29 131/65 (87) 96 OxyMask 2.00 04/23/23 06:45 73 13 128/80 (105) 97 OxyMask 2.00 04/23/23 06:30 106 131/87 (94) 93 OxyMask 2.00 04/23/23 06:20 98 27 153/66 (114) 96 OxyMask 2.00 04/23/23 06:10 104 33 160/86 (110) 95 OxyMask 2.00 04/23/23 06:00 86 23 96 OxyMask 2.00 04/23/23 05:17 84 13 141/69 (93) 93 OxyMask 2.00 04/23/23 05:00 86 27 95 OxyMask 2.00 04/23/23 04:00 97 Nasal Cannula 2.00 04/23/23 04:00 75 22 140/63 (94) 93 OxyMask 2.00 04/23/23 03:00 76 34 131/61 (84) 93 OxyMask 2.00 04/23/23 02:00 75 28 94/66 (75) 91 OxyMask 2.00 04/23/23 01:00 82 04/23/23 01:00 82 17 139/67 (91) 97 OxyMask 2.00 04/23/23 00:00 85 25 125/65 (85) 95 OxyMask 2.00 04/22/23 23:00 95 Nasal Cannula 2.00 04/22/23 23:00 84 9 116/68 (85) 94 OxyMask 2.00 04/22/23 22:00 96 11 136/61 (88) 96 OxyMask 2.00 04/22/23 21:43 93 Nasal Cannula 1.00 04/22/23 21:33 85 140/67 04/22/23 21:00 78 26 146/69 (94) 91 Room Air 04/22/23 20:00 76 14 125/65 (85) 92 Room Air 04/22/23 20:00 95 Nasal Cannula 2.00 04/22/23 19:00 102 18 124/64 (84) 86 Room Air 04/22/23 19:00 102 04/22/23 18:00 86 18 133/61 (85) 95 Room Air 04/22/23 17:00 88 21 133/71 (91) 95 Room Air 04/22/23 16:55 36.5 04/22/23 16:42 Room Air 04/22/23 16:00 140 20 99/82 (88) 95 Room Air 04/22/23 15:00 129 20 128/72 (90) 95 Room Air 04/22/23 14:47 94 Room Air 04/22/23 14:00 75 8 119/56 (77) 90 Room Air 04/22/23 13:58 72 04/22/23 13:00 87 7 125/104 (111) 91 Room Air 04/22/23 12:35 93 Room Air 04/22/23 12:00 109 18 129/88 (102) 95 Room Air 04/22/23 12:00 109 I & O 04/23/23 07:00 Intake Total 1875 ml Output Total 450 ml Balance 1425 ml RLE--dressing intact no calf tenderness s/p RTKA with Afib continue mobilizing as tolerated KALEIGH ARTHUR MD Apr 23, 2023 11:18
--- NOTE | 2023-04-23 11:44 | Physical Therapy Daily Note ---
PT Daily Note-Current Subjective Patient sitting in chair upon PT arrival, agreeable to treatment. Rates pain at 5/10 currently in right knee. Pain Section J - Health Conditions 1. Rarely or not at all 2. Occasionally 3. Frequently 4. Almost constantly 8. Unable to answer Pain Effect on Sleep: 1 Pain Interference with Therapy: 1 Pain Interference w/Day-to-Day: 1 Transfers SCALE: Activities may be completed with or without assistive devices. 1-Mumpvelmaj-eaxbqpv completes the activity by him/herself with no assistance from a helper. 5-Set-up or Clean-up Assistance-helper sets up or cleans up; patient completes activity. [place] assists only prior to or following the activity. 4-Supervision or Touching Assistance-helper provides verbal cues and/or touching/steadying and/or contact guard assistance as patient completes activity. Assistance may be provided throughout the activity or intermittently. 3-Partial/Moderate Assistance-helper does LESS THAN HALF the effort. [place] lifts, holds or supports trunk or limbs, but provides less than half the effort. 2-Substantial/Maximal Assistance-helper does MORE THAN HALF the effort. [place] lifts or holds trunk or limbs and provides more than half the effort. 0-Qoxhfamxw-nxljew does ALL the effort. Patient does none of the effort to complete the activity. Or, the assistance of 2 or more helpers is required for the patient to complete the activity. If activity was not attempted, code reason: 7-Patient Refused. 9-Not Applicable-not attempted and the patient did not perform the activity before the current illness, exacerbation or injury. 10-Not Attempted due to Environmental Limitations-(lack of equipment, weather restraints, etc.). 88-Not Attempted due to Medical Conditions or Safety Concerns. Sit to Stand (QC): 3 Chair/Iha-ic-Ayvbl Xfer(QC): 3 Weight Bearing Right Lower Extremity: Right Weight Bearing/Tolerated Left Lower Extremity: Left Full Weight Bearing Gait Training Does the Patient Walk?: No and Walking Goal IS indicated Exercises Supine Ex: Ankle pumps, Quad Set, Glut sets Supine Reps: 20 Seated Therapy Exercises: Long arc quads, Hamstring Curls, Hip abd/add Seated Reps: 20 Assessment Current Status: Poor Progress Patient able to stand with min/mod A, however for only ~ 20 seconds each repetition. Patient performs LE therapeutic exercise as listed above. Patient in chair post treatment with all needs met, nursing notified, call light in hand. PT Dental Office Assistant Goals Dental Office Assistant Goals PT Dental Office Assistant Goals Time Frame: May 06, 2023 Roll Left & Right (QC): 6 Sit to Lying (QC): 6 Lying-Sitting on Side/Bed(QC): 6 Sit to Stand (QC): 6 Chair/Eec-er-Amfaq Xfer(QC): 6 Toilet Transfer (QC): 6 Car Transfer (QC): 6 Does the Patient Walk: Yes Walk 10 feet (QC): 6 Walk 50ft with 2 Turns (QC): 6 Walk 150 ft (QC): 4 1 Step (curb) (QC): 3 4 Steps (QC): 3 12 Steps (QC): 3 PT Plan Treatment/Plan Treatment Plan: Continue Plan of Care Treatment Plan: Bed Mobility, Education, Functional Activity Vicky, Functional Strength, Group Therapy, Gait, Safety, Therapeutic Exercise, Transfers Treatment Duration: May 06, 2023 Frequency: 11 times per week Estimated Hrs Per Day: .25 hour per day Patient and/or Family Agrees t: Yes Safety Risks/Education Patient Education: Transfer Techniques Teaching Recipient: Patient Teaching Methods: Demonstration, Discussion Response to Teaching: Reinforcement Needed Time Time In: 856 Time Out: 920 DATE: Apr 23, 2023 Total Billed Treatment Time: 24 Total Billed Treatment Visit, FA, EX ERNESTINE CALDERON PT Apr 23, 2023 11:44
[2023-04-23] MEDS ORDERED: RT-ALBUTEROL SULF 2.5 MG/3 ML PRE-MIX VIAL IH PRN (12:00)
--- NOTE | 2023-04-23 13:12 | Occupational Ther Daily Note ---
OT Current Status-Daily Note Subjective Agreeable to transfer to recliner for noon meal, required moderate encouragement to perform tasks to transfer out of bed to recliner w/ FWW. Patient required 1/4 tasks assistance to don footwear. Mental Status/Objective Patient Orientation: Person, Place, Time, Situation Attachments: Polar Pack, SCD's, Telemetry ADL-Treatment Therapy Code Descriptions/Definitions Functional Theodore Measure: 0=Not Assessed/NA 4=Minimal Assistance 1=Total Assistance 5=Supervision or Setup 2=Maximal Assistance 6=Modified Theodore 3=Moderate Assistance 7=Complete IndependenceSCALE: Activities may be completed with or without assistive devices. 8-Gwrjlzqnvj-hxvygkn completes the activity by him/herself with no assistance from a helper. 5-Set-up or Clean-up Assistance-helper sets up or cleans up; patient completes activity. [place] assists only prior to or following the activity. 4-Supervision or Touching Assistance-helper provides verbal cues and/or touching/steadying and/or contact guard assistance as patient completes activity. Assistance may be provided throughout the activity or intermittently. 3-Partial/Moderate Assistance-helper does LESS THAN HALF the effort. [place] lifts, holds or supports trunk or limbs, but provides less than half the effort. 2-Substantial/Maximal Assistance-helper does MORE THAN HALF the effort. [place] lifts or holds trunk or limbs and provides more than half the effort. 7-Wntufynlf-cabprk does ALL the effort. Patient does none of the effort to complete the activity. Or, the assistance of 2 or more helpers is required for the patient to complete the activity. If activity was not attempted, code reason: 7-Patient Refused. 9-Not Applicable-not attempted and the patient did not perform the activity before the current illness, exacerbation or injury. 10-Not Attempted due to Environmental Limitations-(lack of equipment, weather restraints, etc.). 88-Not Attempted due to Medical Conditions or Safety Concerns. Eating (QC): 6 Oral Hygiene (QC): 5 On/Off Footwear: 4 (Patient applies RLE sock and OT provides instruction adn skilled educaiton for intervention for left sock, patient nearly refuses, OT placed sock over toes of left foot, patient completes remaining tasks sitting EOB. ) ambulates 5 steps w/ FWW SBA Education OT Patient Education: Correct positioning, Exercise program, Modified ADL techniques, Progress toward Goal/Update tx plan, Purpose of tx/functional activities, Reviewed precautions, Rehab process, Safety issues, Use of adapted equipment Teaching Recipient: Patient Teaching Methods: Demonstration, Discussion Response to Teaching: Verbalize Understanding, Reinforcement Needed OT [employer] Flatbed Driver Goals Senior Care Goals Eating (QC): 6 Oral Hygiene (QC): 6 Toileting Hygiene (QC): 6 Shower/Bathe Self (QC): 6 Upper Body Dressing (QC): 6 Lower Body Dressing (QC): 6 On/Off Footwear (QC): 6 1=Demonstrate adherence to instructed precautions during ADL tasks. 2=Patient will verbalize/demonstrate understanding of assistive dev ices/modifications for ADL. 3=Patient will improve strength/tolerance for activity to enable patient to perform ADL's. OT Education/Plan Problem List/Assessment Assessment: Decreased Activ Tolerance, Decreased Safety Aware, Decreased UE Strength, Impaired Bed Mobility, Impaired Coordination, Impaired Funct Balance, Restricted Funct UE ROM Discharge Recommendations Plan/Recommendations: Continue POC Treatment Plan/Plan of Care Patient would benefit from OT for education, treatment and training to promote independence in ADL's, mobility, safety and/or upper extremity function for ADL's. Plan of Care: ADL Retraining, Functional Mobility, Group Exercise/Act as Ind, UE Funct Exercise/Act, UE Neuromus Re-Ed/Coord Treatment Duration: Apr 21, 2023 Frequency: 3 times per week (3-5 times per week) Estimated Hrs Per Day: .25 hour per day Agreement: Yes Rehab Potential: Fair Time Start Time: 11:40 Stop Time: 11:59 DATE: Apr 23, 2023 Total Time Billed (hr/min): 19 Billed Treatment Time ADL 19 min JAYNE DE LA GARZA OT Apr 23, 2023 13:12
--- NOTE | 2023-04-23 15:39 | Physical Therapy Daily Note ---
PT Daily Note-Current Subjective Patient sitting in chair upon PT arrival, agreeable to treatment. Pain Section J - Health Conditions 1. Rarely or not at all 2. Occasionally 3. Frequently 4. Almost constantly 8. Unable to answer Pain Effect on Sleep: 1 Pain Interference with Therapy: 1 Pain Interference w/Day-to-Day: 1 Transfers SCALE: Activities may be completed with or without assistive devices. 6-Totcomsljn-devdgyy completes the activity by him/herself with no assistance from a helper. 5-Set-up or Clean-up Assistance-helper sets up or cleans up; patient completes activity. [place] assists only prior to or following the activity. 4-Supervision or Touching Assistance-helper provides verbal cues and/or touching/steadying and/or contact guard assistance as patient completes activity. Assistance may be provided throughout the activity or intermittently. 3-Partial/Moderate Assistance-helper does LESS THAN HALF the effort. [place] lifts, holds or supports trunk or limbs, but provides less than half the effort. 2-Substantial/Maximal Assistance-helper does MORE THAN HALF the effort. [place] lifts or holds trunk or limbs and provides more than half the effort. 6-Qynoophwj-owigrm does ALL the effort. Patient does none of the effort to complete the activity. Or, the assistance of 2 or more helpers is required for the patient to complete the activity. If activity was not attempted, code reason: 7-Patient Refused. 9-Not Applicable-not attempted and the patient did not perform the activity before the current illness, exacerbation or injury. 10-Not Attempted due to Environmental Limitations-(lack of equipment, weather restraints, etc.). 88-Not Attempted due to Medical Conditions or Safety Concerns. Sit to Stand (QC): 4 Chair/Ukq-wp-Swset Xfer(QC): 4 Weight Bearing Right Lower Extremity: Right Weight Bearing/Tolerated Left Lower Extremity: Left Full Weight Bearing Gait Training Does the Patient Walk?: Yes Distance: 10' Walk 10 feet (QC): 4 Gait Assistive Device: FWW Exercises Supine Ex: Ankle pumps, Quad Set, Glut sets Supine Reps: 20 Seated Therapy Exercises: Long arc quads, Hamstring Curls, Hip abd/add Seated Reps: 20 Assessment Current Status: Good Progress Patient performed LE therapeutic exercise as listed above. Patient performs all observed transfers with SBA/CGA. Patient ambulates 10 feet with FWW, with CGA, chair following and verbal cues for safety, progression, posture. Patient sat in chair after 10 feet and was wheeled back towards the bed. Patient in chair post treatment with all needs met, nursing notified, call light in hand. PT Halfway Goals Auto Brake Mechanic Goals PT Halfway Goals Time Frame: May 06, 2023 Roll Left & Right (QC): 6 Sit to Lying (QC): 6 Lying-Sitting on Side/Bed(QC): 6 Sit to Stand (QC): 6 Chair/Aez-ug-Abonx Xfer(QC): 6 Toilet Transfer (QC): 6 Car Transfer (QC): 6 Does the Patient Walk: Yes Walk 10 feet (QC): 6 Walk 50ft with 2 Turns (QC): 6 Walk 150 ft (QC): 4 1 Step (curb) (QC): 3 4 Steps (QC): 3 12 Steps (QC): 3 PT Plan Treatment/Plan Treatment Plan: Continue Plan of Care Treatment Plan: Bed Mobility, Education, Functional Activity Vicky, Functional Strength, Group Therapy, Gait, Safety, Therapeutic Exercise, Transfers Treatment Duration: May 06, 2023 Frequency: 11 times per week Estimated Hrs Per Day: .25 hour per day Patient and/or Family Agrees t: Yes Safety Risks/Education Patient Education: Gait Training, Transfer Techniques Teaching Recipient: Patient Teaching Methods: Demonstration, Discussion Response to Teaching: Verbalize Understanding, Return Demonstration Time Time In: 1355 Time Out: 1420 DATE: Apr 23, 2023 Total Billed Treatment Time: 25 Total Billed Treatment Visit, GT, EX ERNESTINE CALDERON PT Apr 23, 2023 15:39
[2023-04-23] MEDS: GABAPENTIN 300 MG CAPSULE PO SCH (21:04)
[2023-04-24] MEDS: meTOprolol INJECTION 5 MG/5 ML VIAL IV SCH ×4 (00:34→17:58)
[2023-04-24 04:41] LABS: BASOPHILS # (AUTO) 0.1 10^3/uL (0.0-0.1); BASOPHILS % (AUTO) 0 % (0-10); EOSINOPHILS # (AUTO) 0.7 10^3/uL (0.0-0.3); EOSINOPHILS % (AUTO) 5 % (0-10); HEMATOCRIT 27 % (35-52); HEMOGLOBIN 8.6 g/dL (11.5-16.0); LYMPHOCYTES # (AUTO) 2.1 10^3/uL (1.0-4.0); LYMPHOCYTES % (AUTO) 16 % (12-44); MEAN CORPUSCULAR HEMOGLOBIN 29 pg (25-34); MEAN CORPUSCULAR HGB CONC 32 g/dL (32-36); MEAN CORPUSCULAR VOLUME 91 fL (80-99); MEAN PLATELET VOLUME 9.9 fL (9.0-12.2); MONOCYTES % (AUTO) 7 % (0-12); NEUTROPHILS # (AUTO) 9.4 10^3/uL (1.8-7.8); NEUTROPHILS % (AUTO) 71 % (42-75); PLATELET COUNT 410 10^3/uL (130-400); WHITE BLOOD COUNT 13.3 10^3/uL (4.3-11.0)
[2023-04-24 05:05] LABS: ALBUMIN 2.9 GM/DL (3.2-4.5); POTASSIUM 3.6 MMOL/L (3.6-5.0)
[2023-04-24 05:06] LABS: CALCIUM 8.9 MG/DL (8.5-10.1)
[2023-04-24 05:07] LABS: TOTAL PROTEIN 6.4 GM/DL (6.4-8.2)
[2023-04-24 05:09] LABS: BILIRUBIN,TOTAL 1.6 MG/DL (0.1-1.0)
[2023-04-24 05:11] LABS: CREATININE SERUM 0.61 MG/DL (0.60-1.30)
[2023-04-24 05:14] LABS: MAGNESIUM 1.9 MG/DL (1.6-2.4)
[2023-04-24] MEDS: RT-Ipratropium/Albuterol NEB 3 ML VIAL INH SCH ×3 (07:06→15:22)
[2023-04-24] MEDS: CYANOCOBALAMIN 1,000 MCG TABLET PO SCH (07:28)
[2023-04-24] MEDS: THERAPEUTIC MULTIVITAMIN W/MINERALS TABLET PO SCH (07:28)
[2023-04-24] MEDS: dilTIAZem ER 120 MG CAPSULE PO SCH (07:28)
--- NOTE | 2023-04-24 07:57 | Progress Note ---
Standard Progress Note Progress Notes/Assess & Plan Date Seen by a Provider: Apr 24, 2023 Time Seen by a Provider: 07:49 Progress/Assessment & Plan post op check No complaints has been in Afib since leads placed in OR radiographs--HW well positioned without fracture RLE-- 2 plus DP pulse with brisk cap refill intact DF and PF of toes and ankle sensation intact to light touch throughout s/p RTKA Dr Flores evaluating for Afib mobilize when able Final Diagnosis no complaints Vital Signs Date Time Temp Pulse Resp B/P (MAP) Pulse Ox O2 Delivery O2 Flow Rate FiO2 04/24/23 07:35 86 04/24/23 07:07 92 Room Air 0.00 04/24/23 06:00 81 32 143/72 (95) 98 OxyMask 2.00 04/24/23 05:00 98 20 136/69 (91) 95 OxyMask 2.00 04/24/23 04:16 95 OxyMask 3.00 04/24/23 04:00 85 20 147/71 (96) 95 OxyMask 2.00 04/24/23 03:00 80 12 130/65 (86) 96 OxyMask 2.00 04/24/23 02:00 89 13 132/75 (94) 96 OxyMask 2.00 04/24/23 01:00 85 18 140/70 (93) 98 OxyMask 2.00 04/24/23 01:00 80 04/24/23 00:00 81 15 122/77 (92) 98 OxyMask 2.00 04/23/23 23:06 95 OxyMask 3.00 04/23/23 23:00 84 29 142/77 (98) 99 OxyMask 2.00 04/23/23 22:00 84 27 125/83 (97) 99 OxyMask 2.00 04/23/23 21:00 76 13 128/74 (92) 93 OxyMask 2.00 04/23/23 20:22 95 OxyMask 3.00 04/23/23 20:00 75 26 132/71 (91) 93 OxyMask 2.00 04/23/23 19:00 84 04/23/23 19:00 82 21 124/81 (95) 100 OxyMask 2.00 04/23/23 18:55 94 Room Air 0.00 04/23/23 18:00 77 13 142/68 (92) 93 OxyMask 2.00 04/23/23 17:00 77 27 127/66 (86) 90 OxyMask 2.00 04/23/23 16:00 95 Room Air 0.00 04/23/23 16:00 70 18 105/89 (94) 88 OxyMask 2.00 04/23/23 15:00 73 25 128/65 (86) 94 OxyMask 2.00 04/23/23 14:45 96 Room Air 0.00 04/23/23 14:00 80 11 111/100 (104) 94 OxyMask 2.00 04/23/23 13:00 65 47 124/76 (92) 97 OxyMask 2.00 04/23/23 13:00 64 04/23/23 12:21 65 04/23/23 12:00 95 Room Air 0.00 04/23/23 12:00 75 122/76 (91) 93 OxyMask 2.00 04/23/23 11:00 77 26 134/79 (97) 96 OxyMask 2.00 04/23/23 10:24 71 125/63 04/23/23 10:23 36.5 77 94 28 04/23/23 10:23 OxyMask 2.00 04/23/23 10:17 100 OxyMask 8.00 04/23/23 10:00 72 21 125/69 (87) 100 OxyMask 2.00 04/23/23 09:27 85 04/23/23 09:00 90 19 94 OxyMask 2.00 04/23/23 08:00 97 OxyMask 2.00 04/23/23 08:00 86 140/83 (102) 94 OxyMask 2.00 I & O 04/24/23 07:00 Intake Total 1575 ml Output Total 2050 ml Balance -475 ml Laboratory Tests Test 04/24/23 04:11 Range/Units White Blood Count 13.3 H 4.3-11.0 10^3/uL Red Blood Count 2.95 L 3.80-5.11 10^6/uL Hemoglobin 8.6 L 11.5-16.0 g/dL Hematocrit 27 L 35-52 % Mean Corpuscular Volume 91 80-99 fL Mean Corpuscular Hemoglobin 29 25-34 pg Mean Corpuscular Hemoglobin Concent 32 32-36 g/dL Red Cell Distribution Width 12.7 10.0-14.5 % Platelet Count 410 H 130-400 10^3/uL Mean Platelet Volume 9.9 9.0-12.2 fL Immature Granulocyte % (Auto) 1 % Neutrophils (%) (Auto) 71 42-75 % Lymphocytes (%) (Auto) 16 12-44 % Monocytes (%) (Auto) 7 0-12 % Eosinophils (%) (Auto) 5 0-10 % Basophils (%) (Auto) 0 0-10 % Neutrophils # (Auto) 9.4 H 1.8-7.8 10^3/uL Lymphocytes # (Auto) 2.1 1.0-4.0 10^3/uL Monocytes # (Auto) 1.0 0.0-1.0 10^3/uL Eosinophils # (Auto) 0.7 H 0.0-0.3 10^3/uL Basophils # (Auto) 0.1 0.0-0.1 10^3/uL Immature Granulocyte # (Auto) 0.1 0.0-0.1 10^3/uL Sodium Level 136 135-145 MMOL/L Potassium Level 3.6 3.6-5.0 MMOL/L Chloride Level 101 98-107 MMOL/L Carbon Dioxide Level 26 21-32 MMOL/L Anion Gap 9 5-14 MMOL/L Blood Urea Nitrogen 11 7-18 MG/DL Creatinine 0.61 0.60-1.30 MG/DL Estimat Glomerular Filtration Rate 94 BUN/Creatinine Ratio 18 Glucose Level 89 70-105 MG/DL Calcium Level 8.9 8.5-10.1 MG/DL Corrected Calcium 9.8 8.5-10.1 MG/DL Magnesium Level 1.9 1.6-2.4 MG/DL Total Bilirubin 1.6 H 0.1-1.0 MG/DL Aspartate Amino Transf (AST/SGOT) 27 5-34 U/L Alanine Aminotransferase (ALT/SGPT) 25 0-55 U/L Alkaline Phosphatase 66 40-136 U/L Total Protein 6.4 6.4-8.2 GM/DL Albumin 2.9 L 3.2-4.5 GM/DL RLE--incision without erythema or warmth s/p RTKA mobiilze as able KALEIGH ARTHUR MD Apr 24, 2023 07:57
[2023-04-24] MEDS: oxyCODONE/ACETAMINOPHEN 5/325MG TABLET PO PRN (07:58)
[2023-04-24] MEDS: LORATADINE 10 MG TABLET PO SCH (07:58)
[2023-04-24] MEDS: ASPIRIN enteric coated 81MG TABLET PO SCH (07:58)
[2023-04-24] MEDS: SENNA W/DOCUSATE TABLET PO SCH ×2 (07:58→19:34)
[2023-04-24] MEDS: SOTALOL 80 MG TABLET PO SCH ×2 (07:59→22:36)
[2023-04-24] MEDS: CELECOXIB 400 MG CAPSULE PO SCH (07:59)
[2023-04-24] MEDS: APIXABAN 5 MG TABLET PO SCH ×2 (07:59→19:33)
[2023-04-24] MEDS: IRON SUCROSE 200 MG/10 ML VIAL IV SCH (07:59)
--- NOTE | 2023-04-24 08:43 | Cardiology Progress Note ---
Subjective Date Seen by Provider: Apr 24, 2023 Time Seen by Provider: 08:42 Subjective/Events-last exam Patient was seen at bedside, sitting comfortably, no new complain. Still having episodes of tachycardia Objective-Cardiology Exam Last Set of Vital Signs Vital Signs 04/23/23 04/24/23 10: 08:00 Temp 36.5 Pulse 93 Resp 19 B/P (MAP) 160/80 (106) Pulse Ox 92 O2 Delivery Room Air O2 Flow Rate 0.00 FiO2 28 I&O Intake and Output 04/24/23 00:00 Intake Total 1275 ml Output Total 1150 ml Balance 125 ml Intake Oral 1150 ml IV Total 125 ml Output Urine Total 1150 ml # Voids 3 General: Alert, Oriented X3, Mild Distress HEENT: Atraumatic Neck: Supple, No JVD, No Thyromegaly Lungs: Other (expiratory wheezing, bibasilar rales) Heart: Regular Rate, Normal S1, Normal S2, No Murmurs Abdomen: Soft, No Tenderness Extremities: Normal Pulses Skin: No Rashes, No Breakdown, No Significant Lesion Neuro: Normal Speech Psych/Mental Status: Mental Status NL, Mood NL Results Lab Laboratory Tests 04/24/23 04:11 A/P-Cardiology Admission Diagnosis Atrial fibrillation Hypertension Hyperlipidemia Reactive airway disease Assessment/Plan Hyperthyroidism, probably underlying thyroid storm Patient have multiple signs suggestive of thyroid storm TBG is pending Started methimazole 5 mg 3 times daily and appears to be responding well to treatment. Continue to monitor Paroxysmal atrial fibrillation/atrial flutter Converted back to sinus rhythm, doing well Maintained on Eliquis Unable to use amiodarone due to hyperthyroidism and thyroid storm Did not respond well to Multaq I will try sotalol, we will start with a loading and need monitoring for the next 3 days in ICU 2D echo done in December 2022 with moderate LVH, ejection fraction 55 to 60%. Othe rwise no significant abnormality reported CHADVASC score 3, will start on Eliquis and evaluate tolerance and response Hypertension, monitor blood pressure Hyperlipidemia, maintained on atorvastatin as an outpatient, Monitor lipids Status post knee replacement surgery, recovering, managed by Dr. ARTHUR Reactive airways disease, maintained on albuterol CHET SARGENT MD Apr 24, 2023 08:43
[2023-04-24] MEDS ORDERED: SOTALOL 80 MG TABLET PO SCH ×2 (09:00→21:00)
--- NOTE | 2023-04-24 09:44 | Tele-ICU Progress Note ---
Subjective Date Seen by a Provider: Apr 24, 2023 Time Seen by a Provider: 09:44 Subjective/Events-last exam (Tele-ICU Physician , Progress Note ) Service provided via interactive audio and video telecommunications E-CARE system to a patient admitted to ICU bed in [facility]. Patient is seen today due to persistent need of ICU care Available chart/ vitals / labs / Images reviewed Video assessment done using teleICU camera, rest of exam as per RN Discussed with RN Events overnight : Afebrile hemodynamically stable Respiratory - ra I/O = neg Drips: card z 10 Pressors- no (04/16) 74F Admitted s/p right total knee arthroplasty with new onset atrial fibrillation post op. Cardiology consulted (04/18) TX to ICU for rapid afib and low urine output. Cardizem drip- converted , FEVER 04/19 - po cardizem , overnight ? hr --> pushed beta blockes x2 04/20 - persistent HR > 125 - dig 0.5 x1 , started on AMIO gtt 04/23- cardizem gtt + sotalol 05/25 - off gtt , on PO meds A/P New onset AF RVR - cardizem gtt OFF , AMIO gtt stopped, on sotalol -2D echo done in December 2022 with moderate LVH, ejection fraction 55 to 60%. -cards follow -AC -on Eliquis Hyperthyroidism/ possible storm -suggestive of thyroid storm- on methimasole po 10 04/21, - consider ? steroids of worsening Anemia - f/up on AC , hb stable - no sign of bleeding s/p knee replacement - pain control - as per sx and wound FEVER 04/18 - no sourse , knee exam as per SX - off abx- resolved - 2 L O2 - start IS - inproved , at night only Delirium 04/18 - confusion resolved , anxiety now Lines : periph , (Central Line Necessity Reviewed) Harvey: out 04/21 Nutrition: po Analgesia: Anxiety/ delirium VTE Prophylaxis: eliquis Stress Ulcer Prophylaxis: na Plans in collaboration with bedside consultants and IM MDs. Discussed with RN to reach out if any questions or concerns Case and care daily discussed on multidisciplinary rounds ( RN, PharmD, Service Coordinator , Respiratory Therapy, mill worker ) A total of 15 minutes of critical care time was devoted to this patient today, required to treat and/or prevent further deterioration of critical care condition ( as above I am remotely monitoring this patient from another state. I am unable to do the bedside exam, and history/physical and pertinent information is taken from other notes in the computer and bedside staff. Sepsis Event Evaluation Height, Weight, BMI Height: '" Weight: lbs. oz. kg; 39.62 BMI Method: Exam Exam Patient acknowledged, consented, and participated in this virtual visit which was conducted using real time audio/video Vital Signs Date Time Temp Pulse Resp B/P (MAP) Pulse Ox O2 Delivery O2 Flow Rate FiO2 04/24/23 09:00 80 8 138/77 (97) 93 Room Air 04/24/23 08:00 93 19 160/80 (106) 92 Room Air 04/24/23 08:00 95 Room Air 0.00 04/24/23 07:59 93 04/24/23 07:35 86 04/24/23 07:07 92 Room Air 0.00 04/24/23 07:00 93 16 160/61 (94) 93 Room Air 04/24/23 06:00 81 32 143/72 (95) 98 OxyMask 2.00 04/24/23 05:00 98 20 136/69 (91) 95 OxyMask 2.00 04/24/23 04:16 95 OxyMask 3.00 04/24/23 04:00 85 20 147/71 (96) 95 OxyMask 2.00 04/24/23 03:00 80 12 130/65 (86) 96 OxyMask 2.00 04/24/23 02:00 89 13 132/75 (94) 96 OxyMask 2.00 04/24/23 01:00 85 18 140/70 (93) 98 OxyMask 2.00 04/24/23 01:00 80 04/24/23 00:00 81 15 122/77 (92) 98 OxyMask 2.00 04/23/23 23:06 95 OxyMask 3.00 04/23/23 23:00 84 29 142/77 (98) 99 OxyMask 2.00 04/23/23 22:00 84 27 125/83 (97) 99 OxyMask 2.00 04/23/23 21:00 76 13 128/74 (92) 93 OxyMask 2.00 04/23/23 20:22 95 OxyMask 3.00 04/23/23 20:00 75 26 132/71 (91) 93 OxyMask 2.00 04/23/23 19:00 84 04/23/23 19:00 82 21 124/81 (95) 100 OxyMask 2.00 04/23/23 18:55 94 Room Air 0.00 04/23/23 18:00 77 13 142/68 (92) 93 OxyMask 2.00 04/23/23 17:00 77 27 127/66 (86) 90 OxyMask 2.00 04/23/23 16:00 95 Room Air 0.00 04/23/23 16:00 70 18 105/89 (94) 88 OxyMask 2.00 04/23/23 15:00 73 25 128/65 (86) 94 OxyMask 2.00 04/23/23 14:45 96 Room Air 0.00 04/23/23 14:00 80 11 111/100 (104) 94 OxyMask 2.00 04/23/23 13:00 65 47 124/76 (92) 97 OxyMask 2.00 04/23/23 13:00 64 04/23/23 12:21 65 04/23/23 12:00 95 Room Air 0.00 04/23/23 12:00 75 122/76 (91) 93 OxyMask 2.00 04/23/23 11:00 77 26 134/79 (97) 96 OxyMask 2.00 04/23/23 10:24 71 125/63 04/23/23 10:23 36.5 77 94 28 04/23/23 10:23 OxyMask 2.00 04/23/23 10:17 100 OxyMask 8.00 04/23/23 10:00 72 21 125/69 (87) 100 OxyMask 2.00 I & O 04/24/23 07:00 Intake Total 1575 ml Output Total 2050 ml Balance -475 ml Height & Weight Height: '" Weight: lbs. oz. kg; 39.62 BMI Method: General Appearance: No Apparent Distress, WD/WN, Chronically ill HEENT: Normal ENT Inspection, Moist Mucous Membranes; No Pale Conjunctivae (L), No Pale Conjunctivae (R) Neck: Normal Inspection, Non Tender, Supple; No JVD Respiratory: Lungs Clear, Normal Breath Sounds Cardiovascular: Regular Rate, Rhythm Capillary Refill: Less Than 3 Seconds Gastrointestinal: normal bowel sounds, non tender, soft Extremity: Normal Capillary Refill, No Calf Tenderness, No Pedal Edema, Swelling (around incision ) Neurologic/Psychiatric: Alert, Oriented x3 Skin: Normal Color, Warm/Dry, Other (bullous pemphigoid around incision) Lymphatic: No Adenopathy Results Lab Laboratory Tests 04/23/23 05:15 04/24/23 04:11 Assessment/Plan Assessment/Plan 1 ALVA ELLSWORTH MD Apr 24, 2023 09:44
--- NOTE | 2023-04-24 10:11 | Progress Note - Hospitalist ---
KENNY CARRASCO 04/24/23 1011: Subjective HPI/CC On Admission Date Seen by Provider: Apr 24, 2023 Time Seen by Provider: 10:01 04/16/2023: CC: R-TKA, AFib HPI: Shakira is a 73 year old female that is status post operative on her right knee for a total knee arthroplasty. Prior to surgery, her heart rate and rhythm was normal. After being in the OR, she was presenting with AFib. When talking to Shakira, she noted that she was slightly uncomfortable in her knee. She denied any chest pain or AMS. Furthermore, she notes that she feels a little bit anxious. Shakira notes that she is excited for her knee to be fixed. She also endorses some depression that she is currently managing. Overall, her main concern is that she has some pain in her right knee. She denies any other concerns. Her pain is a 6/10. The pain is dull and achy. Subjective/Events-last exam 04/24/2023: CC: R-TKA, AFib HPI: Shakira, 73F, notes that she does not feel much different from yesterday. She notes that she had some slight confusion in the night were she woke up and thought it was morning. She says that being in the ICU it gets really boring so she is sleeping a lot and it has her sleep schedule changed. She notes that this does not occur at home, but being in the ICU seems to be what she thinks is causing the confusion. Additionally, Shakira notes that yesterday was her best PT session since being in the hospital. She says that there is some pain with movement but she feels like she is able to do more today than yesterday. She still denies any associated cardiac concerns, chest pain, syncope, or any other symptoms. She feels about the same, but is glad to have the care team she has. No other concerns. Review of Systems General: No Night Sweats; Fatigue; No Malaise HEENT: No Head Aches, No Visual Changes Pulmonary: No Cough Cardiovascular: No: Chest Pain, Palpitations, Edema Gastrointestinal: No: Nausea, Vomiting, Abdominal Pain, Diarrhea, Constipation Genitourinary: No Incontinence, No Hematuria Musculoskeletal: leg pain; No: back pain Neurological: Confusion (see HPI ); No: Weakness, Numbness Objective Exam Vital Signs Vital Signs Date Time Temp Pulse Resp B/P (MAP) Pulse Ox O2 Delivery O2 Flow Rate FiO2 04/24/23 10:39 92 04/24/23 10:00 11 104/73 (83) 97 Room Air 04/24/23 08:00 0.00 04/23/23 10:23 36.5 28 Capillary Refill : Less Than 3 SecondsLess Than 3 Seconds General Appearance: No Apparent Distress, WD/WN, Obese HEENT: Normal ENT Inspection, Moist Mucous Membranes; No Pale Conjunctivae (L), No Pale Conjunctivae (R) Neck: Full Range of Motion, Normal Inspection, Non Tender Respiratory: Chest Non Tender, Lungs Clear, Normal Breath Sounds, No Accessory Muscle Use, No Respiratory Distress Cardiovascular: Regular Rate, Rhythm, No Gallop, No JVD, Normal Peripheral Pulses, Systolic Murmur (late systolic ) Gastrointestinal: Normal Bowel Sounds, No Organomegaly, No Pulsatile Mass, Non Tender, Soft Extremity: Normal Capillary Refill, Normal Inspection, No Calf Tenderness, No Pedal Edema Neurologic/Psychiatric: Alert, Oriented x3, No Motor/Sensory Deficits Skin: Normal Color, Other (wound bleeding, bandage changes ) Lymphatic: No Adenopathy Results/Procedures Lab Laboratory Tests 04/24/23 04:11 Patient resulted labs reviewed. 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 Flores * Converted to RRR * Metoprolol Q6 to correct tachycardia * Cardizem PO 120mg * Sotolol, 80mg BID * TELE * CHADVASC- 3; eliquis per cardio -Tachycardia * Cardiology consult * Metoprolol -High T4 (potential thyroid storm) * Methimazole -Stress IC * pads * frequent restroom -Hyperlipidemia * atorvastatin -Anemia * CBC monitoring -Reactive Airway Disease * Albuterol, ambulate -TX to 4th floor * continue tele, monitoring, PT HERMILA JETT DO 04/25/23 0421: Subjective Subjective/Events-last exam Patient doing a lot better Moving down to fourth floor Sotalol infusion helpful Objective Exam General Appearance: No Apparent Distress, WD/WN Respiratory: Lungs Clear, Normal Breath Sounds Cardiovascular: Regular Rate, Rhythm Assessment/Plan Assessment and Plan Assess & Plan/Chief Complaint Supportive care Moved to fourth floor Supervisory-Addendum Brief Verification & Attestation Participated in pt care: history, MDM, physical Personally performed: exam, history, MDM, supervision of care Care discussed with: Medical Student Procedures: n/a Results interpretation: Verified all documentation Verification and Attestation of Medical Student E/M Service A medical student performed and documented this service in my presence. I reviewed and verified all information documented by the medical student and made modifications to such information, when appropriate. I personally performed the physical exam and medical decision making. Hermila Jett, Apr 25, 2023,04:20 KENNY CARRASCO Apr 24, 2023 10:11 HERMILA JETT DO Apr 25, 2023 04:21
--- NOTE | 2023-04-24 10:51 | Occupational Ther Daily Note ---
OT Current Status-Daily Note Subjective Agreeable to participate, reports that Physical therapy will reschedule d/t procedure done this morning. Mental Status/Objective Patient Orientation: Person, Place, Time, Situation Attachments: Telemetry ADL-Treatment Patient has socks on already in bed, OT has patient remove socks and replace Therapy Code Descriptions/Definitions Functional [place] Measure: 0=Not Assessed/NA 4=Minimal Assistance 1=Total Assistance 5=Supervision or Setup 2=Maximal Assistance 6=Modified [place] 3=Moderate Assistance 7=Complete IndependenceSCALE: Activities may be completed with or without assistive devices. 3-Bpgreethrj-orqesrs completes the activity by him/herself with no assistance from a helper. 5-Set-up or Clean-up Assistance-helper sets up or cleans up; patient completes activity. [place] assists only prior to or following the activity. 4-Supervision or Touching Assistance-helper provides verbal cues and/or touching/steadying and/or contact guard assistance as patient completes activity. Assistance may be provided throughout the activity or intermittently. 3-Partial/Moderate Assistance-helper does LESS THAN HALF the effort. [place] lifts, holds or supports trunk or limbs, but provides less than half the effort. 2-Substantial/Maximal Assistance-helper does MORE THAN HALF the effort. [place] lifts or holds trunk or limbs and provides more than half the effort. 2-Yiclyempl-rowaoc does ALL the effort. Patient does none of the effort to complete the activity. Or, the assistance of 2 or more helpers is required for the patient to complete the activity. If activity was not attempted, code reason: 7-Patient Refused. 9-Not Applicable-not attempted and the patient did not perform the activity before the current illness, exacerbation or injury. 10-Not Attempted due to Environmental Limitations-(lack of equipment, weather restraints, etc.). 88-Not Attempted due to Medical Conditions or Safety Concerns. Eating (QC): 6 Oral Hygiene (QC): 5 Shower/Bathe Self (QC): 7 (patient requesting shower from staff) Upper Body Dressing (QC): 4 Lower Body Dressing (QC): 5 On/Off Footwear: 5 Toileting Hygiene (QC): 5 Toilet Transfer (QC): 5 Education OT Patient Education: Correct positioning, Modified ADL techniques, Progress toward Goal/Update tx plan, Purpose of tx/functional activities, Reviewed precautions, Rehab process, Safety issues, Transfer techniques Teaching Recipient: Patient Teaching Methods: Demonstration Response to Teaching: Reinforcement Needed OT Smoke Jumper Goals Detention Goals Eating (QC): 6 Oral Hygiene (QC): 6 Toileting Hygiene (QC): 6 Shower/Bathe Self (QC): 6 Upper Body Dressing (QC): 6 Lower Body Dressing (QC): 6 On/Off Footwear (QC): 6 1=Demonstrate adherence to instructed precautions during ADL tasks. 2=Patient will verbalize/demonstrate understanding of assistive devices/modifications for ADL. 3=Patient will improve strength/tolerance for activity to enable patient to perform ADL's. OT Education/Plan Problem List/Assessment Assessment: Decreased Activ Tolerance, Impaired Self-Care Skills Discharge Recommendations Plan/Recommendations: Continue POC Treatment Plan/Plan of Care Patient would benefit from OT for education, treatment and training to promote independence in ADL's, mobility, safety and/or upper extremity function for ADL's. Plan of Care: ADL Retraining, Functional Mobility, Group Exercise/Act as Ind, UE Funct Exercise/Act, UE Neuromus Re-Ed/Coord Treatment Duration: Apr 21, 2023 Frequency: 3 times per week (3-5 times per week) Estimated Hrs Per Day: .25 hour per day Agreement: Yes Rehab Potential: Fair Time Start Time: 10:00 Stop Time: 10:17 DATE: Apr 24, 2023 Total Time Billed (hr/min): 17 Billed Treatment Time ADL 17 min JAYNE DE LA GARZA OT Apr 24, 2023 10:51
--- NOTE | 2023-04-24 11:19 | Physical Therapy Daily Note ---
PT Daily Note-Current Subjective Pt agreeable to treatment. Reports she is doing better at getting in/out of bed but still needs some help with the right leg Pain Section J - Health Conditions 1. Rarely or not at all 2. Occasionally 3. Frequently 4. Almost constantly 8. Unable to answer Pain Effect on Sleep: 1 Pain Interference with Therapy: 1 Pain Interference w/Day-to-Day: 1 Transfers SCALE: Activities may be completed with or without assistive devices. 8-Jvupklyolg-nhbvzxv completes the activity by him/herself with no assistance from a helper. 5-Set-up or Clean-up Assistance-helper sets up or cleans up; patient completes activity. [place] assists only prior to or following the activity. 4-Supervision or Touching Assistance-helper provides verbal cues and/or touching/steadying and/or contact guard assistance as patient completes activity. Assistance may be provided throughout the activity or intermittently. 3-Partial/Moderate Assistance-helper does LESS THAN HALF the effort. [place] lifts, holds or supports trunk or limbs, but provides less than half the effort. 2-Substantial/Maximal Assistance-helper does MORE THAN HALF the effort. [place] lifts or holds trunk or limbs and provides more than half the effort. 4-Bfzlljrmx-shunqy does ALL the effort. Patient does none of the effort to complete the activity. Or, the assistance of 2 or more helpers is required for the patient to complete the activity. If activity was not attempted, code reason: 7-Patient Refused. 9-Not Applicable-not attempted and the patient did not perform the activity before the current illness, exacerbation or injury. 10-Not Attempted due to Environmental Limitations-(lack of equipment, weather restraints, etc.). 88-Not Attempted due to Medical Conditions or Safety Concerns. Sit to Stand (QC): 5 Chair/Ovd-hi-Ofzra Xfer(QC): 4 Weight Bearing Right Lower Extremity: Right Weight Bearing/Tolerated Left Lower Extremity: Left Full Weight Bearing Gait Training Gait Persons Needed: 1 Gait Assistive Device: FWW Ambulate 12ft with education on sequence for the walker. Sitting rest, ambulate 12ft with FWW and steadying assist. Wheelchair Training Does the Pt Use a Wheelchair?: No Exercises Seated Therapy Exercises: Long arc quads Seated Reps: 10 Seated exercise of: right knee PROM, assisted LAQ, heel slides, and ankle pumps all x 10 reps. Assessment Current Status: Fair Progress Pt progressed ambulation distance this treatment. Distance Limited by ge neralized body fatigue PT Big Data Admin Goals Big Data Admin Goals PT Big Data Admin Goals Time Frame: May 06, 2023 Roll Left & Right (QC): 6 Sit to Lying (QC): 6 Lying-Sitting on Side/Bed(QC): 6 Sit to Stand (QC): 6 Chair/Rfg-mr-Rabao Xfer(QC): 6 Toilet Transfer (QC): 6 Car Transfer (QC): 6 Does the Patient Walk: Yes Walk 10 feet (QC): 6 Walk 50ft with 2 Turns (QC): 6 Walk 150 ft (QC): 4 1 Step (curb) (QC): 3 4 Steps (QC): 3 12 Steps (QC): 3 PT Plan Treatment/Plan Treatment Plan: Continue Plan of Care Treatment Plan: Bed Mobility, Education, Functional Activity Vicky, Functional Strength, Group Therapy, Gait, Safety, Therapeutic Exercise, Transfers Treatment Duration: May 06, 2023 Frequency: 11 times per week Estimated Hrs Per Day: .25 hour per day Patient and/or Family Agrees t: Yes Time Time In: 1030 Time Out: 1100 DATE: Apr 24, 2023 Total Billed Treatment Time: 30 Total Billed Treatment visit, gait 15 min, ex 15 min SERGIO CERVANTES PT Apr 24, 2023 11:19
--- NOTE | 2023-04-24 13:52 | Physical Therapy Daily Note ---
PT Daily Note-Current Subjective Patient sitting in chair upon PT arrival, agreeable to treatment. Patient rates pain at 3-4/10 currently in right knee. Pain Section J - Health Conditions 1. Rarely or not at all 2. Occasionally 3. Frequently 4. Almost constantly 8. Unable to answer Pain Effect on Sleep: 1 Pain Interference with Therapy: 1 Pain Interference w/Day-to-Day: 1 Transfers SCALE: Activities may be completed with or without assistive devices. 1-Hvyfygzrpo-kjegfsq completes the activity by him/herself with no assistance from a helper. 5-Set-up or Clean-up Assistance-helper sets up or cleans up; patient completes activity. [place] assists only prior to or following the activity. 4-Supervision or Touching Assistance-helper provides verbal cues and/or touching/steadying and/or contact guard assistance as patient completes activity. Assistance may be provided throughout the activity or intermittently. 3-Partial/Moderate Assistance-helper does LESS THAN HALF the effort. [place] lifts, holds or supports trunk or limbs, but provides less than half the effort. 2-Substantial/Maximal Assistance-helper does MORE THAN HALF the effort. [place] lifts or holds trunk or limbs and provides more than half the effort. 0-Plvsqgvep-qphpsr does ALL the effort. Patient does none of the effort to complete the activity. Or, the assistance of 2 or more helpers is required for the patient to complete the activity. If activity was not attempted, code reason: 7-Patient Refused. 9-Not Applicable-not attempted and the patient did not perform the activity before the current illness, exacerbation or injury. 10-Not Attempted due to Environmental Limitations-(lack of equipment, weather restraints, etc.). 88-Not Attempted due to Medical Conditions or Safety Concerns. Sit to Stand (QC): 4 Chair/Muc-ue-Hkyxb Xfer(QC): 4 Toilet Transfer (QC): 4 Weight Bearing Right Lower Extremity: Right Weight Bearing/Tolerated Left Lower Extremity: Left Full Weight Bearing Gait Training Does the Patient Walk?: Yes Distance: 12' Walk 10 feet (QC): 4 Gait Assistive Device: FWW Assessment Current Status: Fair Progress Patient sitting in chair upon PT arrival, agreeable to treatment. Patient performs sit to stand with SBA. Patient ambulates 12 feet into the BR with FWW, with SBA and verbal cues for safety, progression, balance and control of sitting on the toilet. Patient on toilet with cord in reach post treatment. PT Assisted Goals Stenotype Machine Operator Goals PT Stenotype Machine Operator Goals Time Frame: May 06, 2023 Roll Left & Right (QC): 6 Sit to Lying (QC): 6 Lying-Sitting on Side/Bed(QC): 6 Sit to Stand (QC): 6 Chair/Fib-sp-Xraph Xfer(QC): 6 Toilet Transfer (QC): 6 Car Transfer (QC): 6 Does the Patient Walk: Yes Walk 10 feet (QC): 6 Walk 50ft with 2 Turns (QC): 6 Walk 150 ft (QC): 4 1 Step (curb) (QC): 3 4 Steps (QC): 3 12 Steps (QC): 3 PT Plan Treatment/Plan Treatment Plan: Continue Plan of Care Treatment Plan: Bed Mobility, Education, Functional Activity Vicky, Functional Strength, Group Therapy, Gait, Safety, Therapeutic Exercise, Transfers Treatment Duration: May 06, 2023 Frequency: 11 times per week Estimated Hrs Per Day: .25 hour per day Patient and/or Family Agrees t: Yes Safety Risks/Education Patient Education: Gait Training, Transfer Techniques Teaching Recipient: Patient Teaching Methods: Demonstration, Discussion Response to Teaching: Verbalize Understanding, Return Demonstration Time Time In: 1330 Time Out: 1345 DATE: Apr 24, 2023 Total Billed Treatment Time: 15 Total Billed Treatment Visit, ERNESTINE NEAL PT Apr 24, 2023 13:52
[2023-04-24 14:04] VITALS: BP 125/58
[2023-04-24 15:24] VITALS: BP 125/58
[2023-04-24 16:06] VITALS: BP 145/75
[2023-04-24 17:59] VITALS: BP 140/69
[2023-04-24 19:20] VITALS: BP 148/76
[2023-04-24] MEDS: GABAPENTIN 300 MG CAPSULE PO SCH (19:34)
[2023-04-24] MEDS: ALPRAZolam 0.25 MG TABLET PO PRN (19:34)
[2023-04-25] VITALS (10 sets, daily range): BP systolic 104–163; BP diastolic 65–110
[2023-04-25] MEDS: meTOprolol INJECTION 5 MG/5 ML VIAL IV SCH ×6 (00:35→23:47)
[2023-04-25 04:48] LABS: BASOPHILS % (AUTO) 0 % (0-10); EOSINOPHILS # (AUTO) 0.5 10^3/uL (0.0-0.3); EOSINOPHILS % (AUTO) 4 % (0-10); HEMATOCRIT 25 % (35-52); HEMOGLOBIN 8.1 g/dL (11.5-16.0); LYMPHOCYTES # (AUTO) 2.8 10^3/uL (1.0-4.0); LYMPHOCYTES % (AUTO) 21 % (12-44); MEAN CORPUSCULAR HEMOGLOBIN 29 pg (25-34); MEAN CORPUSCULAR HGB CONC 32 g/dL (32-36); MEAN CORPUSCULAR VOLUME 91 fL (80-99); MEAN PLATELET VOLUME 10.1 fL (9.0-12.2); MONOCYTES # (AUTO) 1.1 10^3/uL (0.0-1.0); MONOCYTES % (AUTO) 8 % (0-12); NEUTROPHILS # (AUTO) 8.7 10^3/uL (1.8-7.8); NEUTROPHILS % (AUTO) 66 % (42-75); PLATELET COUNT 434 10^3/uL (130-400); WHITE BLOOD COUNT 13.3 10^3/uL (4.3-11.0)
[2023-04-25 05:44] LABS: ALBUMIN 2.7 GM/DL (3.2-4.5)
[2023-04-25 05:45] LABS: POTASSIUM 3.6 MMOL/L (3.6-5.0)
[2023-04-25 05:46] LABS: CALCIUM 8.5 MG/DL (8.5-10.1)
[2023-04-25 05:47] LABS: TOTAL PROTEIN 5.9 GM/DL (6.4-8.2)
[2023-04-25 05:49] LABS: BILIRUBIN,TOTAL 1.1 MG/DL (0.1-1.0)
[2023-04-25 05:51] LABS: CREATININE SERUM 0.63 MG/DL (0.60-1.30)
[2023-04-25] MEDS: CYANOCOBALAMIN 1,000 MCG TABLET PO SCH (06:20)
[2023-04-25] MEDS: THERAPEUTIC MULTIVITAMIN W/MINERALS TABLET PO SCH (06:20)
--- NOTE | 2023-04-25 06:41 | Progress Note ---
Standard Progress Note Progress Notes/Assess & Plan Date Seen by a Provider: Apr 25, 2023 Time Seen by a Provider: 06:32 Progress/Assessment & Plan post op check No complaints has been in Afib since leads placed in OR radiographs--HW well positioned without fracture RLE-- 2 plus DP pulse with brisk cap refill intact DF and PF of toes and ankle sensation intact to light touch throughout s/p RTKA Dr Flores evaluating for Afib mobilize when able Final Diagnosis no complaints Laboratory Tests Test 04/25/23 04:11 Range/Units White Blood Count 13.3 H 4.3-11.0 10^3/uL Red Blood Count 2.77 L 3.80-5.11 10^6/uL Hemoglobin 8.1 L 11.5-16.0 g/dL Hematocrit 25 L 35-52 % Mean Corpuscular Volume 91 80-99 fL Mean Corpuscular Hemoglobin 29 25-34 pg Mean Corpuscular Hemoglobin Concent 32 32-36 g/dL Red Cell Distribution Width 13.0 10.0-14.5 % Platelet Count 434 H 130-400 10^3/uL Mean Platelet Volume 10.1 9.0-12.2 fL Immature Granulocyte % (Auto) 1 % Neutrophils (%) (Auto) 66 42-75 % Lymphocytes (%) (Auto) 21 12-44 % Monocytes (%) (Auto) 8 0-12 % Eosinophils (%) (Auto) 4 0-10 % Basophils (%) (Auto) 0 0-10 % Neutrophils # (Auto) 8.7 H 1.8-7.8 10^3/uL Lymphocytes # (Auto) 2.8 1.0-4.0 10^3/uL Monocytes # (Auto) 1.1 H 0.0-1.0 10^3/uL Eosinophils # (Auto) 0.5 H 0.0-0.3 10^3/uL Basophils # (Auto) 0.0 0.0-0.1 10^3/uL Immature Granulocyte # (Auto) 0.1 0.0-0.1 10^3/uL Sodium Level 138 135-145 MMOL/L Potassium Level 3.6 3.6-5.0 MMOL/L Chloride Level 103 98-107 MMOL/L Carbon Dioxide Level 25 21-32 MMOL/L Anion Gap 10 5-14 MMOL/L Blood Urea Nitrogen 11 7-18 MG/DL Creatinine 0.63 0.60-1.30 MG/DL Estimat Glomerular Filtration Rate 93 BUN/Creatinine Ratio 17 Glucose Level 87 70-105 MG/DL Calcium Level 8.5 8.5-10.1 MG/DL Corrected Calcium 9.5 8.5-10.1 MG/DL Magnesium Level 2.0 1.6-2.4 MG/DL Total Bilirubin 1.1 H 0.1-1.0 MG/DL Aspartate Amino Transf (AST/SGOT) 32 5-34 U/L Alanine Aminotransferase (ALT/SGPT) 21 0-55 U/L Alkaline Phosphatase 64 40-136 U/L Total Protein 5.9 L 6.4-8.2 GM/DL Albumin 2.7 L 3.2-4.5 GM/DL Vital Signs Date Time Temp Pulse Resp B/P (MAP) Pulse Ox O2 Delivery O2 Flow Rate FiO2 04/25/23 04:00 36.7 Nasal Cannula 2.00 04/25/23 04:00 84 21 144/73 (96) 95 Nasal Cannula 2.00 04/25/23 03:00 71 22 134/67 (89) 92 Nasal Cannula 2.00 04/25/23 02:00 73 19 128/71 (90) 94 Nasal Cannula 2.00 04/25/23 01:00 73 04/25/23 01:00 72 24 135/76 (95) 93 Nasal Cannula 2.00 04/25/23 00:49 71 04/25/23 00:00 79 21 140/79 (99) 93 Nasal Cannula 2.00 04/25/23 00:00 36.6 Nasal Cannula 2.00 04/24/23 22:45 89 24 146/72 (96) 95 Nasal Cannula 2.00 04/24/23 22:36 88 04/24/23 22:30 86 22 134/77 (96) 93 Nasal Cannula 2.00 04/24/23 22:15 85 22 131/69 (89) 93 Room Air 04/24/23 21:45 87 19 146/89 (108) 90 Room Air 04/24/23 21:30 86 12 171/84 (113) 95 Room Air 04/24/23 21:15 88 18 95 Room Air 04/24/23 21:00 36.5 97 12 153/82 (105) 95 Room Air 04/24/23 20:45 96 Room Air 04/24/23 19:20 36.5 88 18 148/76 (100) 98 Room Air 04/24/23 19:00 80 04/24/23 17:59 77 140/69 (92) 04/24/23 16:06 36.5 79 22 145/75 (98) 95 Room Air 04/24/23 15:24 36.4 78 97 04/24/23 15:23 97 Room Air 0.00 04/24/23 14:04 36.4 78 17 125/58 (80) 93 Room Air 04/24/23 14:04 36.4 78 17 125/58 (80) 93 Room Air 04/24/23 13:30 73 04/24/23 12:25 78 04/24/23 12:00 95 Room Air 0.00 04/24/23 12:00 75 21 135/58 (83) 96 Room Air 04/24/23 11:26 96 Room Air 0.00 04/24/23 11:00 73 11 118/104 (109) 95 Room Air 04/24/23 10:39 92 04/24/23 10:00 75 11 104/73 (83) 97 Room Air 04/24/23 09:00 80 8 138/77 (97) 93 Room Air 04/24/23 08:00 93 19 160/80 (106) 92 Room Air 04/24/23 08:00 95 Room Air 0.00 04/24/23 07:59 93 04/24/23 07:35 86 04/24/23 07:07 92 Room Air 0.00 04/24/23 07:00 93 16 160/61 (94) 93 Room Air I & O 04/25/23 07:00 Intake Total 420 ml Output Total 1350 ml Balance -930 ml R knee incision with scant bloody DC at mid incision echymotic without erythema or warmth s/p RTKA with Afib mobilize defer to Cards/PCP KALEIGH ARTHUR MD Apr 25, 2023 06:41
[2023-04-25 09:02] LABS: CALCIUM 8.6 MG/DL (8.5-10.1); CREATININE SERUM 0.57 MG/DL (0.60-1.30); POTASSIUM 3.5 MMOL/L (3.6-5.0)
[2023-04-25] MEDS: ASPIRIN enteric coated 81MG TABLET PO SCH (09:19)
[2023-04-25] MEDS: LORATADINE 10 MG TABLET PO SCH (09:19)
[2023-04-25] MEDS: SOTALOL 80 MG TABLET PO SCH ×2 (09:20→21:28)
[2023-04-25] MEDS: APIXABAN 5 MG TABLET PO SCH ×2 (09:20→21:28)
[2023-04-25] MEDS: dilTIAZem ER 120 MG CAPSULE PO SCH (09:20)
[2023-04-25] MEDS: SENNA W/DOCUSATE TABLET PO SCH ×2 (09:22→21:26)
--- NOTE | 2023-04-25 09:50 | Progress Note - Hospitalist ---
KENNY CARRASCO 04/25/23 0950: Subjective HPI/CC On Admission Date Seen by Provider: Apr 25, 2023 Time Seen by Provider: 09:45 04/16/2023: CC: R-TKA, AFib HPI: Shakira is a 73 year old female that is status post operative on her right knee for a total knee arthroplasty. Prior to surgery, her heart rate and rhythm was normal. After being in the OR, she was presenting with AFib. When talking to Shakira, she noted that she was slightly uncomfortable in her knee. She denied any chest pain or AMS. Furthermore, she notes that she feels a little bit anxious. Shakira notes that she is excited for her knee to be fixed. She also endorses some depression that she is currently managing. Overall, her main concern is that she has some pain in her right knee. She denies any other concerns. Her pain is a 6/10. The pain is dull and achy. Subjective/Events-last exam 04/25/2023: CC: R-TKA, AFib HPI: Shakira, 73F, notes that she feels the same as yesterday. She no longer is having any confusion and feels like she is improving. She was transferred to the 4th floor MED/SURG unit, but was taken back to the ICU due to continued monitoring for loading dose of Sotalol. She denies any change in her presentation. No concerns. Review of Systems General: No Night Sweats, No Fatigue, No Malaise HEENT: No Head Aches, No Dysphasia Pulmonary: No Dyspnea, No Cough Cardiovascular: No: Chest Pain, Palpitations, Edema Gastrointestinal: No: Nausea, Vomiting, Diarrhea, Constipation Genitourinary: No Dysuria, No Frequency Musculoskeletal: No: back pain Neurological: No: Weakness, Numbness, Change in speech, Confusion Objective Exam Vital Signs Vital Signs Date Time Temp Pulse Resp B/P (MAP) Pulse Ox O2 Delivery O2 Flow Rate FiO2 04/25/23 09:20 76 04/25/23 09:01 94 Nasal Cannula 2.00 04/25/23 09:00 17 04/25/23 08:34 36.6 04/23/23 10:23 28 Capillary Refill : Less Than 3 SecondsLess Than 3 Seconds General Appearance: No Apparent Distress, WD/WN, Anxious HEENT: Normal ENT Inspection, Moist Mucous Membranes; No Scleral Icterus (L), No Scleral Icterus (R) Neck: Normal Inspection, Supple Respiratory: Chest Non Tender, Lungs Clear, Normal Breath Sounds, No Accessory Muscle Use, No Respiratory Distress Cardiovascular: Regular Rate, Rhythm, No Edema, No Gallop, Normal Peripheral Pulses, Systolic Murmur Gastrointestinal: Normal Bowel Sounds, Non Tender Rectal: Deferred Back: Normal Inspection Extremity: Normal Capillary Refill, Normal Inspection, Non Tender, No Calf Tenderness, No Pedal Edema Neurologic/Psychiatric: Alert, Oriented x3, No Motor/Sensory Deficits, Normal Mood/Affect, manager agency II-XII Norm as Tested Skin: Normal Color, Warm/Dry Lymphatic: No Adenopathy Results/Procedures Lab Laboratory Tests 04/25/23 04:11 04/25/23 08:26 Patient resulted labs reviewed. 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 Flores * Converted to RRR * Metoprolol Q6 to correct tachycardia * Cardizem PO 120mg * Sotolol, 80mg BID * TELE * CHADVASC- 3; eliquis per cardio -Tachycardia * Cardiology consult * Metoprolol -High T4 (potential thyroid storm) * Methimazole -Stress IC * pads * frequent restroom -Hyperlipidemia * atorvastatin -Anemia * CBC monitoring -Reactive Airway Disease * Albuterol, ambulate HERMILA JETT DO 04/25/231810: Subjective Subjective/Events-last exam Moved back up to ICU due to Sotalol Doing well otherwise No new issues Objective Exam General Appearance: No Apparent Distress, WD/WN Respiratory: Lungs Clear Cardiovascular: Regular Rate, Rhythm Assessment/Plan Assessment and Plan Assess & Plan/Chief Complaint Monitor closely Pain control Appreciate Cardiology Supervisory-Addendum Brief Verification & Attestation Participated in pt care: history, MDM, physical Personally performed: exam, history, MDM, supervision of care Care discussed with: Medical Student Procedures: n/a Results interpretation: Verified all documentation Verification and Attestation of Medical Student E/M Service A medical student performed and documented this service in my presence. I reviewed and verified all information documented by the medical student and made modifications to such information, when appropriate. I personally performed the physical exam and medical decision making. Hermila Jett, Apr 25, 2023,18:10 KENNY CARRASCO Apr 25, 2023 09:50 HERMILA JETT DO Apr 25, 2023 18:11
--- NOTE | 2023-04-25 10:06 | Cardiology Progress Note ---
Subjective Date Seen by Provider: Apr 25, 2023 Time Seen by Provider: 10:03 Subjective/Events-last exam Patient was seen at bedside, laying down comfortably, feeling better Objective-Cardiology Exam Last Set of Vital Signs Vital Signs 04/23/23 04/25/23 04/25/23 04/25/23 04/25/23 04/25/23 10: 08:00 08:34 09:00 09:01 09:20 Temp 36.6 Pulse 76 Resp 17 B/P (MAP) 163/88 (104) Pulse Ox 94 O2 Delivery Nasal Cannula O2 Flow Rate 2.00 FiO2 28 I&O Intake and Output 04/25/23 00:00 Intake Total 1020 ml Output Total 2250 ml Balance -1230 ml Intake Oral 1020 ml Output Urine Total 2250 ml # Voids 6 General: Alert, Oriented X3, Mild Distress HEENT: Atraumatic Neck: Supple, No JVD, No Thyromegaly Lungs: Other (expiratory wheezing, bibasilar rales) Heart: Regular Rate, Normal S1, Normal S2, No Murmurs Abdomen: Soft, No Tenderness Extremities: Normal Pulses Skin: No Rashes, No Breakdown, No Significant Lesion Neuro: Normal Speech Psych/Mental Status: Mental Status NL, Mood NL Results Lab Laboratory Tests 04/25/23 04:11 04/25/23 08:26 A/P-Cardiology Admission Diagnosis Atrial fibrillation Hypertension Hyperlipidemia Reactive airway disease Assessment/Plan Hyperthyroidism, thyroid storm TBG is in the lower normal limit Started methimazole 5 mg 3 times daily and appears to be responding well to treatment. Continue to monitor Paroxysmal atrial fibrillation/atrial flutter Converted back to sinus rhythm, doing well Maintained on Eliquis Unable to use amiodarone due to hyperthyroidism and thyroid storm Did not respond well to Multaq Day #2 on sotalol, recommend monitoring for another day in ICU 2D echo done in December 2022 with moderate LVH, ejection fraction 55 to 60%. Otherwise no significant abnormality reported CHADVASC score 3, will start on Eliquis and evaluate tolerance and response Hypertension, monitor blood pressure Hyperlipidemia, maintained on atorvastatin as an outpatient, Monitor lipids Status post knee replacement surgery, recovering, managed by Dr. ARTHUR Reactive airways disease, maintained on albuterol CHET SARGENT MD Apr 25, 2023 10:06
--- NOTE | 2023-04-25 10:29 | Tele-ICU Progress Note ---
Subjective Date Seen by a Provider: Apr 25, 2023 Time Seen by a Provider: 10:29 Subjective/Events-last exam (Tele-ICU Physician , Progress Note ) Service provided via interactive audio and video telecommunications E-CARE system to a patient admitted to ICU bed in [facility]. Patient is seen today due to persistent need of ICU care Available chart/ vitals / labs / Images reviewed Video assessment done using teleICU camera, rest of exam as per RN Discussed with RN Events overnight : Afebrile hemodynamically stable Respiratory - ra I/O = neg Drips: card z 10 Pressors- no (04/16) 73F Admitted s/p right total knee arthroplasty with new onset atrial fibrillation post op. Cardiology consulted (04/18) TX to ICU for rapid afib and low urine output. Cardizem drip- converted , FEVER 04/19 - po cardizem , overnight ? hr --> pushed beta blockes x2 04/20 - persistent HR > 125 - dig 0.5 x1 , started on AMIO gtt 04/23- cardizem gtt + sotalol 05/25 - off gtt , on PO meds 05/26- READMIT to ICU as perotocol for sotalol load A/P New onset AF RVR - cardizem gtt OFF , AMIO gtt stopped -2D echo done in December 2022 with moderate LVH, ejection fraction 55 to 60%. -cards follow -AC -on Eliquis - PER CARDS _ Day #2 on sotalol, recommend monitoring for another day in ICU Hyperthyroidism/ possible storm -suggestive of thyroid storm- on methimasole po 10 04/21, - cno indic for steroids Anemia - f/up on AC , hb stable - no sign of bleeding s/p knee replacement - pain control - as per sx and wound FEVER 04/18 - no sourse , knee exam as per SX - off abx- resolved - 2 L O2 - start IS - inproved , at night only Delirium 04/18 - confusion resolved , anxiety now Lines : periph , (Central Line Necessity Reviewed) Harvey: out 04/21 Nutrition: po Analgesia: Anxiety/ delirium VTE Prophylaxis: eliquis Stress Ulcer Prophylaxis: na Plans in collaboration with bedside consultants and IM MDs. Discussed with RN to reach out if any questions or concerns Case and care daily discussed on multidisciplinary rounds ( RN, PharmD, Utility Clerk , Respiratory Therapy, creamery worker ) A total of 5 minutes of critical care time was devoted to this patient today, required to treat and/or prevent further deterioration of critical care condition ( as above I am remotely monitoring this patient from another state. I am unable to do the bedside exam, and history/physical and pertinent information is taken from other notes in the computer and bedside staff. Sepsis Event Evaluation Height, Weight, BMI Height: '" Weight: lbs. oz. kg; 39.62 BMI Method: Exam Exam Patient acknowledged, consented, and participated in this virtual visit which was conducted using real time audio/video Vital Signs Date Time Temp Pulse Resp B/P (MAP) Pulse Ox O2 Delivery O2 Flow Rate FiO2 04/25/23 10:00 76 21 144/70 (94) 97 Nasal Cannula 2.00 04/25/23 09:20 76 04/25/23 09:01 94 Nasal Cannula 2.00 04/25/23 09:00 77 17 94 Nasal Cannula 2.00 04/25/23 08:34 36.6 04/25/23 08:00 79 23 163/88 (104) 93 Nasal Cannula 2.00 04/25/23 07:26 97 Room Air 04/25/23 07:00 74 25 168/90 (116) 93 Nasal Cannula 2.00 04/25/23 07:00 75 04/25/23 06:00 77 22 156/80 (105) 93 Nasal Cannula 2.00 04/25/23 05:00 71 28 141/72 (95) 96 Nasal Cannula 2.00 04/25/23 04:00 36.7 Nasal Cannula 2.00 04/25/23 04:00 84 21 144/73 (96) 95 Nasal Cannula 2.00 04/25/23 03:00 71 22 134/67 (89) 92 Nasal Cannula 2.00 04/25/23 02:00 73 19 128/71 (90) 94 Nasal Cannula 2.00 04/25/23 01:00 73 04/25/23 01:00 72 24 135/76 (95) 93 Nasal Cannula 2.00 04/25/23 00:49 71 04/25/23 00:00 79 21 140/79 (99) 93 Nasal Cannula 2.00 04/25/23 00:00 36.6 Nasal Cannula 2.00 04/24/23 22:45 89 24 146/72 (96) 95 Nasal Cannula 2.00 04/24/23 22:36 88 04/24/23 22:30 86 22 134/77 (96) 93 Nasal Cannula 2.00 04/24/23 22:15 85 22 131/69 (89) 93 Room Air 04/24/23 21:45 87 19 146/89 (108) 90 Room Air 04/24/23 21:30 86 12 171/84 (113) 95 Room Air 04/24/23 21:15 88 18 95 Room Air 04/24/23 21:00 36.5 97 12 153/82 (105) 95 Room Air 04/24/23 20:45 96 Room Air 04/24/23 19:20 36.5 88 18 148/76 (100) 98 Room Air 04/24/23 19:00 80 04/24/23 17:59 77 140/69 (92) 04/24/23 16:06 36.5 79 22 145/75 (98) 95 Room Air 04/24/23 15:24 36.4 78 97 04/24/23 15:23 97 Room Air 0.00 04/24/23 14:04 36.4 78 17 125/58 (80) 93 Room Air 04/24/23 14:04 36.4 78 17 125/58 (80) 93 Room Air 04/24/23 13:30 73 04/24/23 12:25 78 04/24/23 12:00 95 Room Air 0.00 04/24/23 12:00 75 21 135/58 (83) 96 Room Air 04/24/23 11:26 96 Room Air 0.00 04/24/23 11:00 73 11 118/104 (109) 95 Room Air 04/24/23 10:39 92 I & O 04/25/23 06:59 Intake Total 660 ml Output Total 1350 ml Balance -690 ml Height & Weight Height: '" Weight: lbs. oz. kg; 39.62 BMI Method: General Appearance: No Apparent Distress, WD/WN, Anxious HEENT: Normal ENT Inspection, Moist Mucous Membranes; No Scleral Icterus (L), No Scleral Icterus (R) Neck: Normal Inspection, Supple Respiratory: Chest Non Tender, Lungs Clear, Normal Breath Sounds, No Accessory Muscle Use, No Respiratory Distress Cardiovascular: Regular Rate, Rhythm, No Edema, No Gallop, Normal Peripheral Pulses, Systolic Murmur Capillary Refill: Less Than 3 Seconds Gastrointestinal: normal bowel sounds, non tender, soft Extremity: Normal Capillary Refill, Normal Inspection, Non Tender, No Calf Tenderness, No Pedal Edema Neurologic/Psychiatric: Alert, Oriented x3, No Motor/Sensory Deficits, Normal Mood/Affect, cutter hand II-XII Norm as Tested Skin: Normal Color, Warm/Dry Lymphatic: No Adenopathy Results Lab Laboratory Tests 04/24/23 04:11 04/25/23 04:11 04/25/23 08:26 Assessment/Plan Assessment/Plan 1 ALVA ELLSWORTH MD Apr 25, 2023 10:29
--- NOTE | 2023-04-25 11:40 | Physical Therapy Progress Note ---
Therapy Progress Note Patient transferred to ICU from 4th, will need new orders to continue therapy. ERNESTINE CALDERON PT Apr 25, 2023 11:40
[2023-04-25] MEDS: CELECOXIB 400 MG CAPSULE PO SCH (13:36)
[2023-04-25] MEDS: GABAPENTIN 300 MG CAPSULE PO SCH (21:28)
[2023-04-25] MEDS: TEMAZEPAM 15 MG (RESTORIL) CAP PO PRN (22:47)
[2023-04-25] MEDS: ACETAMINOPHEN 325 MG/10.15 ML ORAL SOLN UDC PO PRN (22:47)
[2023-04-26] VITALS (11 sets, daily range): BP systolic 116–159; BP diastolic 57–87
[2023-04-26 04:28] LABS: BASOPHILS # (AUTO) 0.1 10^3/uL (0.0-0.1); BASOPHILS % (AUTO) 1 % (0-10); EOSINOPHILS # (AUTO) 0.5 10^3/uL (0.0-0.3); EOSINOPHILS % (AUTO) 4 % (0-10); HEMATOCRIT 27 % (35-52); HEMOGLOBIN 8.7 g/dL (11.5-16.0); LYMPHOCYTES # (AUTO) 2.9 10^3/uL (1.0-4.0); LYMPHOCYTES % (AUTO) 25 % (12-44); MEAN CORPUSCULAR HEMOGLOBIN 29 pg (25-34); MEAN CORPUSCULAR HGB CONC 32 g/dL (32-36); MEAN CORPUSCULAR VOLUME 93 fL (80-99); MEAN PLATELET VOLUME 9.7 fL (9.0-12.2); MONOCYTES % (AUTO) 9 % (0-12); NEUTROPHILS # (AUTO) 7.4 10^3/uL (1.8-7.8); NEUTROPHILS % (AUTO) 62 % (42-75); PLATELET COUNT 457 10^3/uL (130-400); WHITE BLOOD COUNT 11.9 10^3/uL (4.3-11.0)
[2023-04-26 04:41] LABS: ALBUMIN 2.7 GM/DL (3.2-4.5); POTASSIUM 3.4 MMOL/L (3.6-5.0)
[2023-04-26 04:42] LABS: CALCIUM 8.7 MG/DL (8.5-10.1)
[2023-04-26 04:44] LABS: TOTAL PROTEIN 5.9 GM/DL (6.4-8.2)
[2023-04-26 04:47] LABS: CREATININE SERUM 0.61 MG/DL (0.60-1.30)
[2023-04-26 04:50] LABS: MAGNESIUM 2.1 MG/DL (1.6-2.4)
--- NOTE | 2023-04-26 05:26 | Progress Note ---
Standard Progress Note Progress Notes/Assess & Plan Date Seen by a Provider: Apr 26, 2023 Time Seen by a Provider: 05:21 Progress/Assessment & Plan post op check No complaints has been in Afib since leads placed in OR radiographs--HW well positioned without fracture RLE-- 2 plus DP pulse with brisk cap refill intact DF and PF of toes and ankle sensation intact to light touch throughout s/p RTKA Dr Flores evaluating for Afib mobilize when able Final Diagnosis no complaints Vital Signs Date Time Temp Pulse Resp B/P (MAP) Pulse Ox O2 Delivery O2 Flow Rate FiO2 04/26/23 03:00 62 25 133/67 (92) 96 Nasal Cannula 2.00 04/26/23 02:00 62 23 140/68 (92) 97 Nasal Cannula 2.00 04/26/23 01:00 61 04/26/23 01:00 60 21 122/59 (84) 97 Nasal Cannula 2.00 04/26/23 00:27 36.2 04/26/23 00:00 59 29 116/57 (77) 97 Nasal Cannula 2.00 04/25/23 23:28 64 04/25/23 23:00 67 15 138/68 (91) 95 Nasal Cannula 2.00 04/25/23 22:00 70 29 149/100 (116) 97 Nasal Cannula 2.00 04/25/23 21:28 71 04/25/23 21:00 72 29 163/81 (108) 98 Nasal Cannula 2.00 04/25/23 20:45 36.1 72 16 157/70 (107) 97 Nasal Cannula 2.00 04/25/23 20:30 69 31 148/73 (106) 97 Nasal Cannula 2.00 04/25/23 20:15 72 151/80 (110) 97 Nasal Cannula 2.00 04/25/23 20:00 96 Nasal Cannula 2.00 04/25/23 20:00 72 19 133/110 (117) 96 Nasal Cannula 2.00 04/25/23 19:30 69 143/72 (94) 97 Nasal Cannula 2.00 04/25/23 19:15 67 144/78 (92) 96 Nasal Cannula 2.00 04/25/23 19:00 68 04/25/23 19:00 67 142/73 (105) 96 Nasal Cannula 2.00 10/20/23 18:56 96 Nasal Cannula 2.00 04/25/23 16:00 67 20 139/72 (86) 97 Nasal Cannula 2.00 04/25/23 12:37 69 04/25/23 12:00 68 27 150/75 (103) 96 Nasal Cannula 2.00 04/25/23 11:20 66 04/25/23 10:00 76 21 144/70 (94) 97 Nasal Cannula 2.00 04/25/23 09:20 76 04/25/23 09:01 94 Nasal Cannula 2.00 04/25/23 09:00 77 17 94 Nasal Cannula 2.00 04/25/23 08:34 36.6 04/25/23 08:00 96 Room Air 04/25/23 08:00 79 23 163/88 (104) 93 Nasal Cannula 2.00 04/25/23 07:26 97 Room Air 04/25/23 07:00 74 25 168/90 (116) 93 Nasal Cannula 2.00 04/25/23 07:00 75 04/25/23 06:00 77 22 156/80 (105) 93 Nasal Cannula 2.00 I & O 04/26/23 07:00 Intake Total 950 ml Output Total 500 ml Balance 450 ml Laboratory Tests Test 04/25/23 08:26 04/26/23 04:03 Range/Units Sodium Level 139 140 135-145 MMOL/L Potassium Level 3.5 L 3.4 L 3.6-5.0 MMOL/L Chloride Level 103 106 98-107 MMOL/L Carbon Dioxide Level 26 27 21-32 MMOL/L Anion Gap 10 7 5-14 MMOL/L Blood Urea Nitrogen 9 9 7-18 MG/DL Creatinine 0.57 L 0.61 0.60-1.30 MG/DL Estimat Glomerular Filtration Rate 95 94 BUN/Creatinine Ratio 16 15 Glucose Level 92 89 70-105 MG/DL Calcium Level 8.6 8.7 8.5-10.1 MG/DL White Blood Count 11.9 H 4.3-11.0 10^3/uL Red Blood Count 2.96 L 3.80-5.11 10^6/uL Hemoglobin 8.7 L 11.5-16.0 g/dL Hematocrit 27 L 35-52 % Mean Corpuscular Volume 93 80-99 fL Mean Corpuscular Hemoglobin 29 25-34 pg Mean Corpuscular Hemoglobin Concent 32 32-36 g/dL Red Cell Distribution Width 13.4 10.0-14.5 % Platelet Count 457 H 130-400 10^3/uL Mean Platelet Volume 9.7 9.0-12.2 fL Immature Granulocyte % (Auto) 1 % Neutrophils (%) (Auto) 62 42-75 % Lymphocytes (%) (Auto) 25 12-44 % Monocytes (%) (Auto) 9 0-12 % Eosinophils (%) (Auto) 4 0-10 % Basophils (%) (Auto) 1 0-10 % Neutrophils # (Auto) 7.4 1.8-7.8 10^3/uL Lymphocytes # (Auto) 2.9 1.0-4.0 10^3/uL Monocytes # (Auto) 1.0 0.0-1.0 10^3/uL Eosinophils # (Auto) 0.5 H 0.0-0.3 10^3/uL Basophils # (Auto) 0.1 0.0-0.1 10^3/uL Immature Granulocyte # (Auto) 0.1 0.0-0.1 10^3/uL Corrected Calcium 9.7 8.5-10.1 MG/DL Magnesium Level 2.1 1.6-2.4 MG/DL Total Bilirubin 1.0 0.1-1.0 MG/DL Aspartate Amino Transf (AST/SGOT) 29 5-34 U/L Alanine Aminotransferase (ALT/SGPT) 20 0-55 U/L Alkaline Phosphatase 57 40-136 U/L Total Protein 5.9 L 6.4-8.2 GM/DL Albumin 2.7 L 3.2-4.5 GM/DL R knee incision without erythema or warmth no calf tenderness s/p RTKA HI Friday KALEIGH ARTHUR MD Apr 26, 2023 05:26
[2023-04-26] MEDS: meTOprolol INJECTION 5 MG/5 ML VIAL IV SCH ×3 (06:05→17:48)
[2023-04-26] MEDS: CYANOCOBALAMIN 1,000 MCG TABLET PO SCH (06:05)
[2023-04-26] MEDS: THERAPEUTIC MULTIVITAMIN W/MINERALS TABLET PO SCH (06:06)
[2023-04-26 08:32] LABS: POTASSIUM 3.5 MMOL/L (3.6-5.0)
[2023-04-26 08:33] LABS: CALCIUM 8.9 MG/DL (8.5-10.1)
--- NOTE | 2023-04-26 08:35 | Tele-ICU Progress Note ---
Progress Note video rounds completed 73 y/o female admitted with knee osteoarthritis and A fib/rvr A fib has resolved and being followed by cardiology. Was admitted for sotolol loading. PE: comfortable appearing lying in bed HR: 75 NSR O2 sat:: 95% IMP: a fib/RVR: resolved followed by catrdiology No new issues PLAN: as per cardiologyTele-ICU Physician , Progress Note ) Service provided via interactive audio and video telecommunications E-CARE system to a patient admitted to ICU bed in [facility]. Patient is seen today due to persistent need of ICU care I am remotely monitoring this patient from another state. I am unable to do the bedside exam, and history/physical and pertinent information is taken from other notes in the computer and bedside staff. . 04/24/23 13:00 61 142/82 04/24/23 12:29 65 04/24/23 12:00 92 High Flow N/C 2.00 04/24/23 12:00 55 148/80 (102) 92 Nasal Cannula 2.00 04/24/23 11:45 36.4 Nasal Cannula 2.00 04/24/23 11:34 96 High Flow N/C 1.00 04/24/23 11:00 71 105/71 (82) 97 Nasal Cannula 2.00 Focused Exam Height, Weight, BMI Height: '" Weight: lbs. oz. kg; 39.62 BMI Method: Labs Laboratory Tests 04/26/23 04:03 04/26/23 08:11 Results Results/Procedures Labs Laboratory Tests 04/25/23 04:11 04/25/23 08:26 04/26/23 04:03 04/26/23 08:11 Patient resulted labs reviewed. Results Labs Labs Laboratory Tests 04/26/23 04:03: White Blood Count 11.9H, Red Blood Count 2.96L, Hemoglobin 8.7L, Hematocrit 27L, Mean Corpuscular Volume 93, Mean Corpuscular Hemoglobin 29, Mean Corpuscular Hemoglobin Concent 32, Red Cell Distribution Width 13.4, Platelet Count 457H, Mean Platelet Volume 9.7, Immature Granulocyte % (Auto) 1, Neutrophils (%) (Auto) 62, Lymphocytes (%) (Auto) 25, Monocytes (%) (Auto) 9, Eosinophils (%) (Auto) 4, Basophils (%) (Auto) 1, Neutrophils # (Auto) 7.4, Lymphocytes # (Auto) 2.9, Monocytes # (Auto) 1.0, Eosinophils # (Auto) 0.5H, Basophils # (Auto) 0.1, Immature Granulocyte # (Auto) 0.1, Sodium Level 140, Potassium Level 3.4L, Chloride Level 106, Carbon Dioxide Level 27, Anion Gap 7, Blood Urea Nitrogen 9, Creatinine 0.61, Estimat Glomerular Filtration Rate 94, BUN/Creatinine Ratio 15, Glucose Level 89, Calcium Level 8.7, Corrected Calcium 9.7, Magnesium Level 2.1, Total Bilirubin 1.0, Aspartate Amino Transf (AST/SGOT) 29, Alanine Aminotransferase (ALT/SGPT) 20, Alkaline Phosphatase 57, Total Protein 5.9L, Albumin 2.7L 04/26/23 08:11: Sodium Level 140, Potassium Level 3.5L, Chloride Level 105, Glucose Level 104, Calcium Level 8.9 Microbiology 04/18/23 Blood Culture - Final, Complete 04/18/23 MRSA Screen - Final, Complete MRSA not isolated MARY SANTOS MD Apr 26, 2023 08:35
[2023-04-26] MEDS: IRON SUCROSE 200 MG/10 ML VIAL IV SCH (08:36)
[2023-04-26 08:37] LABS: CREATININE SERUM 0.6 MG/DL (0.60-1.30)
[2023-04-26] MEDS: CYCLOBENZAPRINE 10 MG TABLET PO PRN (08:37)
[2023-04-26] MEDS: ASPIRIN enteric coated 81MG TABLET PO SCH (08:37)
[2023-04-26] MEDS: APIXABAN 5 MG TABLET PO SCH ×2 (08:37→21:55)
[2023-04-26] MEDS: CELECOXIB 400 MG CAPSULE PO SCH (08:37)
[2023-04-26] MEDS: LORATADINE 10 MG TABLET PO SCH (08:37)
[2023-04-26] MEDS: dilTIAZem ER 120 MG CAPSULE PO SCH (08:37)
[2023-04-26] MEDS: SOTALOL 80 MG TABLET PO SCH ×2 (08:38→21:55)
[2023-04-26] MEDS: SENNA W/DOCUSATE TABLET PO SCH ×2 (08:43→22:01)
--- NOTE | 2023-04-26 10:27 | Progress Note - Hospitalist ---
Subjective HPI/CC On Admission Date Seen by Provider: Apr 26, 2023 Time Seen by Provider: 11:00 04/16/2023: CC: R-TKA, AFib HPI: Shakira is a 73 year old female that is status post operative on her right knee for a total knee arthroplasty. Prior to surgery, her heart rate and rhythm was normal. After being in the OR, she was presenting with AFib. When talking to Shakira, she noted that she was slightly uncomfortable in her knee. She denied any chest pain or AMS. Furthermore, she notes that she feels a little bit anxious. Shakira notes that she is excited for her knee to be fixed. She also endorses some depression that she is currently managing. Overall, her main concern is that she has some pain in her right knee. She denies any other concerns. Her pain is a 6/10. The pain is dull and achy. Subjective/Events-last exam Doing well Getting up in a chair today Slow recovery needs NH at [place] Reviewed meds and labs Sotalol maintained Review of Systems General: Fatigue Musculoskeletal: leg pain Objective Exam Vital Signs Vital Signs Date Time Temp Pulse Resp B/P (MAP) Pulse Ox O2 Delivery O2 Flow Rate FiO2 04/27/23 04:00 36.3 68 29 142/72 (97) 92 Nasal Cannula 2.00 04/23/23 10:23 28 Capillary Refill : Less Than 3 SecondsLess Than 3 Seconds General Appearance: No Apparent Distress, WD/WN, Chronically ill Respiratory: Lungs Clear, Normal Breath Sounds Cardiovascular: Regular Rate, Rhythm Neurologic/Psychiatric: Alert, Oriented x3 Results/Procedures Lab Laboratory Tests 04/26/23 08:11 04/27/23 04:21 Patient resulted labs reviewed. Assessment/Plan Assessment and Plan Assess & Plan/Chief Complaint Monitor closely Pain control Appreciate Cardiology Critical Care Critically Ill Patient JOHNIEROCHELLE ZARCO Apr 26, 2023 10:27
[2023-04-26] MEDS ORDERED: meTOprolol INJECTION 5 MG/5 ML VIAL IV PRN (19:30)
--- NOTE | 2023-04-26 19:30 | Cardiology Progress Note ---
Subjective Date Seen by Provider: Apr 26, 2023 Time Seen by Provider: 12:00 Subjective/Events-last exam No acute issues overnight. Patient doing reasonably well calcium down to 3.4 tolerating sotalol without any issues. QTc has only been as high as 468 post sotalol dosing. Has received a total of 3 doses so far Objective-Cardiology Exam Last Set of Vital Signs Vital Signs 04/23/23 04/26/23 04/26/23 04/26/23 04/26/23: 08:21 16:00 19:00 19:08 Temp 36.6 Pulse 70 Resp 25 B/P (MAP) 118/73 (97) Pulse Ox 91 O2 Delivery Nasal Cannula O2 Flow Rate 2.00 FiO2 28 I&O Intake and Output 04/26/23 00:00 Intake Total 1190 ml Output Total 500 ml Balance 690 ml Intake Oral 1190 ml Output Urine Total 500 ml # Voids 7 General: Alert, Oriented X3, Mild Distress HEENT: Atraumatic Neck: Supple, No JVD, No Thyromegaly Lungs: Other (expiratory wheezing, bibasilar rales) Heart: Regular Rate, Normal S1, Normal S2, No Murmurs Abdomen: Soft, No Tenderness Extremities: Normal Pulses Skin: No Rashes, No Breakdown, No Significant Lesion Neuro: Normal Speech Psych/Mental Status: Mental Status NL, Mood NL Other physical findings General: Alert, Oriented X3, Mild Distress HEENT: Atraumatic Neck: Supple, No JVD, No Thyromegaly Lungs: Other (expiratory wheezing, bibasilar rales) Heart: Regular Rate, Normal S1, Normal S2, No Murmurs Abdomen: Soft, No Tenderness Extremities: Normal Pulses Skin: No Rashes, No Breakdown, No Significant Lesion Neuro: Normal Speech Psych/Mental Status: Mental Status NL, Mood NL Results Lab Laboratory Tests 04/26/23 04:03 04/26/23 08:11 A/P-Cardiology Admission Diagnosis Atrial fibrillation Hypertension Hyperlipidemia Reactive airway disease Assessment/Plan 73F with ## Hyperthyroidism, thyroid storm - cont methimazole 5 mg 3 times daily and appears to be responding well to treatment. ## Paroxysmal atrial fibrillation/atrial flutter- [id number] score of 3. continues in NSR. on Eliquis; Unable to use amiodarone due to hyperthyroidism and thyroid storm and did not respond well to Multaq - Has received 3 of 5 starter doses of sotalol 80 bid; Qtc monitoring only with QTc as high as 468ms; - cont current dosing. After five doses, will be ready to consider d/c from cards standpoint. 2D echo done in December 2022 with moderate LVH, ejection fraction 55 to 60%. Otherwise no significant abnormality reported CHADVASC score 3, will start on Eliquis and evaluate tolerance and response ## Hypertension, monitor blood pressure; SBP 110-160 but primarily in 150s. - cont diltiazem po; increase to 180 QD ## Status post knee replacement surgery, recovering, managed by RANDEE Fontana MD Apr 26, 2023 7:30 pm
[2023-04-26] MEDS: GABAPENTIN 300 MG CAPSULE PO SCH (21:55)
[2023-04-26] MEDS: TEMAZEPAM 15 MG (RESTORIL) CAP PO PRN (21:55)
[2023-04-27 00:19] VITALS: BP 134/79
[2023-04-27 04:00] VITALS: BP 142/72
[2023-04-27 05:24] LABS: BASOPHILS # (AUTO) 0.1 10^3/uL (0.0-0.1); BASOPHILS % (AUTO) 0 % (0-10); EOSINOPHILS # (AUTO) 0.5 10^3/uL (0.0-0.3); EOSINOPHILS % (AUTO) 3 % (0-10); HEMATOCRIT 29 % (35-52); HEMOGLOBIN 9.2 g/dL (11.5-16.0); LYMPHOCYTES # (AUTO) 3.3 10^3/uL (1.0-4.0); LYMPHOCYTES % (AUTO) 23 % (12-44); MEAN CORPUSCULAR HEMOGLOBIN 29 pg (25-34); MEAN CORPUSCULAR HGB CONC 32 g/dL (32-36); MEAN CORPUSCULAR VOLUME 93 fL (80-99); MEAN PLATELET VOLUME 10.1 fL (9.0-12.2); MONOCYTES # (AUTO) 1.2 10^3/uL (0.0-1.0); MONOCYTES % (AUTO) 8 % (0-12); NEUTROPHILS # (AUTO) 8.9 10^3/uL (1.8-7.8); NEUTROPHILS % (AUTO) 64 % (42-75); PLATELET COUNT 469 10^3/uL (130-400); WHITE BLOOD COUNT 13.9 10^3/uL (4.3-11.0)
[2023-04-27 05:34] LABS: ALBUMIN 2.8 GM/DL (3.2-4.5); POTASSIUM 3.7 MMOL/L (3.6-5.0)
[2023-04-27 05:35] LABS: CALCIUM 8.8 MG/DL (8.5-10.1)
[2023-04-27 05:36] LABS: TOTAL PROTEIN 6.2 GM/DL (6.4-8.2)
[2023-04-27 05:38] LABS: BILIRUBIN,TOTAL 0.8 MG/DL (0.1-1.0)
[2023-04-27 05:40] LABS: CREATININE SERUM 0.61 MG/DL (0.60-1.30)
[2023-04-27 05:43] LABS: MAGNESIUM 2.1 MG/DL (1.6-2.4)
--- NOTE | 2023-04-27 06:22 | Progress Note - Hospitalist ---
Subjective HPI/CC On Admission Date Seen by Provider: Apr 27, 2023 Time Seen by Provider: 09:00 04/16/2023: CC: R-TKA, AFib HPI: Shakira is a 73 year old female that is status post operative on her right knee for a total knee arthroplasty. Prior to surgery, her heart rate and rhythm was normal. After being in the OR, she was presenting with AFib. When talking to Shakira, she noted that she was slightly uncomfortable in her knee. She denied any chest pain or AMS. Furthermore, she notes that she feels a little bit anxious. Shakira notes that she is excited for her knee to be fixed. She also endorses some depression that she is currently managing. Overall, her main concern is that she has some pain in her right knee. She denies any other concerns. Her pain is a 6/10. The pain is dull and achy. Subjective/Events-last exam Patient improved Remains normal sinus rhythm Sotalol working very well Bowels are moving Pain is controlled Review of Systems General: Fatigue, Malaise Objective Exam Vital Signs Vital Signs Date Time Temp Pulse Resp B/P (MAP) Pulse Ox O2 Delivery O2 Flow Rate FiO2 04/27/23 16:03 60 26 93 Room Air 04/27/23 14:39 36.5 04/27/23 08:00 149/71 (97) 04/27/23 07:14 21 04/27/23 07:08 0.00 Capillary Refill : Less Than 3 SecondsLess Than 3 Seconds General Appearance: No Apparent Distress, WD/WN, Chronically ill Respiratory: Lungs Clear, Normal Breath Sounds Cardiovascular: Regular Rate, Rhythm Neurologic/Psychiatric: Alert, Oriented x3 Results/Procedures Lab Laboratory Tests 04/27/23 04:21 Patient resulted labs reviewed. Assessment/Plan Assessment and Plan Assess & Plan/Chief Complaint Monitor closely Pain control Appreciate Cardiology Critical Care Critically Ill Patient JOHNIEROCHELLE ZARCO Apr 27, 2023 06:22
[2023-04-27] MEDS: CYANOCOBALAMIN 1,000 MCG TABLET PO SCH (06:23)
[2023-04-27] MEDS: THERAPEUTIC MULTIVITAMIN W/MINERALS TABLET PO SCH (06:23)
--- NOTE | 2023-04-27 06:44 | Cardiology Progress Note ---
Subjective Date Seen by Provider: Apr 27, 2023 Time Seen by Provider: 06:30 Subjective/Events-last exam No acute issues overnight. Patient doing reasonably well. Continued in normal sinus rhythm. Objective-Cardiology Exam Last Set of Vital Signs Vital Signs 04/23/23 04/27/23 10: 04:00 Temp 36.3 Pulse 68 Resp 29 B/P (MAP) 142/72 (97) Pulse Ox 92 O2 Delivery Nasal Cannula O2 Flow Rate 2.00 FiO2 28 I&O Intake and Output 04/27/23 00:00 Intake Total 900 ml Output Total 400 ml Balance 500 ml Intake Oral 900 ml Output Urine Total 400 ml # Voids 5 # Urine Diapers 2 # Bowel Movements 2 General: Alert, Oriented X3, Mild Distress HEENT: Atraumatic Neck: Supple, No JVD, No Thyromegaly Lungs: Other (expiratory wheezing, bibasilar rales) Heart: Regular Rate, Normal S1, Normal S2, No Murmurs Abdomen: Soft, No Tenderness Extremities: Normal Pulses Skin: No Rashes, No Breakdown, No Significant Lesion Neuro: Normal Speech Psych/Mental Status: Mental Status NL, Mood NL Results Lab Laboratory Tests 04/26/23 08:11 04/27/23 04:21 A/P-Cardiology Admission Diagnosis Atrial fibrillation Hypertension Hyperlipidemia Reactive airway disease Assessment/Plan ## Hyperthyroidism, thyroid storm - cont methimazole 5 mg 3 times daily and appears to be responding well to treatment. ## Paroxysmal atrial fibrillation/atrial flutter- [id number] score of 3. continues in NSR. on Eliquis; Unable to use amiodarone due to hyperthyroidism and thyroid storm and did not respond well to Multaq. 2D echo done in December 2022 with moderate LVH, ejection fraction 55 to 60%. - Has received 5 of 5 starter doses of sotalol 80 bid; Qtc monitoring in tolerable ranges (QTC form 10-21 after sotalol were 443 and 464ms, respectively). - no need for continued EKGs after each dose. - cont sotalol 80m gpo BID at this time. - cont eliquis ## Hypertension, monitor blood pressure; SBP 110-150 but primarily in 150s. - cont diltiazem po at 180 QD ## Status post knee replacement surgery, recovering, managed by Dr. ARTHUR ## Disposition: - OK to consider d/c from cards standpoint. RANDEE MCKEON MD Apr 27, 2023 6:44 am
[2023-04-27 07:14] VITALS: BP 142/72
[2023-04-27 08:00] VITALS: BP 149/71
[2023-04-27] MEDS: ASPIRIN enteric coated 81MG TABLET PO SCH (08:43)
[2023-04-27] MEDS: dilTIAZem ER 180 MG CAPSULE PO SCH (08:44)
[2023-04-27] MEDS: SOTALOL 80 MG TABLET PO SCH ×2 (08:44→20:38)
[2023-04-27] MEDS: LORATADINE 10 MG TABLET PO SCH (08:44)
[2023-04-27] MEDS: CELECOXIB 400 MG CAPSULE PO SCH (08:45)
[2023-04-27] MEDS: SENNA W/DOCUSATE TABLET PO SCH ×2 (08:45→21:00)
[2023-04-27] MEDS: APIXABAN 5 MG TABLET PO SCH ×2 (08:45→20:39)
[2023-04-27] MEDS: ALPRAZolam 0.25 MG TABLET PO PRN (08:47)
[2023-04-27] MEDS: CYCLOBENZAPRINE 10 MG TABLET PO PRN (14:40)
[2023-04-27 20:00] VITALS: BP 138/63
[2023-04-27] MEDS: GABAPENTIN 300 MG CAPSULE PO SCH (20:38)
[2023-04-27] MEDS: TEMAZEPAM 15 MG (RESTORIL) CAP PO PRN (21:49)
[2023-04-28] VITALS: BP 133/73
[2023-04-28 04:00] VITALS: BP 137/76
[2023-04-28 04:47] LABS: BASOPHILS # (AUTO) 0.1 10^3/uL (0.0-0.1); BASOPHILS % (AUTO) 0 % (0-10); EOSINOPHILS # (AUTO) 0.5 10^3/uL (0.0-0.3); EOSINOPHILS % (AUTO) 4 % (0-10); HEMATOCRIT 30 % (35-52); HEMOGLOBIN 9.3 g/dL (11.5-16.0); LYMPHOCYTES # (AUTO) 3.6 10^3/uL (1.0-4.0); LYMPHOCYTES % (AUTO) 29 % (12-44); MEAN CORPUSCULAR HEMOGLOBIN 29 pg (25-34); MEAN CORPUSCULAR HGB CONC 31 g/dL (32-36); MEAN CORPUSCULAR VOLUME 92 fL (80-99); MEAN PLATELET VOLUME 9.6 fL (9.0-12.2); MONOCYTES # (AUTO) 1.1 10^3/uL (0.0-1.0); MONOCYTES % (AUTO) 9 % (0-12); NEUTROPHILS # (AUTO) 7.2 10^3/uL (1.8-7.8); NEUTROPHILS % (AUTO) 58 % (42-75); PLATELET COUNT 516 10^3/uL (130-400); WHITE BLOOD COUNT 12.5 10^3/uL (4.3-11.0)
[2023-04-28 04:59] LABS: ALBUMIN 2.8 GM/DL (3.2-4.5); POTASSIUM 3.6 MMOL/L (3.6-5.0)
[2023-04-28 05:00] LABS: CALCIUM 8.7 MG/DL (8.5-10.1)
[2023-04-28 05:01] LABS: TOTAL PROTEIN 6.3 GM/DL (6.4-8.2)
[2023-04-28 05:03] LABS: BILIRUBIN,TOTAL 0.8 MG/DL (0.1-1.0)
[2023-04-28 05:05] LABS: CREATININE SERUM 0.68 MG/DL (0.60-1.30)
[2023-04-28 05:08] LABS: MAGNESIUM 2.1 MG/DL (1.6-2.4)
[2023-04-28] MEDS: CYANOCOBALAMIN 1,000 MCG TABLET PO SCH (06:11)
[2023-04-28] MEDS: THERAPEUTIC MULTIVITAMIN W/MINERALS TABLET PO SCH (06:11)
--- NOTE | 2023-04-28 07:43 | Progress Note ---
Standard Progress Note Progress Notes/Assess & Plan Date Seen by a Provider: Apr 28, 2023 Time Seen by a Provider: 07:42 Progress/Assessment & Plan post op check No complaints has been in Afib since leads placed in OR radiographs--HW well positioned without fracture RLE-- 2 plus DP pulse with brisk cap refill intact DF and PF of toes and ankle sensation intact to light touch throughout s/p RTKA Dr Flores evaluating for Afib mobilize when able Final Diagnosis no complaints Vital Signs Date Time Temp Pulse Resp B/P (MAP) Pulse Ox O2 Delivery O2 Flow Rate FiO2 04/28/23 07:00 69 04/28/23 04:00 64 27 137/76 (96) 92 Room Air 04/28/23 01:00 65 04/28/23 00:00 65 28 133/73 (93) 93 Room Air 04/27/23 20:38 78 04/27/23 20:00 72 20 138/63 (88) 91 Room Air 04/27/23 20:00 95 Room Air 04/27/23 19:00 76 04/27/23 18:43 94 Room Air 04/27/23 16:03 60 26 93 Room Air 04/27/23 14:39 36.5 04/27/23 12:39 64 04/27/23 12:00 61 20 98 Room Air 04/27/23 10:44 61 04/27/23 08:44 75 04/27/23 08:27 96 Room Air 04/27/23 08:27 37.0 04/27/23 08:00 75 20 149/71 (97) 95 Room Air I & O 04/28/23 07:00 Intake Total 1200 ml Balance 1200 ml Laboratory Tests Test 04/28/23 04:23 Range/Units White Blood Count 12.5 H 4.3-11.0 10^3/uL Red Blood Count 3.23 L 3.80-5.11 10^6/uL Hemoglobin 9.3 L 11.5-16.0 g/dL Hematocrit 30 L 35-52 % Mean Corpuscular Volume 92 80-99 fL Mean Corpuscular Hemoglobin 29 25-34 pg Mean Corpuscular Hemoglobin Concent 31 L 32-36 g/dL Red Cell Distribution Width 14.1 10.0-14.5 % Platelet Count 516 H 130-400 10^3/uL Mean Platelet Volume 9.6 9.0-12.2 fL Immature Granulocyte % (Auto) 1 % Neutrophils (%) (Auto) 58 42-75 % Lymphocytes (%) (Auto) 29 12-44 % Monocytes (%) (Auto) 9 0-12 % Eosinophils (%) (Auto) 4 0-10 % Basophils (%) (Auto) 0 0-10 % Neutrophils # (Auto) 7.2 1.8-7.8 10^3/uL Lymphocytes # (Auto) 3.6 1.0-4.0 10^3/uL Monocytes # (Auto) 1.1 H 0.0-1.0 10^3/uL Eosinophils # (Auto) 0.5 H 0.0-0.3 10^3/uL Basophils # (Auto) 0.1 0.0-0.1 10^3/uL Immature Granulocyte # (Auto) 0.1 0.0-0.1 10^3/uL Sodium Level 139 135-145 MMOL/L Potassium Level 3.6 3.6-5.0 MMOL/L Chloride Level 106 98-107 MMOL/L Carbon Dioxide Level 25 21-32 MMOL/L Anion Gap 8 5-14 MMOL/L Blood Urea Nitrogen 11 7-18 MG/DL Creatinine 0.68 0.60-1.30 MG/DL Estimat Glomerular Filtration Rate 91 BUN/Creatinine Ratio 16 Glucose Level 95 70-105 MG/DL Calcium Level 8.7 8.5-10.1 MG/DL Corrected Calcium 9.7 8.5-10.1 MG/DL Magnesium Level 2.1 1.6-2.4 MG/DL Total Bilirubin 0.8 0.1-1.0 MG/DL Aspartate Amino Transf (AST/SGOT) 25 5-34 U/L Alanine Aminotransferase (ALT/SGPT) 19 0-55 U/L Alkaline Phosphatase 69 40-136 U/L Total Protein 6.3 L 6.4-8.2 GM/DL Albumin 2.8 L 3.2-4.5 GM/DL RLE incsion clean and dry no calf tenderness neg Melissa's s/p RTKa Dc to SNF to day KALEIGH ARTHUR MD Apr 28, 2023 07:43
--- NOTE | 2023-04-28 08:57 | Cardiology Progress Note ---
Subjective Date Seen by Provider: Apr 28, 2023 Time Seen by Provider: 08:56 Subjective/Events-last exam Patient was seen at bedside laying down comfortably, feeling better No new complain Objective-Cardiology Exam Last Set of Vital Signs Vital Signs 04/27/23 04/27/23 04/27/23 04/28/23 04/28/23 07:08 07:14 14:39 04:00 08:00 Temp 36.5 Pulse 66 Resp 23 B/P (MAP) 137/76 (96) Pulse Ox 97 O2 Delivery Room Air O2 Flow Rate 0.00 FiO2 21 I&O Intake and Output 04/28/23 00:00 Intake Total 1150 ml Output Total 200 ml Balance 950 ml Intake Oral 1150 ml Output Urine Total 200 ml # Voids 5 # Urine Diapers 1 # Bowel Movements 2 General: Alert, Oriented X3, Mild Distress HEENT: Atraumatic Neck: Supple, No JVD, No Thyromegaly Lungs: Other (expiratory wheezing, bibasilar rales) Heart: Regular Rate, Normal S1, Normal S2, No Murmurs Abdomen: Soft, No Tenderness Extremities: Normal Pulses Skin: No Rashes, No Breakdown, No Significant Lesion Neuro: Normal Speech Psych/Mental Status: Mental Status NL, Mood NL Results Lab Laboratory Tests 04/28/23 04:23 A/P-Cardiology Admission Diagnosis Atrial fibrillation Hypertension Hyperlipidemia Reactive airway disease Assessment/Plan Hyperthyroidism, thyroid storm TBG is in the lower normal limit Started methimazole 5 mg 3 times daily and appears to be responding well to melissa tment. Recommend endocrinology referral and appointment upon discharge Paroxysmal atrial fibrillation/atrial flutter Converted back to sinus rhythm, doing well Maintained on Eliquis Unable to use amiodarone due to hyperthyroidism and thyroid storm Did not respond well to Multaq Tolerated sotalol loading dose well Continue on sotalol 80 mg twice daily and Eliquis 5 mg twice daily on discharge 2D echo done in December 2022 with moderate LVH, ejection fraction 55 to 60%. Otherwise no significant abnormality reported CHADVASC score 3, will start on Eliquis and evaluate tolerance and response Hypertension, monitor blood pressure Hyperlipidemia, maintained on atorvastatin as an outpatient, Monitor lipids Status post knee replacement surgery, recovering, managed by Dr. ARTHUR Reactive airways disease, maintained on albuterol CHET SARGENT MD Apr 28, 2023 08:57
--- NOTE | 2023-04-28 09:02 | Progress Note ---
SHANNAN ROOT MD,RESIDENT 04/28/23 0902: Progress Note Assessment/Plan Time Seen by Provider: 07:30 Events since last exam No acute events overnight. Pt resting comfortable in bed. Tolerating PO, stable in SR, ambulating with walker and without additional assist. Assessment/Plan S/p R knee replacement New onset Afib with RVR --> SR PLAN: Sotalol 80 mg BID Methimazole 5 mg TID Close follow-up with cardiology on discharge Follow-up with endocrinology outpatient for hyperthyroidism/thyroid storm picture Vitals Last set of Vitals Signs Vital Signs Date Time Temp Pulse Resp B/P (MAP) Pulse Ox O2 Delivery O2 Flow Rate FiO2 04/28/23 08:00 66 23 97 Room Air 04/27/23 14:39 36.5 04/27/23 07:14 21 04/27/23 07:08 0.00 I&O I&O Intake and Output 04/28/23 00:00 Intake Total 1150 ml Output Total 200 ml Balance 950 ml Intake Oral 1150 ml Output Urine Total 200 ml # Voids 5 # Urine Diapers 1 # Bowel Movements 2 Labs Laboratory Tests 04/28/23 04:23: White Blood Count 12.5H, Red Blood Count 3.23L, Hemoglobin 9.3L, Hematocrit 30L, Mean Corpuscular Volume 92, Mean Corpuscular Hemoglobin 29, Mean Corpuscular Hemoglobin Concent 31L, Red Cell Distribution Width 14.1, Platelet Count 516H, Mean Platelet Volume 9.6, Immature Granulocyte % (Auto) 1, Neutrophils (%) (Auto) 58, Lymphocytes (%) (Auto) 29, Monocytes (%) (Auto) 9, Eosinophils (%) (Auto) 4, Basophils (%) (Auto) 0, Neutrophils # (Auto) 7.2, Lymphocytes # (Auto) 3.6, Monocytes # (Auto) 1.1H, Eosinophils # (Auto) 0.5H, Basophils # (Auto) 0.1, Immature Granulocyte # (Auto) 0.1, Sodium Level 139, Potassium Level 3.6, Chloride Level 106, Carbon Dioxide Level 25, Anion Gap 8, Blood Urea Nitrogen 11, Creatinine 0.68, Estimat Glomerular Filtration Rate 91, BUN/Creatinine Ratio 16, Glucose Level 95, Calcium Level 8.7, Corrected Calcium 9.7, Magnesium Level 2.1, Total Bilirubin 0.8, Aspartate Amino Transf (AST/SGOT) 25, Alanine Aminotransferase (ALT/SGPT) 19, Alkaline Phosphatase 69, Total Protein 6.3L, Albumin 2.8L Microbiology 04/18/23 Blood Culture - Final, Complete 04/18/23 MRSA Screen - Final, Complete MRSA not isolated Focused Exam Respiratory: Normal Breath Sounds, No Accessory Muscle Use, No Respiratory Distress Cardiovascular: Regular Rate, Rhythm Skin: warm/dry Diagnosis/Problems Diagnosis/Problems (1) Atrial fibrillation Status: Acute (2) Thyroid nodule Status: Acute (3) Status post right knee replacement Status: Acute SUJATHA KUMAR MD 04/28/23 1042: Supervisory-Addendum Brief Supervisory Addendum I personally performed the slater portions of the visit, discussed case with resident and concur with resident documentation of history, physical exam, assessment and treatment plan unless otherwise noted. Ok to discharge from medical standpoint to SNF SHANNAN ROOT MD,RESIDENT Apr 28, 2023 09:02 SUJATHA KUMAR MD Apr 28, 2023 10:42
[2023-04-28 09:30] VITALS: BP 152/87
[2023-04-28] MEDS: SOTALOL 80 MG TABLET PO SCH (09:30)
[2023-04-28] MEDS: ASPIRIN enteric coated 81MG TABLET PO SCH (09:30)
[2023-04-28] MEDS: CELECOXIB 400 MG CAPSULE PO SCH (09:30)
[2023-04-28] MEDS: dilTIAZem ER 180 MG CAPSULE PO SCH (09:30)
[2023-04-28] MEDS: APIXABAN 5 MG TABLET PO SCH (09:30)
[2023-04-28] MEDS: IRON SUCROSE 200 MG/10 ML VIAL IV SCH (09:31)
[2023-04-28] MEDS: LORATADINE 10 MG TABLET PO SCH (09:33)
[2023-04-28] MEDS: SENNA W/DOCUSATE TABLET PO SCH (09:33)
--- NOTE | 2023-04-29 01:35 | DISCHARGE SUMMARY ---
ADDENDUM Prior to the patient's schedule discharge, she developed atrial fibrillation, which required transfer to the intensive care unit where she ultimately through medical treatment by cardiology consultation was able to obtain rate control. At the time of discharge, her wound was clean and dry. Her vital signs were stable. PLAN: To discharge to long-term facility. Job ID: [id number] DocumentID: [id number] Dictated Date: 04/28/2023 07:44:38 Health Manager Date: 04/29/2023 01:34:00 Dictated By: KALEIGH ARTHUR MD
== END 2023-04-28 13:51 | DRG 981 ==
LOC: UNDOADMIN 05:50 → 4TH 05:50 → SDC 05:50 → SURG 05:51 → 4TH 05:51 → SDC 05:51 → EDSTATUS 09:00 → 4TH 10:31 → SURG 10:31 → 4TH 04-17 09:51 → UNDODISIN 04-17 16:45 → 4TH 04-18 06:19 → ICU 04-18 06:19 → 4TH 04-24 13:05 → ICU 04-24 20:38 → 4TH 04-24 20:38 → UNDODISIN 04-28 13:51
PROVIDERS: ADMIT Orthopaedic Surgery; ATTEND Orthopaedic Surgery
PROC: 0SRC0JZ Replacement of Right Knee Joint with Synthetic Substitute, Open Approach (ICD-10-PCS; principal; 2023-04-16 07:32)
DX: I48.0 Paroxysmal atrial fibrillation (principal); E05.11 Thyrotoxicosis with toxic single thyroid nodule with thyrotoxic crisis or storm; L12.0 Bullous pemphigoid; F05 Delirium due to known physiological condition; M17.11 Unilateral primary osteoarthritis, right knee; I48.92 Unspecified atrial flutter; I10 Essential (primary) hypertension; E78.5 Hyperlipidemia, unspecified; J45.909 Unspecified asthma, uncomplicated; D64.9 Anemia, unspecified; N39.3 Stress incontinence (female) (male); N32.81 Overactive bladder; F32.A Depression, unspecified; G47.00 Insomnia, unspecified; F90.9 Attention-deficit hyperactivity disorder, unspecified type; M54.16 Radiculopathy, lumbar region; Z79.899 Other long term (current) drug therapy
CPT/HCPCS: 36410; 36415; 71045; 71046; 73560; 76536; 76937; 80048; 80053; 80076; 81000; 82607; 83540; 83735; 84100; 84439; 84442; 84443; 84480; 85025; 85027; 85610; 86850; 86900; 86901; 87040; 87081; 93005; 94640; 94664; 94760

== ENCOUNTER 2023-06-11 05:45 | Outpatient (CLI) | payer MEDICARE, MEDICAID ==
[~2023-06-11] VITALS: Ht 165.1 cm; Wt 98.4 kg
[~2023-06-11 05:45] MED LIST changes: +ACET-2267 PO; +ALBU8.5H6 IH; +AMLO-250 PO; +ATOR20TA66 PO; +CELE-112 PO; +CELE400C16 PO; +OXYC1TAB11 PO; +TRAM50TA3 PO; +VILO100C PO
[2023-06-12] MEDS ORDERED: SOTA80TA62 PO (10:47)
[2023-06-12] MEDS ORDERED: METH-307 PO (10:47)
[2023-06-12] MEDS ORDERED: APIX5TAB PO (10:47)
[2023-06-18] MEDS ORDERED: CEFUROXIME INJECTION 1,500 MG in NS (IVPB) 50 ML 50 ML IV ONE (11:00)
[2023-06-18] MEDS ORDERED: LACTATED RINGERS 1,000 ML 1,000 ML IV PRN (11:00)
== END 2023-06-12 15:00 | disposition home or self-care (01) ==
LOC: PREOP 05:45
PROVIDERS: ATTEND Orthopaedic Surgery
DX: Z01.818 Encounter for other preprocedural examination (principal)